=== PATIENT | male | born 1950 | race Caucasian/White ===

== ENCOUNTER 2017-08-30 11:31 | Inpatient (IN) | payer MEDICAID, MEDICARE ==
[2017-08-30] MEDS ORDERED: Bisacodyl 10 MG Supp RECTAL PRN (14:30)
[2017-08-30] MEDS ORDERED: Calcium Carbonate 500 MG Tab.Chew PO PRN (14:30)
[2017-08-30] MEDS ORDERED: guaiFENesin 600 MG Tab.ER PO PRN (14:37)
[2017-08-30] MEDS ORDERED: Albuterol 90 MCG/6.7 GM Inhaler INH PRN (14:37)
[2017-08-30] MEDS ORDERED: Nitroglycerin 0.4 MG Tab.SL SL PRN (14:45)
--- NOTE | 2017-08-30 14:50 | PCM.HP ---
H&P History of Present Illness - General Date of Service: 08/30/17 Admit Problem/Dx: Admission Diagnosis/Problem Admission Diagnosis/Problem Intracranial hemorrhage Source of Information: Patient, Old Records History Limitations: Reports: No Limitations - History of Present Illness Initial Comments - Free Text/Narative: Patient is being admitted to half-way [facility]. He had a mechanical fall down the stairs on 08-26-17. He was diagnosed with left intraparenchymal and subarachnoid hemorrhage, right rib fracture 3 to 6, right pulmonary contusion, and right clavicle fracture. He has noted bruising on his right ear. He has a hx of spinal canal stenosis. After review of chart, I will hold the lovenox secondary to potential for worsening of intracranial bleed from falling down the stairs. At this time patient denies shortness of breath, chest pain, and abdominal pain. Patient does have right clavicle and rib pain. Patient does have hx of diabetes and is on metformin for this. He also has a hx of hypertension and CAD. There is question on hx of patient having hx of IA. Patient being admitted for PT/OT strengthening, pain control, and monitoring. Symptom Onset Date: 08/26/17 Duration of Symptoms: Reports: Day(s): Location: Reports: Head, Chest, Back Quality: Reports: Ache Improves with: Reports: Immobilization Worsens with: Reports: Movement - Related Data Allergies/Adverse Reactions: Allergies Allergy/AdvReac Type Severity Reaction Status Date / Time lisinopril Allergy Anaphylactic Verified 08/30/17 14:35 Shock Home Medications: Home Meds Acetaminophen 1,000 mg PO Q8H 08/30/17 [History] Albuterol [Proventil HFA] 2 puff INH Q6H PRN 08/30/17 [History] Aspirin [Halfprin] 81 mg PO DAILY 08/30/17 [History] Capsaicin [Theragen] 1 applic TP BID PRN 08/30/17 [History] Cholecalciferol (Vitamin D3) [Vitamin D3] 5,000 units PO DAILY 08/30/17 [History ] Cyclobenzaprine [Flexeril] 10 mg PO BID PRN 08/30/17 [History] DULoxetine [Cymbalta] 30 mg PO DAILY 08/30/17 [History] Diclofenac Sodium [Voltaren 1% Gel] 2 gm TP BID PRN 08/30/17 [History] Enoxaparin [Lovenox] 40 mg SQ DAILYX7 08/30/17 [History] Folic Acid/Multivit-Min/Lutein [Multi-Vitamin Gummies] 1 each PO DAILY 08/30/17 [History] Gabapentin [Neurontin] 800 mg PO BID 08/30/17 [History] Isosorbide Mononitrate [Imdur] 30 mg PO DAILY 08/30/17 [History] Lidocaine 5% [Lidoderm 5%] 1 patch TP DAILY PRN 08/30/17 [History] Metoprolol Tartrate 100 mg PO DAILY 08/30/17 [History] Nitroglycerin [Nitrostat] 0.4 mg SL ASDIRECTED 08/30/17 [History] Haiku-3/DHA/Epa/Fish Oil [Haiku 3 500 Softgel] 1,000 mg PO DAILY 08/30/17 [ History] Omeprazole 20 mg PO DAILY 08/30/17 [History] Sennosides/Docusate Sodium [Senna-Docusate Sodium] 1 tab PO BID 08/30/17 [ History] Tamsulosin [Flomax] 0.4 mg PO BEDTIME 08/30/17 [History] atorvaSTATin [Lipitor] 40 mg PO BEDTIME 08/30/17 [History] guaiFENesin [Mucinex] 1,200 mg PO BID PRN 08/30/17 [History] metFORMIN [Glucophage] 1,000 mg PO BIDMEALS 08/30/17 [History] oxyCODONE 5 mg PO Q4HR PRN 08/30/17 [History] oxyCODONE 10 mg PO Q4HR PRN 08/30/17 [History] traZODone 100 mg PO BEDTIME 08/30/17 [History] Past Medical History Cardiovascular History: Reports: CAD, Heart Failure, Hypertension Musculoskeletal History: Reports: Arthritis Neurological History: Reports: Other (See Below) Other Neuro History: headaches Endocrine/Metabolic History: Reports: Diabetes, Type II - Past Surgical History Cardiovascular Surgical History: Reports: Coronary Artery Bypass Social & Family History - Tobacco Use Smoking Status *Q: Former Smoker Packs/Tins Daily: 2 Used Tobacco, but Quit: Yes H&P Review of Systems - Review of Systems: Review Of Systems: See Below General: Reports: Weakness, Fatigue HEENT: Reports: No Symptoms Pulmonary: Reports: No Symptoms Cardiovascular: Reports: No Symptoms Gastrointestinal: Reports: Constipation (PRN suppository order, Miralax ordered PRN as well) Genitourinary: Reports: No Symptoms Musculoskeletal: Reports: Arm Pain (r clavicle), Back Pain (chronic) Skin: Reports: Bruising (on right ear with hematoma ecchymosis) Psychiatric: Reports: No Symptoms Neurological: Reports: No Symptoms Hematologic/Lymphatic: Reports: No Symptoms Immunologic: Reports: No Symptoms Exam - Exam Exam: See Below - Exam General: Alert, Oriented, 4 HEENT: PERRLA, Hearing Intact, Mucosa Moist & [place], Nares Patent, Normal Nasal Septum, Posterior Pharynx Clear, Conjunctiva Clear, EOMI, EACs Clear, TMs Clear Neck: Supple, Trachea Midline, 2 Lungs: Clear to Auscultation, Normal Respiratory Effort Cardiovascular: Regular Rate, Regular Rhythm GI/Abdominal Exam: Normal Bowel Sounds, Soft, Non-Tender, No Organomegaly, No Distention, No Abnormal Bruit, No Mass, Pelvis Stable (Male) Exam: Deferred Rectal (Males) Exam: Deferred Back Exam: Decreased Range of Motion (with pain) Extremities: Arm Pain (right clavicle and chest wall related to rib fracture from fall) Skin: Ecchymosis (right ear) Neurological: Cranial Nerves Intact, Reflexes Equal Bilateral Neuro Extensive - Mental Status: Alert, Oriented x3 Psychiatric: Alert, Normal Affect, Normal Mood *Q Meaningful Use (ADM) - VTE *Q VTE Criteria *Q: VTE Anticoagulation Contraindications: Medical/Procedure Contrai - Stroke *Q Stroke Criteria *Q: - AMI *Q AMI Criteria *Q: - Problem List (1) Status post fall SNOMED Code(s): 874158324 ICD Code: Z91.81 - HISTORY OF FALLING Status: Acute Current Visit: Yes Problem Details: Fell down stairs on 08-26-17 (2) Intracranial bleed SNOMED Code(s): 9974847 ICD Code: I62.9 - NONTRAUMATIC INTRACRANIAL HEMORRHAGE, UNSPECIFIED Status : Acute Current Visit: Yes Problem Details: Stable at this time. Will hold lovenox therapy. Patient on daily low aspirin (3) Right clavicle fracture SNOMED Code(s): 40034491 ICD Code: S42.001A - FRACTURE OF UNSP PART OF RIGHT CLAVICLE, INIT FOR CLOS FX Status: Acute Current Visit: Yes Problem Details: Patient currently wearing right sling Qualifiers: Encounter type: initial encounter Clavicle location: unspecified part of clavicle Fracture type: closed Fracture alignment: nondisplaced Qualified Code(s): S42.001A - Fracture of unspecified part of right clavicle, initial encounter for closed fracture (4) Ribs, multiple fractures SNOMED Code(s): 1696447 ICD Code: S22.49XA - MULTIPLE FRACTURES OF RIBS, UNSP SIDE, INIT FOR CLOS FX Status: Acute Current Visit: Yes Problem Details: Denies SOB at this time. Patient does report pain. Qualifiers: Encounter type: initial encounter Fracture type: closed Laterality: right Qualified Code(s): S22.41XA - Multiple fractures of ribs, right side, initial encounter for closed fracture (5) Diabetes SNOMED Code(s): 18040707 ICD Code: E11.9 - TYPE 2 DIABETES MELLITUS WITHOUT COMPLICATIONS Status: Acute Current Visit: Yes Problem Details: Patient currently taking metformin. Will continue regimen. Qualifiers: Diabetes mellitus type: type 2 Diabetes mellitus complication status: without complication Diabetes mellitus manager terminal insulin use: without manager terminal use Qualified Code(s): E11.9 - Type 2 diabetes mellitus without complications (6) Hypertension SNOMED Code(s): 32661661 ICD Code: I10 - ESSENTIAL (PRIMARY) HYPERTENSION Status: Acute Current Visit: Yes Problem Details: Vitals ordered daily for monitoring. Qualifiers: Hypertension type: unspecified Qualified Code(s): I10 - Essential (primary ) hypertension Problem List Initiated/Reviewed/Updated: Yes Orders Last 24hrs: Active Orders 24 hr Category Date Time Status Patient Status [ADT] Routine ADT 08/30/17 14:30 Active Ambulate [RC] ASDIRECTED Care 08/30/17 14:30 Ordered Antiembolic Devices [RC] PER UNIT ROUTINE Care 08/30/17 14:34 Ordered Height and Weight [RC] PER UNIT ROUTINE Care 08/30/17 14:33 Ordered Oxygen Therapy [RC] PRN Care 08/30/17 14:30 Ordered Up With Assistance [RC] ASDIRECTED Care 08/30/17 14:30 Ordered VTE/DVT Education [RC] PER UNIT ROUTINE Care 08/30/17 14:30 Ordered Vital Signs [RC] DAILY Care 08/30/17 14:30 Ordered Consult to Case Management [CONS] Routine Cons 08/30/17 14:30 Ordered OT Evaluation and Treatment [CONS] Routine Cons 08/30/17 14:30 Ordered PT Evaluation and Treatment [CONS] Routine Cons 08/30/17 14:30 Ordered ADA Diabetic [[place] [employer] Diet] [DIET Diet 08/30/17 Dinner Ordered ] Acetaminophen [Tylenol Extra Strength] Med 08/30/17 14:45 Ordered 1,000 mg PO Q8H Albuterol [Proventil HFA] Med 08/30/17 14:37 Ordered 2 puff INH Q6H PRN Aspirin [Halfprin] Med 08/31/17 08:00 Ordered 81 mg PO DAILY Bisacodyl [Dulcolax] Med 08/30/17 14:30 Ordered 10 mg RECTAL DAILY PRN Calcium Carbonate [Tums] Med 08/30/17 14:30 Ordered 500 mg PO Q2HR PRN Capsaicin [Theragen] Med 08/30/17 14:37 Ordered 1 applic TP BID PRN Cholecalciferol (Vitamin D3) [Vitamin D3] Med 08/31/17 08:00 Ordered 5,000 units PO DAILY Cyclobenzaprine [Flexeril] Med 08/30/17 14:37 Ordered 10 mg PO BID PRN DULoxetine [Cymbalta] Med 08/31/17 08:00 Ordered 30 mg PO DAILY Diclofenac Sodium [Voltaren 1% Gel] Med 08/30/17 14:37 Ordered 2 gm TP BID PRN Docusate Sodium/Sennosides [Senna Plus] Med 08/30/17 18:00 Ordered 1 tab PO BID Folic Acid/Multivit-Min/Lutein [Multi-Vitamin Gummies] Med 08/31/17 08:00 Ordered 1 each PO DAILY Gabapentin Med 08/30/17 18:00 Ordered 800 mg PO BID Isosorbide Mononitrate [Imdur] Med 08/31/17 08:00 Ordered 30 mg PO DAILY Lidocaine 5% [Lidoderm 5%] Med 08/31/17 08:00 Ordered 1 patch TRDERM DAILY Metoprolol Tartrate Med 08/31/17 08:00 Ordered 100 mg PO DAILY Nitroglycerin [Nitrostat] Med 08/30/17 14:45 Ordered 0.4 mg SL ASDIRECTED Haiku-3/DHA/Epa/Fish Oil [Haiku 3 500 Softgel] Med 08/31/17 08:00 Ordered 1,000 mg PO DAILY Omeprazole Med 08/31/17 08:00 Ordered 20 mg PO DAILY Polyethylene Glycol 3350 [MiraLAX] Med 08/30/17 14:30 Ordered 17 gm PO DAILY PRN Tamsulosin [Flomax] Med 08/30/17 20:00 Ordered 0.4 mg PO BEDTIME atorvaSTATin [Lipitor] Med 08/30/17 20:00 Ordered 40 mg PO BEDTIME guaiFENesin [Mucinex] Med 08/30/17 14:37 Ordered 1,200 mg PO BID PRN metFORMIN [Glucophage] Med 08/30/17 17:30 Ordered 1,000 mg PO BIDMEALS oxyCODONE Med 08/30/17 14:37 Ordered 5 mg PO Q4HR PRN traZODone Med 08/30/17 20:00 Ordered 100 mg PO BEDTIME Anticoagulation Contraindications VTE [AST] Routine Oth 08/30/17 14:30 Ordered Antiembolic Hose [OM.PC] Routine Oth 08/30/17 14:30 Ordered Resuscitation Status Routine Resus Stat 08/30/17 14:30 Ordered Medication Orders Acetaminophen (Tylenol Extra Strength) 1,000 mg PO Q8H NORM Albuterol (Proventil Hfa) 2 puff INH Q6H PRN PRN Reason: Shortness of Breath Aspirin (Halfprin) 81 mg PO DAILY NORM Atorvastatin Calcium (Lipitor) 40 mg PO BEDTIME NORM Bisacodyl (Dulcolax) 10 mg RECTAL DAILY PRN PRN Reason: Constipation Calcium Carbonate/Glycine (Tums) 500 mg PO Q2HR PRN PRN Reason: Nausea Cyclobenzaprine HCl (Flexeril) 10 mg PO BID PRN PRN Reason: Muscle Spasm Duloxetine HCl (Cymbalta) 30 mg PO DAILY NORM Guaifenesin (Mucinex) 1,200 mg PO BID PRN PRN Reason: Cough Isosorbide Mononitrate (Imdur) 30 mg PO DAILY NORM Lidocaine (Lidoderm 5%) mg TRDERM DAILY NORM Metformin HCl (Glucophage) 1,000 mg PO BIDMEALS NORM Nitroglycerin (Nitrostat) 0.4 mg SL ASDIRECTED NORM Non-Formulary Medication (Capsaicin [Theragen]) 1 applic TP BID PRN PRN Reason: Pain Non-Formulary Medication (Cholecalciferol (Vitamin D3) [Vitamin D3]) 5,000 units PO DAILY NORM Non-Formulary Medication (Diclofenac Sodium [Voltaren 1% Gel]) 2 gm TP BID PRN PRN Reason: Pain Non-Formulary Medication (Folic Acid/Multivit-Min/Lutein [Multi-Vitamin Gummies] ) 1 each PO DAILY NORM Non-Formulary Medication (Gabapentin) 800 mg PO BID NORM Non-Formulary Medication (Metoprolol Tartrate) 100 mg PO DAILY [facility] Non-Formulary Medication (Haiku-3/Dha/Epa/Fish Oil [Haiku 3 500 Softgel]) 1, 000 mg PO DAILY NORM Omeprazole (Omeprazole) 20 mg PO DAILY NORM Oxycodone HCl (Oxycodone) 5 mg PO Q4HR PRN PRN Reason: Pain Polyethylene Glycol (Miralax) 17 gm PO DAILY PRN PRN Reason: Constipation Senna/Docusate Sodium (Senna Plus) 1 tab PO BID [facility] Tamsulosin HCl (Flomax) 0.4 mg PO BEDTIME NORM Trazodone HCl (Trazodone) 100 mg PO BEDTIME [facility] Assessment/Plan Comment:: See above.
[2017-08-30] MEDS: oxyCODONE 5 MG Tab PO PRN ×2 (15:49→19:52)
[2017-08-30] MEDS: Polyethylene Glycol 3350 Powder 17 GM Packet PO PRN (16:01)
[2017-08-30] MEDS: Acetaminophen 500 MG Tab PO SCH (17:39)
[2017-08-30] MEDS: Gabapentin 400 MG Cap PO SCH (17:43)
[2017-08-30] MEDS: metFORMIN 500 MG Tab PO SCH (17:43)
[2017-08-30] MEDS: Tamsulosin 0.4 MG Cap.ER PO SCH (19:51)
[2017-08-30] MEDS: atorvaSTATin 40 MG Tab PO SCH (19:52)
[2017-08-30] MEDS: traZODone 50 MG Tab PO SCH (19:52)
[2017-08-31] MEDS: oxyCODONE 5 MG Tab PO PRN ×6 (00:43→21:29)
[2017-08-31] MEDS: Acetaminophen 500 MG Tab PO SCH ×3 (07:49→17:15)
[2017-08-31] MEDS: Gabapentin 400 MG Cap PO SCH ×2 (07:50→17:15)
[2017-08-31] MEDS: Omeprazole 20 MG Cap.CR PO SCH (07:51)
[2017-08-31] MEDS: Aspirin 81 MG Tab.EC PO SCH (07:51)
[2017-08-31] MEDS: DULoxetine 30 MG Cap PO SCH (07:52)
[2017-08-31] MEDS: Fish Oil/Omega-3 Fatty Acids 1 Gm Cap PO SCH (07:52)
[2017-08-31] MEDS: Cholecalciferol (Vitamin D3) 1,000 Unit Tab PO SCH (07:53)
[2017-08-31] MEDS: metFORMIN 500 MG Tab PO SCH ×2 (07:54→17:14)
[2017-08-31] MEDS: Metoprolol Tartrate 50 MG Tab PO SCH (07:54)
[2017-08-31] MEDS: Isosorbide Mononitrate 30 MG Tab.ER PO SCH (07:55)
[2017-08-31] MEDS: Multivitamins with Iron and Minerals Tab.Chew PO SCH (07:56)
[2017-08-31] MEDS: Cyclobenzaprine 10 MG Tab PO PRN ×2 (09:32→19:44)
[2017-08-31] MEDS: Lidocaine 5% 700 MG Patch TRDERM PRN (17:41)
[2017-08-31] MEDS: traZODone 50 MG Tab PO SCH (19:44)
[2017-08-31] MEDS: Tamsulosin 0.4 MG Cap.ER PO SCH (19:44)
[2017-08-31] MEDS: atorvaSTATin 40 MG Tab PO SCH (19:44)
[2017-09-01] MEDS: oxyCODONE 5 MG Tab PO PRN ×6 (01:50→22:02)
[2017-09-01] MEDS: Fish Oil/Omega-3 Fatty Acids 1 Gm Cap PO SCH (07:16)
[2017-09-01] MEDS: metFORMIN 500 MG Tab PO SCH ×2 (07:18→17:11)
[2017-09-01] MEDS: Gabapentin 400 MG Cap PO SCH ×2 (07:19→17:11)
[2017-09-01] MEDS: Metoprolol Tartrate 50 MG Tab PO SCH (07:19)
[2017-09-01] MEDS: DULoxetine 30 MG Cap PO SCH (07:20)
[2017-09-01] MEDS: Aspirin 81 MG Tab.EC PO SCH (07:21)
[2017-09-01] MEDS: Isosorbide Mononitrate 30 MG Tab.ER PO SCH (07:21)
[2017-09-01] MEDS: Omeprazole 20 MG Cap.CR PO SCH (07:21)
[2017-09-01] MEDS: Cholecalciferol (Vitamin D3) 1,000 Unit Tab PO SCH (07:22)
[2017-09-01] MEDS: Acetaminophen 500 MG Tab PO SCH ×3 (07:23→17:12)
[2017-09-01] MEDS: Multivitamins with Iron and Minerals Tab.Chew PO SCH (07:26)
[2017-09-01] MEDS: Polyethylene Glycol 3350 Powder 17 GM Packet PO PRN (07:27)
[2017-09-01] MEDS: Lidocaine 5% 700 MG Patch TRDERM PRN (07:38)
[2017-09-01] MEDS: Magnesium Hydroxide 400 MG/5 ML Susp 30 ML Cup PO PRN (17:29)
[2017-09-01] MEDS: CAPSAICIN 0.1% TP PRN (19:23)
[2017-09-01] MEDS: traZODone 50 MG Tab PO SCH (19:23)
[2017-09-01] MEDS: DICLOFENAC 1% TP PRN (19:23)
[2017-09-01] MEDS: Cyclobenzaprine 10 MG Tab PO PRN (19:23)
[2017-09-01] MEDS: Tamsulosin 0.4 MG Cap.ER PO SCH (19:23)
[2017-09-01] MEDS: atorvaSTATin 40 MG Tab PO SCH (19:23)
[2017-09-02] MEDS: oxyCODONE 5 MG Tab PO PRN ×5 (02:37→20:12)
[2017-09-02] MEDS: Acetaminophen 500 MG Tab PO SCH ×3 (07:28→17:46)
[2017-09-02] MEDS: Metoprolol Tartrate 50 MG Tab PO SCH (07:28)
[2017-09-02] MEDS: Fish Oil/Omega-3 Fatty Acids 1 Gm Cap PO SCH (07:28)
[2017-09-02] MEDS: Gabapentin 400 MG Cap PO SCH ×2 (07:28→17:46)
[2017-09-02] MEDS: Cholecalciferol (Vitamin D3) 1,000 Unit Tab PO SCH (07:28)
[2017-09-02] MEDS: metFORMIN 500 MG Tab PO SCH ×2 (07:29→17:46)
[2017-09-02] MEDS: Isosorbide Mononitrate 30 MG Tab.ER PO SCH (07:29)
[2017-09-02] MEDS: Omeprazole 20 MG Cap.CR PO SCH (07:29)
[2017-09-02] MEDS: Multivitamins with Iron and Minerals Tab.Chew PO SCH (07:29)
[2017-09-02] MEDS: Aspirin 81 MG Tab.EC PO SCH (07:29)
[2017-09-02] MEDS: DULoxetine 30 MG Cap PO SCH (07:29)
[2017-09-02] MEDS: Lidocaine 5% 700 MG Patch TOP SCH (07:30)
[2017-09-02] MEDS: DICLOFENAC 1% TP PRN (08:36)
[2017-09-02] MEDS: Tamsulosin 0.4 MG Cap.ER PO SCH (20:12)
[2017-09-02] MEDS: atorvaSTATin 40 MG Tab PO SCH (20:12)
[2017-09-02] MEDS: traZODone 50 MG Tab PO SCH (20:14)
[2017-09-03] MEDS: oxyCODONE 5 MG Tab PO PRN ×7 (00:10→23:55)
[2017-09-03] MEDS: CAPSAICIN 0.1% TP PRN (04:20)
[2017-09-03] MEDS: Metoprolol Tartrate 50 MG Tab PO SCH (07:44)
[2017-09-03] MEDS: Isosorbide Mononitrate 30 MG Tab.ER PO SCH (07:44)
[2017-09-03] MEDS: Aspirin 81 MG Tab.EC PO SCH (07:44)
[2017-09-03] MEDS: Acetaminophen 500 MG Tab PO SCH ×3 (07:44→17:06)
[2017-09-03] MEDS: metFORMIN 500 MG Tab PO SCH ×2 (07:44→17:06)
[2017-09-03] MEDS: Fish Oil/Omega-3 Fatty Acids 1 Gm Cap PO SCH (07:44)
[2017-09-03] MEDS: DULoxetine 30 MG Cap PO SCH (07:45)
[2017-09-03] MEDS: Gabapentin 400 MG Cap PO SCH ×2 (07:45→17:06)
[2017-09-03] MEDS: Omeprazole 20 MG Cap.CR PO SCH (07:45)
[2017-09-03] MEDS: Cyclobenzaprine 10 MG Tab PO PRN ×2 (07:45→20:15)
[2017-09-03] MEDS: Cholecalciferol (Vitamin D3) 1,000 Unit Tab PO SCH (07:45)
[2017-09-03] MEDS: Multivitamins with Iron and Minerals Tab.Chew PO SCH (07:45)
[2017-09-03] MEDS: Lidocaine 5% 700 MG Patch TOP SCH (07:46)
[2017-09-03] MEDS: traZODone 50 MG Tab PO SCH (20:15)
[2017-09-03] MEDS: Tamsulosin 0.4 MG Cap.ER PO SCH (20:15)
[2017-09-03] MEDS: atorvaSTATin 40 MG Tab PO SCH (20:15)
[2017-09-04] MEDS: oxyCODONE 5 MG Tab PO PRN ×5 (03:57→20:14)
[2017-09-04] MEDS: Gabapentin 400 MG Cap PO SCH ×2 (07:39→17:04)
[2017-09-04] MEDS: Fish Oil/Omega-3 Fatty Acids 1 Gm Cap PO SCH (07:39)
[2017-09-04] MEDS: DULoxetine 30 MG Cap PO SCH (07:40)
[2017-09-04] MEDS: Metoprolol Tartrate 50 MG Tab PO SCH (07:40)
[2017-09-04] MEDS: Aspirin 81 MG Tab.EC PO SCH (07:41)
[2017-09-04] MEDS: Cholecalciferol (Vitamin D3) 1,000 Unit Tab PO SCH (07:41)
[2017-09-04] MEDS: metFORMIN 500 MG Tab PO SCH ×2 (07:41→17:04)
[2017-09-04] MEDS: Omeprazole 20 MG Cap.CR PO SCH (07:42)
[2017-09-04] MEDS: Isosorbide Mononitrate 30 MG Tab.ER PO SCH (07:43)
[2017-09-04] MEDS: Acetaminophen 500 MG Tab PO SCH ×4 (07:43→17:04)
[2017-09-04] MEDS: Multivitamins with Iron and Minerals Tab.Chew PO SCH (07:43)
[2017-09-04] MEDS: Lidocaine 5% 700 MG Patch TOP SCH (07:46)
[2017-09-04] MEDS: Cyclobenzaprine 10 MG Tab PO PRN ×2 (09:53→20:13)
[2017-09-04] MEDS ORDERED: Gabapentin 100 MG Cap PO ONE (20:00)
[2017-09-04] MEDS: Tamsulosin 0.4 MG Cap.ER PO SCH (20:13)
[2017-09-04] MEDS: traZODone 50 MG Tab PO SCH (20:13)
[2017-09-04] MEDS: atorvaSTATin 40 MG Tab PO SCH (20:13)
[2017-09-05] MEDS: oxyCODONE 5 MG Tab PO PRN ×6 (01:23→22:53)
[2017-09-05] MEDS: Cholecalciferol (Vitamin D3) 1,000 Unit Tab PO SCH (08:14)
[2017-09-05] MEDS: metFORMIN 500 MG Tab PO SCH ×2 (08:15→17:20)
[2017-09-05] MEDS: Gabapentin 300 MG Cap PO SCH ×3 (08:16→19:28)
[2017-09-05] MEDS: Fish Oil/Omega-3 Fatty Acids 1 Gm Cap PO SCH (08:17)
[2017-09-05] MEDS: Acetaminophen 500 MG Tab PO SCH ×3 (08:18→17:21)
[2017-09-05] MEDS: Metoprolol Tartrate 50 MG Tab PO SCH (08:21)
[2017-09-05] MEDS: Omeprazole 20 MG Cap.CR PO SCH (08:21)
[2017-09-05] MEDS: Aspirin 81 MG Tab.EC PO SCH (08:22)
[2017-09-05] MEDS: DULoxetine 30 MG Cap PO SCH (08:22)
[2017-09-05] MEDS: Isosorbide Mononitrate 30 MG Tab.ER PO SCH (08:22)
[2017-09-05] MEDS: Lidocaine 5% 700 MG Patch TOP SCH (08:22)
[2017-09-05] MEDS: Cyclobenzaprine 10 MG Tab PO PRN ×2 (08:49→19:29)
[2017-09-05] MEDS: Multivitamins with Iron and Minerals Tab.Chew PO SCH (08:56)
--- NOTE | 2017-09-05 10:03 | PCM.SN ---
- Free Text/Narrative Note: Patient seen at the request of nurses on 09/04/17. at this time we discussed pain control patient states that he is about as comfortable as can be he rates his pain at 6-7 out of 10 and this is not unusual for him at this time he states that he feels best when he is not moving and his legs are elevated around 10 I reviewed patient's pain control and we feel that is adequate and patient is right now feeling fairly comfortable also stated that the nurses are always on top of it and controlling his pain as needed.
[2017-09-05] MEDS: CAPSAICIN 0.1% TP PRN (11:35)
[2017-09-05] MEDS: Magnesium Hydroxide 400 MG/5 ML Susp 30 ML Cup PO PRN (17:21)
[2017-09-05] MEDS: atorvaSTATin 40 MG Tab PO SCH (19:28)
[2017-09-05] MEDS: traZODone 50 MG Tab PO SCH (19:28)
[2017-09-05] MEDS: Tamsulosin 0.4 MG Cap.ER PO SCH (19:29)
[2017-09-06] MEDS: Cyclobenzaprine 10 MG Tab PO PRN ×2 (01:53→09:37)
[2017-09-06] MEDS: oxyCODONE 5 MG Tab PO PRN ×5 (03:01→20:50)
[2017-09-06] MEDS: Cholecalciferol (Vitamin D3) 1,000 Unit Tab PO SCH (07:34)
[2017-09-06] MEDS: Fish Oil/Omega-3 Fatty Acids 1 Gm Cap PO SCH (07:35)
[2017-09-06] MEDS: Acetaminophen 500 MG Tab PO SCH ×3 (07:35→17:19)
[2017-09-06] MEDS: Aspirin 81 MG Tab.EC PO SCH (07:35)
[2017-09-06] MEDS: Omeprazole 20 MG Cap.CR PO SCH (07:35)
[2017-09-06] MEDS: Isosorbide Mononitrate 30 MG Tab.ER PO SCH (07:35)
[2017-09-06] MEDS: DULoxetine 30 MG Cap PO SCH (07:35)
[2017-09-06] MEDS: metFORMIN 500 MG Tab PO SCH ×2 (07:35→17:19)
[2017-09-06] MEDS: Gabapentin 300 MG Cap PO SCH ×3 (07:36→20:50)
[2017-09-06] MEDS: Metoprolol Tartrate 50 MG Tab PO SCH (07:36)
[2017-09-06] MEDS: Lidocaine 5% 700 MG Patch TOP SCH (07:40)
[2017-09-06] MEDS: Multivitamins with Iron and Minerals Tab.Chew PO SCH (07:58)
[2017-09-06] MEDS: traZODone 50 MG Tab PO SCH (20:50)
[2017-09-06] MEDS: atorvaSTATin 40 MG Tab PO SCH (20:50)
[2017-09-06] MEDS: Tamsulosin 0.4 MG Cap.ER PO SCH (20:50)
[2017-09-07] MEDS: oxyCODONE 5 MG Tab PO PRN ×5 (02:51→23:18)
[2017-09-07] MEDS: Cholecalciferol (Vitamin D3) 1,000 Unit Tab PO SCH (07:38)
[2017-09-07] MEDS: Fish Oil/Omega-3 Fatty Acids 1 Gm Cap PO SCH (07:38)
[2017-09-07] MEDS: DULoxetine 30 MG Cap PO SCH (07:40)
[2017-09-07] MEDS: Metoprolol Tartrate 50 MG Tab PO SCH (07:40)
[2017-09-07] MEDS: Omeprazole 20 MG Cap.CR PO SCH (07:40)
[2017-09-07] MEDS: Isosorbide Mononitrate 30 MG Tab.ER PO SCH (07:40)
[2017-09-07] MEDS: Acetaminophen 500 MG Tab PO SCH ×3 (07:41→17:10)
[2017-09-07] MEDS: Aspirin 81 MG Tab.EC PO SCH (07:41)
[2017-09-07] MEDS: metFORMIN 500 MG Tab PO SCH ×2 (07:42→17:11)
[2017-09-07] MEDS: Gabapentin 300 MG Cap PO SCH ×3 (07:42→19:17)
[2017-09-07] MEDS: Lidocaine 5% 700 MG Patch TOP SCH (07:42)
[2017-09-07] MEDS: Multivitamins with Iron and Minerals Tab.Chew PO SCH (07:42)
[2017-09-07] MEDS: Cyclobenzaprine 10 MG Tab PO PRN ×2 (11:46→17:13)
[2017-09-07] MEDS: Tamsulosin 0.4 MG Cap.ER PO SCH (19:17)
[2017-09-07] MEDS: atorvaSTATin 40 MG Tab PO SCH (19:17)
[2017-09-07] MEDS: traZODone 50 MG Tab PO SCH (19:18)
[2017-09-08] MEDS: oxyCODONE 5 MG Tab PO PRN ×4 (03:17→21:49)
[2017-09-08] MEDS: Cholecalciferol (Vitamin D3) 1,000 Unit Tab PO SCH (07:31)
[2017-09-08] MEDS: Fish Oil/Omega-3 Fatty Acids 1 Gm Cap PO SCH (07:31)
[2017-09-08] MEDS: Multivitamins with Iron and Minerals Tab.Chew PO SCH (07:32)
[2017-09-08] MEDS: metFORMIN 500 MG Tab PO SCH ×2 (07:32→17:07)
[2017-09-08] MEDS: Acetaminophen 500 MG Tab PO SCH ×3 (07:33→17:07)
[2017-09-08] MEDS: Aspirin 81 MG Tab.EC PO SCH (07:33)
[2017-09-08] MEDS: DULoxetine 30 MG Cap PO SCH (07:33)
[2017-09-08] MEDS: Gabapentin 300 MG Cap PO SCH ×3 (07:33→21:47)
[2017-09-08] MEDS: Metoprolol Tartrate 50 MG Tab PO SCH (07:34)
[2017-09-08] MEDS: Isosorbide Mononitrate 30 MG Tab.ER PO SCH (07:35)
[2017-09-08] MEDS: Lidocaine 5% 700 MG Patch TOP SCH (07:35)
[2017-09-08] MEDS: Omeprazole 20 MG Cap.CR PO SCH (07:35)
[2017-09-08] MEDS: Cyclobenzaprine 10 MG Tab PO PRN (17:55)
[2017-09-08] MEDS: Tamsulosin 0.4 MG Cap.ER PO SCH (21:46)
[2017-09-08] MEDS: atorvaSTATin 40 MG Tab PO SCH (21:46)
[2017-09-08] MEDS: traZODone 50 MG Tab PO SCH (21:48)
[2017-09-09] MEDS: oxyCODONE 5 MG Tab PO PRN ×5 (04:00→20:03)
[2017-09-09] MEDS: DULoxetine 30 MG Cap PO SCH (07:42)
[2017-09-09] MEDS: Multivitamins with Iron and Minerals Tab.Chew PO SCH (07:42)
[2017-09-09] MEDS: Isosorbide Mononitrate 30 MG Tab.ER PO SCH (07:42)
[2017-09-09] MEDS: Fish Oil/Omega-3 Fatty Acids 1 Gm Cap PO SCH (07:42)
[2017-09-09] MEDS: Aspirin 81 MG Tab.EC PO SCH (07:43)
[2017-09-09] MEDS: Gabapentin 300 MG Cap PO SCH ×3 (07:43→19:57)
[2017-09-09] MEDS: Metoprolol Tartrate 50 MG Tab PO SCH (07:43)
[2017-09-09] MEDS: Omeprazole 20 MG Cap.CR PO SCH (07:44)
[2017-09-09] MEDS: metFORMIN 500 MG Tab PO SCH ×2 (07:44→17:36)
[2017-09-09] MEDS: Cholecalciferol (Vitamin D3) 1,000 Unit Tab PO SCH (07:45)
[2017-09-09] MEDS: Cyclobenzaprine 10 MG Tab PO PRN ×3 (07:46→22:35)
[2017-09-09] MEDS: Acetaminophen 500 MG Tab PO SCH ×3 (07:46→17:36)
[2017-09-09] MEDS: Lidocaine 5% 700 MG Patch TOP SCH (07:48)
[2017-09-09] MEDS: Tamsulosin 0.4 MG Cap.ER PO SCH (19:57)
[2017-09-09] MEDS: traZODone 50 MG Tab PO SCH (19:57)
[2017-09-09] MEDS: atorvaSTATin 40 MG Tab PO SCH (19:57)
[2017-09-10] MEDS: oxyCODONE 5 MG Tab PO PRN ×4 (01:19→23:24)
[2017-09-10] MEDS: Fish Oil/Omega-3 Fatty Acids 1 Gm Cap PO SCH (07:19)
[2017-09-10] MEDS: Cholecalciferol (Vitamin D3) 1,000 Unit Tab PO SCH (07:20)
[2017-09-10] MEDS: Aspirin 81 MG Tab.EC PO SCH (07:21)
[2017-09-10] MEDS: Metoprolol Tartrate 50 MG Tab PO SCH (07:21)
[2017-09-10] MEDS: Gabapentin 300 MG Cap PO SCH ×3 (07:22→19:42)
[2017-09-10] MEDS: metFORMIN 500 MG Tab PO SCH ×2 (07:22→17:25)
[2017-09-10] MEDS: Multivitamins with Iron and Minerals Tab.Chew PO SCH (07:22)
[2017-09-10] MEDS: Lidocaine 5% 700 MG Patch TOP SCH (07:23)
[2017-09-10] MEDS: Cyclobenzaprine 10 MG Tab PO PRN ×2 (07:23→17:24)
[2017-09-10] MEDS: Acetaminophen 500 MG Tab PO SCH ×3 (07:24→17:24)
[2017-09-10] MEDS: Isosorbide Mononitrate 30 MG Tab.ER PO SCH (07:24)
[2017-09-10] MEDS: DULoxetine 30 MG Cap PO SCH (07:25)
[2017-09-10] MEDS: Omeprazole 20 MG Cap.CR PO SCH (07:25)
[2017-09-10] MEDS: Tamsulosin 0.4 MG Cap.ER PO SCH (19:42)
[2017-09-10] MEDS: atorvaSTATin 40 MG Tab PO SCH (19:42)
[2017-09-10] MEDS: traZODone 50 MG Tab PO SCH (19:42)
[2017-09-11] MEDS: Cyclobenzaprine 10 MG Tab PO PRN (03:07)
[2017-09-11] MEDS: oxyCODONE 5 MG Tab PO PRN ×5 (03:07→23:23)
[2017-09-11] MEDS: Acetaminophen 500 MG Tab PO SCH ×3 (07:44→17:13)
[2017-09-11] MEDS: Isosorbide Mononitrate 30 MG Tab.ER PO SCH (07:44)
[2017-09-11] MEDS: Aspirin 81 MG Tab.EC PO SCH (07:44)
[2017-09-11] MEDS: Fish Oil/Omega-3 Fatty Acids 1 Gm Cap PO SCH (07:44)
[2017-09-11] MEDS: Metoprolol Tartrate 50 MG Tab PO SCH (07:45)
[2017-09-11] MEDS: Gabapentin 300 MG Cap PO SCH ×3 (07:45→19:01)
[2017-09-11] MEDS: metFORMIN 500 MG Tab PO SCH ×2 (07:46→17:13)
[2017-09-11] MEDS: Omeprazole 20 MG Cap.CR PO SCH (07:46)
[2017-09-11] MEDS: DULoxetine 30 MG Cap PO SCH (07:46)
[2017-09-11] MEDS: Cholecalciferol (Vitamin D3) 1,000 Unit Tab PO SCH (07:47)
[2017-09-11] MEDS: Lidocaine 5% 700 MG Patch TOP SCH (07:47)
[2017-09-11] MEDS: Multivitamins with Iron and Minerals Tab.Chew PO SCH (07:47)
[2017-09-11] MEDS: atorvaSTATin 40 MG Tab PO SCH (19:01)
[2017-09-11] MEDS: Tamsulosin 0.4 MG Cap.ER PO SCH (19:01)
[2017-09-11] MEDS: traZODone 50 MG Tab PO SCH (19:01)
[2017-09-12] MEDS: oxyCODONE 5 MG Tab PO PRN ×5 (04:00→22:30)
[2017-09-12] MEDS: Metoprolol Tartrate 50 MG Tab PO SCH (08:04)
[2017-09-12] MEDS: Isosorbide Mononitrate 30 MG Tab.ER PO SCH (08:06)
[2017-09-12] MEDS: DULoxetine 30 MG Cap PO SCH (08:07)
[2017-09-12] MEDS: Fish Oil/Omega-3 Fatty Acids 1 Gm Cap PO SCH (08:07)
[2017-09-12] MEDS: Cholecalciferol (Vitamin D3) 1,000 Unit Tab PO SCH (08:07)
[2017-09-12] MEDS: Omeprazole 20 MG Cap.CR PO SCH (08:08)
[2017-09-12] MEDS: metFORMIN 500 MG Tab PO SCH ×2 (08:09→17:26)
[2017-09-12] MEDS: Gabapentin 300 MG Cap PO SCH ×3 (08:09→20:26)
[2017-09-12] MEDS: Aspirin 81 MG Tab.EC PO SCH (08:09)
[2017-09-12] MEDS: Lidocaine 5% 700 MG Patch TOP SCH (08:10)
[2017-09-12] MEDS: Multivitamins with Iron and Minerals Tab.Chew PO SCH (08:15)
[2017-09-12] MEDS: Cyclobenzaprine 10 MG Tab PO PRN (12:23)
[2017-09-12] MEDS: traZODone 50 MG Tab PO SCH (20:26)
[2017-09-12] MEDS: atorvaSTATin 40 MG Tab PO SCH (20:27)
[2017-09-12] MEDS: Tamsulosin 0.4 MG Cap.ER PO SCH (20:27)
[2017-09-13] MEDS: Cyclobenzaprine 10 MG Tab PO PRN ×3 (01:02→20:37)
[2017-09-13] MEDS: metFORMIN 500 MG Tab PO SCH ×2 (07:18→17:04)
[2017-09-13] MEDS: Aspirin 81 MG Tab.EC PO SCH (07:18)
[2017-09-13] MEDS: Gabapentin 300 MG Cap PO SCH ×3 (07:18→20:35)
[2017-09-13] MEDS: DULoxetine 30 MG Cap PO SCH (07:18)
[2017-09-13] MEDS: Isosorbide Mononitrate 30 MG Tab.ER PO SCH (07:18)
[2017-09-13] MEDS: Cholecalciferol (Vitamin D3) 1,000 Unit Tab PO SCH (07:18)
[2017-09-13] MEDS: Fish Oil/Omega-3 Fatty Acids 1 Gm Cap PO SCH (07:18)
[2017-09-13] MEDS: Omeprazole 20 MG Cap.CR PO SCH (07:18)
[2017-09-13] MEDS: oxyCODONE 5 MG Tab PO PRN ×4 (07:19→20:37)
[2017-09-13] MEDS: Metoprolol Tartrate 50 MG Tab PO SCH (07:19)
[2017-09-13] MEDS: Multivitamins with Iron and Minerals Tab.Chew PO SCH (07:19)
[2017-09-13] MEDS: Lidocaine 5% 700 MG Patch TOP SCH (10:12)
[2017-09-13] MEDS: traZODone 50 MG Tab PO SCH (20:35)
[2017-09-13] MEDS: atorvaSTATin 40 MG Tab PO SCH (20:36)
[2017-09-13] MEDS: Tamsulosin 0.4 MG Cap.ER PO SCH (20:36)
[2017-09-14] MEDS: Lidocaine 5% 700 MG Patch TOP SCH (07:42)
[2017-09-14] MEDS: Cholecalciferol (Vitamin D3) 1,000 Unit Tab PO SCH (07:42)
[2017-09-14] MEDS: Aspirin 81 MG Tab.EC PO SCH (07:45)
[2017-09-14] MEDS: DULoxetine 30 MG Cap PO SCH (07:46)
[2017-09-14] MEDS: metFORMIN 500 MG Tab PO SCH ×2 (07:46→17:07)
[2017-09-14] MEDS: Omeprazole 20 MG Cap.CR PO SCH (07:46)
[2017-09-14] MEDS: Gabapentin 300 MG Cap PO SCH ×3 (07:46→19:02)
[2017-09-14] MEDS: Metoprolol Tartrate 50 MG Tab PO SCH (07:46)
[2017-09-14] MEDS: Fish Oil/Omega-3 Fatty Acids 1 Gm Cap PO SCH (07:46)
[2017-09-14] MEDS: Isosorbide Mononitrate 30 MG Tab.ER PO SCH (07:46)
[2017-09-14] MEDS: oxyCODONE 5 MG Tab PO PRN ×4 (07:47→22:59)
[2017-09-14] MEDS: Multivitamins with Iron and Minerals Tab.Chew PO SCH (07:47)
[2017-09-14] MEDS: Cyclobenzaprine 10 MG Tab PO PRN (19:02)
[2017-09-14] MEDS: Tamsulosin 0.4 MG Cap.ER PO SCH (19:02)
[2017-09-14] MEDS: atorvaSTATin 40 MG Tab PO SCH (19:02)
[2017-09-14] MEDS: traZODone 50 MG Tab PO SCH (19:02)
[2017-09-15] MEDS: oxyCODONE 5 MG Tab PO PRN ×5 (04:31→21:06)
[2017-09-15] MEDS: metFORMIN 500 MG Tab PO SCH ×2 (07:43→17:24)
[2017-09-15] MEDS: Aspirin 81 MG Tab.EC PO SCH (07:44)
[2017-09-15] MEDS: Fish Oil/Omega-3 Fatty Acids 1 Gm Cap PO SCH (07:44)
[2017-09-15] MEDS: Multivitamins with Iron and Minerals Tab.Chew PO SCH (07:44)
[2017-09-15] MEDS: DULoxetine 30 MG Cap PO SCH (07:44)
[2017-09-15] MEDS: Omeprazole 20 MG Cap.CR PO SCH (07:44)
[2017-09-15] MEDS: Gabapentin 300 MG Cap PO SCH ×3 (07:46→21:05)
[2017-09-15] MEDS: Cholecalciferol (Vitamin D3) 1,000 Unit Tab PO SCH (07:47)
[2017-09-15] MEDS: Metoprolol Tartrate 50 MG Tab PO SCH (07:47)
[2017-09-15] MEDS: Isosorbide Mononitrate 30 MG Tab.ER PO SCH (07:47)
[2017-09-15] MEDS: Lidocaine 5% 700 MG Patch TOP SCH (10:16)
[2017-09-15] MEDS: atorvaSTATin 40 MG Tab PO SCH (21:05)
[2017-09-15] MEDS: Tamsulosin 0.4 MG Cap.ER PO SCH (21:05)
[2017-09-15] MEDS: Cyclobenzaprine 10 MG Tab PO PRN (21:05)
[2017-09-15] MEDS: traZODone 50 MG Tab PO SCH (21:05)
[2017-09-16] MEDS: DULoxetine 30 MG Cap PO SCH (08:09)
[2017-09-16] MEDS: Metoprolol Tartrate 50 MG Tab PO SCH (08:10)
[2017-09-16] MEDS: Multivitamins with Iron and Minerals Tab.Chew PO SCH (08:12)
[2017-09-16] MEDS: Fish Oil/Omega-3 Fatty Acids 1 Gm Cap PO SCH (08:13)
[2017-09-16] MEDS: Gabapentin 300 MG Cap PO SCH ×3 (08:14→19:21)
[2017-09-16] MEDS: oxyCODONE 5 MG Tab PO PRN ×4 (08:16→22:42)
[2017-09-16] MEDS: Cholecalciferol (Vitamin D3) 1,000 Unit Tab PO SCH (08:16)
[2017-09-16] MEDS: Aspirin 81 MG Tab.EC PO SCH (08:19)
[2017-09-16] MEDS: Isosorbide Mononitrate 30 MG Tab.ER PO SCH (08:19)
[2017-09-16] MEDS: metFORMIN 500 MG Tab PO SCH ×2 (08:20→17:10)
[2017-09-16] MEDS: Omeprazole 20 MG Cap.CR PO SCH (08:20)
[2017-09-16] MEDS: Lidocaine 5% 700 MG Patch TOP SCH (08:22)
[2017-09-16] MEDS: Cyclobenzaprine 10 MG Tab PO PRN (11:28)
[2017-09-16] MEDS: Tamsulosin 0.4 MG Cap.ER PO SCH (19:20)
[2017-09-16] MEDS: atorvaSTATin 40 MG Tab PO SCH (19:21)
[2017-09-16] MEDS: traZODone 50 MG Tab PO SCH (19:21)
[2017-09-17] MEDS: oxyCODONE 5 MG Tab PO PRN ×3 (04:58→17:46)
[2017-09-17] MEDS: Gabapentin 300 MG Cap PO SCH ×3 (07:50→19:52)
[2017-09-17] MEDS: Isosorbide Mononitrate 30 MG Tab.ER PO SCH (07:51)
[2017-09-17] MEDS: DULoxetine 30 MG Cap PO SCH (07:51)
[2017-09-17] MEDS: Fish Oil/Omega-3 Fatty Acids 1 Gm Cap PO SCH (07:51)
[2017-09-17] MEDS: Aspirin 81 MG Tab.EC PO SCH (07:51)
[2017-09-17] MEDS: Cholecalciferol (Vitamin D3) 1,000 Unit Tab PO SCH (07:51)
[2017-09-17] MEDS: Multivitamins with Iron and Minerals Tab.Chew PO SCH (07:51)
[2017-09-17] MEDS: Omeprazole 20 MG Cap.CR PO SCH (07:51)
[2017-09-17] MEDS: Metoprolol Tartrate 50 MG Tab PO SCH (07:51)
[2017-09-17] MEDS: metFORMIN 500 MG Tab PO SCH ×2 (07:52→17:46)
[2017-09-17] MEDS: Lidocaine 5% 700 MG Patch TOP SCH (07:52)
[2017-09-17] MEDS: Cyclobenzaprine 10 MG Tab PO PRN (11:10)
--- NOTE | 2017-09-17 16:06 | PCM.PN ---
- General Info Date of Service: 09/17/17 Functional Status: Reports: Pain Controlled (Rating a level with no recent spikes to 8 or 9), Tolerating Diet, Ambulating, Urinating, Incentive Spirometry. Denies: New Symptoms - Review of Systems General: Reports: No Symptoms HEENT: Reports: Other (Chronic hard of hearing) Pulmonary: Reports: Pleuritic Chest Pain, Cough (At times but minimal) Cardiovascular: Reports: No Symptoms Gastrointestinal: Reports: No Symptoms Genitourinary: Reports: No Symptoms Musculoskeletal: Reports: Shoulder Pain, Arm Pain, Other (Chest wall rib pain) Skin: Reports: Bruising (Healing stages from accident/fall) Neurological: Reports: No Symptoms Psychiatric: Reports: No Symptoms - Patient Data Vitals - Most Recent: Last Vital Signs Temp 36.8 C 09/17/17 08:00 Pulse 92 09/17/17 08:00 Resp 18 09/17/17 08:00 BP 128/74 09/17/17 08:00 Pulse Ox 99 09/17/17 08:00 Weight - Most Recent: 75.977 kg I&O - Last 24 Hours: Intake & Output 09/17/17 09/17/17 09/17/17 06:59 14:59 22:59 Intake Total 150 1440 Balance 150 1440 Med Orders - Current: Current Medications Albuterol (Proventil Hfa) 2 puff INH Q6H PRN PRN Reason: Shortness of Breath Aspirin (Halfprin) 81 mg PO DAILY [facility] Last Admin: 09/17/17 07:51 Dose: 81 mg Atorvastatin Calcium (Lipitor) 40 mg PO BEDTIME [facility] Last Admin: 09/16/17 19:21 Dose: 40 mg Bisacodyl (Dulcolax) 10 mg RECTAL DAILY PRN PRN Reason: Constipation Last Admin: 08/30/17 21:27 Dose: 10 mg Calcium Carbonate/Glycine (Tums) 500 mg PO Q2HR PRN PRN Reason: Nausea Cholecalciferol (Vitamin D3) 5,000 units PO DAILY [facility] Last Admin: 09/17/17 07:51 Dose: 5,000 units Cyclobenzaprine HCl (Flexeril) 10 mg PO TID PRN PRN Reason: Muscle Spasm Last Admin: 09/17/17 11:10 Dose: 10 mg Duloxetine HCl (Cymbalta) 30 mg PO DAILY [facility] Last Admin: 09/17/17 07:51 Dose: 30 mg Fish Oil (Fish Oil) 1 gm PO DAILY [facility] Last Admin: 09/17/17 07:51 Dose: 1 gm Gabapentin (Neurontin) 900 mg PO TID@0800,1400,1999 [facility] Last Admin: 09/17/17 13:08 Dose: 900 mg Guaifenesin (Mucinex) 1,200 mg PO BID PRN PRN Reason: Cough Isosorbide Mononitrate (Imdur) 30 mg PO DAILY [facility] Last Admin: 09/17/17 07:51 Dose: 30 mg Lidocaine (Lidoderm 5%) 700 mg TOP Q24H [facility] Last Admin: 09/17/17 07:52 Dose: 700 mg Magnesium Hydroxide (Milk Of Magnesia) 30 ml PO DAILY PRN PRN Reason: Constipation Last Admin: 09/05/17 17:21 Dose: 30 ml Metformin HCl (Glucophage) 1,000 mg PO BIDMEALS [facility] Last Admin: 09/17/17 07:52 Dose: 1,000 mg Metoprolol Tartrate (Lopressor) 100 mg PO DAILY [facility] Last Admin: 09/17/17 07:51 Dose: 100 mg Miscellaneous Information (Remove Patch) 1 ea TRDERM 1999 [facility] Last Admin: 09/16/17 19:22 Dose: 1 ea Multivitamins/Folic Acid/Vitamin C (Cerovite Jr) 1 each PO DAILY [facility] Last Admin: 09/17/17 07:51 Dose: 1 each Nitroglycerin (Nitrostat) 0.4 mg SL ASDIRECTED PRN PRN Reason: CHEST PAIN Capsaicin [Theragen] 0.1% CreamOwn Med 0 applic TP BID PRN PRN Reason: Pain Last Admin: 09/05/17 11:35 Dose: 1 applic Diclofenac 1% Gel [ Voltaren 1% Gel]* 8own Med 0 gm TP BID PRN PRN Reason: Pain Last Admin: 09/02/17 08:36 Dose: 1 gm Omeprazole (Omeprazole) 20 mg PO ACBREAKFAST [facility] Last Admin: 09/17/17 07:51 Dose: 20 mg Oxycodone HCl (Oxycodone) 5 mg PO Q4HR PRN PRN Reason: Pain Last Admin: 09/17/17 11:10 Dose: 5 mg Polyethylene Glycol (Miralax) 17 gm PO DAILY PRN PRN Reason: Constipation Last Admin: 09/01/17 07:27 Dose: 17 gm Senna/Docusate Sodium (Senna Plus) 1 tab PO BID [facility] Last Admin: 09/17/17 07:51 Dose: 1 tab Tamsulosin HCl (Flomax) 0.4 mg PO BEDTIME [facility] Last Admin: 09/16/17 19:20 Dose: 0.4 mg Trazodone HCl (Trazodone) 100 mg PO BEDTIME [facility] Last Admin: 09/16/17 19:21 Dose: 100 mg Discontinued Medications Acetaminophen (Tylenol Extra Strength) 1,000 mg PO TID [facility] Stop: 09/04/17 12:01 Last Admin: 09/04/17 11:50 Dose: 1,000 mg Acetaminophen (Tylenol Extra Strength) 1,000 mg PO TID [facility] Stop: 09/11/17 23:59 Last Admin: 09/11/17 17:13 Dose: 1,000 mg Cyclobenzaprine HCl (Flexeril) 10 mg PO BID PRN PRN Reason: Muscle Spasm Last Admin: 09/04/17 09:53 Dose: 10 mg Gabapentin (Neurontin) 800 mg PO BID [facility] Last Admin: 09/04/17 17:04 Dose: 800 mg Gabapentin (Neurontin) 100 mg PO ONETIME ONE Stop: 09/04/17 20:01 Last Admin: 09/04/17 20:14 Dose: 100 mg Lidocaine (Lidoderm 5%) 700 mg TRDERM DAILY PRN PRN Reason: DISCOMFORT Last Admin: 09/01/17 07:38 Dose: 700 mg - Exam General: Alert, Oriented HEENT: Pupils Equal, Pupils Reactive, Mucous Membr. Moist/[place] Neck: Supple (Tenderness to the right shoulder with certain positioning musculature in nature) Lungs: Clear to Auscultation, Decreased Breath Sounds (Basilar) Cardiovascular: Regular Rate, Regular Rhythm (Male) Exam: Deferred Back Exam: Normal Inspection Extremities: Arm Pain, Limited Range of Motion (Sling for the right upper extremity with mild shoulder pain improving rib pain) Skin: Warm, Dry, Intact, Ecchymosis Neurological: No New Focal Deficit Psy/Mental Status: Alert, Normal Affect, Normal Mood - Problem List & Annotations (1) Diabetes SNOMED Code(s): 07756562 Code(s): E11.9 - TYPE 2 DIABETES MELLITUS WITHOUT COMPLICATIONS Status: Acute Current Visit: Yes Qualifiers: Diabetes mellitus type: type 2 Diabetes mellitus complication status: without complication Diabetes mellitus lead burner supervisor insulin use: without alf use Qualified Code(s): E11.9 - Type 2 diabetes mellitus without complications Annotation/Comment:: Patient currently taking metformin. Will continue regimen. (2) Hypertension SNOMED Code(s): 96475909 Code(s): I10 - ESSENTIAL (PRIMARY) HYPERTENSION Status: Acute Priority: Medium Current Visit: Yes Qualifiers: Hypertension type: unspecified Qualified Code(s): I10 - Essential (primary ) hypertension Annotation/Comment:: Vitals ordered daily for monitoring. (3) Intracranial bleed SNOMED Code(s): 9023356 Code(s): I62.9 - NONTRAUMATIC INTRACRANIAL HEMORRHAGE, UNSPECIFIED Status: Acute Priority: High Current Visit: Yes Annotation/Comment:: Stable at this time. Will hold lovenox therapy. Patient on daily low aspirin (4) Ribs, multiple fractures SNOMED Code(s): 5293805 Code(s): S22.49XA - MULTIPLE FRACTURES OF RIBS, UNSP SIDE, INIT FOR CLOS FX Status: Acute Priority: High Current Visit: Yes Qualifiers: Encounter type: initial encounter Fracture type: closed Laterality: right Qualified Code(s): S22.41XA - Multiple fractures of ribs, right side, initial encounter for closed fracture Annotation/Comment:: Pain at times with no shortness of breath. Using incentive spirometry every 1-2 hours with good results. Compliant with all respiratory management treatment (5) Right clavicle fracture SNOMED Code(s): 75263003 Code(s): S42.001A - FRACTURE OF UNSP PART OF RIGHT CLAVICLE, INIT FOR CLOS FX Status: Acute Priority: Medium Current Visit: Yes Qualifiers: Encounter type: subsequent encounter Clavicle location: unspecified part of clavicle Fracture type: closed Fracture alignment: nondisplaced Fracture healing: with routine healing Qualified Code(s): S42.001D - Fracture of unspecified part of right clavicle, subsequent encounter for fracture with routine healing Annotation/Comment:: Patient currently wearing right sling continue with sling once proven union consideration for initiation of therapy for the right upper extremity would be given (6) Status post fall SNOMED Code(s): 219249689 Code(s): Z91.81 - HISTORY OF FALLING Status: Acute Priority: Medium Current Visit: Yes Annotation/Comment:: Fell down stairs on 08-26-17 - Problem List Review Problem List Initiated/Reviewed/Updated: Yes - Plan Plan:: See above.
[2017-09-17] MEDS: atorvaSTATin 40 MG Tab PO SCH (19:52)
[2017-09-17] MEDS: traZODone 50 MG Tab PO SCH (19:52)
[2017-09-17] MEDS: Tamsulosin 0.4 MG Cap.ER PO SCH (19:53)
[2017-09-18] MEDS: oxyCODONE 5 MG Tab PO PRN ×2 (00:13→04:53)
[2017-09-18] MEDS: Multivitamins with Iron and Minerals Tab.Chew PO SCH (07:45)
[2017-09-18] MEDS: Fish Oil/Omega-3 Fatty Acids 1 Gm Cap PO SCH (07:45)
[2017-09-18] MEDS: DULoxetine 30 MG Cap PO SCH (07:45)
[2017-09-18] MEDS: Omeprazole 20 MG Cap.CR PO SCH (07:45)
[2017-09-18] MEDS: Gabapentin 300 MG Cap PO SCH (07:46)
[2017-09-18] MEDS: Cholecalciferol (Vitamin D3) 1,000 Unit Tab PO SCH (07:46)
[2017-09-18] MEDS: Aspirin 81 MG Tab.EC PO SCH (07:47)
[2017-09-18] MEDS: metFORMIN 500 MG Tab PO SCH (07:47)
[2017-09-18] MEDS: Isosorbide Mononitrate 30 MG Tab.ER PO SCH (07:47)
[2017-09-18] MEDS: Metoprolol Tartrate 50 MG Tab PO SCH (07:48)
[2017-09-18] MEDS: Lidocaine 5% 700 MG Patch TOP SCH (07:49)
[2017-09-18] MEDS: Cyclobenzaprine 10 MG Tab PO PRN (09:41)
--- NOTE | 2017-09-18 10:07 | PCM.DCSUM1 ---
Discharge Summary - Hospital Course Free Text/Narrative:: Transfer from [facility] after evaluation and workup for fractured ribs, clavicle, subdural and intraparenchymal bleeds. Has been undergoing therapy for conditioning and strengthening and has progressed well appropriate for discharge home to continue with his prior to injury home services through [facility] due to being homebound, primary care services provided through the [facility]. Has had fair pain control with additional hydrocodone beyond his routine tramadol with continued limited range of motion right upper extremity due to clavicle fracture and continued sling. Advises me today that [facility] had called him yesterday to schedule a repeat CT and x-rays secondary of his diagnosis/injury. He advised them he would be making arrangements through [facility] for those services as they would need approval. Will be continuing with [facility] home services therapy for his chronic debility. - Discharge Data Discharge Date: 09/18/17 Discharge Disposition: Home, W Home Health Agency 06 Condition: Good - Discharge Diagnosis/Problem(s) (1) Intracranial bleed SNOMED Code(s): 2492582 ICD Code: I62.9 - NONTRAUMATIC INTRACRANIAL HEMORRHAGE, UNSPECIFIED Status : Acute Priority: High Current Visit: Yes Problem Details: Patient on daily low aspirin (2) Ribs, multiple fractures SNOMED Code(s): 8547818 ICD Code: S22.49XA - MULTIPLE FRACTURES OF RIBS, UNSP SIDE, INIT FOR CLOS FX Status: Acute Priority: High Current Visit: Yes Problem Details: Denies shortness of breath. Continues with pain that is controlled. Per patient , [facility] and routine health maintenance. Qualifiers: Encounter type: initial encounter Fracture type: closed Laterality: right Qualified Code(s): S22.41XA - Multiple fractures of ribs, right side, initial encounter for closed fracture (3) Right clavicle fracture SNOMED Code(s): 98797247 ICD Code: S42.001A - FRACTURE OF UNSP PART OF RIGHT CLAVICLE, INIT FOR CLOS FX Status: Acute Priority: Medium Current Visit: Yes Problem Details: Patient currently wearing right sling - continue with sling. [facility] will address after re-imaging/follow up appointment. Qualifiers: Encounter type: subsequent encounter Clavicle location: unspecified part of clavicle Fracture type: closed Fracture alignment: nondisplaced Fracture healing: with routine healing Qualified Code(s): S42.001D - Fracture of unspecified part of right clavicle, subsequent encounter for fracture with routine healing (4) Status post fall SNOMED Code(s): 055932390 ICD Code: Z91.81 - HISTORY OF FALLING Status: Acute Priority: Medium Current Visit: Yes Problem Details: Fell down stairs on 08-26-17 (5) Hypertension SNOMED Code(s): 33861540 ICD Code: I10 - ESSENTIAL (PRIMARY) HYPERTENSION Status: Chronic Priority : Medium Current Visit: Yes Problem Details: Stable. Qualifiers: Hypertension type: unspecified Qualified Code(s): I10 - Essential (primary ) hypertension (6) Diabetes SNOMED Code(s): 91380942 ICD Code: E11.9 - TYPE 2 DIABETES MELLITUS WITHOUT COMPLICATIONS Status: Chronic Current Visit: Yes Problem Details: Patient currently taking metformin. Will continue regimen. 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 Qualifiers: Chronic pain type: other chronic pain Qualified Code(s): G89.29 - Other chronic pain - Patient Summary/Data Consults: Consultations 08/30/17 14:30 Consult to Case Management [CONS] Routine OT Evaluation and Treatment [CONS] Routine PT Evaluation and Treatment [CONS] Routine 09/06/17 09:43 Consult to Dietary [Consult to Chef Instructor] [CONS] Routine Recommended Follow-up Testing/Procedures: [facility] visit/re-imaging as recommended. Patient to call and make this appointment as soon as possible. - Patient Instructions Diet: Diabetic Diet Activity: As Tolerated Driving: Do Not Drive Showering/Bathing: May Shower Notify Provider of: Increased Pain, Swelling and Redness, Drainage Other/Special Instructions: [facility] is to [facility] with [facility] for post [facility] visit/re-imaging as recommended. Patient to call and make this appointment as soon as possible. [facility] and [facility] to continue to follow patient for services. - Discharge Plan Prescriptions/Med Rec: oxyCODONE 5 mg PO Q4HR PRN #50 tablet PRN Reason: Pain Home Medications: Home Meds Albuterol [Proventil HFA] 2 puff INH Q6H PRN 08/30/17 [History] Aspirin [Halfprin] 81 mg PO DAILY 08/30/17 [History] Capsaicin [Theragen] 1 applic TP BID PRN 08/30/17 [History] Cholecalciferol (Vitamin D3) [Vitamin D3] 5,000 units PO DAILY 08/30/17 [History ] Cyclobenzaprine [Flexeril] 10 mg PO BID PRN 08/30/17 [History] DULoxetine [Cymbalta] 30 mg PO DAILY 08/30/17 [History] Diclofenac Sodium [Voltaren 1% Gel] 2 gm TP BID PRN 08/30/17 [History] Folic Acid/Multivit-Min/Lutein [Multi-Vitamin Gummies] 1 each PO DAILY 08/30/17 [History] Gabapentin [Neurontin] 800 mg PO BID 08/30/17 [History] Isosorbide Mononitrate [Imdur] 30 mg PO DAILY 08/30/17 [History] Lidocaine 5% [Lidoderm 5%] 1 patch TP DAILY PRN 08/30/17 [History] Metoprolol Tartrate 100 mg PO DAILY 08/30/17 [History] Nitroglycerin [Nitrostat] 0.4 mg SL ASDIRECTED 08/30/17 [History] Rowe-3/DHA/Epa/Fish Oil [Rowe 3 500 Softgel] 1,000 mg PO DAILY 08/30/17 [ History] Omeprazole 20 mg PO DAILY 08/30/17 [History] Sennosides/Docusate Sodium [Senna-Docusate Sodium] 1 tab PO BID 08/30/17 [ History] Tamsulosin [Flomax] 0.4 mg PO BEDTIME 08/30/17 [History] atorvaSTATin [Lipitor] 40 mg PO BEDTIME 08/30/17 [History] guaiFENesin [Mucinex] 1,200 mg PO BID PRN 08/30/17 [History] metFORMIN [Glucophage] 1,000 mg PO BIDMEALS 08/30/17 [History] oxyCODONE 5 mg PO Q4HR PRN 08/30/17 [History] traZODone 100 mg PO BEDTIME 08/30/17 [History] Calcium Carbonate [Tums] 500 mg PO Q2HR PRN tab.chew 09/18/17 [Rx] oxyCODONE 5 mg PO Q4HR PRN #50 tablet 09/18/17 [Rx] Patient Handouts: Intracranial Hemorrhage, Type 2 Diabetes Mellitus, Adult, Fall Prevention in the Home, [id number], Oxycodone tablets or capsules, Clavicle Fracture, Rib Fracture, Hypertension Referrals: Administration, [facility] [Other] (Patient to follow up with [facility] for post hospitalization follow up/re-imaging/health maintenance. Please call and schedule this appointment as a soon as possible.) Bairon Hartley MD [Primary Care Provider] - (Patient can call [facility] with any questions. ) - Discharge Summary/Plan Comment DC Time >30 min.: Yes (80 min) - General Info Date of Service: 09/18/17 - Review of Systems General: Reports: Weakness (improving) HEENT: Reports: No Symptoms Pulmonary: Reports: No Symptoms Cardiovascular: Reports: No Symptoms Gastrointestinal: Reports: No Symptoms Musculoskeletal: Reports: Shoulder Pain (improving; stable ), Back Pain (chronic ), Other (rib pain/chest pain- improving; stable ) Skin: Reports: Bruising (scattered) Psychiatric: Reports: No Symptoms - Patient Data Vitals - Most Recent: Last Vital Signs Temp 36.6 C 09/18/17 08:00 Pulse 68 09/18/17 08:00 Resp 18 09/17/17 08:00 BP 126/57 L 09/18/17 08:00 Pulse Ox 96 09/18/17 08:00 Weight - Most Recent: 75.977 kg I&O - Last 24 hours: Intake & Output 09/17/17 09/18/17 09/18/17 22:59 06:59 14:59 Intake Total 720 100 360 Balance 720 100 360 Med Orders - Current: Current Medications Albuterol (Proventil Hfa) 2 puff INH Q6H PRN PRN Reason: Shortness of Breath Aspirin (Halfprin) 81 mg PO DAILY [facility] Last Admin: 09/18/17 07:47 Dose: 81 mg Atorvastatin Calcium (Lipitor) 40 mg PO BEDTIME [facility] Last Admin: 09/17/17 19:52 Dose: 40 mg Bisacodyl (Dulcolax) 10 mg RECTAL DAILY PRN PRN Reason: Constipation Last Admin: 08/30/17 21:27 Dose: 10 mg Calcium Carbonate/Glycine (Tums) 500 mg PO Q2HR PRN PRN Reason: Nausea Cholecalciferol (Vitamin D3) 5,000 units PO DAILY [facility] Last Admin: 09/18/17 07:46 Dose: 5,000 units Cyclobenzaprine HCl (Flexeril) 10 mg PO TID PRN PRN Reason: Muscle Spasm Last Admin: 09/18/17 09:41 Dose: 10 mg Duloxetine HCl (Cymbalta) 30 mg PO DAILY [facility] Last Admin: 09/18/17 07:45 Dose: 30 mg Fish Oil (Fish Oil) 1 gm PO DAILY [facility] Last Admin: 09/18/17 07:45 Dose: 1 gm Gabapentin (Neurontin) 900 mg PO TID@0800,1400,2000 [facility] Last Admin: 09/18/17 07:46 Dose: 900 mg Guaifenesin (Mucinex) 1,200 mg PO BID PRN PRN Reason: Cough Isosorbide Mononitrate (Imdur) 30 mg PO DAILY [facility] Last Admin: 09/18/17 07:47 Dose: 30 mg Lidocaine (Lidoderm 5%) 700 mg TOP Q24H [facility] Last Admin: 09/18/17 07:49 Dose: 700 mg Magnesium Hydroxide (Milk Of Magnesia) 30 ml PO DAILY PRN PRN Reason: Constipation Last Admin: 09/05/17 17:21 Dose: 30 ml Metformin HCl (Glucophage) 1,000 mg PO BIDMEALS [facility] Last Admin: 09/18/17 07:47 Dose: 1,000 mg Metoprolol Tartrate (Lopressor) 100 mg PO DAILY [facility] Last Admin: 09/18/17 07:48 Dose: 100 mg Miscellaneous Information (Remove Patch) 1 ea TRDERM 1999 [facility] Last Admin: 09/17/17 19:53 Dose: 1 ea Multivitamins/Folic Acid/Vitamin C (Cerovite Jr) 1 each PO DAILY [facility] Last Admin: 09/18/17 07:45 Dose: 1 each Nitroglycerin (Nitrostat) 0.4 mg SL ASDIRECTED PRN PRN Reason: CHEST PAIN Capsaicin [Theragen] 0.1% CreamOwn Med 0 applic TP BID PRN PRN Reason: Pain Last Admin: 09/05/17 11:35 Dose: 1 applic Diclofenac 1% Gel [ Voltaren 1% Gel]* 8own Med 0 gm TP BID PRN PRN Reason: Pain Last Admin: 09/02/17 08:36 Dose: 1 gm Omeprazole (Omeprazole) 20 mg PO ACBREAKFAST [facility] Last Admin: 09/18/17 07:45 Dose: 20 mg Oxycodone HCl (Oxycodone) 5 mg PO Q4HR PRN PRN Reason: Pain Last Admin: 09/18/17 04:53 Dose: 5 mg Polyethylene Glycol (Miralax) 17 gm PO DAILY PRN PRN Reason: Constipation Last Admin: 09/01/17 07:27 Dose: 17 gm Senna/Docusate Sodium (Senna Plus) 1 tab PO BID [facility] Last Admin: 09/18/17 07:47 Dose: 1 tab Tamsulosin HCl (Flomax) 0.4 mg PO BEDTIME [facility] Last Admin: 09/17/17 19:53 Dose: 0.4 mg Trazodone HCl (Trazodone) 100 mg PO BEDTIME [facility] Last Admin: 09/17/17 19:52 Dose: 100 mg Discontinued Medications Acetaminophen (Tylenol Extra Strength) 1,000 mg PO TID [facility] Stop: 09/04/17 12:01 Last Admin: 09/04/17 11:50 Dose: 1,000 mg Acetaminophen (Tylenol Extra Strength) 1,000 mg PO TID [facility] Stop: 09/11/17 23:59 Last Admin: 09/11/17 17:13 Dose: 1,000 mg Cyclobenzaprine HCl (Flexeril) 10 mg PO BID PRN PRN Reason: Muscle Spasm Last Admin: 09/04/17 09:53 Dose: 10 mg Gabapentin (Neurontin) 800 mg PO BID [facility] Last Admin: 09/04/17 17:04 Dose: 800 mg Gabapentin (Neurontin) 100 mg PO ONETIME ONE Stop: 09/04/17 20:01 Last Admin: 09/04/17 20:14 Dose: 100 mg Lidocaine (Lidoderm 5%) 700 mg TRDERM DAILY PRN PRN Reason: DISCOMFORT Last Admin: 09/01/17 07:38 Dose: 700 mg - Exam General: Reports: Alert, Oriented HEENT: Reports: Pupils Equal, Pupils Reactive, EOMI, Mucous Membr. Moist/[place] Neck: Reports: Supple Lungs: Reports: Clear to Auscultation, Normal Respiratory Effort Cardiovascular: Reports: Regular Rate, Regular Rhythm GI/Abdominal Exam: Normal Bowel Sounds, Soft, Non-Tender, No Organomegaly, No Distention, No Abnormal Bruit, No Mass, Pelvis Stable (Male) Exam: Deferred Rectal (Males) Exam: Deferred Extremities: Normal Inspection, Non-Tender, No Pedal Edema, Normal Capillary Refill, Other (right arm in sling- limited range of motion; stable) Skin: Reports: Ecchymosis (scattered) Neurological: Reports: No New Focal Deficit Psy/Mental Status: Reports: Alert, Normal Affect, Normal Mood *Q Meaningful Use (DIS) - VTE *Q VTE Criteria *Q: VTE Anticoagulation Contraindications: Medical/Procedure Contrai - Stroke *Q Stroke Criteria *Q: - AMI *Q AMI Criteria *Q:
== END 2017-09-18 12:50 | disposition home health service (06) | DRG 560 ==
LOC: LL.MS 13:40
PROVIDERS: ADMIT Family Medicine; ATTEND Family Medicine
DX: S22.41XD Multiple fractures of ribs, right side, subsequent encounter for fracture with routine healing (principal); I62.9 Nontraumatic intracranial hemorrhage, unspecified; W19.XXXD Unspecified fall, subsequent encounter; S42.001D Fracture of unspecified part of right clavicle, subsequent encounter for fracture with routine healing; Z91.81 History of falling; I10 Essential (primary) hypertension; E11.9 Type 2 diabetes mellitus without complications; G89.29 Other chronic pain; M48.00 Spinal stenosis, site unspecified; Z79.84 Long term (current) use of oral hypoglycemic drugs; I25.10 Atherosclerotic heart disease of native coronary artery without angina pectoris
CPT/HCPCS: 82962; 97110-GP; 97116-GP; 97140-GP; 97161-GP; 97165-GO; 97530-GP; 97535-GO; A9270-GY

== ENCOUNTER 2019-12-25 07:13 | Inpatient (IN) | payer MEDICARE, OTHER ==
[2019-12-25] MEDS ORDERED: Bisacodyl 10 MG Supp RECTAL PRN (15:54)
[2019-12-25] MEDS ORDERED: Lidocaine 4% 1 each Patch TOP PRN (16:45)
[2019-12-25] MEDS ORDERED: Albuterol/Ipratropium 3.0-0.5 MG/3 ML Neb Soln NEB PRN (16:52)
[2019-12-25] MEDS ORDERED: Albuterol 0.083% 2.5 MG/3 ML Neb Soln INH PRN (16:52)
--- NOTE | 2019-12-25 17:16 | PCM.HP.2 ---
H&P History of Present Illness - General Date of Service: 12/25/19 Admit Problem/Dx: Admission Diagnosis/Problem Admission Diagnosis/Problem Osteoarthritis Source of Information: Patient, Old Records ([facility] EMR. No paper hospital chart available.), Other (Transfer records from [facility]. [place] EMR) History Limitations: Reports: No Limitations - History of Present Illness Initial Comments - Free Text/Narative: The patient was brought to this facility via transport him [facility] for admission into our swing bed after recent cervical fusion in that facility on 12/21/19 as below. No apparent significant complications from the above surgery. He is being admitted for further strengthening, physical therapy , occupational therapy, etc.. The patient denies any chest pain/pressure, heart flutter, dizziness, orthostasis, orthopnea, diaphoresis, paresthesias, recent decreased exercise tolerance, or any other anginal-type symptoms. No recent history of abdominal pain, heartburn, nausea, diarrhea, melena, gross hematochezia, or any food intolerance, including fatty foods, etc., although he is still having some problems with constipation likely secondary to his chronic narcotic therapy. He denies any gross hematuria, colic, or other UTI symptoms. The patient also denies any recent fever, cough, wheezing, dyspnea, etc.. No history of recent headaches, visual changes, diplopia, change in mental status, or other change in neurological status with stable peripheral neuropathy by his history. He current complains of 8/10 postoperative cervical pain with chronic narcotic use as above. Onset of Symptoms: Reports: Unknown/Unsure Duration of Symptoms: Reports: Intermittent Location: Reports: Neck. Denies: Head, Face, Chest, Abdomen, Back, Upper Extremity, Left, Upper Extremity, Right, Lower Extremity, Left, Lower Extremity , Right, Radiates to Quality: Reports: Same as Previous Episode, Sharp, Stabbing Severity: Moderate Improves with: Reports: Rest Worsens with: Reports: Movement Context: Reports: Other (As above) Associated Symptoms: Reports: Weakness (Stable chronic). Denies: Confusion, Chest Pain, Cough, Diaphoresis, Fever/Chills, Headaches, Loss of Appetite, Malaise, Nausea/Vomiting, Seizure, Shortness of Breath, Syncope Bilateral Neck Pain Score (Numeric/FACES): 8 Left Lower Back Pain Score (Numeric/FACES): 6 - Related Data Allergies/Adverse Reactions: Allergies Allergy/AdvReac Type Severity Reaction Status Date / Time lisinopril Allergy Anaphylactic Verified 08/30/17 14:35 Shock Home Medications: Home Meds Lidocaine 5% [Lidoderm 5%] 1 patch TP DAILY PRN 08/30/17 [History] Omeprazole 20 mg PO ACDINNER 08/30/17 [History] Sennosides/Docusate Sodium [Senna-Docusate Sodium] 1 tab PO BID 08/30/17 [ History] Tamsulosin [Flomax] 0.4 mg PO BEDTIME 08/30/17 [History] atorvaSTATin [Lipitor] 40 mg PO BEDTIME 08/30/17 [History] metFORMIN [Glucophage] 1,000 mg PO BIDMEALS 08/30/17 [History] Acetaminophen [Tylenol] 2 tab PO Q6HR PRN 12/25/19 [History] Bisacodyl [Dulcolax] 1 supp RECTAL ASDIRECTED PRN 12/25/19 [History] Metoprolol Tartrate 12.5 mg PO BID 12/25/19 [History] Pregabalin [Lyrica] 150 mg PO BID 12/25/19 [History] oxyCODONE 5 - 10 mg PO Q4HR PRN 12/25/19 [History] tiZANidine HCl [Zanaflex] 1 tab PO TID 12/25/19 [History] Past Medical History HEENT History: Reports: Hard of Hearing, Impaired Vision, Other (See Below). Denies: Allergic Rhinitis, Cataract, Glaucoma, Macular Degeneration, Otitis Media, Retinal Detachment Other HEENT History: Moderate bilateral presbycusis with patient currently using hearing aids. Patient wears reading glasses. Cardiovascular History: Reports: Aneurysm, Bypass, CAD, Cardiomyopathy, Heart Failure, Heart Murmur, High Cholesterol, Hypertension, NV, PTCA, PVD, Stents. Denies: Afib, Arrhythmia, Blood Clots/VTE/DVT, Syncope, Other (See Below) Other Cardiovascular History: Left atrial enlargement with mild cardiomegaly and grade 1 diastolic dysfunction by echocardiogram. History of initial NV in 1997 with multiple cardiac procedures as below. Left renal artery stenosis requiring stent placement as below. 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 Carotid occlusive disease with right- sided surgery required as below. Moderate Mitral valve insufficiency by echocardiogram. Respiratory History: Reports: Bronchitis, Recurrent, COPD, Intubation, Previous , Pneumonia, Recurrent, Other (See Below). Denies: Asthma, Intubation, Difficult, PE, Pneumothorax, Sleep Apnea, TB Other Respiratory History: COPD not currently requiring medical therapy. Note right-sided nondisplaced 36 rib fractures with secondary pulmonary contusion secondary to a fall 08/26/17. Gastrointestinal History: Reports: Chronic Constipation, GERD, Hiatal Hernia, Other (See Below). Denies: Celiac Disease, Cholelithiasis, Chronic Diarrhea, Colon Polyp, Fecal Incontinence, Gastritis, GI Bleed, Hepatitis, Inflammatory Bowel Disease, Irritable Bowel Syndrome, Jaundice, Pancreatitis, PUD Other Gastrointestinal History: Benign Right hepatic nodule by CT scan. Genitourinary History: Reports: BPH, Urinary Incontinence. Denies: Acute Renal Failure, Chronic Renal Insuffiency, Renal Calculus, STD, UTI, Recurrent Musculoskeletal History: Reports: Arthritis, Back Pain, Chronic, Fracture, Neck Pain, Chronic, Osteoarthritis, Other (See Below). Denies: Amputation, Gout, RA , SLE Other Musculoskeletal History: Multiple right-sided rib fractures with additional right clavicular fracture from a fall on 08/26/17. Bilateral rotator cuff tears requiring surgeries as below. Neurological History: Reports: Brain Injury, Concussion, Headaches, Chronic, Head Trauma, Neuropathy, Diabetic, Neuropathy, Peripheral, Vertigo, Other (See Below). Denies: Alzheimers Disease, Cerebral Aneurysms, CVA, Migraines, MS, Parkinson's, Seizure, TIA Other Neuro History: History of a left-sided intra-parenchymal cerebral and subarachnoid hemorrhage secondary to major fall on 08/26/17. Multilevel cervical , thoracic, and lumbar spinal stenosis. Psychiatric History: Reports: Addiction, Anxiety, Depression, Other (See Below) . Denies: Abuse, Victim of, ADD, ADHD, Alzheimers Disease, Dementia, Psych Hospitalization(s), PTSD, Suicide Attempt, Suicidal Ideation Other Psychiatric History: Chronic narcotic use with current pain contract. Endocrine/Metabolic History: Reports: Diabetes, Type II, Other (See Below). Denies: Diabetes, Type I, Diabetes Mellitus, Type 3c, Hypothyroidism, IDDM, Obesity/BMI 30+ Other Endocrine/Metabolic History: Hyperkalemia. Hematologic History: Reports: Blood Transfusion(s), Other (See Below). Denies: Anemia Other Hematologic History: Transfusion for unknown reason and diagnosis? Immunologic History: Reports: None. Denies: AIDS, HIV, SLE Oncologic (Cancer) History: Reports: None. Denies: Basal Cell Carcinoma, Colon , Hodgkin's Lymphoma, Leukemia, Lymphoma, Malignant Melanoma, Non-Hodgkin's Lymphoma, Prostate, Squamous Cell Carcinoma Dermatologic History: Reports: None. Denies: Eczema, Psoriasis - Infectious Disease History Infectious Disease History: Reports: Chicken Pox, Measles, Mononucleosis (As a teenager), Mumps. Denies: C-Difficile, Meningitis, MRSA, Pertussis (Whooping Cough), RSV, Rubella, Scarlet Fever, Shingles, TB, VRE - Past Surgical History Head Surgeries/Procedures: Reports: None HEENT Surgical History: Reports: Oral Surgery (Complete teeth extraction with the patient only having upper dentures). Denies: Adenoidectomy, Cataract Surgery, Eye Surgery, Myringotomy w Tube(s), Naso-Sinus Surgery, Tonsillectomy Cardiovascular Surgical History: Reports: Aneurysm, Carotid Endarterectomy, Carotid Stents, Coronary Artery Bypass, Coronary Artery Stent, Percutaneous Transluminal Angioplasty, Vascular Surgery, Other (See Below). Denies: Varicose Other Cardiovascular Surgeries/Procedures: Left renal artery stent placement in 1999. Aorticexternal left iliac stent/aneurysm repair in 1999. Initial three- vessel CABG in 1996. Subsequent multiple PTCA/stent placements of a total of 12 stents last on 03/11/18. Right carotid endarterectomy in 2011. Respiratory Surgical History: Reports: None. Denies: Thoracentesis GI Surgical History: Reports: Colonoscopy, Other (See Below). Denies: Appendectomy, Cholecystectomy, EGD, Hernia, Abdominal, Hernia, Inguinal, Hernia Repair/Other, Polypectomy Other GI Surgeries/Procedures: Colonoscopy in about 2013. Male Surgical History: Reports: None. Denies: Circumcision, TURP- Transurethral Resection of Prostate, Vasectomy Neurological Surgical History: Reports: C-Spine, Discectomy, Spinal Fusion. Denies: Laminectomy, Lumbar Spine, Sacral Spine, Thoracic Spine, Vertebroplasty Other Neurological Surgeries/Procedures: Discectomy with cervical fusion of C4- C7 on 12/21/19 Musculoskeletal Surgical History: Reports: Shoulder Surgery. Denies: Arthroscopic Procedure, Carpal Tunnel, Ganglion Cyst, Joint Replacement, ORIF, Shoulder Replacement Other Musculoskeletal Surgeries/Procedures:: Bilateral rotator cuff repairs in the . Oncologic Surgical History: Reports: None Dermatological Surgical History: Reports: None - Past Imaging History Past Imaging History: Reports: Angiography (Last heart catheterization on with previous evaluations on 03/02/15 and 08/13/13.), Cardiac Echo (Last echocardiogram on 12/07/19 showing an in proved ejection fraction of 45% with otherwise findings as above. Previous echocardiograms on 08/28/17 and 03/01/15.), CAT Scan (CT of the head, C-spine, chest with IV contrast, and abdomen/pelvis on 08/26/17. CT of the left elbow on 09/29/18), MRI (MRI of the C-spine on , 10/29/19, 08/27/17, and 08/26/17. MRI of the lumbar spine on 04/26/19. MRI of the right shoulder on 07/04/18. MRI of the head on 08/27/17 and 08/26/17.) Social & Family History - Family History HEENT: Reports: None. Denies: Glaucoma, Macular Degeneration, Retinal Detachment Cardiac: Reports: CAD, Hypertension, NV, PVD/COD, Other (See Below). Denies: Afib, Aneurysm, Arrhythmia, Blood Clots/VTE/DVT, Bypass, Heart Failure, Syncope Other Cardiac Family History: Parents, sister, brother, maternal aunt, maternal uncle, and maternal grandmother with hypertension. Maternal grandmother with NV in her 50s. Mother with peripheral vascular disease requiring leg amputations. Respiratory: Reports: COPD, Other (See Below). Denies: Asthma GI: Denies: Colon Polyps Musculoskeletal: Reports: Arthritis, Osteoarthritis, Other (See Below) Other Musculoskeletal Family History: Arthritis in parents and sister, brother, maternal aunt, maternal uncle, maternal grandmother, and maternal grandfather. Neurological: Reports: CVA, Other (See Below) Other Neurological Family History: Maternal grandfather with fatal CVA in his 50s. Psychiatric: Reports: Anxiety, Depression, Other (See Below) Other Psychiatric Family History: Brother with anxiety depression disorder and alcohol abuse fatal at age 66. Mother with anxiety depression disorder. Endocrine/Metabolic: Reports: None. Denies: Diabetes, Type I, Diabetes, type II , Diabetes Mellitus, Type 3c, Hypothyroidism, IDDM Hematologic: Reports: None. Denies: SLE Oncologic: Reports: Lung, Other (See Below) Other Oncologic Family History: Mother with fatal lung cancer at age 61 with history of tobacco use. Father with unknown type of multiple cancers fatal in his 50s. - Tobacco Use Smoking Status *Q: Former Smoker Tobacco Use Within Last Twelve Months: No Years of Tobacco use: 43 Packs/Tins Daily: 2 Packs/Tins Daily Comment: Smoked between the ages 20 and 63. Used Tobacco, but Quit: Yes Smoking Cessation Information Provided To Patient: No Second Hand Smoke Exposure: No Second Hand Smoke Education Provided: No - Caffeine Use Caffeine Use: Reports: Coffee (2 cups per day), Soda (1 soda per day). Denies: Energy Drinks, Tea - Alcohol Use Alcohol Use History: No Days Per Week of Alcohol Use: 0 Number of Drinks Per Day Comment: No previous DWIs, problems with alcohol abuse , etc. Alcohol Use in Last Twelve Months: No - Recreational Drug Use Recreational Drug Use: Yes Drug Use in Last 12 Months: No Recreational Drug Type: Reports: Marijuana/Hashish (In his early 20s). Denies: Amphetamines (Speed), Heroin, Inhalants (Glues, Solvents, Aerosols), LSD (Acid) , Methamphetamine, Oxycodone - Living Situation & Occupation Living situation: Reports: (2004, 1 son), with Family (Son) Occupation: Disabled (In the secondary to his osteoarthritis, anxiety depression disorder, etc.. 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 Exam - Exam Exam: See Below - Exam Quality Assessment: DVT Prophylaxis. No: Supplemental Oxygen, Urinary Catheter , Skin Breakdown, Restraints General: Alert, Oriented, Cooperative HEENT: Conjunctiva Clear, EACs Clear, EOMI, Hearing Intact, Mucosa Moist & [place] , Nares Patent, Normal Nasal Septum, Posterior Pharynx Clear, TMs Clear, Other ( Patient wearing glasses. No nystagmus), PERRLA Neck: Supple, Trachea Midline. No: Full Range of Motion (Anterior surgical sites appear normal with no dehiscence or local signs of infection. Cervical collar in place), Lymphadenopathy, Thyromegaly Lungs: Clear to Auscultation, Normal Respiratory Effort. No: Rub Cardiovascular: Regular Rate, Regular Rhythm, Normal S1, Normal S2, Systolic Murmur (1/6 CYNTHIA of the mitral valve). No: Diastolic Murmur, Gallop/S3, Gallop/ S4 GI/Abdominal Exam: Normal Bowel Sounds, Soft, Non-Tender, No Organomegaly, No Distention, No Abnormal Bruit, No Mass, Pelvis Stable. No: Guarding (Male) Exam: Deferred Rectal (Males) Exam: Deferred Back Exam: Normal Inspection, Full Range of Motion. No: CVA Tenderness (L), CVA Tenderness (R), Muscle Spasm Extremities: Normal Inspection, Normal Range of Motion, Non-Tender, No Pedal Edema, Normal Capillary Refill. No: Bri's Sign Peripheral Pulses: 2+: Radial (L), Radial (R), Dorsalis Pedis (L), Dorsalis Pedis (R) Skin: Ecchymosis (Mild at surgical sites), Incision (As above) Neurological: Cranial Nerves Intact, Reflexes Equal Bilateral. No: Babinski Psychiatric: Alert, Anxious (Mild), Depressed (Mild). No: Agitated, Hallucinations, Withdrawal Symptoms - Patient Data Lab Results Last 24 hrs: Laboratory Results - last 24 hr 12/25/19 Range/Units 17:07 POC Glucose 171 H (65-110) mg/dl Earl Results Last 24 hrs: Microbiology 12/25/19 15:48 Stool Occult Blood ([facility]) - Final Stool / Feces NEGATIVE OCCULT BLOOD REFERENCE RANGE: NEGATIVE Imaging Impressions Last 24 hrs: None - Problem List (1) Osteoarthritis SNOMED Code(s): 048785812 ICD Code: M19.90 - UNSPECIFIED OSTEOARTHRITIS, UNSPECIFIED SITE Status: Chronic Priority: High Current Visit: Yes Problem Details: Note recent cervical fusion on 12/21/19 requiring further strengthening and treatment by PT and OT. Patient noted to our swing bed care unit with continuation of previous restrictions including cervical collar, fall precautions, walker use, etc.. Advance activity as tolerated. Otherwise follow-up with orthopedic surgeons as previously scheduled. Blood work to be conducted in the a.m. Qualifiers: Osteoarthritis location: multiple joints Osteoarthritis type: primary Qualified Code(s): M15.0 - Primary generalized (osteo)arthritis (2) Coronary artery disease SNOMED Code(s): 87064147 ICD Code: I25.10 - ATHSCL HEART DISEASE OF [place] CORONARY ARTERY W/O ANG PCTRS Status: Chronic Priority: Medium Current Visit: Yes Problem Details: No recent chest pain or anginal complaints. Qualifiers: Coronary Disease-Associated Artery/Lesion type: bypass graft [place] vs. transplanted heart: [place] heart Associated angina: without angina Qualified Code(s): I25.810 - Atherosclerosis of coronary artery bypass graft(s) without angina pectoris (3) COPD (chronic obstructive pulmonary disease) SNOMED Code(s): 68576891 ICD Code: J44.9 - CHRONIC OBSTRUCTIVE PULMONARY DISEASE, UNSPECIFIED Status : Chronic Priority: Medium Current Visit: Yes Problem Details: No recent medical therapy required. When necessary nebulizer treatments for now. Consider PFTs depending on his clinical course. Qualifiers: COPD type: emphysema (4) Mixed anxiety depressive disorder SNOMED Code(s): 999191758 ICD Code: F41.8 - OTHER SPECIFIED ANXIETY DISORDERS Status: Chronic Priority: Medium Current Visit: Yes Problem Details: Stable by patient history. Continue current medical therapy. Note chronic narcotic use with drug contract. (5) Peptic reflux disease SNOMED Code(s): 448404181 ICD Code: K21.9 - GASTRO-ESOPHAGEAL REFLUX DISEASE WITHOUT ESOPHAGITIS Status: Chronic Priority: Medium Current Visit: Yes Problem Details: Stable by history with current medical therapy. (6) Hyperlipidemia SNOMED Code(s): 53431397 ICD Code: E78.5 - HYPERLIPIDEMIA, UNSPECIFIED Status: Chronic Priority: Medium Current Visit: Yes Problem Details: Currently under therapy. Qualifiers: Hyperlipidemia type: mixed hyperlipidemia Qualified Code(s): E78.2 - Mixed hyperlipidemia (7) Hypertension SNOMED Code(s): 75585052 ICD Code: I10 - ESSENTIAL (PRIMARY) HYPERTENSION Status: Chronic Priority : Medium Current Visit: No Problem Details: Stable by history and with current medical therapy. Qualifiers: Hypertension type: essential hypertension Qualified Code(s): I10 - Essential (primary) hypertension (8) Diabetes mellitus SNOMED Code(s): 61953880 ICD Code: E11.9 - TYPE 2 DIABETES MELLITUS WITHOUT COMPLICATIONS Status: Chronic Priority: Medium Current Visit: Yes Problem Details: Initiate sliding scale with as needed Humalog. Glycosylated hemoglobin in the a.m. Qualifiers: Diabetes mellitus type: type 2 Diabetes mellitus roasterman insulin use: without roasterman use Diabetes mellitus complication status: without complication Qualified Code(s): E11.9 - Type 2 diabetes mellitus without complications Problem List Initiated/Reviewed/Updated: Yes Orders Last 24hrs: Active Orders 24 hr Category Date Time Status Patient Status [ADT] Routine ADT 12/25/19 15:48 Active Ambulate [RC] ASDIRECTED Care 12/25/19 15:47 Active Antiembolic Devices [RC] .Routine Care 12/25/19 15:59 Active Antiembolic Devices [RC] PER UNIT ROUTINE Care 12/25/19 15:59 Active Blood Glucose Check, Bedside [RC] BIDAC Care 12/25/19 16:56 Ordered Communication Order [RC] ROUTINE Care 12/25/19 15:57 Active Communication Order [RC] ROUTINE Care 12/25/19 16:50 Ordered Communication, Vaccine [RC] PER UNIT ROUTINE Care 12/25/19 15:59 Active Height and Weight [RC] DAILY Care 12/25/19 15:57 Inactive Height and Weight [RC] PER UNIT ROUTINE Care 12/25/19 15:49 Active Intake and Output Strict [RC] ASDIRECTED Care 12/25/19 15:57 Active Intake and Output [RC] ASDIRECTED Care 12/25/19 15:47 Inactive May Shower [RC] ASDIRECTED Care 12/25/19 15:47 Active Notify Provider Vital Signs [RC] ASDIRECTED Care 12/25/19 15:49 Active Oxygen Therapy [RC] PRN Care 12/25/19 15:48 Active Pulse Oximetry [RC] ASDIRECTED Care 12/25/19 15:57 Active RT Aerosol Therapy [RC] ASDIRECTED Care 12/25/19 16:52 Ordered RT Incentive Spirometry [RC] ASDIRECTED Care 12/25/19 16:53 Ordered Up With Assistance [RC] ASDIRECTED Care 12/25/19 15:57 Active VTE/DVT Education [RC] PER UNIT ROUTINE Care 12/25/19 15:48 Active VTE/DVT Education [RC] PER UNIT ROUTINE Care 12/25/19 15:59 Inactive Vaccines to be Administered [RC] PER UNIT ROUTINE Care 12/25/19 15:59 Active Vital Signs [RC] PER UNIT ROUTINE Care 12/25/19 15:48 Inactive Vital Signs [RC] QSHIFT Care 12/25/19 15:57 Active Consult to Case Management/Gear Straightener [CONS] Cons 12/25/19 15:47 Active Routine OT Evaluation and Treatment [CONS] Routine Cons 12/25/19 15:47 Active PT Evaluation and Treatment [CONS] Routine Cons 12/25/19 15:47 Active Fluid Restriction [DIET] Diet 12/25/19 Dinner Ordered CBC WITH AUTO DIFF [HEME] Routine Lab 12/26/19 05:11 Ordered COMPREHENSIVE METABOLIC PN,CMP [CHEM] Routine Lab 12/26/19 05:11 Ordered GLYCOSYLATED HEMOGLOBIN,HGBA1C [CHEM] Routine Lab 12/26/19 05:11 Ordered TSH ULTRASENSITIVE [CHEM] Routine Lab 12/26/19 05:11 Ordered VITAMIN B12 [CHEM] Routine Lab 12/26/19 05:11 Ordered Acetaminophen [Tylenol] Med 12/25/19 15:54 Active 650 mg PO Q4H PRN Albuterol [Proventil Neb Soln] Med 12/25/19 16:52 Ordered 2.5 mg INH Q2H PRN Albuterol/Ipratropium [DuoNeb 3.0-0.5 MG/3 ML] Med 12/25/19 16:52 Ordered 3 ml NEB Q4HRRT PRN Docusate Sodium/Sennosides [Senna Plus] Med 12/25/19 18:00 Active 1 tab PO BID Insulin Lispro [HumaLOG] Med 12/25/19 17:30 Ordered See Protocol SUBCUT BIDAC Lidocaine 4% [Aspercreme 4%] Med 12/25/19 16:45 Active 1 each TOP DAILY PRN Metoprolol Tartrate [Lopressor] Med 12/25/19 18:00 Active 12.5 mg PO BID Omeprazole Med 12/25/19 16:00 Ordered 20 mg PO PCDINNER Pregabalin [Lyrica] Med 12/25/19 18:00 Active 150 mg PO BID Tamsulosin [Flomax] Med 12/25/19 20:00 Active 0.4 mg PO BEDTIME Temazepam [Restoril] Med 12/25/19 15:57 Active 15 mg PO BEDTIME PRN atorvaSTATin [Lipitor] Med 12/25/19 20:00 Active 40 mg PO BEDTIME bisacodyL [Dulcolax] Med 12/25/19 15:54 Active 10 mg RECTAL ASDIRECTED PRN metFORMIN [Glucophage] Med 12/25/19 17:30 Active 1,000 mg PO BIDMEALS oxyCODONE Med 12/25/19 16:52 Ordered 5 mg PO Q4H PRN Antiembolic Hose [OM.PC] Routine Oth 12/25/19 15:57 Ordered DVT/VTE Prophylaxis Reflex [OM.PC] Routine Oth 12/25/19 15:57 Ordered GM Immunization Reflex [OM.PC] Click To Edit Oth 12/25/19 15:57 Ordered Patient May [OM.PC] Click To Edit Oth 12/25/19 15:47 Ordered Resuscitation Status Routine Resus Stat 12/25/19 15:47 Ordered Medication Orders Acetaminophen (Tylenol) 650 mg PO Q4H PRN PRN Reason: Pain (moderate 4-6) Albuterol (Proventil Neb Soln) 2.5 mg INH Q2H PRN PRN Reason: SHORTNESS OF BREATH Albuterol/Ipratropium (Duoneb 3.0-0.5 Mg/3 Ml) 3 ml NEB Q4HRRT PRN PRN Reason: Dyspnea Atorvastatin Calcium (Lipitor) 40 mg PO BEDTIME NORM Bisacodyl (Dulcolax) 10 mg RECTAL ASDIRECTED PRN PRN Reason: Constipation Insulin Human Lispro (Humalog) 0 unit SUBCUT BIDAC [facility]; Protocol Lidocaine (Aspercreme 4%) 1 each TOP DAILY PRN PRN Reason: PAIN Metformin HCl (Glucophage) 1,000 mg PO BIDMEALS [facility] Metoprolol Tartrate (Lopressor) 12.5 mg PO BID [facility] Omeprazole (Omeprazole) 20 mg PO DAILY@1730 [facility] Oxycodone HCl (Oxycodone) 5 mg PO Q4H PRN PRN Reason: Pain (severe 7-10) Pregabalin (Lyrica) 150 mg PO BID NORM Senna/Docusate Sodium (Senna Plus) 1 tab PO BID [facility] Tamsulosin HCl (Flomax) 0.4 mg PO BEDTIME NORM Temazepam (Restoril) 15 mg PO BEDTIME PRN PRN Reason: Insomnia Assessment/Plan Comment:: As above. Extensive precautions were given to the patient, who is in agreement with the treatment plan. Patient admitted to Swing bed as above with PT/OT care. - Mortality Measure Prognosis:: Good
[2019-12-25] MEDS: Omeprazole 20 MG Cap.CR PO SCH (17:31)
[2019-12-25] MEDS: metFORMIN 500 MG Tab PO SCH (17:31)
[2019-12-25] MEDS: Pregabalin 75 MG Cap PO SCH (17:31)
[2019-12-25] MEDS: oxyCODONE 5 MG Tab PO PRN ×2 (17:32→21:38)
[2019-12-25] MEDS: Metoprolol Tartrate 25 MG Tab PO SCH (17:34)
[2019-12-25] MEDS: Insulin Lispro 100 Units/ML 3 ML Vial SUBCUT SCH (17:42)
[2019-12-25] MEDS: Acetaminophen 325 MG Tab PO PRN (19:51)
[2019-12-25] MEDS: Tamsulosin 0.4 MG Cap.ER PO SCH (19:52)
[2019-12-25] MEDS: atorvaSTATin 40 MG Tab PO SCH (19:52)
[2019-12-25] MEDS: Cyclobenzaprine 10 MG Tab PO PRN (21:38)
[2019-12-26] MEDS: oxyCODONE 5 MG Tab PO PRN ×5 (02:45→23:44)
[2019-12-26] MEDS: Acetaminophen 325 MG Tab PO PRN ×2 (04:06→23:44)
[2019-12-26 08:33] LABS: HEMOGLOBIN A1C 5.6 % (4.3-5.7)
[2019-12-26 08:52] LABS: CHLORIDE,CL 103 mmol/L (98-107); SODIUM,NA 137 mmol/L (136-145)
[2019-12-26] MEDS: Pregabalin 75 MG Cap PO SCH ×2 (09:52→17:14)
[2019-12-26] MEDS: Metoprolol Tartrate 25 MG Tab PO SCH ×2 (09:52→17:14)
[2019-12-26] MEDS: Insulin Lispro 100 Units/ML 3 ML Vial SUBCUT SCH ×2 (09:54→17:18)
[2019-12-26] MEDS: metFORMIN 500 MG Tab PO SCH ×2 (10:01→17:14)
--- NOTE | 2019-12-26 13:34 | PCM.SN ---
- Free Text/Narrative Note: Blood work reviewed. Note mild hypoalbuminemia and anemia. Otherwise normal vitamin B-12, TSH, and glycosylated hemoglobin. Some mild increased urinary frequency today with urine specimen to be collected for analysis and culture and sensitivity. Otherwise continue current care.
[2019-12-26] MEDS: Omeprazole 20 MG Cap.CR PO SCH (17:14)
[2019-12-26] MEDS: Tamsulosin 0.4 MG Cap.ER PO SCH (19:30)
[2019-12-26] MEDS: atorvaSTATin 40 MG Tab PO SCH (19:31)
[2019-12-26] MEDS: Cyclobenzaprine 10 MG Tab PO PRN (23:44)
[2019-12-26] MEDS ORDERED: Pneumococcal Polyvalent-23 Vaccine 0.5 ML SDV IM ONE (23:51)
[2019-12-26] MEDS ORDERED: Diphtheria,Pertussis(Acell),Tetanus Vaccine 0.5 ML SDV IM ONE (23:51)
[2019-12-27] MEDS: Insulin Lispro 100 Units/ML 3 ML Vial SUBCUT SCH ×2 (07:51→17:14)
[2019-12-27] MEDS: Pregabalin 75 MG Cap PO SCH ×2 (07:52→17:09)
[2019-12-27] MEDS: oxyCODONE 5 MG Tab PO PRN ×4 (07:53→22:02)
[2019-12-27] MEDS: metFORMIN 500 MG Tab PO SCH ×2 (07:53→17:08)
[2019-12-27] MEDS: Metoprolol Tartrate 25 MG Tab PO SCH ×2 (07:54→17:09)
[2019-12-27] MEDS ORDERED: Diphtheria,Pertussis(Acell),Tetanus Vaccine 0.5 ML SDV IM ONE (09:00)
[2019-12-27] MEDS ORDERED: Pneumococcal Polyvalent-23 Vaccine 0.5 ML SDV IM ONE (09:00)
[2019-12-27] MEDS: Omeprazole 20 MG Cap.CR PO SCH (17:14)
[2019-12-27] MEDS: Tamsulosin 0.4 MG Cap.ER PO SCH (19:25)
[2019-12-27] MEDS: Acetaminophen 325 MG Tab PO PRN (19:26)
[2019-12-27] MEDS: atorvaSTATin 40 MG Tab PO SCH (19:26)
[2019-12-27] MEDS: Cyclobenzaprine 10 MG Tab PO PRN (22:02)
[2019-12-28] MEDS: oxyCODONE 5 MG Tab PO PRN ×5 (01:56→20:19)
[2019-12-28] MEDS: Acetaminophen 325 MG Tab PO PRN ×4 (06:05→20:20)
[2019-12-28] MEDS: Metoprolol Tartrate 25 MG Tab PO SCH ×2 (07:58→17:56)
[2019-12-28] MEDS: Pregabalin 75 MG Cap PO SCH ×2 (07:58→17:54)
[2019-12-28] MEDS: Insulin Lispro 100 Units/ML 3 ML Vial SUBCUT SCH ×2 (07:59→17:53)
[2019-12-28] MEDS: metFORMIN 500 MG Tab PO SCH ×2 (07:59→17:54)
[2019-12-28] MEDS: Omeprazole 20 MG Cap.CR PO SCH (17:54)
[2019-12-28] MEDS: Tamsulosin 0.4 MG Cap.ER PO SCH (20:18)
[2019-12-28] MEDS: atorvaSTATin 40 MG Tab PO SCH (20:18)
[2019-12-28] MEDS: Cyclobenzaprine 10 MG Tab PO PRN (20:19)
[2019-12-29] MEDS: Temazepam 15 MG Cap PO PRN ×2 (00:25→20:35)
[2019-12-29] MEDS: oxyCODONE 5 MG Tab PO PRN ×6 (00:26→20:35)
[2019-12-29] MEDS: Acetaminophen 325 MG Tab PO PRN ×5 (00:26→20:34)
[2019-12-29] MEDS: metFORMIN 500 MG Tab PO SCH ×2 (08:28→18:15)
[2019-12-29] MEDS: Pregabalin 75 MG Cap PO SCH ×2 (08:28→18:13)
[2019-12-29] MEDS: Metoprolol Tartrate 25 MG Tab PO SCH ×2 (08:29→18:16)
[2019-12-29] MEDS: Insulin Lispro 100 Units/ML 3 ML Vial SUBCUT SCH ×2 (08:30→18:16)
[2019-12-29] MEDS: Omeprazole 20 MG Cap.CR PO SCH (18:14)
[2019-12-29] MEDS: Tamsulosin 0.4 MG Cap.ER PO SCH (19:30)
[2019-12-29] MEDS: atorvaSTATin 40 MG Tab PO SCH (19:30)
[2019-12-29] MEDS: Cyclobenzaprine 10 MG Tab PO PRN (20:35)
[2019-12-30] MEDS: Acetaminophen 325 MG Tab PO PRN ×2 (00:26→07:27)
[2019-12-30] MEDS: oxyCODONE 5 MG Tab PO PRN ×4 (00:26→20:18)
[2019-12-30] MEDS: Metoprolol Tartrate 25 MG Tab PO SCH ×2 (07:23→17:30)
[2019-12-30] MEDS: Pregabalin 75 MG Cap PO SCH ×2 (07:23→17:28)
[2019-12-30] MEDS: metFORMIN 500 MG Tab PO SCH ×2 (07:26→17:29)
[2019-12-30] MEDS: Insulin Lispro 100 Units/ML 3 ML Vial SUBCUT SCH ×2 (07:28→17:33)
[2019-12-30] MEDS: Omeprazole 20 MG Cap.CR PO SCH (17:30)
[2019-12-30] MEDS: Tamsulosin 0.4 MG Cap.ER PO SCH (20:18)
[2019-12-30] MEDS: atorvaSTATin 40 MG Tab PO SCH (20:18)
[2019-12-30] MEDS: Cyclobenzaprine 10 MG Tab PO PRN (20:19)
[2019-12-30] MEDS: Temazepam 15 MG Cap PO PRN (20:19)
[2019-12-31] MEDS: Acetaminophen 325 MG Tab PO PRN ×5 (02:44→20:19)
[2019-12-31] MEDS: oxyCODONE 5 MG Tab PO PRN ×5 (02:45→20:18)
[2019-12-31] MEDS: metFORMIN 500 MG Tab PO SCH ×2 (07:22→17:43)
[2019-12-31] MEDS: Pregabalin 75 MG Cap PO SCH ×2 (07:22→17:44)
[2019-12-31] MEDS: Insulin Lispro 100 Units/ML 3 ML Vial SUBCUT SCH ×2 (07:23→17:42)
[2019-12-31] MEDS: Metoprolol Tartrate 25 MG Tab PO SCH ×2 (07:23→17:42)
[2019-12-31 08:24] LABS: CHLORIDE,CL 100 mmol/L (98-107); SODIUM,NA 136 mmol/L (136-145)
[2019-12-31] MEDS: Omeprazole 20 MG Cap.CR PO SCH (17:41)
[2019-12-31] MEDS: atorvaSTATin 40 MG Tab PO SCH (19:26)
[2019-12-31] MEDS: Tamsulosin 0.4 MG Cap.ER PO SCH (19:26)
[2019-12-31] MEDS: Temazepam 15 MG Cap PO PRN (20:18)
[2020-01-01] MEDS: oxyCODONE 5 MG Tab PO PRN ×4 (00:30→15:12)
[2020-01-01] MEDS: Acetaminophen 325 MG Tab PO PRN ×2 (00:31→04:31)
[2020-01-01] MEDS: metFORMIN 500 MG Tab PO SCH (08:23)
[2020-01-01] MEDS: Pregabalin 75 MG Cap PO SCH (08:25)
[2020-01-01] MEDS: Metoprolol Tartrate 25 MG Tab PO SCH (08:32)
[2020-01-01] MEDS: Insulin Lispro 100 Units/ML 3 ML Vial SUBCUT SCH (08:36)
--- NOTE | 2020-01-01 13:31 | PCM.DCSUM1 ---
Discharge Summary - Hospital Course HPI Initial Comments: See admission H&P Brief History: See admission H&P Diagnosis: Stroke: No Modified Chris Scale: No Symptoms at All Modified Chris Scale Score: 0 - Discharge Data Discharge Date: 01/01/20 Discharge Disposition: Home, W Home Health Agency 06 Condition: Good - Referral to Home Health Date of Face to Face Encounter: 01/01/20 Reason for Homebound Status: Recent cervical surgery with limited ambulation without assist and required continued physical therapy and occupational therapy on an outpatient basis. Outside activity limited to follow-up doctor's appointment, including neurology at [place], etc. Primary Care Physician: Allison Lawrence NP Skilled Need: Medication set up and control of narcotic use with additional physical therapy and occupational therapy - Discharge Diagnosis/Problem(s) (1) Osteoarthritis SNOMED Code(s): 957264585 ICD Code: M19.90 - UNSPECIFIED OSTEOARTHRITIS, UNSPECIFIED SITE Status: Chronic Priority: High Current Visit: Yes Problem Details: Note recent cervical fusion on 12/21/19 requiring further strengthening and treatment by PT and OT, which progressed extremely well during his swing bed care. Patient continued previous restrictions, including cervical collar, fall precautions, walker use, etc.. Advance activity as tolerated. Otherwise follow-up with orthopedic surgeons as previously scheduled. Qualifiers: Osteoarthritis location: multiple joints Osteoarthritis type: primary Qualified Code(s): M15.0 - Primary generalized (osteo)arthritis (2) Coronary artery disease SNOMED Code(s): 60851780 ICD Code: I25.10 - ATHSCL HEART DISEASE OF [place] CORONARY ARTERY W/O ANG PCTRS Status: Chronic Priority: Medium Current Visit: Yes Problem Details: No recent chest pain or anginal complaints. Qualifiers: Coronary Disease-Associated Artery/Lesion type: bypass graft [place] vs. transplanted heart: [place] heart Associated angina: without angina Qualified Code(s): I25.810 - Atherosclerosis of coronary artery bypass graft(s) without angina pectoris (3) COPD (chronic obstructive pulmonary disease) SNOMED Code(s): 58778247 ICD Code: J44.9 - CHRONIC OBSTRUCTIVE PULMONARY DISEASE, UNSPECIFIED Status : Chronic Priority: Medium Current Visit: Yes Problem Details: No recent medical therapy required. When necessary nebulizer treatments for now. Consider PFTs depending on his clinical course. Qualifiers: COPD type: emphysema Emphysema type: panlobular Qualified Code(s): J43.1 - Panlobular emphysema (4) Mixed anxiety depressive disorder SNOMED Code(s): 101043387 ICD Code: F41.8 - OTHER SPECIFIED ANXIETY DISORDERS Status: Chronic Priority: Medium Current Visit: Yes Problem Details: Stable by patient history. Continue current medical therapy. Note chronic narcotic use with drug contract. (5) Peptic reflux disease SNOMED Code(s): 616663375 ICD Code: K21.9 - GASTRO-ESOPHAGEAL REFLUX DISEASE WITHOUT ESOPHAGITIS Status: Chronic Priority: Medium Current Visit: Yes Problem Details: Stable by history with current medical therapy. (6) Hyperlipidemia SNOMED Code(s): 92864164 ICD Code: E78.5 - HYPERLIPIDEMIA, UNSPECIFIED Status: Chronic Priority: Medium Current Visit: Yes Problem Details: Currently under therapy. Qualifiers: Hyperlipidemia type: mixed hyperlipidemia Qualified Code(s): E78.2 - Mixed hyperlipidemia (7) Hypertension SNOMED Code(s): 37821253 ICD Code: I10 - ESSENTIAL (PRIMARY) HYPERTENSION Status: Chronic Priority : Medium Current Visit: Yes Problem Details: Stable by history and during this hospitalization with current medical therapy. Qualifiers: Hypertension type: essential hypertension Qualified Code(s): I10 - Essential (primary) hypertension (8) Diabetes mellitus SNOMED Code(s): 77013971 ICD Code: E11.9 - TYPE 2 DIABETES MELLITUS WITHOUT COMPLICATIONS Status: Chronic Priority: Medium Current Visit: Yes Problem Details: Initiate sliding scale with as needed Humalog. Glycosylated hemoglobin conducted during this hospitalization with results as below. Accu-Cheks under good control with no significant sliding scale required. 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 No evidence of acute bleed, including GI bleed, etc. Qualifiers: Anemia type: unspecified type Qualified Code(s): D64.9 - Anemia, unspecified (10) Hypoalbuminemia SNOMED Code(s): 052772583 ICD Code: E88.09 - OTH DISORDERS OF PLASMA-PROTEIN METABOLISM, NEC Status: Acute Priority: Medium Current Visit: Yes Onset Date: 12/26/19 Problem Details: Observe for now. Consider high protein Glucerna supplements as snacks. Otherwise follow-up closely by regular provider - Patient Summary/Data Operative Procedure(s) Performed: Previous cervical spine surgery as per history and physical Complications: None Consults: Consultations 12/25/19 15:47 Consult to Case Management/Dog Hair Clipper [CONS] Routine OT Evaluation and Treatment [CONS] Routine PT Evaluation and Treatment [CONS] Routine Labs Pending at D/C: None Recommended Follow-up Testing/Procedures: As per discharge instructions Planned Operative Procedure(s) after DC: None Hospital Course: The patient was admitted to swing bed for physical therapy and occupational therapy after recent cervical surgery as per admission H&P. Physical therapy went well with pain under good control with oxycodone. Note history of narcotic abuse with patient currently in a pain contract. His regular provider, WIN Knox at the [facility], did not wish to review his Tylenol 3 until follow-up appointment on 01/04. Sedation etc. precautions were given. Otherwise treatment as above with no complications. - Patient Instructions Diet: Heart Healthy Diet Diet, Other: 2000-calorie ADA Activity: As Tolerated (And as directed by PT) Driving: Do Not Drive Showering/Bathing: May Shower Wound/Incision Care: Keep Operative Site/Wound Site Clean and Dry Notify Provider of: Fever, Increased Pain, Swelling and Redness, Drainage, Nausea and/or Vomiting Other/Special Instructions: 1. Follow-up with the nurse sinus clinic at [facility] in [place] as already scheduled on 01/18/20 with initial appointment at 12: 40 5 PM with additional follow-up in the same department on 01/19/20 at 11:30 a.m. 2. Followup with your regular provider, WIN Knox at the [facility] in [place] on 01/04 at 11 AM. as directed for reevaluation and recommended CBC, comprehensive metabolic panel, TIBC panel, ferritin level, vitamin D 12 level, and folic acid level. Bring these discharge instructions with you to that visit. 3. Use narcotic pain medications with discretion as discussed with sedation, etc. precautions. 4. Continue cervical collar until otherwise directed by your neurosurgeon. 5. Echocardiogram in this facility on 01/04 at 10:30 a.m. with final results to be discussed with your regular provider. 6. Immediately after this visit verify that your cellular telephone' s voicemail has been activated and is empty. Also verify that your home telephone's answering machine is operating properly and has space to receive messages. Note that it is sometimes necessary for us to be able to contact you at a later date to discuss your medical care. 7. Please remember that we are ALWAYS here for you and want to answer any questions you may have. Feel free to call the hospital any time and we call you back ASTON. - Discharge Plan *PRESCRIPTION DRUG MONITORING PROGRAM REVIEWED*: Yes *COPY OF PRESCRIPTION DRUG MONITORING REPORT IN PATIENT ARAM: Yes Prescriptions/Med Rec: oxyCODONE 5 mg PO Q4H PRN #20 tablet PRN Reason: Pain (Severe 7-10) Home Medications: Home Meds Lidocaine 5% [Lidoderm 5%] 1 patch TP DAILY PRN 08/30/17 [History] Omeprazole 20 mg PO ACDINNER 08/30/17 [History] Sennosides/Docusate Sodium [Senna-Docusate Sodium] 1 tab PO BID 08/30/17 [ History] Tamsulosin [Flomax] 0.4 mg PO BEDTIME 08/30/17 [History] atorvaSTATin [Lipitor] 40 mg PO BEDTIME 08/30/17 [History] metFORMIN [Glucophage] 1,000 mg PO BIDMEALS 08/30/17 [History] Bisacodyl [Dulcolax] 1 supp RECTAL ASDIRECTED PRN 12/25/19 [History] Metoprolol Tartrate 12.5 mg PO BID 12/25/19 [History] Pregabalin [Lyrica] 150 mg PO BID 12/25/19 [History] tiZANidine HCl [Zanaflex] 1 tab PO TID 12/25/19 [History] Acetaminophen [Tylenol] 650 mg PO Q4H PRN tablet 01/01/20 [Rx] oxyCODONE 5 mg PO Q4H PRN #20 tablet 01/01/20 [Rx] Oxygen Therapy Mode: Room Air - Discharge Summary/Plan Comment DC Time >30 min.: Yes (Coordination of care ) Discharge Summary/Plan Comment: As above. Extensive precautions were given to the patient, who is in agreement with the treatment plan. See Patient Instructions for further treatment and plan. - General Info Date of Service: 01/01/20 Admission Dx/Problem (Free Text: Admission Diagnosis/Problem Admission Diagnosis/Problem Osteoarthritis Functional Status: Reports: Pain Controlled, Tolerating Diet, Ambulating (With assist), Urinating (No evidence of recurrence of urinary retention despite discontinuation of [place]), New Symptoms, Incentive Spirometry Numeric/FACES Score: 7 - Review of Systems General: Reports: Weakness. Denies: Fever, Fatigue, Malaise, Chills, Night Sweats, Appetite (Adequate) HEENT: Reports: No Symptoms. Denies: Dysphasia, Ear Pain, Eye Pain, Headaches, Sinus Congestion, Sore Throat, Rhinitis, Visual Changes Pulmonary: Reports: No Symptoms. Denies: Shortness of Breath, Cough, Sputum, Hemoptysis, Wheezing Cardiovascular: Reports: No Symptoms. Denies: Chest Pain, Palpitations, Dyspnea on Exertion, Orthopnea, PND, Edema, Lightheadedness Gastrointestinal: Reports: No Symptoms. Denies: Abdominal Pain, Constipation, Decreased Appetite, Diarrhea, Hematochezia, Melena, Nausea, Vomiting Genitourinary: Reports: No Symptoms. Denies: Dysuria, Frequency, Burning, Urgency, Incontinence, Retention, Flank Pain Musculoskeletal: Reports: Neck Pain (Slowly improving although narcotic still required). Denies: Shoulder Pain, Arm Pain, Back Pain, Leg Pain, Joint Pain, Joint Swelling Skin: Reports: No Symptoms. Denies: Diaphoresis, Bruising, Rash Neurological: Reports: Pre-Existing Deficit, Difficulty Walking, Weakness. Denies: Confusion, Dizziness, Headache, Numbness, Paresthesia, Tingling Psychiatric: Reports: No Symptoms. Denies: Confusion, Depression, Anxiety, Agitation, Cravings, Hallucinations, Homicidal Ideation - Patient Data Vitals - Most Recent: Last Vital Signs Temp 36.2 C 01/01/20 08:00 Pulse 85 01/01/20 08:32 Resp 18 01/01/20 08:00 BP 117/72 01/01/20 08:32 Pulse Ox 99 01/01/20 08:00 Vital Signs - 24 hr 12/31/19 12/31/19 01/01/20 17:30 17:42 08:00 Temperature [ 36.6 C 36.2 C Oral] Pulse, 95 Peripheral Pulse, 95 85 Peripheral [ Right Pulse Oximetry] Respiratory 16 18 Rate Blood Pressure 133/68 Blood Pressure 117/72 [Left] Blood Pressure 133/68 [Right Upper Arm] O2 Sat by Pulse 100 99 Oximetry 01/01/20 08:32 Temperature [ Oral] Pulse, 85 Peripheral Pulse, Peripheral [ Right Pulse Oximetry] Respiratory Rate Blood Pressure 117/72 Blood Pressure [Left] Blood Pressure [Right Upper Arm] O2 Sat by Pulse Oximetry Weight - Most Recent: 80.377 kg I&O - Last 24 hours: Intake & Output 12/31/19 01/01/20 01/01/20 22:59 06:59 14:59 Intake Total 885 135 4542 Output Total 1110 400 Balance 300 -910 1060 Imaging Impressions - Last 24 hrs: None Lab Results - Last 24 hrs: Laboratory Results - last 24 hr 12/31/19 01/01/20 Range/Units 16:43 07:10 POC Glucose 120 H 111 H (65-110) mg/dl Laboratory Tests 12/25/19 12/26/19 12/26/19 Range/Units 17:07 07:25 07:25 WBC 6.8 (4.0-10.2) K/uL RBC 3.73 L (4.33-5.41) M/uL Hgb 10.9 L (13.1-16.8) g/dL Hct 33.5 L (39.0-49.0) % MCV 89.8 (84.0-98.0) fL MCH 29.2 (28.2-33.3) pg MCHC 32.5 (31.7-36.0) g/dL RDW 14.8 H (11.2-14.1) % Plt Count 179 (150-350) K/uL Neut % (Auto) 66.3 (45.0-80.0) % Lymph % (Auto) 17.6 (10.0-50.0) % [place] % (Auto) 11.7 (2.0-14.0) % Eos % (Auto) 3.8 (0.0-5.0) % Baso % (Auto) 0.6 (0.0-2.0) % Neut # (Auto) 4.50 (1.40-7.00) K/uL Lymph # (Auto) 1.19 (0.50-3.50) K/uL O[place] # (Auto) 0.79 (0.00-1.00) K/uL Eos # (Auto) 0.26 (0.00-0.50) K/uL Baso # (Auto) 0.04 (0.00-0.20) K/uL Sodium 137 (136-145) mmol/L Potassium 4.3 (3.5-5.1) mmol/L Chloride 103 (98-107) mmol/L Carbon Dioxide 24.8 (21.0-32.0) mmol/L BUN 16 (7-18) mg/dL Creatinine 0.89 (0.51-1.17) mg/dL Est Cr Clr Drug Dosing 71.69 mL/min Estimated GFR (MDRD) > 60 mL/min Glucose 114 H (74-106) mg/dL POC Glucose 171 H (65-110) mg/dl Hemoglobin A1c (4.3-5.7) % Uric Acid (2.6-7.2) mg/dL Calcium 8.9 (8.5-10.1) mg/dL Total Bilirubin 0.7 (0.2-1.0) mg/dL AST 22 (15-37) U/L ALT 8 L (12-78) U/L Alkaline Phosphatase 81 (46-116) IU/L Total Protein 7.1 (6.4-8.2) g/dL Albumin 3.0 L (3.4-5.0) g/dL Vitamin B12 373 (193-986) pg/mL TSH, Ultra Sensitive 1.046 (0.358-3.740) mIU/mL Specimen Type Urine Color (YELLOW) Urine Appearance (CLEAR) Urine pH (5.0-9.0) Ur Specific [place] (1.005-1.030) Urine Protein (NEGATIVE) mg/dL Urine Glucose (UA) (NEGATIVE) mg/dL Urine Ketones (NEGATIVE) mg/dL Urine Occult Blood (NEGATIVE) Urine Nitrite (NEGATIVE) Urine Bilirubin (NEGATIVE) Urine Urobilinogen (0.2-1.0) E.U./dL Ur Leukocyte Esterase (NEGATIVE) Urine RBC /HPF Urine WBC /HPF Ur Epithelial Cells /LPF Urine Bacteria (NONE TO FEW) /HPF Urine Mucus (NEGATIVE) /LPF 02/29/20 02/29/20 02/29/20 Range/Units 07:25 07:38 16:58 WBC (4.0-10.2) K/uL RBC (4.33-5.41) M/uL Hgb (13.1-16.8) g/dL Hct (39.0-49.0) % MCV (84.0-98.0) fL MCH (28.2-33.3) pg MCHC (31.7-36.0) g/dL RDW (11.2-14.1) % Plt Count (150-350) K/uL Neut % (Auto) (45.0-80.0) % Lymph % (Auto) (10.0-50.0) % Owsley % (Auto) (2.0-14.0) % Eos % (Auto) (0.0-5.0) % Baso % (Auto) (0.0-2.0) % Neut # (Auto) (1.40-7.00) K/uL Lymph # (Auto) (0.50-3.50) K/uL O[place] # (Auto) (0.00-1.00) K/uL Eos # (Auto) (0.00-0.50) K/uL Baso # (Auto) (0.00-0.20) K/uL Sodium (136-145) mmol/L Potassium (3.5-5.1) mmol/L Chloride (98-107) mmol/L Carbon Dioxide (21.0-32.0) mmol/L BUN (7-18) mg/dL Creatinine (0.51-1.17) mg/dL Est Cr Clr Drug Dosing mL/min Estimated GFR (MDRD) mL/min Glucose (74-106) mg/dL POC Glucose 104 118 H (65-110) mg/dl Hemoglobin A1c 5.6 (4.3-5.7) % Uric Acid (2.6-7.2) mg/dL Calcium (8.5-10.1) mg/dL Total Bilirubin (0.2-1.0) mg/dL AST (15-37) U/L ALT (12-78) U/L Alkaline Phosphatase (46-116) IU/L Total Protein (6.4-8.2) g/dL Albumin (3.4-5.0) g/dL Vitamin B12 (193-986) pg/mL TSH, Ultra Sensitive (0.358-3.740) mIU/mL Specimen Type Urine Color (YELLOW) Urine Appearance (CLEAR) Urine pH (5.0-9.0) Ur Specific [place] (1.005-1.030) Urine Protein (NEGATIVE) mg/dL Urine Glucose (UA) (NEGATIVE) mg/dL Urine Ketones (NEGATIVE) mg/dL Urine Occult Blood (NEGATIVE) Urine Nitrite (NEGATIVE) Urine Bilirubin (NEGATIVE) Urine Urobilinogen (0.2-1.0) E.U./dL Ur Leukocyte Esterase (NEGATIVE) Urine RBC /HPF Urine WBC /HPF Ur Epithelial Cells /LPF Urine Bacteria (NONE TO FEW) /HPF Urine Mucus (NEGATIVE) /LPF 12/26/19 12/27/19 12/27/19 Range/Units 18:15 07:36 17:02 WBC (4.0-10.2) K/uL RBC (4.33-5.41) M/uL Hgb (13.1-16.8) g/dL Hct (39.0-49.0) % MCV (84.0-98.0) fL MCH (28.2-33.3) pg MCHC (31.7-36.0) g/dL RDW (11.2-14.1) % Plt Count (150-350) K/uL Neut % (Auto) (45.0-80.0) % Lymph % (Auto) (10.0-50.0) % Ows[place] % (Auto) (2.0-14.0) % Eos % (Auto) (0.0-5.0) % Baso % (Auto) (0.0-2.0) % Neut # (Auto) (1.40-7.00) K/uL Lymph # (Auto) (0.50-3.50) K/uL O[place] # (Auto) (0.00-1.00) K/uL Eos # (Auto) (0.00-0.50) K/uL Baso # (Auto) (0.00-0.20) K/uL Sodium (136-145) mmol/L Potassium (3.5-5.1) mmol/L Chloride (98-107) mmol/L Carbon Dioxide (21.0-32.0) mmol/L BUN (7-18) mg/dL Creatinine (0.51-1.17) mg/dL Est Cr Clr Drug Dosing mL/min Estimated GFR (MDRD) mL/min Glucose (74-106) mg/dL POC Glucose 100 89 (65-110) mg/dl Hemoglobin A1c (4.3-5.7) % Uric Acid (2.6-7.2) mg/dL Calcium (8.5-10.1) mg/dL Total Bilirubin (0.2-1.0) mg/dL AST (15-37) U/L ALT (12-78) U/L Alkaline Phosphatase (46-116) IU/L Total Protein (6.4-8.2) g/dL Albumin (3.4-5.0) g/dL Vitamin B12 (193-986) pg/mL TSH, Ultra Sensitive (0.358-3.740) mIU/mL Specimen Type Urincc Urine Color Yellow (YELLOW) Urine Appearance Clear (CLEAR) Urine pH 6.0 (5.0-9.0) Ur Specific [place] 1.015 (1.005-1.030) Urine Protein Negative (NEGATIVE) mg/dL Urine Glucose (UA) Negative (NEGATIVE) mg/dL Urine Ketones Negative (NEGATIVE) mg/dL Urine Occult Blood Negative (NEGATIVE) Urine Nitrite Negative (NEGATIVE) Urine Bilirubin Negative (NEGATIVE) Urine Urobilinogen 0.2 (0.2-1.0) E.U./dL Ur Leukocyte Esterase Negative (NEGATIVE) Urine RBC 0-5 /HPF Urine WBC 0-5 /HPF Ur Epithelial Cells Rare /LPF Urine Bacteria Rare (NONE TO FEW) /HPF Urine Mucus Rare H (NEGATIVE) /LPF 12/28/19 12/28/19 12/29/19 Range/Units 07:34 16:54 07:42 WBC (4.0-10.2) K/uL RBC (4.33-5.41) M/uL Hgb (13.1-16.8) g/dL Hct (39.0-49.0) % MCV (84.0-98.0) fL MCH (28.2-33.3) pg MCHC (31.7-36.0) g/dL RDW (11.2-14.1) % Plt Count (150-350) K/uL Neut % (Auto) (45.0-80.0) % Lymph % (Auto) (10.0-50.0) % [place] % (Auto) (2.0-14.0) % Eos % (Auto) (0.0-5.0) % Baso % (Auto) (0.0-2.0) % Neut # (Auto) (1.40-7.00) K/uL Lymph # (Auto) (0.50-3.50) K/uL [place] # (Auto) (0.00-1.00) K/uL Eos # (Auto) (0.00-0.50) K/uL Baso # (Auto) (0.00-0.20) K/uL Sodium (136-145) mmol/L Potassium (3.5-5.1) mmol/L Chloride (98-107) mmol/L Carbon Dioxide (21.0-32.0) mmol/L BUN (7-18) mg/dL Creatinine (0.51-1.17) mg/dL Est Cr Clr Drug Dosing mL/min Estimated GFR (MDRD) mL/min Glucose (74-106) mg/dL POC Glucose 90 126 H 74 (65-110) mg/dl Hemoglobin A1c (4.3-5.7) % Uric Acid (2.6-7.2) mg/dL Calcium (8.5-10.1) mg/dL Total Bilirubin (0.2-1.0) mg/dL AST (15-37) U/L ALT (12-78) U/L Alkaline Phosphatase (46-116) IU/L Total Protein (6.4-8.2) g/dL Albumin (3.4-5.0) g/dL Vitamin B12 (193-986) pg/mL TSH, Ultra Sensitive (0.358-3.740) mIU/mL Specimen Type Urine Color (YELLOW) Urine Appearance (CLEAR) Urine pH (5.0-9.0) Ur Specific [place] (1.005-1.030) Urine Protein (NEGATIVE) mg/dL Urine Glucose (UA) (NEGATIVE) mg/dL Urine Ketones (NEGATIVE) mg/dL Urine Occult Blood (NEGATIVE) Urine Nitrite (NEGATIVE) Urine Bilirubin (NEGATIVE) Urine Urobilinogen (0.2-1.0) E.U./dL Ur Leukocyte Esterase (NEGATIVE) Urine RBC /HPF Urine WBC /HPF Ur Epithelial Cells /LPF Urine Bacteria (NONE TO FEW) /HPF Urine Mucus (NEGATIVE) /LPF 12/29/19 12/30/19 12/30/19 Range/Units 17:08 07:05 17:07 WBC (4.0-10.2) K/uL RBC (4.33-5.41) M/uL Hgb (13.1-16.8) g/dL Hct (39.0-49.0) % MCV (84.0-98.0) fL MCH (28.2-33.3) pg MCHC (31.7-36.0) g/dL RDW (11.2-14.1) % Plt Count (150-350) K/uL Neut % (Auto) (45.0-80.0) % Lymph % (Auto) (10.0-50.0) % [place] % (Auto) (2.0-14.0) % Eos % (Auto) (0.0-5.0) % Baso % (Auto) (0.0-2.0) % Neut # (Auto) (1.40-7.00) K/uL Lymph # (Auto) (0.50-3.50) K/uL [place] # (Auto) (0.00-1.00) K/uL Eos # (Auto) (0.00-0.50) K/uL Baso # (Auto) (0.00-0.20) K/uL Sodium (136-145) mmol/L Potassium (3.5-5.1) mmol/L Chloride (98-107) mmol/L Carbon Dioxide (21.0-32.0) mmol/L BUN (7-18) mg/dL Creatinine (0.51-1.17) mg/dL Est Cr Clr Drug Dosing mL/min Estimated GFR (MDRD) mL/min Glucose (74-106) mg/dL POC Glucose 92 90 100 (65-110) mg/dl Hemoglobin A1c (4.3-5.7) % Uric Acid (2.6-7.2) mg/dL Calcium (8.5-10.1) mg/dL Total Bilirubin (0.2-1.0) mg/dL AST (15-37) U/L ALT (12-78) U/L Alkaline Phosphatase (46-116) IU/L Total Protein (6.4-8.2) g/dL Albumin (3.4-5.0) g/dL Vitamin B12 (193-986) pg/mL TSH, Ultra Sensitive (0.358-3.740) mIU/mL Specimen Type Urine Color (YELLOW) Urine Appearance (CLEAR) Urine pH (5.0-9.0) Ur Specific Cas[place] (1.005-1.030) Urine Protein (NEGATIVE) mg/dL Urine Glucose (UA) (NEGATIVE) mg/dL Urine Ketones (NEGATIVE) mg/dL Urine Occult Blood (NEGATIVE) Urine Nitrite (NEGATIVE) Urine Bilirubin (NEGATIVE) Urine Urobilinogen (0.2-1.0) E.U./dL Ur Leukocyte Esterase (NEGATIVE) Urine RBC /HPF Urine WBC /HPF Ur Epithelial Cells /LPF Urine Bacteria (NONE TO FEW) /HPF Urine Mucus (NEGATIVE) /LPF 12/31/19 12/31/19 12/31/19 Range/Units 06:50 06:50 07:08 WBC 7.3 (4.0-10.2) K/uL RBC 3.88 L (4.33-5.41) M/uL Hgb 11.4 L (13.1-16.8) g/dL Hct 35.0 L (39.0-49.0) % MCV 90.2 (84.0-98.0) fL MCH 29.4 (28.2-33.3) pg MCHC 32.6 (31.7-36.0) g/dL RDW 13.9 (11.2-14.1) % Plt Count 292 D (150-350) K/uL Neut % (Auto) 63.8 (45.0-80.0) % Lymph % (Auto) 22.3 (10.0-50.0) % Owsley % (Auto) 9.9 (2.0-14.0) % Eos % (Auto) 3.3 (0.0-5.0) % Baso % (Auto) 0.7 (0.0-2.0) % Neut # (Auto) 4.63 (1.40-7.00) K/uL Lymph # (Auto) 1.62 (0.50-3.50) K/uL Owsley # (Auto) 0.72 (0.00-1.00) K/uL Eos # (Auto) 0.24 (0.00-0.50) K/uL Baso # (Auto) 0.05 (0.00-0.20) K/uL Sodium 136 (136-145) mmol/L Potassium 4.6 (3.5-5.1) mmol/L Chloride 100 (98-107) mmol/L Carbon Dioxide 26.2 (21.0-32.0) mmol/L BUN 17 (7-18) mg/dL Creatinine 1.06 (0.51-1.17) mg/dL Est Cr Clr Drug Dosing 60.19 mL/min Estimated GFR (MDRD) > 60 mL/min Glucose 93 (74-106) mg/dL POC Glucose 118 H (65-110) mg/dl Hemoglobin A1c (4.3-5.7) % Uric Acid 5.3 (2.6-7.2) mg/dL Calcium 9.3 (8.5-10.1) mg/dL Total Bilirubin 0.4 (0.2-1.0) mg/dL AST 21 (15-37) U/L ALT 16 (12-78) U/L Alkaline Phosphatase 90 (46-116) IU/L Total Protein 7.7 (6.4-8.2) g/dL Albumin 3.1 L (3.4-5.0) g/dL Vitamin B12 (193-986) pg/mL TSH, Ultra Sensitive (0.358-3.740) mIU/mL Specimen Type Urine Color (YELLOW) Urine Appearance (CLEAR) Urine pH (5.0-9.0) Ur Specific Cas[place] (1.005-1.030) Urine Protein (NEGATIVE) mg/dL Urine Glucose (UA) (NEGATIVE) mg/dL Urine Ketones (NEGATIVE) mg/dL Urine Occult Blood (NEGATIVE) Urine Nitrite (NEGATIVE) Urine Bilirubin (NEGATIVE) Urine Urobilinogen (0.2-1.0) E.U./dL Ur Leukocyte Esterase (NEGATIVE) Urine RBC /HPF Urine WBC /HPF Ur Epithelial Cells /LPF Urine Bacteria (NONE TO FEW) /HPF Urine Mucus (NEGATIVE) /LPF 12/31/19 01/01/20 Range/Units 16:43 07:10 WBC (4.0-10.2) K/uL RBC (4.33-5.41) M/uL Hgb (13.1-16.8) g/dL Hct (39.0-49.0) % MCV (84.0-98.0) fL MCH (28.2-33.3) pg MCHC (31.7-36.0) g/dL RDW (11.2-14.1) % Plt Count (150-350) K/uL Neut % (Auto) (45.0-80.0) % Lymph % (Auto) (10.0-50.0) % Owsley % (Auto) (2.0-14.0) % Eos % (Auto) (0.0-5.0) % Baso % (Auto) (0.0-2.0) % Neut # (Auto) (1.40-7.00) K/uL Lymph # (Auto) (0.50-3.50) K/uL Owsley # (Auto) (0.00-1.00) K/uL Eos # (Auto) (0.00-0.50) K/uL Baso # (Auto) (0.00-0.20) K/uL Sodium (136-145) mmol/L Potassium (3.5-5.1) mmol/L Chloride (98-107) mmol/L Carbon Dioxide (21.0-32.0) mmol/L BUN (7-18) mg/dL Creatinine (0.51-1.17) mg/dL Est Cr Clr Drug Dosing mL/min Estimated GFR (MDRD) mL/min Glucose (74-106) mg/dL POC Glucose 120 H 111 H (65-110) mg/dl Hemoglobin A1c (4.3-5.7) % Uric Acid (2.6-7.2) mg/dL Calcium (8.5-10.1) mg/dL Total Bilirubin (0.2-1.0) mg/dL AST (15-37) U/L ALT (12-78) U/L Alkaline Phosphatase (46-116) IU/L Total Protein (6.4-8.2) g/dL Albumin (3.4-5.0) g/dL Vitamin B12 (193-986) pg/mL TSH, Ultra Sensitive (0.358-3.740) mIU/mL Specimen Type Urine Color (YELLOW) Urine Appearance (CLEAR) Urine pH (5.0-9.0) Ur Specific Casanova (1.005-1.030) Urine Protein (NEGATIVE) mg/dL Urine Glucose (UA) (NEGATIVE) mg/dL Urine Ketones (NEGATIVE) mg/dL Urine Occult Blood (NEGATIVE) Urine Nitrite (NEGATIVE) Urine Bilirubin (NEGATIVE) Urine Urobilinogen (0.2-1.0) E.U./dL Ur Leukocyte Esterase (NEGATIVE) Urine RBC /HPF Urine WBC /HPF Ur Epithelial Cells /LPF Urine Bacteria (NONE TO FEW) /HPF Urine Mucus (NEGATIVE) /LPF Laboratory Tests 12/25/19 12/26/19 12/26/19 Range/Units 17:07 07:25 07:25 WBC 6.8 (4.0-10.2) K/uL RBC 3.73 L (4.33-5.41) M/uL Hgb 10.9 L (13.1-16.8) g/dL Hct 33.5 L (39.0-49.0) % MCV 89.8 (84.0-98.0) fL MCH 29.2 (28.2-33.3) pg MCHC 32.5 (31.7-36.0) g/dL RDW 14.8 H (11.2-14.1) % Plt Count 179 (150-350) K/uL Neut % (Auto) 66.3 (45.0-80.0) % Lymph % (Auto) 17.6 (10.0-50.0) % Owsley % (Auto) 11.7 (2.0-14.0) % Eos % (Auto) 3.8 (0.0-5.0) % Baso % (Auto) 0.6 (0.0-2.0) % Neut # (Auto) 4.50 (1.40-7.00) K/uL Lymph # (Auto) 1.19 (0.50-3.50) K/uL Owsley # (Auto) 0.79 (0.00-1.00) K/uL Eos # (Auto) 0.26 (0.00-0.50) K/uL Baso # (Auto) 0.04 (0.00-0.20) K/uL Sodium 137 (136-145) mmol/L Potassium 4.3 (3.5-5.1) mmol/L Chloride 103 (98-107) mmol/L Carbon Dioxide 24.8 (21.0-32.0) mmol/L BUN 16 (7-18) mg/dL Creatinine 0.89 (0.51-1.17) mg/dL Est Cr Clr Drug Dosing 71.69 mL/min Estimated GFR (MDRD) > 60 mL/min Glucose 114 H (74-106) mg/dL POC Glucose 171 H (65-110) mg/dl Hemoglobin A1c (4.3-5.7) % Uric Acid (2.6-7.2) mg/dL Calcium 8.9 (8.5-10.1) mg/dL Total Bilirubin 0.7 (0.2-1.0) mg/dL AST 22 (15-37) U/L ALT 8 L (12-78) U/L Alkaline Phosphatase 81 (46-116) IU/L Total Protein 7.1 (6.4-8.2) g/dL Albumin 3.0 L (3.4-5.0) g/dL Vitamin B12 373 (193-986) pg/mL TSH, Ultra Sensitive 1.046 (0.358-3.740) mIU/mL Specimen Type Urine Color (YELLOW) Urine Appearance (CLEAR) Urine pH (5.0-9.0) Ur Specific Casanova (1.005-1.030) Urine Protein (NEGATIVE) mg/dL Urine Glucose (UA) (NEGATIVE) mg/dL Urine Ketones (NEGATIVE) mg/dL Urine Occult Blood (NEGATIVE) Urine Nitrite (NEGATIVE) Urine Bilirubin (NEGATIVE) Urine Urobilinogen (0.2-1.0) E.U./dL Ur Leukocyte Esterase (NEGATIVE) Urine RBC /HPF Urine WBC /HPF Ur Epithelial Cells /LPF Urine Bacteria (NONE TO FEW) /HPF Urine Mucus (NEGATIVE) /LPF 12/26/19 12/26/19 12/26/19 Range/Units 07:25 07:38 16:58 WBC (4.0-10.2) K/uL RBC (4.33-5.41) M/uL Hgb (13.1-16.8) g/dL Hct (39.0-49.0) % MCV (84.0-98.0) fL MCH (28.2-33.3) pg MCHC (31.7-36.0) g/dL RDW (11.2-14.1) % Plt Count (150-350) K/uL Neut % (Auto) (45.0-80.0) % Lymph % (Auto) (10.0-50.0) % [place] % (Auto) (2.0-14.0) % Eos % (Auto) (0.0-5.0) % Baso % (Auto) (0.0-2.0) % Neut # (Auto) (1.40-7.00) K/uL Lymph # (Auto) (0.50-3.50) K/uL [place] # (Auto) (0.00-1.00) K/uL Eos # (Auto) (0.00-0.50) K/uL Baso # (Auto) (0.00-0.20) K/uL Sodium (136-145) mmol/L Potassium (3.5-5.1) mmol/L Chloride (98-107) mmol/L Carbon Dioxide (21.0-32.0) mmol/L BUN (7-18) mg/dL Creatinine (0.51-1.17) mg/dL Est Cr Clr Drug Dosing mL/min Estimated GFR (MDRD) mL/min Glucose (74-106) mg/dL POC Glucose 104 118 H (65-110) mg/dl Hemoglobin A1c 5.6 (4.3-5.7) % Uric Acid (2.6-7.2) mg/dL Calcium (8.5-10.1) mg/dL Total Bilirubin (0.2-1.0) mg/dL AST (15-37) U/L ALT (12-78) U/L Alkaline Phosphatase (46-116) IU/L Total Protein (6.4-8.2) g/dL Albumin (3.4-5.0) g/dL Vitamin B12 (193-986) pg/mL TSH, Ultra Sensitive (0.358-3.740) mIU/mL Specimen Type Urine Color (YELLOW) Urine Appearance (CLEAR) Urine pH (5.0-9.0) Ur Specific [place] (1.005-1.030) Urine Protein (NEGATIVE) mg/dL Urine Glucose (UA) (NEGATIVE) mg/dL Urine Ketones (NEGATIVE) mg/dL Urine Occult Blood (NEGATIVE) Urine Nitrite (NEGATIVE) Urine Bilirubin (NEGATIVE) Urine Urobilinogen (0.2-1.0) E.U./dL Ur Leukocyte Esterase (NEGATIVE) Urine RBC /HPF Urine WBC /HPF Ur Epithelial Cells /LPF Urine Bacteria (NONE TO FEW) /HPF Urine Mucus (NEGATIVE) /LPF 12/26/19 12/27/19 12/27/19 Range/Units 18:15 07:36 17:02 WBC (4.0-10.2) K/uL RBC (4.33-5.41) M/uL Hgb (13.1-16.8) g/dL Hct (39.0-49.0) % MCV (84.0-98.0) fL MCH (28.2-33.3) pg MCHC (31.7-36.0) g/dL RDW (11.2-14.1) % Plt Count (150-350) K/uL Neut % (Auto) (45.0-80.0) % Lymph % (Auto) (10.0-50.0) % [place] % (Auto) (2.0-14.0) % Eos % (Auto) (0.0-5.0) % Baso % (Auto) (0.0-2.0) % Neut # (Auto) (1.40-7.00) K/uL Lymph # (Auto) (0.50-3.50) K/uL [place] # (Auto) (0.00-1.00) K/uL Eos # (Auto) (0.00-0.50) K/uL Baso # (Auto) (0.00-0.20) K/uL Sodium (136-145) mmol/L Potassium (3.5-5.1) mmol/L Chloride (98-107) mmol/L Carbon Dioxide (21.0-32.0) mmol/L BUN (7-18) mg/dL Creatinine (0.51-1.17) mg/dL Est Cr Clr Drug Dosing mL/min Estimated GFR (MDRD) mL/min Glucose (74-106) mg/dL POC Glucose 100 89 (65-110) mg/dl Hemoglobin A1c (4.3-5.7) % Uric Acid (2.6-7.2) mg/dL Calcium (8.5-10.1) mg/dL Total Bilirubin (0.2-1.0) mg/dL AST (15-37) U/L ALT (12-78) U/L Alkaline Phosphatase (46-116) IU/L Total Protein (6.4-8.2) g/dL Albumin (3.4-5.0) g/dL Vitamin B12 (193-986) pg/mL TSH, Ultra Sensitive (0.358-3.740) mIU/mL Specimen Type Urincc Urine Color Yellow (YELLOW) Urine Appearance Clear (CLEAR) Urine pH 6.0 (5.0-9.0) Ur Specific Cas[place] 1.015 (1.005-1.030) Urine Protein Negative (NEGATIVE) mg/dL Urine Glucose (UA) Negative (NEGATIVE) mg/dL Urine Ketones Negative (NEGATIVE) mg/dL Urine Occult Blood Negative (NEGATIVE) Urine Nitrite Negative (NEGATIVE) Urine Bilirubin Negative (NEGATIVE) Urine Urobilinogen 0.2 (0.2-1.0) E.U./dL Ur Leukocyte Esterase Negative (NEGATIVE) Urine RBC 0-5 /HPF Urine WBC 0-5 /HPF Ur Epithelial Cells Rare /LPF Urine Bacteria Rare (NONE TO FEW) /HPF Urine Mucus Rare H (NEGATIVE) /LPF 12/28/19 12/28/19 12/29/19 Range/Units 07:34 16:54 07:42 WBC (4.0-10.2) K/uL RBC (4.33-5.41) M/uL Hgb (13.1-16.8) g/dL Hct (39.0-49.0) % MCV (84.0-98.0) fL MCH (28.2-33.3) pg MCHC (31.7-36.0) g/dL RDW (11.2-14.1) % Plt Count (150-350) K/uL Neut % (Auto) (45.0-80.0) % Lymph % (Auto) (10.0-50.0) % [place]ws[place] % (Auto) (2.0-14.0) % Eos % (Auto) (0.0-5.0) % Baso % (Auto) (0.0-2.0) % Neut # (Auto) (1.40-7.00) K/uL Lymph # (Auto) (0.50-3.50) K/uL [place] # (Auto) (0.00-1.00) K/uL Eos # (Auto) (0.00-0.50) K/uL Baso # (Auto) (0.00-0.20) K/uL Sodium (136-145) mmol/L Potassium (3.5-5.1) mmol/L Chloride (98-107) mmol/L Carbon Dioxide (21.0-32.0) mmol/L BUN (7-18) mg/dL Creatinine (0.51-1.17) mg/dL Est Cr Clr Drug Dosing mL/min Estimated GFR (MDRD) mL/min Glucose (74-106) mg/dL POC Glucose 90 126 H 74 (65-110) mg/dl Hemoglobin A1c (4.3-5.7) % Uric Acid (2.6-7.2) mg/dL Calcium (8.5-10.1) mg/dL Total Bilirubin (0.2-1.0) mg/dL AST (15-37) U/L ALT (12-78) U/L Alkaline Phosphatase (46-116) IU/L Total Protein (6.4-8.2) g/dL Albumin (3.4-5.0) g/dL Vitamin B12 (193-986) pg/mL TSH, Ultra Sensitive (0.358-3.740) mIU/mL Specimen Type Urine Color (YELLOW) Urine Appearance (CLEAR) Urine pH (5.0-9.0) Ur Specific [place] (1.005-1.030) Urine Protein (NEGATIVE) mg/dL Urine Glucose (UA) (NEGATIVE) mg/dL Urine Ketones (NEGATIVE) mg/dL Urine Occult Blood (NEGATIVE) Urine Nitrite (NEGATIVE) Urine Bilirubin (NEGATIVE) Urine Urobilinogen (0.2-1.0) E.U./dL Ur Leukocyte Esterase (NEGATIVE) Urine RBC /HPF Urine WBC /HPF Ur Epithelial Cells /LPF Urine Bacteria (NONE TO FEW) /HPF Urine Mucus (NEGATIVE) /LPF 12/29/19 12/30/19 12/30/19 Range/Units 17:08 07:05 17:07 WBC (4.0-10.2) K/uL RBC (4.33-5.41) M/uL Hgb (13.1-16.8) g/dL Hct (39.0-49.0) % MCV (84.0-98.0) fL MCH (28.2-33.3) pg MCHC (31.7-36.0) g/dL RDW (11.2-14.1) % Plt Count (150-350) K/uL Neut % (Auto) (45.0-80.0) % Lymph % (Auto) (10.0-50.0) % [place] % (Auto) (2.0-14.0) % Eos % (Auto) (0.0-5.0) % Baso % (Auto) (0.0-2.0) % Neut # (Auto) (1.40-7.00) K/uL Lymph # (Auto) (0.50-3.50) K/uL [place] # (Auto) (0.00-1.00) K/uL Eos # (Auto) (0.00-0.50) K/uL Baso # (Auto) (0.00-0.20) K/uL Sodium (136-145) mmol/L Potassium (3.5-5.1) mmol/L Chloride (98-107) mmol/L Carbon Dioxide (21.0-32.0) mmol/L BUN (7-18) mg/dL Creatinine (0.51-1.17) mg/dL Est Cr Clr Drug Dosing mL/min Estimated GFR (MDRD) mL/min Glucose (74-106) mg/dL POC Glucose 92 90 100 (65-110) mg/dl Hemoglobin A1c (4.3-5.7) % Uric Acid (2.6-7.2) mg/dL Calcium (8.5-10.1) mg/dL Total Bilirubin (0.2-1.0) mg/dL AST (15-37) U/L ALT (12-78) U/L Alkaline Phosphatase (46-116) IU/L Total Protein (6.4-8.2) g/dL Albumin (3.4-5.0) g/dL Vitamin B12 (193-986) pg/mL TSH, Ultra Sensitive (0.358-3.740) mIU/mL Specimen Type Urine Color (YELLOW) Urine Appearance (CLEAR) Urine pH (5.0-9.0) Ur Specific [place] (1.005-1.030) Urine Protein (NEGATIVE) mg/dL Urine Glucose (UA) (NEGATIVE) mg/dL Urine Ketones (NEGATIVE) mg/dL Urine Occult Blood (NEGATIVE) Urine Nitrite (NEGATIVE) Urine Bilirubin (NEGATIVE) Urine Urobilinogen (0.2-1.0) E.U./dL Ur Leukocyte Esterase (NEGATIVE) Urine RBC /HPF Urine WBC /HPF Ur Epithelial Cells /LPF Urine Bacteria (NONE TO FEW) /HPF Urine Mucus (NEGATIVE) /LPF 12/31/19 12/31/19 12/31/19 Range/Units 06:50 06:50 07:08 WBC 7.3 (4.0-10.2) K/uL RBC 3.88 L (4.33-5.41) M/uL Hgb 11.4 L (13.1-16.8) g/dL Hct 35.0 L (39.0-49.0) % MCV 90.2 (84.0-98.0) fL MCH 29.4 (28.2-33.3) pg MCHC 32.6 (31.7-36.0) g/dL RDW 13.9 (11.2-14.1) % Plt Count 292 D (150-350) K/uL Neut % (Auto) 63.8 (45.0-80.0) % Lymph % (Auto) 22.3 (10.0-50.0) % [place] % (Auto) 9.9 (2.0-14.0) % Eos % (Auto) 3.3 (0.0-5.0) % Baso % (Auto) 0.7 (0.0-2.0) % Neut # (Auto) 4.63 (1.40-7.00) K/uL Lymph # (Auto) 1.62 (0.50-3.50) K/uL [place] # (Auto) 0.72 (0.00-1.00) K/uL Eos # (Auto) 0.24 (0.00-0.50) K/uL Baso # (Auto) 0.05 (0.00-0.20) K/uL Sodium 136 (136-145) mmol/L Potassium 4.6 (3.5-5.1) mmol/L Chloride 100 (98-107) mmol/L Carbon Dioxide 26.2 (21.0-32.0) mmol/L BUN 17 (7-18) mg/dL Creatinine 1.06 (0.51-1.17) mg/dL Est Cr Clr Drug Dosing 60.19 mL/min Estimated GFR (MDRD) > 60 mL/min Glucose 93 (74-106) mg/dL POC Glucose 118 H (65-110) mg/dl Hemoglobin A1c (4.3-5.7) % Uric Acid 5.3 (2.6-7.2) mg/dL Calcium 9.3 (8.5-10.1) mg/dL Total Bilirubin 0.4 (0.2-1.0) mg/dL AST 21 (15-37) U/L ALT 16 (12-78) U/L Alkaline Phosphatase 90 (46-116) IU/L Total Protein 7.7 (6.4-8.2) g/dL Albumin 3.1 L (3.4-5.0) g/dL Vitamin B12 (193-986) pg/mL TSH, Ultra Sensitive (0.358-3.740) mIU/mL Specimen Type Urine Color (YELLOW) Urine Appearance (CLEAR) Urine pH (5.0-9.0) Ur Specific [place] (1.005-1.030) Urine Protein (NEGATIVE) mg/dL Urine Glucose (UA) (NEGATIVE) mg/dL Urine Ketones (NEGATIVE) mg/dL Urine Occult Blood (NEGATIVE) Urine Nitrite (NEGATIVE) Urine Bilirubin (NEGATIVE) Urine Urobilinogen (0.2-1.0) E.U./dL Ur Leukocyte Esterase (NEGATIVE) Urine RBC /HPF Urine WBC /HPF Ur Epithelial Cells /LPF Urine Bacteria (NONE TO FEW) /HPF Urine Mucus (NEGATIVE) /LPF 12/31/19 01/01/20 Range/Units 16:43 07:10 WBC (4.0-10.2) K/uL RBC (4.33-5.41) M/uL Hgb (13.1-16.8) g/dL Hct (39.0-49.0) % MCV (84.0-98.0) fL MCH (28.2-33.3) pg MCHC (31.7-36.0) g/dL RDW (11.2-14.1) % Plt Count (150-350) K/uL Neut % (Auto) (45.0-80.0) % Lymph % (Auto) (10.0-50.0) % [place] % (Auto) (2.0-14.0) % Eos % (Auto) (0.0-5.0) % Baso % (Auto) (0.0-2.0) % Neut # (Auto) (1.40-7.00) K/uL Lymph # (Auto) (0.50-3.50) K/uL [place] # (Auto) (0.00-1.00) K/uL Eos # (Auto) (0.00-0.50) K/uL Baso # (Auto) (0.00-0.20) K/uL Sodium (136-145) mmol/L Potassium (3.5-5.1) mmol/L Chloride (98-107) mmol/L Carbon Dioxide (21.0-32.0) mmol/L BUN (7-18) mg/dL Creatinine (0.51-1.17) mg/dL Est Cr Clr Drug Dosing mL/min Estimated GFR (MDRD) mL/min Glucose (74-106) mg/dL POC Glucose 120 H 111 H (65-110) mg/dl Hemoglobin A1c (4.3-5.7) % Uric Acid (2.6-7.2) mg/dL Calcium (8.5-10.1) mg/dL Total Bilirubin (0.2-1.0) mg/dL AST (15-37) U/L ALT (12-78) U/L Alkaline Phosphatase (46-116) IU/L Total Protein (6.4-8.2) g/dL Albumin (3.4-5.0) g/dL Vitamin B12 (193-986) pg/mL TSH, Ultra Sensitive (0.358-3.740) mIU/mL Specimen Type Urine Color (YELLOW) Urine Appearance (CLEAR) Urine pH (5.0-9.0) Ur Specific Casanova (1.005-1.030) Urine Protein (NEGATIVE) mg/dL Urine Glucose (UA) (NEGATIVE) mg/dL Urine Ketones (NEGATIVE) mg/dL Urine Occult Blood (NEGATIVE) Urine Nitrite (NEGATIVE) Urine Bilirubin (NEGATIVE) Urine Urobilinogen (0.2-1.0) E.U./dL Ur Leukocyte Esterase (NEGATIVE) Urine RBC /HPF Urine WBC /HPF Ur Epithelial Cells /LPF Urine Bacteria (NONE TO FEW) /HPF Urine Mucus (NEGATIVE) /LPF XUAN Results - Last 24 hrs: Microbiology 12/26/19 18:15 Urine, Clean Catch Urine Culture - Final NO GROWTH AFTER 2 DAYS 12/25/19 15:48 Stool / Feces Stool Occult Blood (XUAN) - Final NEGATIVE OCCULT BLOOD REFERENCE RANGE: NEGATIVE Med Orders - Current: Current Medications Acetaminophen (Tylenol) 650 mg PO Q4H PRN PRN Reason: Pain (moderate 4-6) Last Admin: 01/01/20 04:31 Dose: 650 mg Albuterol (Proventil Neb Soln) 2.5 mg INH Q2H PRN PRN Reason: SHORTNESS OF BREATH Albuterol/Ipratropium (Duoneb 3.0-0.5 Mg/3 Ml) 3 ml NEB Q4HRRT PRN PRN Reason: Dyspnea Atorvastatin Calcium (Lipitor) 40 mg PO BEDTIME [facility] Last Admin: 12/31/19 19:26 Dose: 40 mg Bisacodyl (Dulcolax) 10 mg RECTAL ASDIRECTED PRN PRN Reason: Constipation Cyclobenzaprine HCl (Flexeril) 10 mg PO DAILY PRN PRN Reason: Spasms Last Admin: 12/30/19 20:19 Dose: 10 mg Insulin Human Lispro (Humalog) 0 unit SUBCUT BIDAC [facility]; Protocol Last Admin: 01/01/20 08:36 Dose: Not Given Lidocaine (Aspercreme 4%) 1 each TOP DAILY PRN PRN Reason: PAIN Last Admin: 12/26/19 09:50 Dose: 1 each Metformin HCl (Glucophage) 1,000 mg PO BIDMEALS [facility] Last Admin: 01/01/20 08:23 Dose: 1,000 mg Metoprolol Tartrate (Lopressor) 12.5 mg PO BID [facility] Last Admin: 01/01/20 08:32 Dose: 12.5 mg Omeprazole (Omeprazole) 20 mg PO DAILY@1730 [facility] Last Admin: 12/31/19 17:41 Dose: 20 mg Oxycodone HCl (Oxycodone) 5 mg PO Q4H PRN PRN Reason: Pain (severe 7-10) Last Admin: 01/01/20 08:26 Dose: 5 mg Pregabalin (Lyrica) 150 mg PO BID [facility] Last Admin: 01/01/20 08:25 Dose: 150 mg Senna/Docusate Sodium (Senna Plus) 1 tab PO BID [facility] Last Admin: 01/01/20 08:25 Dose: 1 tab Tamsulosin HCl (Flomax) 0.4 mg PO BEDTIME [facility] Last Admin: 12/31/19 19:26 Dose: 0.4 mg Temazepam (Restoril) 15 mg PO BEDTIME PRN PRN Reason: Insomnia Last Admin: 12/31/19 20:18 Dose: 15 mg Discontinued Medications Diphtheria/Tetanus/Acell Pertussis (Adacel) 0.5 ml IM .ONCE ONE Stop: 12/26/19 23:52 Last Admin: 12/27/19 00:42 Dose: Not Given Diphtheria/Tetanus/Acell Pertussis (Adacel) 0.5 ml IM .ONCE ONE Stop: 12/27/19 09:01 Last Admin: 12/27/19 09:46 Dose: 0.5 ml Pneumococcal Polyvalent Vaccine (Pneumovax 23) 0.5 ml IM .ONCE ONE Stop: 12/26/19 23:52 Last Admin: 12/27/19 00:42 Dose: Not Given Pneumococcal Polyvalent Vaccine (Pneumovax 23) 0.5 ml IM .ONCE ONE Stop: 12/27/19 09:01 Last Admin: 12/27/19 09:48 Dose: 0.5 ml - Exam Quality Assessment: Reports: DVT Prophylaxis. Denies: Supplemental Oxygen, Central Line/PICC, Urine Catheter, Restraints General: Reports: Alert, Oriented, Cooperative, No Acute Distress HEENT: Reports: Pupils Equal, Pupils Reactive, EOMI, Mucous Membr. Moist/[place] Neck: Reports: Trachea Midline, No JVD, No Thyromegaly, Other (Cervical incision healing well with no local signs of infection, drainage, etc. Decreased mobility with c-collar in place.) Lungs: Reports: Clear to Auscultation, Normal Respiratory Effort. Denies: Rub Cardiovascular: Reports: Regular Rate, Regular Rhythm, No Murmurs. Denies: Gallops, Rubs GI/Abdominal Exam: Normal Bowel Sounds, Soft, Non-Tender, No Organomegaly, No Distention, No Abnormal Bruit, No Mass, Pelvis Stable. No: Guarding (Male) Exam: Penile Lesions Rectal (Males) Exam: Deferred Back Exam: Reports: Normal Inspection, Full Range of Motion. Denies: CVA Tenderness (L), CVA Tenderness (R), Muscle Spasm Extremities: Normal Inspection, Normal Range of Motion, Non-Tender, No Pedal Edema, Normal Capillary Refill. No: Bri's Sign Skin: Reports: Ecchymosis (Stable and improving) Wound/Incisions: Reports: Healing Well, No Drainage, Erythema Improving Neurological: Reports: No New Focal Deficit Psy/Mental Status: Reports: Alert, Normal Affect, Normal Mood. Denies: Agitated , Hallucinations, Withdrawal Symptoms
--- NOTE | 2020-01-01 16:49 | PCM.SN ---
- Free Text/Narrative Note: Correction on discharge summary discharge instructions. Patient is to follow-up with neurological science department at [place], etc.
== END 2020-01-01 17:15 | disposition home health service (06) | DRG 560 ==
LOC: UNDOADMIN 15:29 → LL.MS 15:29
PROVIDERS: ADMIT Family Medicine; ATTEND Family Medicine
DX: Z47.89 Encounter for other orthopedic aftercare (principal); I25.810 Atherosclerosis of coronary artery bypass graft(s) without angina pectoris; Z98.1 Arthrodesis status; M15.0 Primary generalized (osteo)arthritis; J43.1 Panlobular emphysema; F41.8 Other specified anxiety disorders; K21.9 Gastro-esophageal reflux disease without esophagitis; E78.5 Hyperlipidemia, unspecified; E78.2 Mixed hyperlipidemia; E11.9 Type 2 diabetes mellitus without complications; D64.9 Anemia, unspecified; E88.09 Other disorders of plasma-protein metabolism, not elsewhere classified; I11.0 Hypertensive heart disease with heart failure; I50.9 Heart failure, unspecified; K59.09 Other constipation; N40.0 Benign prostatic hyperplasia without lower urinary tract symptoms; E11.42 Type 2 diabetes mellitus with diabetic polyneuropathy; F41.9 Anxiety disorder, unspecified; F32.9 Major depressive disorder, single episode, unspecified; Z88.8 Allergy status to other drugs, medicaments and biological substances; Z79.84 Long term (current) use of oral hypoglycemic drugs; Z79.899 Other long term (current) drug therapy; Z98.49 Cataract extraction status, unspecified eye; I25.2 Old myocardial infarction; Z95.5 Presence of coronary angioplasty implant and graft
CPT/HCPCS: 36415; 51702; 51798; 80053; 81001; 82272; 82607; 82962; 83036; 84443; 84550; 85025; 87086; 90471; 90715; 90732; 97110-GO; 97110-GP; 97116-GP; 97161-GP; 97165-GO; 97530-GO; 97530-GP; 97535-GO; A9270-GY; J1815

== ENCOUNTER 2020-06-22 10:14 | Inpatient (IN) | payer MEDICARE ==
--- NOTE | 2020-06-22 15:24 | PCM.HP.2 ---
H&P History of Present Illness - General Date of Service: 06/22/20 Source of Information: Patient, Old Records History Limitations: Reports: No Limitations - History of Present Illness Initial Comments - Free Text/Narative: Pt to be admitted to skilled swing bed after undergoing L4-5 lumbar fusion Here for PT/OT, strengthening, and cares Location: Reports: Back - Related Data Allergies/Adverse Reactions: Allergies Allergy/AdvReac Type Severity Reaction Status Date / Time lisinopril Allergy Anaphylactic Verified 08/30/17 14:35 Shock Home Medications: Home Meds Lidocaine 5% [Lidoderm 5%] 1 patch TP DAILY 08/30/17 [History] Omeprazole 20 mg PO ACDINNER 08/30/17 [History] Tamsulosin [Flomax] 0.4 mg PO BEDTIME 08/30/17 [History] atorvaSTATin [Lipitor] 40 mg PO BEDTIME 08/30/17 [History] metFORMIN [Glucophage] 1,000 mg PO BIDMEALS 08/30/17 [History] Metoprolol Tartrate 12.5 mg PO BID 12/25/19 [History] Pregabalin [Lyrica] 150 mg PO BID 12/25/19 [History] bisacodyL [Dulcolax] 1 supp RECTAL ASDIRECTED PRN 12/25/19 [History] tiZANidine HCl [Zanaflex] 1 tab PO BID PRN 12/25/19 [History] oxyCODONE 5 mg PO Q4H PRN #20 tablet 01/01/20 [Rx] Acetaminophen [Tylenol] 650 mg PO Q6H PRN 06/22/20 [History] Aspirin [Aspirin EC] 325 mg PO DAILY 06/22/20 [History] DULoxetine [Cymbalta] 60 mg PO BID 06/22/20 [History] Docusate Sodium 100 mg PO BID PRN 06/22/20 [History] Furosemide 40 mg PO DAILY 06/22/20 [History] Isosorbide Mononitrate [Imdur] 30 mg PO DAILY 06/22/20 [History] Multivitamin 1 tab PO DAILY 06/22/20 [History] Past Medical History HEENT History: Reports: Hard of Hearing, Impaired Vision, Other (See Below). Denies: Allergic Rhinitis, Cataract, Glaucoma, Macular Degeneration, Otitis Media, Retinal Detachment Other HEENT History: Moderate bilateral presbycusis with patient currently using hearing aids. Patient wears reading glasses. Cardiovascular History: Reports: Aneurysm, Bypass, CAD, Cardiomyopathy, Heart Failure, Heart Murmur, High Cholesterol, Hypertension, AL, PTCA, PVD, Stents. Denies: Afib, Arrhythmia, Blood Clots/VTE/DVT, Syncope, Other (See Below) Other Cardiovascular History: Left atrial enlargement with mild cardiomegaly and grade 1 diastolic dysfunction by echocardiogram. History of initial AL in 1997 with multiple cardiac procedures as below. Left renal artery stenosis requiring stent placement as below. 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 Carotid occlusive disease with right-sided surgery required as below. Moderate Mitral valve insufficiency by echocardiogram. Respiratory History: Reports: Bronchitis, Recurrent, COPD, Intubation, Previous, Pneumonia, Recurrent, Other (See Below). Denies: Asthma, Intubation, Difficult, PE, Pneumothorax, Sleep Apnea, TB Other Respiratory History: COPD not currently requiring medical therapy. Note right-sided nondisplaced 36 rib fractures with secondary pulmonary contusion secondary to a fall 08/26/17. Gastrointestinal History: Reports: Chronic Constipation, GERD, Hiatal Hernia, Other (See Below). Denies: Celiac Disease, Cholelithiasis, Chronic Diarrhea, Colon Polyp, Fecal Incontinence, Gastritis, GI Bleed, Hepatitis, Inflammatory Bowel Disease, Irritable Bowel Syndrome, Jaundice, Pancreatitis, PUD Other Gastrointestinal History: Benign Right hepatic nodule by CT scan. Genitourinary History: Reports: BPH, Urinary Incontinence. Denies: Acute Renal Failure, Chronic Renal Insuffiency, Renal Calculus, STD, UTI, Recurrent Musculoskeletal History: Reports: Arthritis, Back Pain, Chronic, Fracture, Neck Pain, Chronic, Osteoarthritis, Other (See Below). Denies: Amputation, Gout, RA, SLE Other Musculoskeletal History: Multiple right-sided rib fractures with additional right clavicular fracture from a fall on 08/26/17. Bilateral rotator cuff tears requiring surgeries as below. Neurological History: Reports: Brain Injury, Concussion, Headaches, Chronic, Head Trauma, Neuropathy, Diabetic, Neuropathy, Peripheral, Vertigo, Other (See Below). Denies: Alzheimers Disease, Cerebral Aneurysms, CVA, Migraines, MS, Parkinson's, Seizure, TIA Other Neuro History: History of a left-sided intra-parenchymal cerebral and subarachnoid hemorrhage secondary to major fall on 08/26/17. Multilevel cervical, thoracic, and lumbar spinal stenosis. Psychiatric History: Reports: Addiction, Anxiety, Depression, Other (See Below). Denies: Abuse, Victim of, ADD, ADHD, Alzheimers Disease, Dementia, Psych Hospitalization(s), PTSD, Suicide Attempt, Suicidal Ideation Other Psychiatric History: Chronic narcotic use with current pain contract. Endocrine/Metabolic History: Reports: Diabetes, Type II, Other (See Below). Denies: Diabetes, Type I, Diabetes Mellitus, Type 3c, Hypothyroidism, IDDM, Obesity/BMI 30+ Other Endocrine/Metabolic History: Hyperkalemia. Hematologic History: Reports: Blood Transfusion(s), Other (See Below). Denies: Anemia Other Hematologic History: Transfusion for unknown reason and diagnosis? Immunologic History: Reports: None. Denies: AIDS, HIV, SLE Oncologic (Cancer) History: Reports: None. Denies: Basal Cell Carcinoma, Colon, Hodgkin's Lymphoma, Leukemia, Lymphoma, Malignant Melanoma, Non-Hodgkin's Lymphoma, Prostate, Squamous Cell Carcinoma Dermatologic History: Reports: None. Denies: Eczema, Psoriasis - Infectious Disease History Infectious Disease History: Reports: Chicken Pox, Measles, Mononucleosis (As a teenager), Mumps. Denies: C-Difficile, Meningitis, MRSA, Pertussis (Whooping Cough), RSV, Rubella, Scarlet Fever, Shingles, TB, VRE - Past Surgical History Head Surgeries/Procedures: Reports: None HEENT Surgical History: Reports: Oral Surgery (Complete teeth extraction with the patient only having upper dentures). Denies: Adenoidectomy, Cataract Surgery, Eye Surgery, Myringotomy w Tube(s), Naso-Sinus Surgery, Tonsillectomy Cardiovascular Surgical History: Reports: Aneurysm, Carotid Endarterectomy, Carotid Stents, Coronary Artery Bypass, Coronary Artery Stent, Percutaneous Transluminal Angioplasty, Vascular Surgery, Other (See Below). Denies: Varicose Other Cardiovascular Surgeries/Procedures: Left renal artery stent placement in 1999. Aorticexternal left iliac stent/aneurysm repair in 1999. Initial three- vessel CABG in 1996. Subsequent multiple PTCA/stent placements of a total of 12 stents last on 03/11/18. Right carotid endarterectomy in 2011. Respiratory Surgical History: Reports: None. Denies: Thoracentesis GI Surgical History: Reports: Colonoscopy, Other (See Below). Denies: Appendectomy, Cholecystectomy, EGD, Hernia, Abdominal, Hernia, Inguinal, Hernia Repair/Other, Polypectomy Other GI Surgeries/Procedures: Colonoscopy in about 2013. Male Surgical History: Reports: None. Denies: Circumcision, TURP- Transurethral Resection of Prostate, Vasectomy Neurological Surgical History: Reports: C-Spine, Discectomy, Spinal Fusion. Denies: Laminectomy, Lumbar Spine, Sacral Spine, Thoracic Spine, Vertebroplasty Other Neurological Surgeries/Procedures: Discectomy with cervical fusion of C4- C7 on 12/21/19 Musculoskeletal Surgical History: Reports: Shoulder Surgery. Denies: Arthroscopic Procedure, Carpal Tunnel, Ganglion Cyst, Joint Replacement, ORIF, Shoulder Replacement Other Musculoskeletal Surgeries/Procedures:: Bilateral rotator cuff repairs in the . Oncologic Surgical History: Reports: None Dermatological Surgical History: Reports: None - Past Imaging History Past Imaging History: Reports: Angiography (Last heart catheterization on 03/11/18 with previous evaluations on 03/02/15 and 08/13/13.), Cardiac Echo (Last echocardiogram on 12/07/19 showing an in proved ejection fraction of 45% with otherwise findings as above. Previous echocardiograms on 08/28/17 and 03/01/15.), CAT Scan (CT of the head, C-spine, chest with IV contrast, and abdomen/pelvis on 08/26/17. CT of the left elbow on 09/29/18), MRI (MRI of the C-spine on 12/07/19, 10/29/19, 08/27/17, and 08/26/17. MRI of the lumbar spine on 04/26/19. MRI of the right shoulder on 07/04/18. MRI of the head on 08/27/17 and 08/26/17.) Social & Family History - Family History HEENT: Reports: None. Denies: Glaucoma, Macular Degeneration, Retinal Detachment Cardiac: Reports: CAD, Hypertension, AL, PVD/COD, Other (See Below). Denies: Afib, Aneurysm, Arrhythmia, Blood Clots/VTE/DVT, Bypass, Heart Failure, Syncope Other Cardiac Family History: Parents, sister, brother, maternal aunt, maternal uncle, and maternal grandmother with hypertension. Maternal grandmother with AL in her 50s. Mother with peripheral vascular disease requiring leg amputations. Respiratory: Reports: COPD, Other (See Below). Denies: Asthma Musculoskeletal: Reports: Arthritis, Osteoarthritis, Other (See Below) Other Musculoskeletal Family History: Arthritis in parents and sister, brother, maternal aunt, maternal uncle, maternal grandmother, and maternal grandfather. Neurological: Reports: CVA, Other (See Below) Other Neurological Family History: Maternal grandfather with fatal CVA in his 50s. Psychiatric: Reports: Anxiety, Depression, Other (See Below) Other Psychiatric Family History: Brother with anxiety depression disorder and alcohol abuse fatal at age 66. Mother with anxiety depression disorder. Endocrine/Metabolic: Reports: None. Denies: Diabetes, Type I, Diabetes, type II, Diabetes Mellitus, Type 3c, Hypothyroidism, IDDM Hematologic: Reports: None. Denies: SLE Oncologic: Reports: Lung, Other (See Below) Other Oncologic Family History: Mother with fatal lung cancer at age 61 with history of tobacco use. Father with unknown type of multiple cancers fatal in his 50s. - Caffeine Use Caffeine Use: Reports: Coffee (2 cups per day), Soda (1 soda per day). Denies: Energy Drinks, Tea Caffeine Use Comment: soda - 1 per day, coffee - 2 - Living Situation & Occupation Living situation: Reports: (2004, 1 son), with Family (Son) Occupation: Disabled (In the secondary to his osteoarthritis, anxiety depression disorder, etc.. 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.) H&P Review of Systems - Review of Systems: Review Of Systems: See Below Pulmonary: Reports: No Symptoms Cardiovascular: Reports: No Symptoms Gastrointestinal: Reports: No Symptoms Musculoskeletal: Reports: Back Pain, Other (S/P lumbar fusion) Neurological: Reports: Difficulty Walking, Weakness Exam - Exam Exam: See Below - Exam General: Alert, Oriented HEENT: Mucosa Moist & [place] Neck: Supple Lungs: Normal Respiratory Effort Cardiovascular: Regular Rate GI/Abdominal Exam: Soft, Non-Tender Back Exam: Other (Lumbar dressing intact) Extremities: Pedal Edema Neuro Extensive - Mental Status: Alert, Oriented x3, Normal Mood/Affect Problem List Initiated/Reviewed/Updated: Yes Assessment/Plan Comment:: Imp: S/P lumbar fusion Plan: Admit to skilled swing bed
[2020-06-22] MEDS ORDERED: Bisacodyl 5 MG Tab PO PRN (15:32)
[2020-06-22] MEDS ORDERED: Docusate Sodium 100 MG Cap PO PRN (15:46)
[2020-06-22] MEDS ORDERED: Bisacodyl 10 MG Supp RECTAL PRN (15:46)
[2020-06-22] MEDS: oxyCODONE 5 MG Tab PO PRN ×2 (16:15→20:41)
[2020-06-22] MEDS: metFORMIN 500 MG Tab PO SCH (17:49)
[2020-06-22] MEDS: Omeprazole 20 MG Cap.CR PO SCH (17:49)
[2020-06-22] MEDS ORDERED: Pregabalin 75 MG Cap PO SCH (18:00)
[2020-06-22] MEDS ORDERED: DULoxetine 30 MG Cap PO SCH (18:00)
[2020-06-22] MEDS ORDERED: Metoprolol Tartrate 25 MG Tab PO SCH (18:00)
[2020-06-22] MEDS: DULoxetine 30 MG Cap PO SCH (19:40)
[2020-06-22] MEDS: atorvaSTATin 40 MG Tab PO SCH (19:41)
[2020-06-22] MEDS: Metoprolol Tartrate 25 MG Tab PO SCH (19:41)
[2020-06-22] MEDS: Pregabalin 75 MG Cap PO SCH (19:41)
[2020-06-22] MEDS: Tamsulosin 0.4 MG Cap.ER PO SCH (19:41)
[2020-06-22] MEDS: Remove Patch LIDOCAINE PATCH TRDERM SCH (19:45)
[2020-06-23] MEDS: Lidocaine 4% 1 each Patch TOP SCH (07:52)
[2020-06-23] MEDS: DULoxetine 30 MG Cap PO SCH ×2 (07:53→20:58)
[2020-06-23] MEDS: metFORMIN 500 MG Tab PO SCH ×2 (07:53→17:09)
[2020-06-23] MEDS: Aspirin 325 MG Tab.EC PO SCH (07:53)
[2020-06-23] MEDS: Furosemide 40 MG Tab PO SCH (07:54)
[2020-06-23] MEDS: Metoprolol Tartrate 25 MG Tab PO SCH ×2 (07:54→20:55)
[2020-06-23] MEDS: Isosorbide Mononitrate 30 MG Tab.ER PO SCH (07:54)
[2020-06-23] MEDS: oxyCODONE 5 MG Tab PO PRN ×4 (07:55→20:58)
[2020-06-23] MEDS: Pregabalin 75 MG Cap PO SCH ×2 (07:55→20:54)
[2020-06-23] MEDS: Multivitamin Tab PO SCH (07:55)
[2020-06-23] MEDS: Acetaminophen 325 MG Tab PO PRN (07:56)
[2020-06-23] MEDS: Triamcinolone Acetonide 0.025% Crm 15 GM Tube TOP SCH ×2 (11:48→21:00)
--- OUTSIDE RECORDS SUMMARY | 2020-06-23 12:04 | XMSREPORT ---
:1950 Author Organization [facility] s Address [address] [place] [address] [address] [place] [address] Care Team Providers Name Role Phone KAMLA Lawrence Primary Care Provider KAMLA Lawrence Attributed Provider Reason for Visit Auth/Cert Status Reason Specialty Diagnoses / Procedures Referred By Marc hubbard Referred To Contact Encounter Details Date Type Department Care Team Description 06/15/2020 - Hospital Encounter [facility] Sandra, S/P tania grafar fusion 06/22/2020 CENTER [facility] MD Benny [address] [place] [address] [place], [place] [phone] [id number] Allergies Active Allergy Reactions Severity Noted Date Comments Cyclobenzaprine Headache, Hives (High) High 10/27/2008 Lisinopril Anaphylaxis (High), Hives (High), High 013 Angioedema (High) documented as of this encounter (statuses as of 06/22/2020) Medications Medication Sig Dispensed Refills Start End Status Date Date atorvaSTATin Take 1 tablet 0 12/25/19 Act elvira (LIPITOR) 40 mg (40 mg) by 20 tabletIndications: mouth 1 time NSTEMI (non-ST per day elevated myocardial infarction) (HCC), Coronary artery disease involving bill moore's slough coronary artery of bill moore's slough heart without angina pectoris metFORMIN Take 1 tablet 0 12/25/19 Active (GLUCOPHAGE) 1000 MG (1,000 mg) by 20 tabletIndications: mouth 2 times a Coronary artery day with meals disease involving bill moore's slough coronary artery of bill moore[place] slough heart without angina pectoris metoprolol tartrate Take 0.5 90 tablet 3 12/25/19 Active (LOPRESSOR) 25 mg tablets (12.5 021 tabletIndications: mg) by mouth 2 Essential times a day hypertension lidocaine (LIDODERM) Apply 1 patch 30 patch 0 12/25/19 Active 5% patchIndications: topically 1 20 Cervical stenosis of time per day spine Patches may be left on for up 12 hours in a 24 hour period. omeprazole Take 1 capsule 90 capsule 3 12/25/192 Act elvira (PRILOSEC) 20 mg (20 mg) by capsuleIndications: mouth 1 time a Gastroesophageal day at supper reflux disease without esophagitis tamsulosin (FLOMAX) Take 1 capsule 90 capsule 4 12/25/19 03/0 4/2 Active 0.4 mg (0.4 mg) by 021 capsuleIndications: mouth 1 time Nocturia per day acetaminophen Take 2 tablets 0 12/25/19 A ctive (TYLENOL) 325 mg (650 mg) by 20 tabletIndications: mouth Every 6 Cervical stenosis of hours spine bisacodyl (DULCOLAX) Insert 1 30 suppository 0 12/26/19 Active 10 mg suppository (10 20 suppositoryIndicatio mg) rectally 1 ns: Cervical time per day stenosis of spine Unwrap before inserting. Do not swallow. aspirin 325 MG Take 325 mg by 0 Active enteric coated mouth 1 time tablet per day. Multiple Vitamin Take 1 tablet 0 Active (MULTIVITAMIN) by mouth 1 time tablet per day. DULoxetine Take 1 capsule 180 capsule 0 04/18/2007/17/2 Ac tive (CYMBALTA) 60 mg (60 mg) by 020 capsuleIndications: mouth 2 times a Cervical stenosis of day spine, Spinal stenosis of lumbar region with neurogenic claudication pregabalin (LYRICA) Take 1 capsule 180 capsule 0 05/19/20 Active 150 mg (150 mg) by 20 capsuleIndications: mouth 2 times a Spinal stenosis of day lumbar region with neurogenic claudication, Neuropathic pain tiZANidine Take 1 tablet 90 tablet 0 05/25/20 Activ e (ZANAFLEX) 2 mg (2 mg) by mouth 020 tabletIndications: 2 times a day Cervical stenosis of as needed for spine muscle spasm isosorbide Take 30 mg by 0 Activ e mononitrate (IMDUR) mouth 1 time 30 mg SR tablet (24 per day hr) oxyCODONE (OXY-IR) 5 Take 1 tablet 50 tablet 0 06/22/20 Active mg tablet (immediate (5 mg) by mouth 20 release)Indications: Every 4 hours S/P lumbar fusion as needed for moderate pain or severe pain furosemide (LASIX) Take 1 tablet 90 tablet 4 06/22/20 Active 40 mg (40 mg) by 20 021 tabletIndications: mouth 1 time S/P lumbar fusion per day docusate sodium Take 1 capsule 30 capsule 0 06/22/20 Active (COLACE) 100 MG (100 mg) by 20 capsuleIndications: mouth 2 times a S/P lumbar fusion day as needed for constipation pregabalin (LYRICA) Take 1 capsule 60 capsule 5 06/22/2011/29 Active 150 mg (150 mg) by 20 021 capsuleIndications: mouth 2 times a S/P lumbar fusion day oxyCODONE (OXY-IR) 5 Take 1 tablet 50 tablet 0 06/21/2006/22 Discontinued mg tablet (immediate (5 mg) by mouth 20 020 release)Indications: Every 4 hours S/P lumbar fusion as needed for moderate pain or severe pain furosemide (LASIX) Take 1 tablet 90 tablet 4 06/22/20 Discontinued 40 mg (40 mg) by 20 020 tabletIndications: mouth 1 time S/P lumbar fusion per day docusate sodium Take 1 capsule 30 capsule 0 06/21/20 Discontinued (COLACE) 100 MG (100 mg) by 20 020 capsuleIndications: mouth 2 times a S/P lumbar fusion day as needed for constipation documented as of this encounter (statuses as of 06/22/2020) Active Problems Problem Noted Date S/P lumbar fusion 06/18/2020 Overview: ROBOTIC L4-L5 TRANSFORAMINAL LUMBAR INTE RBODY FUSION by Dr. Benny Flores on 06/15/2020 Abdominal aortic aneurysm (AAA) without rupture 2019 Overview: Jul 14, 2008 Entered By: ZHANE TALAMANTES Comment: w/ iliac artery aneurysmsSep 2007 Entered By: ZHANE TALAMANTES t: s/p endoluminal grafting distal aorta & iliac arteries 11/04 Adjustment disorder 05/25/2020 Atherosclerosis of bill moore[place]ough arteries of extremity with i ntermittent 05/25/2020 claudication Benign neoplasm of colon 05/25/2020 Overview: Sep 06, 2008 Entered By: ZHANE TALAMANTES Comment: *09/02 c-scope w/ sessile serrated adenoma @ hep. flexure,Oct 27, 2008 Entered By: ZHANE TALAMANTES Comment: 10 mm, per report resection & retr ieval were complete -->Oct 27, 2008 Ente red By: ZHANE TALAMANTES Comment: f/u DUE 08/2009 (report, path scanned) Aug 02, 2010 Entered By: KEVIN GOODWIN Comment: 09/02 c-scope with sessile serrated adenoma at hep flexure Bilateral hearing loss 05/25/2020 Chronic obstructive pulmonary disease 05/25/2020 Depressive disorder 05/25/2020 Hepatomegaly 05/25/2020 Overview: Jun 25, 2011 Entered By: AKBAR HUFFMAN mment: USG abdomen 05/2011 Fatty liver. Hypertrophy of prostate without urinary obstruction an d other lower 05/25/2020 urinary tract symptoms (LUTS) Malignant neoplasm of parotid gland 05/25/2020 Mitral valve disease 05/25/2020 Overview: March 24, 2008 Entered By: ZHANE TALAMANTES Comment: mild MR, mild LAE, LVEF 55% (echo 12/29)Jul 03, 2008 Entered By: TONE TALAMANTES Comment: no MR on 09/03 echo (scanned) Occlusion and stenosis of carotid artery 05/25/2020 Overview: March 11, 2013 Entered By: YOSI KABA Comment: RIGHT Carotid Artery Endarterectomy, Patch/March 11, 2013. Aug 02, 2010 Entered By: KEVIN GOODWIN Comment: left ICA 50-65% CTA neck 2009 Entered By: RAYMUNDO GOODWIN Comment: left ICA 16-49% stenosis 05/04 ultrasoundOct 2009 Entered By: RAYMUNDO YAÑEZ Comment: dopplers 10/05 left ICA 50-69%, right ICA 16-49% Sep 06, 2008 Entered By: BADER,ZHANE A Comment: L ICA 50-65% (CTA neck 11/04 Carlos Foster)Sep 06, 2008 Entered By: ZHANE TALAMANTES Comment: L ICA 16-49% stenosis (05/04 u/s) --> f/u due 2009 Entered By: REGAN TALAMANTES Comment: *Dopplers 10/05: L ICA 50- 69%, R ICA 16-49%Nov 02, 2009 Entered By: ZHANE TALAMANTES Comment: *Dopplers 04/05: L ICA 50-69%, R ICA 1-15% Other and unspecified hyperlipidemia 05/25/2020 Seborrheic dermatitis 05/25/2020 Sensorineural hearing loss, bilateral 05/25/2020 Atherosclerosis of renal artery 05/25/2020 Overview: Jul 12, 2008 Entered By: ZHANE TALAMANTES Comment: severe L renal art stenosis s/p stent 01/02 Type 2 diabetes mellitus 05/25/2020 Benign essential hypertension 05/25/2020 Essential hypertension 05/25/2020 Overview: Jul 03, 2008 Entered By: ZHANE TALAMANTES Comment: LVH, EF 50-55% (echo 09/03) Chronic ischemic heart disease 05/25/2020 Overview: March 24, 2008 Entered By: ZHANE TALAMANTES Comment: s/p NH 06/30Ma2007 Entered By: ZHANE TALAMANTES Comment: 4v. CABG 06/30 (VENTURA to LAD, SVG to ramus, SVG to RCA & PDA)Sep 06, 2008 Entered By: ZHANE TALAMANTES Comment: 10/03 nuc stress: no defects, no wm abnlity, EF 56% May 08, 2011 Entered By: AKBAR HUFFMAN mment: NH in 06/2003.May 08, 2011 Entered By: AKBAR HUFFMAN Comment: CABG 4-vs : VENTURA--LAD, SVG--Ramus, SVG--RCA & PDA Arteriosclerosis of coronary artery 05/25/2020 Overview: Aug 26, 2013 Entered By: SHEREE BERG mment: non STEMI 08/12/13Aug 26, 2013 Entered By: SHEREE BERG Comment: angiog ramona showingAug 26, 2013 Entered By: SHEREE BERG Comment: chronic occlusion of the SVG-OMOct 2012 Entered By: SHEREE BERG Comment: patent VENTURA-diagon al and LAD with no significant diseaseAug 26, 2013 Entered By: SHEREE BERG Comment: w ith 50% distal body graft ; LVEF 50% Chronic low back pain 05/25/2020 Cervical stenosis of spine 12/21/2019 S/P cervical spinal fusion 12/21/2019 Overview: C4-7 ACDF on 12/21/[address] Alvaro rolon Spinal stenosis of lumbar region with neurogenic evelin ication 10/29/2019 Spondylolisthesis of lumbar region 10/29/2019 Cervical stenosis of spinal canal 10/29/2019 Cervical myelopathy 10/29/2019 Thoracic spinal stenosis 10/29/2019 Pain management contract signed 10/19/2019 Overview: A Controlled Substance agreement is on file for this patient. Before prescribing any opioids for this patient, please contact the bus driver/monitor staff at [address] [id number] . Date Contract Signed: 10/07/19 Provider managing pain: Allison Lawrence NP Pharmacy: [facility] Seen: every 3 months Fall 08/26/2017 Postsurgical percutaneous transluminal coronary angiop lasty status 03/14/2015 CAD (coronary artery disease) 03/01/2015 S/P CABG (coronary artery bypass graft) 03/01/2015 Carotid artery disease 03/01/2015 Hypertension 03/01/2015 Unstable angina 03/01/2015 Diabetes mellitus type II, non insulin dependent 03/01 Low back pain 08/04/2014 Left leg pain 08/04/2014 Angioedema of lips 08/21/2013 NSTEMI (non-ST elevated myocardial infarction) 013 Peripheral vascular disease 11/04/2010 Overview: Jul 03, 2008 Entered By: ZHANE TALAMANTES Comment: SHEEP SHEARER 06/04: mod LLE art dz, mild RLESep 2007 Entered By: ZHANE TALAMANTES Comment: s/p SUPERVISOR DRYING of L. superficial femoral artery 2007 Entered By: ZHANE TALAMANTES Comment: s/p R com m fem art endarterectomy w/ patch angioplasty 2007 Entered By: ZHANE TALAMANTES Comment: s/p L iliac artery to L SFA bypass 11/04Sep 2007 Entered By: ZHANE TALAMANTES Comment: s/p R ext iliac artery stent 11/04Aug 02, 2010 Entered By: KEVIN GOODWIN Comment: right iliac stent, left internal iliac embolizationAug 02, 2010 Entered By: RAYMUNDO GOODWIN Comment: left SFA angioplasty oct 2007 May 08, 2011 Entered By: AKBAR HUFFMAN mment: Left iliac artery aneurysm Endograft repair in 2010 Entered By: RAUL MONTE Comment: SUPERVISOR DRYING L SFA, stent R EIA, R REGULATORY ASSISTANT endart w/ patch,Oct 04, 2011 Entered By: RAUL MONTE Comment: L IA to L SFA bypass, creation L IA conduit Vascular disorder of kidney 12/27/2007 Overview: May 08, 2011 Entered By: AKBAR HUFFMAN mment: Left renal artery stent in 12/2007 History of endovascular stent graft for abdominal aort ic aneurysm (AAA) 10/28/2007 Overview: Oct 04, 2011 Entered By: RAUL MONTE omment: Endovascular repair Spinal stenosis in cervical region 04/27/2007 Overview: Apr 11, 2008 Entered By: ZHANE TALAMANTES Comment: *05/03 EMG w/ cervical radiculopathy at C5-6 b/l (scanned)Oct 27, 2008 Entered By: ZHANE TALAMANTES Comment: *02/02 MRI: congenitally narrowed cervical c anal w/ C3-4Dec 2007 Entered By: ZHANE CODY Comment: through C6-7 ventral canal degenerative ridging, while thisDec 2007 Entered By: ZHANE TALAMANTES Comment: narrows the ventral subarachn oid space at these levels thereDec , 2 008 Entered By: ZHANE TALAMANTES Comment: is no focal cord compression or cord signal abnormality;Oct 27, 2008 Entered By: ZHANE TALAMANTES Comment: findings stab le c/w 05/03 MRI (scanned 07/26/08)Jun Entered By: ZHANE TALAMANTES Comment: *s/p percutanous neuromodulation therapy 2009 Entered By: ZHANE TALAMANTES Comment: *Neurosurgery eval , surgery recommendedAug 2009 Ent ered By: ZHANE TALAMANTES Comment: *Pt. declined neck surgery (see 09/06/08 note) Aug 02, 2010 Entered By: KEVIN GOODWIN Comment: EMG with cervical radiculopathy c5-c6Oct 2009 Entered By: RAYMUNDO GOODWIN Comment: CT LUMBAR SPINE 06/16 @ [facility] Ponce's esophagus 08/28/2006 Overview: Oct 27, 2008 Entered By: ZHANE TALAMANTES Comment: 09/02 EGD --> f/u DUE 08/2007 (scanned records) Aug 02, 2010 Entered By: KEVIN GOODWIN Comment: egd -due for follow up 09/03May 13, 2011 Entered By: MENDOZA SCHRADER ment: 08/28/2006 EGD LA Grade B esophagitis, bx path Ponce'sNov 2010 Entered By: MENDOZA SCHRADER Comment: 09/14/2011 EGD Possible Ponce's, [place] C0M1,Sep 23, 2011 Entered By: MENDOZA SCHRADER Comment: bx path [facility] documented as of this encounter (statuses as of 06/22/2020) Immunizations Name Administration Dates Next Due DTaP 11/19/2013 FLU VACCINE HIGH DOSE 65YR+(Fluzone) 08/13/2019, 08/28/2018, 08/04/2018, 07/30/2016 Influenza Vaccine 07/29/2017, 08/13/2013 Influenza Vaccine,unspecified 07/30/2017, 08/17/2014, 2012, 11/20/2012, 09/22/2010, 08/28/2010, 03/28/2010, 09/02/2009 Pneumococcal Conj PCV13 07/30/2017, 07/30/2016 Pneumococcal Polysaccharide PPSV23 12/27/2019, 08/13/2019, 1 11/01/2017, 07/20/2015, 03/02/2005 Pneumococcal Vaccine, Unspecified 08/28/2010, 09/06/2008 TD,adult,unspecified 10/28/2003 TDAP 12/27/2019 Zoster Live(Zostavax) 11/20/2012 documented as of this encounter Social History Tobacco Use Types Packs/Day Years Used Date Former Smoker Cigarettes 1 40 Smokeless Tobacco: Never Used Alcohol Use Drinks/Week oz/Week Comments No Physical Activity Answer Date Recorded On average, how many days per week do you engage in moderate to 0 days 09/08/2019 strenuous exercise (like walking fast, running, jogging, dancing, swimming, biking, or other activities that cause a light or heavy sweat)? On average, how many minutes do you engage in exercise at th is 0 min 09/08/2019 level? Sex Assigned at Date Recorded Not on file Job Start Date Occupation Industry Not on file Not on file Not on file Travel History Travel Start Travel End No recent travel history available. documented as of this encounter Last Filed Vital Signs Vital Sign Reading Time Taken Comments Blood Pressure 129/62 06/22/2020 8:11 AM CDT Pulse 72 06/22/2020 8:11 AM CDT Temperature 36.8 C (98.3 F) 06/22/2020 8:11 AM CDT Respiratory Rate 16 06/22/2020 8:11 AM CDT Oxygen Saturation 92% 06/22/2020 8:11 AM CDT Inhaled Oxygen Concentration - - Weight 81.2 kg (179 lb 1.6 oz) 06/15/2020 9:58 AM CDT Height 168.9 cm (5' 6.5") 06/15/2020 9:58 AM CDT Body Mass Index 28.47 06/15/2020 9:58 AM CDT documented in this encounter Functional Status Functional Status Response Date of Assessment Is the person deaf or does he/she have serious difficulty No 06/14/2020 hearing? Is this person blind or does he/she have difficulty No 06/14/2020 seeing even when wearing glasses? Do you have difficulty with walking, balance, climbing Yes 06/16/2020 stairs, or had a fall in the last 3 months? Does the patient have difficulty dressing or bathing? No 06/14/2020 Because of a physical, mental, or emotional condition; No 06/14/2020 does this person have difficulty doing errands alone such as visiting a doctor's office or shopping? Cognitive Status Response Date of Assessment Because of a physical, mental, or emotional condition; No 06/14/2020 does this person have serious difficulty concentrating, remembering, or making decisions? documented as of this encounter Discharge Summaries Not on filedocumented in this encounter Medications at Time of Discharge Medication Sig Dispensed Refills Start Date End Date oxyCODONE (OXY-IR) 5 mg Take 1 tablet (5 50 tablet 0 2019 tablet (immediate mg) by mouth Every release)Indications: 4 hours as needed S/P lumbar fusion for moderate pain or severe pain furosemide (LASIX) 40 Take 1 tablet (40 90 tablet 4 06/22/2 020 06/27/2021 mg tabletIndications: mg) by mouth 1 S/P lumbar fusion time per day docusate sodium Take 1 capsule 30 capsule 0 06/22/2020 (COLACE) 100 MG (100 mg) by mouth capsuleIndications: S/P 2 times a day as lumbar fusion needed for constipation pregabalin (LYRICA) 150 Take 1 capsule 60 capsule 5 06/22/20 20 12/19/2020 mg capsuleIndications: (150 mg) by mouth S/P lumbar fusion 2 times a day isosorbide mononitrate Take 30 mg by 0 (IMDUR) 30 mg SR tablet mouth 1 time per (24 hr) day tiZANidine (ZANAFLEX) 2 Take 1 tablet (2 90 tablet 0 201908/23/2020 mg tabletIndications: mg) by mouth 2 Cervical stenosis of times a day as spine needed for muscle spasm pregabalin (LYRICA) 150 Take 1 capsule 180 capsule 0 020 mg capsuleIndications: (150 mg) by mouth Spinal stenosis of 2 times a day lumbar region with neurogenic claudication, Neuropathic pain DULoxetine (CYMBALTA) Take 1 capsule (60 180 capsule 0 04/1807/17/2020 60 mg mg) by mouth 2 capsuleIndications: times a day Cervical stenosis of spine, Spinal stenosis of lumbar region with neurogenic claudication aspirin 325 MG enteric Take 325 mg by 0 coated tablet mouth 1 time per day. Multiple Vitamin Take 1 tablet by 0 (MULTIVITAMIN) tablet mouth 1 time per day. atorvaSTATin (LIPITOR) Take 1 tablet (40 0 2019 40 mg mg) by mouth 1 tabletIndications: time per day NSTEMI (non-ST elevated myocardial infarction) (HCC), Coronary artery disease involving bill moore's slough coronary artery of bill moore[place] slough heart without angina pectoris metFORMIN (GLUCOPHAGE) Take 1 tablet 0 12/25/2019 1000 MG (1,000 mg) by tabletIndications: mouth 2 times a Coronary artery disease day with meals involving bill moore's slough coronary artery of bill moore's slough heart without angina pectoris metoprolol tartrate Take 0.5 tablets 90 tablet 3 12/25/2019 12/29/2020 (LOPRESSOR) 25 mg (12.5 mg) by mouth tabletIndications: 2 times a day Essential hypertension lidocaine (LIDODERM) 5% Apply 1 patch 30 patch 0 0 patchIndications: topically 1 time Cervical stenosis of per day Patches spine may be left on for up 12 hours in a 24 hour period. omeprazole (PRILOSEC) Take 1 capsule (20 90 capsule 3 201912/29/2020 20 mg mg) by mouth 1 capsuleIndications: time a day at Gastroesophageal reflux supper disease without esophagitis tamsulosin (FLOMAX) 0.4 Take 1 capsule 90 capsule 4 12/25/19 20 12/29/2020 mg capsuleIndications: (0.4 mg) by mouth Nocturia 1 time per day acetaminophen (TYLENOL) Take 2 tablets 0 12/25/19 20 325 mg (650 mg) by mouth tabletIndications: Every 6 hours Cervical stenosis of spine bisacodyl (DULCOLAX) 10 Insert 1 30 suppository 0 12/26/19 20 mg suppository (10 suppositoryIndications: mg) rectally 1 Cervical stenosis of time per day spine Unwrap before inserting. Do not swallow. documented as of this encounter Progress Notes Nadeem Verdin MD - 06/21/2020 7:44 PM CDTINTERVAL HISTORY: The patient is hard of hearing. Patient having back pain. No other complaints. Fo tanner removed today. REVIEW OF SYSTEMS: CONSTITUTION: No fever. CARDIOVASCULAR: No chest pain. RESPIRATORY: No shortness of breath. ABDOMEN: No abdominal pain. EXTREMITIES: No pain. BACK: Back pain present PHYSICAL EXAMINATION: GENERAL: Not in distress. CARDIOVASCULAR: S1, S2 present. Regular. RESPIRATORY: Bilateral air entry present. Clear. ABDOMEN: Soft, nontender. EXTREMITIES: Nontender. RESULTS: Reviewed. ASSESSMENT AND PLAN: 1. Status post L4-L5 transforaminal lumbar interbody fusion, retained drain fragment. Continue further management per neurosurgery. Continue Tylenol, oxycodone and Neurontin. 2. Low-grade fever, postoperative. No more fever. 3. Acute on chronic systolic heart failure, COPD without exacerbation. Patient on room air. Continue Lasix 40 mg daily, DuoNeb 4 times a day, DuoNeb p.r.n. 4. Hypertension. Continue metoprolol 12.5 mg 2 times a day. 5. Coronary artery disease, status post CABG. No chest pain. 6. BPH. Continue Flomax 0.4 mg daily. El catheter removed today 7. DVT prophylaxis. Heparin 5000 units subcutaneous every 12 hours. 8. Patient is full code. Real Ludwig Oh, ROTOGRAVURE PRESS OPERATOR-ARRANGING FUNERAL DIRECTOR - 06/21/2020 2:08 PM CDT Neurosurgery Daily Progress Note Markell Jasso is a 70 year old male who underwent robotic L4-[address] Benny Flores on 06/15/2020. SUBJECTIVE Sitting up in chair, brace in place, hard of hearing Incisional pain tolerable, notes it is improving No neuro changes +el, +BM OBJECTIVE Current Vital Signs Temp: 98.3 F (36.8 C) BP: 120/59 Pulse: 82 O2 Device: Room Air O2 Flow Rate (L/min): 2 l/min Resp: 16 Pain Ratin (out of 10) Weight: 81.2 kg (179 lb 1.6 oz) SpO2: 92 % Vitals Min/Max Last 24 Hours Vital Signs Min/Max (last 24 hours) Flowsheet Row Name Min Max Temp 98.2 F (36.8 C) 98.8 F (37.1 C) BP: Systolic 120 145 BP: Diastolic 56 70 Pulse 70 91 Resp 16 18 SpO2 92 % 98 % MAP (mm Hg) 69 mm Hg 92 mm Hg Medications Current Facility-Administered Medications Medication Dose Route Frequency furosemide (LASIX) tablet 40 mg 40 mg Oral Daily heparin (porcine) injection solution 5,000 Units 5,000 Units Subcutaneous Every 12 hours benzocaine-menthol (CEPACOL w/ BENZOCAINE) lozenge 1 lozenge 1 lozenge Mouth/Throat Every 4 hours prn tiZANidine (ZANAFLEX) tablet 2 mg 2 mg Oral 3 times a day albuterol-ipratropium (DUO-NEB) 2.5-0.5 mg/3 mL inhalation solution 3 mL 3 mL Nebulization 4 times a day prn acetaminophen (TYLENOL) tablet 325 mg 325 mg Oral Every 4 hours prn oxyCODONE (OXY-IR) tablet 5-10 mg 5-10 mg Oral Every 4 hours prn senna-docusate sodium (SENOKOT-S;PERICOLACE) tablet 1 tablet 1 tablet Oral 2 times a day docusate sodium (COLACE) capsule 100 mg 100 mg Oral 2 times a day polyethylene glycol (MIRALAX) packet 1 packet 1 packet Oral Daily lactulose oral solution (10 gm/15 mL) 30 mL 30 mL Oral Daily bisacodyl (DULCOLAX) suppository 10 mg 10 mg Rectal Daily ondansetron (ZOFRAN) injection solution 4 mg 4 mg IV Every 4 hours prn haloperidol lactate (HALDOL) injection solution 2.5 mg 2.5 mg IV Every 6 hours prn acetaminophen (TYLENOL) tablet 650 mg 650 mg Oral Every 6 hours labetalol (NORMODYNE;TRANDATE) IV solution 5 mg 5 mg IV Every 10 minutes prn metoprolol tartrate (LOPRESSOR) half-tablet 12.5 mg 12.5 mg Oral 2 times a day omeprazole (priLOSEC) capsule 20 mg 20 mg Oral 1 time a day with evening meal tamsulosin (FLOMAX) capsule 0.4 mg 0.4 mg Oral daily dextrose 50% IV solution 50 mL 25 g IV PRN per parameter glucagon for injection 1 mg vial 1 mg 1 mg Intramuscular PRN per parameter dextrose chewable tablet 16 g 4 tablet Oral PRN per parameter Or carbohydrate 15 g 15 g Oral PRN per parameter insulin aspart (NovoLOG) SQ correction scale (Adult) 2-8 Units Subcutaneous 3 times a day Psych/Mental Status: Level of Alertness: Alert Orientation: Oriented to conversation Memory: Intact in regular conversation Speech/Language: Spontaneous speech, clear, fluent, and appropriate Fund of Knowledge: Vocabulary and knowledge intact in regular conversation Attention/Concentration: Normal Comprehension: Intact Cranial Nerves: Dysarthria: None Pupils: Equal, round, reactive to light Motor: Right: Iliopsoas 5/5, quadricep 5/5, hamstring 5/5, DF 5/5, PF 5/5 Left: Iliopsoas 5/5, quadricep 5/5, hamstring 5/5, DF 5/5, PF 5/5 Sensory: Sensation: Intact to light touch Gait: Not tested Wound: Wound edges well approx; clean and dry; [facility] and Labs Lumbar CT 06/15/2020: Post-op L4-5interbody fusion.Hardware appears intact Relevant diagnostic, laboratory and radiological studies have been reviewed in the Electronic Medical Record. ASSESSMENT 1) L4-5 Robotic assisted TLIF POD #6 2) Small retained drain fragment 3) Post-op urinary retention PLAN 1) Internal Medicine Co-manage, OK for placement from surgical standpoint 2) Attempt voiding trial, if continues to retain will replace el and follow with urology 3) Pain management 4) LSO when OOB 5) PT/OT 6) DVT Prophylaxis: SCD's 7) Thiells to be removed: 06/29/2020 8) Dispo: Low intensity, likely tomorrow Case reviewed and discussed with , who agrees with assessment and plan. Total time spent:25minutes, with >50% spent reviewing the chart, counseling patient and family, and discussing test results and treatment plan with the patient and family. KAMLA Curry, 06/21/2020 Neurology Consult Service [place], [place] Nadeem Verdin MD - 06/20/2020 2:36 PM CDTINTERVAL HISTORY: The patient is hard of hearing. Patient denies having any symptoms at this time. Back pain better. No fevers. Patient not using any IV pain medications. Using only Tylenol, oxycodone for pain control. Patient on room air, saturating 100%. REVIEW OF SYSTEMS: CONSTITUTION: No fever. CARDIOVASCULAR: No chest pain. RESPIRATORY: No shortness of breath. ABDOMEN: No abdominal pain. EXTREMITIES: No pain. PHYSICAL EXAMINATION: GENERAL: Not in distress. CARDIOVASCULAR: S1, S2 present. Regular. RESPIRATORY: Bilateral air entry present. Clear. ABDOMEN: Soft, nontender. EXTREMITIES: Nontender. RESULTS: Reviewed. ASSESSMENT AND PLAN: 1. Status post L4-L5 transforaminal lumbar interbody fusion, retained drain fragment. Continue further management per neurosurgery. Continue Tylenol, oxycodone and Neurontin. Discontinue IV fentanyl. 2. Low-grade fever, postoperative. No more fever. 3. Acute on chronic systolic heart failure, COPD without exacerbation. Patient on room air. Continue Lasix 40 mg daily, DuoNeb 4 times a day, DuoNeb p.r.n. 4. Hypertension. Continue metoprolol 12.5 mg 2 times a day. 5. Coronary artery disease, status post CABG. No chest pain. 6. BPH. Continue Flomax 0.4 mg daily. El catheter for urinary retention. 7. DVT prophylaxis. Heparin 5000 units subcutaneous every 12 hours. 8. Patient is full code. Receipt: [id number] Trans ID: [id number] ELECTRONIC LAB TECHNICIAN ELECTRONIC LAB TECHNICIAN Justine Mary PA - 06/20/2020 10:08 AM CDT Neurosurgery Daily Progress Note Markell Jasso is a 70 year old male who underwent robotic L4-[address] Benny Flores on 06/15/2020. S: Sitting up in chair, brace in place, hard of hearing Continues to report significant incisional pain with activity Has pain in his posterior thighs and buttocks with activity Denies numbness or tingling in lower extremities El in place, + BM No acute neuro events overnight O: Current Vital Signs BP: 133/89 Temp: 98.3 F (36.8 C) Pulse: 80 Resp: 16 Physical Exam: Neurologic Exam: Psych/Mental Status: Level of Alertness: Alert Orientation: Oriented to conversation Memory: Intact in regular conversation Speech/Language: Spontaneous speech, clear, fluent, and appropriate Fund of Knowledge: Vocabulary and knowledge intact in regular conversation Attention/Concentration: Normal Comprehension: Intact Cranial Nerves: Dysarthria: None Pupils: Equal, round, reactive to light Motor: Right: Iliopsoas 5/5, quadricep 5/5, hamstring 5/5, DF 5/5, PF 5/5 Left: Iliopsoas 5/5, quadricep 5/5, hamstring 5/5, DF 5/5, PF 5/5 Sensory: Sensation: Intact to light touch Gait: Not tested Wound: Wound edges well approx; clean and dry; percy A: 5 Days Post-Op S/P Procedure(s): ROBOTIC L4-L5 TRANSFORAMINAL LUMBAR INTERBODY FUSION WITH NEURO MONITORING Retained drain fragment NSTEMI CAD Hx of CABG Carotid artery disease Hypertension Unstable angina Diabetes mellitus type II, non insulin dependent AAA without rupture COPD Hx of endovascular stent graft for AAA Hypertrophy of prostate Malignant neoplasm of parotid gland Mitral valve disease Hyperlipidemia Vascular disorder of kidney Chronic ischemic heart disease Peripheral vascular disease P: Ok to discharge once placement is found and medically stable Brace when OOB Diet as tolerated Encourage ambulation Therapies following, currently recommending low intensity setting Retained drain fragment. Patient discussed with Dr. Flores and decided to leave retained fragment at this time IM following for medical co-management SCDs and heparin for DVT prophylaxis Remove percy 06/29/2020 This patient was discussed with Dr. Flores and he agrees with the assessment and plan. Anne-Marie Salcido PHARM [employer] MATE - 06/19/2020 4:20 PM CDT06/19/2020 16:21 Patient was seen by the pharmacy med reconciliation team and HOME MEDICATIONS have been reconciled and updated to match patient's home usage. Added to Med List: Isosorbide mononitrate [facility]. Only changed made to med list was addition of isosorbide mononitrate. Medications kept on med list but were not [facility] were APAP, bisacodyl and multivitamin. Last dose times were not changed from RN med rec. Anne-Marie Cameron [facility] DT Jayjay Villegas MD - 06/19/2020 3:44 PM CDT DAILY PROGRESS NOTE SUMMARY This is a 70-year-old gentleman with medical history significant for hypertension, diabetes, coronary artery disease status post CABG, systolic CHF, abdominal aortic aneurysm, and sensorineural hearingloss, who is admitted to the hospital for L4-5 transforaminal lumbar interbody fusion. Medicine is following the patient for medical management. At the time of my visit patient is lying in bed and appears comfortable. No chest pain. No shortness of breath. No abdomen pain. Passing gas. Reports he was a smoker until a few years ago. He wasa heavy smoker when he did smoke. Uses as needed inhalers at home. Does not use oxygen at home. Vitals show O2 sats around 90%. ASSESSMENT & PLAN #. L4-5 transforaminal lumbar interbody fusion. #. Retained drain fragment. - Pain control, bowel regimen, and DVT prophylaxis per neurosurgery. - On scheduled Tylenol, Neurontin, and as needed oxycodone and fentanyl. #. Low grade post-op fever. No leukocytosis. Chest x-ray no significant infiltrate. UA not suggestive of UTI. Blood cultures negative. Will check lower extremity ultrasound. Continue to encourageincentive spirometer. He does have a retained drain fragment. Monitor wound closely. Hold antibiotics for now. #. Hypoxia, acute. #. Acute on chronic systolic CHF exacerbation. #. COPD w/o exacerbation. Does not use inhalers on a scheduled basis. Not on home O2. #. H/o smoking, quit 6 yrs ago. #. No h/o NOE. - Hypoxia better. Transition IV to oral Lasix. Creatinine 1.4. Recheck labs in a.m. - Continue scheduled duo neb for now. - EKG shows sinus rhythm with new ST depressions. Echo shows EF 40% and diastolic heart failure. Echo from December 2019 done in [facility] showed EF around 30-35%. #. Mild worsening of stage 3 CKD. Likely from cardio renal vs. Over diuresis. - Base line cr around 1.2. Recheck labs in am. #. Anemia. Secondary to blood loss from surgery. Hgb stable. #. Hypertension. On BB. #. Diabetes. On sliding scale insulin. Metformin on hold. #. Coronary artery disease status post CABG. Aspirin on hold. On low-dose beta-odalys. Statin on hold. #. Abdominal aortic aneurysm. #. BPH. On Flomax. #. GI prophylaxis. On PPI. #. DVT px. On sub cut heparin. #. CODE STATUS. Full code per admission orders. Disposition: Pending improvement in hypoxia. Will likely need placement. At baseline lives at homewith his son. This note was created, at least in part, with the use of I AM AT Voice Dictation System. Inadvertenttypographical errors, due to software recognition problems, may still exist. SUBJECTIVE/ROS Patient continues to have fevers. No chest pain. No shortness of breath. Cough better. No abdomen pain. Having bowel movements. Has a El catheter for urinary retention. Having good urine output. Medications [START ON 06/20/2020] furosemide (LASIX) tablet 40 mg 40 mg Oral Daily heparin (porcine) injection solution 5,000 Units 5,000 Units Subcutaneous Every 12 hours 5,000 Units at 06/19/20 0850 benzocaine-menthol (CEPACOL w/ BENZOCAINE) lozenge 1 lozenge 1 lozenge Mouth/Throat Every 4 hours prn tiZANidine (ZANAFLEX) tablet 2 mg 2 mg Oral 3 times a day 2 mg at 06/19/20 1506 albuterol-ipratropium (DUO-NEB) 2.5-0.5 mg/3 mL inhalation solution 3 mL 3 mL Nebulization 4 times a day prn albuterol-ipratropium (DUO-NEB) 2.5-0.5 mg/3 mL inhalation solution 3 mL 3 mL Nebulization 4 times a day 3 mL at 06/19/20 1235 acetaminophen (TYLENOL) tablet 325 mg 325 mg Oral Every 4 hours prn 325 mg at 06/18/20 2111 oxyCODONE (OXY-IR) tablet 5-10 mg 5-10 mg Oral Every 4 hours prn 10 mg at 06/19/20 1506 fentaNYL 100 mcg/2 mL preservative free injection solution 50 mcg 50 mcg IV Every 1 hour prn 50mcg at 06/19/20 0214 senna-docusate sodium (SENOKOT-S;PERICOLACE) tablet 1 tablet 1 tablet Oral 2 times a day 1 tablet at 06/19/20 0850 docusate sodium (COLACE) capsule 100 mg 100 mg Oral 2 times a day 100 mg at 06/19/20 0850 polyethylene glycol (MIRALAX) packet 1 packet 1 packet Oral Daily 1 packet at 06/19/20 0851 lactulose oral solution (10 gm/15 mL) 30 mL 30 mL Oral Daily 30 mL at 06/19/20 0851 bisacodyl (DULCOLAX) suppository 10 mg 10 mg Rectal Daily 10 mg at 06/19/20 1506 ondansetron (ZOFRAN) injection solution 4 mg 4 mg IV Every 4 hours prn 4 mg at 06/19/20 0215 haloperidol lactate (HALDOL) injection solution 2.5 mg 2.5 mg IV Every 6 hours prn acetaminophen (TYLENOL) tablet 650 mg 650 mg Oral Every 6 hours 650 mg at 06/19/20 1106 gabapentin (NEURONTIN) capsule 300 mg 300 mg Oral 3 times a day 300 mg at 06/19/20 1507 labetalol (NORMODYNE;TRANDATE) IV solution 5 mg 5 mg IV Every 10 minutes prn 5 mg at 06/15/20 1520 metoprolol tartrate (LOPRESSOR) half-tablet 12.5 mg 12.5 mg Oral 2 times a day 12.5 mg at 06/19/20 0850 omeprazole (priLOSEC) capsule 20 mg 20 mg Oral 1 time a day with evening meal 20 mg at 06/18/201830 tamsulosin (FLOMAX) capsule 0.4 mg 0.4 mg Oral daily 0.4 mg at 06/19/20 0850 dextrose 50% IV solution 50 mL 25 g IV PRN per parameter glucagon for injection 1 mg vial 1 mg 1 mg Intramuscular PRN per parameter dextrose chewable tablet 16 g 4 tablet Oral PRN per parameter Or carbohydrate 15 g 15 g Oral PRN per parameter insulin aspart (NovoLOG) SQ correction scale (Adult) 2-8 Units Subcutaneous 3 times a day OBJECTIVE Current Vital Signs Temp: 98.9 F (37.2 C) BP: 126/58 Pulse: 81 O2 Device: Room Air O2 Flow Rate (L/min): 5 l/min Resp: 14 Pain Ratin (out of 10) Weight: 81.2 kg (179 lb 1.6 oz) SpO2: 95 % Vitals Min/Max Last 24 Hours Vital Signs Min/Max (last 24 hours) Flowsheet Row Name Min Max Temp 98.8 F (37.1 C) 100.8 F (38.2 C) BP: Systolic 114 126 BP: Diastolic 55 61 Pulse 74 88 Resp 14 19 SpO2 (!) 82 % 100 % O2 Flow Rate (L/min) 5 l/min 5 l/min MAP (mm Hg) 74 mm Hg 74 mm Hg Intake and Output Last 24 Hours 06/18 0700 - 06/19 0659 In: 960 Out: 875 Lines and Drains Patient Lines/Drains/Airways Status Active Lines Name: Placement date: Placement time: Site: Days: Peripheral IV 06/16/20 Forearm Anterior;Middle/Medial;Right 06/16/20 0502 Forearm 3 Indwelling Urinary Catheter 06/19/20 El/Ureteral 06/19/20 0646 less than 1 Incision 12/21/19 Anterior;Right Neck Incision 12/21/19 Neck 181 Incision 06/15/20 Lower Back Incision 06/15/20 1216 Back 4 Incision 06/15/20 Lower Back Puncture site 2 06/15/20 1216 Back 4 Physical Exam General Appearance: Well nourished, well hydrated, lying in bed, does not appear to be in acute distress Lungs: No use of accessory muscles of respiration, crackles. Heart: normal S1 S2, no pedal edema. Abdomen: soft, normal BS, non tender Neurological: alert, answering questions appropriately, and moving extremities grossly. Diagnostics and Labs Labs (Last day) 06/19/20 1019 - 06/19/20 1019 CBC 06/19/20 1019 CBC WBC 4.0-11.0 (K/uL) 7.6 RBC 4.40-5.80 (M/uL) 3.43 Hemoglobin 13.5-17.5 (g/dL) 10.2 Hematocrit 40.0-50.0 (%) 31.2 MCV 80.0-98.0 (fL) 91.0 MCH 25.5-34.0 (pg) 29.7 MCHC 31.5-36.5 (g/dL) 32.7 RDW-CV 11.5-15.5 (%) 14.8 RDW-SD 35.5-50.0 (fl) 49.5 Platelet Count 140-400 (K/uL) 174 MPV 8.5-12.0 (fL) 12.6 06/19/20 1019 - 06/19/20 1019 CHEMISTRY 06/19/20 1019 06/19/20 1019 06/19/20 1019 CHEMISTRY Glucose 70-100 (mg/dL) 152 Sodium 135-145 (meq/L) 134 Potassium 3.5-5.3 (meq/L) 4.7 Chloride 99-110 (meq/L) 98 CO2 20-29 (meq/L) 25 Anion Gap with K 6-20 (meq/L) 16 BUN 6-22 (mg/dL) 24 Creatinine 0.80-1.30 (mg/dL) 1.44 BUN/Creatinine Ratio 10.0-25.0 16.7 Calcium 8.5-10.5 (mg/dL) 9.2 Corrected Calcium 8.5-10.5 (mg/dL) 9.4 Phosphorus 2.5-4.5 (mg/dL) 3.0 Magnesium 1.8-2.4 (mg/dL) 2.2 Bilirubin Total 0.2-1.2 (mg/dL) 1.1 Bilirubin Direct 0.0-0.4 (mg/dL) 0.6 Bilirubin Indirect 0.0-0.8 (mg/dL) 0.5 Alkaline Phosphatase 30-150 (U/L) 91 ALT - SGPT 0-55 (U/L) 11 AST - SGOT 0-35 (U/L) 66 Protein Total 6.0-8.2 (g/dL) 7.6 Albumin 3.5-5.0 (g/dL) 3.7 3.7 eGFR >=60 (mL/min/1.73m2) 59 eGFR Non- >=60 (mL/min/1.73m2) 49 06/19/20 1123 - 06/18/20 1715 GLUCOSE POINT OF CARE 06/19/20 1123 06/19/20 0538 06/18/20 2105 06/18/20 1715 GLUCOSE POINT OF CARE Glucose POC 70-100 (mg/dL) 119 91 114 99 06/18/208 - 06/18/201827 URINALYSIS 06/18/20182706/18/201827 URINALYSIS Color Urine Kay, Dark Yellow, Straw, Yellow, Colorless Yellow Clarity Urine Clear Clear Specific [place] 1.002-1.030 1.019 Glucose Urine Negative Negative Bilirubin Urine Negative Negative Ketones Urine Negative, 5 mg/dL, 10 mg/dL Negative Blood Urine Negative Moderate (2+) PH Urine 5.0, 5.5, 6.0, 6.5, 7.0, 7.5, 8.0 5.5 Protein Urine Negative 30 mg/dL Nitrite Negative Negative Leukocyte Esterase Urine Negative Negative Urobilinogen < 2 mg/dL < 2 mg/dL WBC Urine Negative, 0-5 /hpf 0-5 /hpf RBC Urine Negative, 0-2 /hpf 11-20 /hpf Squamous Epithelial Cells Negative, Occ (0-10) /lpf, Few (11-20) /lpf Occ (0- 10) /lpf Bacteria Negative Negative Hyaline Cast 0-2 /lpf 6-10 /lpf Granular Cast Negative 0-2 /lpf 06/19/20 1019 - 06/19/20 1019 OTHER 06/19/20 1019 OTHER Age (Years) 70 urnAnya beckett PA-C - 06/19/2020 9:48 AM CDT Neurosurgery Daily Progress Note Markell Jasso is a 70 year old male who underwent robotic L4-[address] Benny Flores on 06/15/2020. S: Sitting up in chair, brace in place Continues to report significant pain with mobilization Requires assistance to ambulate at this time Denies numbness or tingling in lower extremities El in place, + BM O: Current Vital Signs BP: 115/56 Temp: 98.8 F (37.1 C) Pulse: 88 Resp: 19 Physical Exam: Neurologic Exam: Psych/Mental Status: Level of Alertness: Alert Orientation: Oriented to conversation Memory: Intact in regular conversation Speech/Language: Spontaneous speech, clear, fluent, and appropriate Fund of Knowledge: Vocabulary and knowledge intact in regular conversation Attention/Concentration: Normal Comprehension: Intact Cranial Nerves: Dysarthria: None Pupils: Equal, round, reactive to light Motor: Right: Iliopsoas 5/5, quadricep 5/5, hamstring 5/5, DF 5/5, PF 5/5 Left: Iliopsoas 5/5, quadricep 5/5, hamstring 5/5, DF 5/5, PF 5/5 Sensory: Sensation: Intact to light touch Gait: Not tested Wound: Wound edges well approx; clean and dry; percy A: 4 Days Post-Op S/P Procedure(s): ROBOTIC L4-L5 TRANSFORAMINAL LUMBAR INTERBODY FUSION WITH NEURO MONITORING Retained drain fragment NSTEMI CAD Hx of CABG Carotid artery disease Hypertension Unstable angina Diabetes mellitus type II, non insulin dependent AAA without rupture COPD Hx of endovascular stent graft for AAA Hypertrophy of prostate Malignant neoplasm of parotid gland Mitral valve disease Hyperlipidemia Vascular disorder of kidney Chronic ischemic heart disease Peripheral vascular disease P: Brace when OOB Diet as tolerated Encourage ambulation Therapies following, currently recommending low intensity setting Retained drain fragment. Patient discussed with Dr. Flores and decided to leave retained fragment at this time IM following for medical co-management SCDs and heparin for DVT prophylaxis Remove percy 06/29/2020 This patient was discussed with Dr. Flores and he agrees with the assessment and plan. Jayjay Villegas MD - 06/18/2020 3:30 PM CDT DAILY PROGRESS NOTE SUMMARY This is a 70-year-old gentleman with medical history significant for hypertension, diabetes, coronary artery disease status post CABG, systolic CHF, abdominal aortic aneurysm, and sensorineural hearingloss, who is admitted to the hospital for L4-5 transforaminal lumbar interbody fusion. Medicine is following the patient for medical management. At the time of my visit patient is lying in bed and appears comfortable. No chest pain. No shortness of breath. No abdomen pain. Passing gas. Reports he was a smoker until a few years ago. He wasa heavy smoker when he did smoke. Uses as needed inhalers at home. Does not use oxygen at home. Vitals show O2 sats around 90%. ASSESSMENT & PLAN #. L4-5 transforaminal lumbar interbody fusion. #. Retained drain fragment. - Pain control, bowel regimen, and DVT prophylaxis per neurosurgery. - On scheduled Tylenol, Neurontin, and as needed oxycodone and fentanyl. #. Low grade post-op fever. No leukocytosis. - Encourage IS. - Bld x neg. C/o cough. Check CXR. Check UA. #. Hypoxia. #. Acute on chronic systolic CHF exacerbation, from holding diuretic. #. COPD w/o exacerbation. Does not use inhalers on a scheduled basis. Not on home O2. #. H/o smoking, quit 6 yrs ago. #. No h/o NOE. - On lasix. Hypoxia resolved. Cr around 1.3. Change lasix to home dose. - Continue scheduled duo neb for now. - ECHO pending. EKG shows new ST depressions. Will need f/u with PCP, pending surgical wound healing. #. Mild worsening of stage 3 CKD. - Base line cr around 1.2. Recheck labs in am. #. Anemia. Secondary to blood loss from surgery. Hgb stable. #. Hypertension. On BB. #. Diabetes. On sliding scale insulin. Metformin on hold. #. Coronary artery disease status post CABG. Aspirin on hold. On low-dose beta-odalys. Statin on hold. #. Abdominal aortic aneurysm. #. BPH. On Flomax. #. GI prophylaxis. On PPI. #. DVT px. On sub cut heparin. #. CODE STATUS. Full code per admission orders. Disposition: Per neurosurgery recommendations. He will need placement. At baseline lives at home with his son. This note was created, at least in part, with the use of I AM AT Voice Dictation System. Inadvertenttypographical errors, due to software recognition problems, may still exist. SUBJECTIVE/ROS Having low grade fevers. This am pt is lying in bed and appears comfortable. No cp, sob, or abdominal pain. Has back pain. Has cough with no phlegm. Medications heparin (porcine) injection solution 5,000 Units 5,000 Units Subcutaneous Every 12 hours benzocaine-menthol (CEPACOL w/ BENZOCAINE) lozenge 1 lozenge 1 lozenge Mouth/Throat Every 4 hours prn tiZANidine (ZANAFLEX) tablet 2 mg 2 mg Oral 3 times a day 2 mg at 06/18/20 1432 albuterol-ipratropium (DUO-NEB) 2.5-0.5 mg/3 mL inhalation solution 3 mL 3 mL Nebulization 4 times a day prn albuterol-ipratropium (DUO-NEB) 2.5-0.5 mg/3 mL inhalation solution 3 mL 3 mL Nebulization 4 times a day 3 mL at 06/18/20 1121 acetaminophen (TYLENOL) tablet 325 mg 325 mg Oral Every 4 hours prn oxyCODONE (OXY-IR) tablet 5-10 mg 5-10 mg Oral Every 4 hours prn 10 mg at 06/18/20 1435 fentaNYL 100 mcg/2 mL preservative free injection solution 50 mcg 50 mcg IV Every 1 hour prn 50mcg at 06/17/20 1859 senna-docusate sodium (SENOKOT-S;PERICOLACE) tablet 1 tablet 1 tablet Oral 2 times a day 1 tablet at 06/18/20925 docusate sodium (COLACE) capsule 100 mg 100 mg Oral 2 times a day 100 mg at 06/18/20925 polyethylene glycol (MIRALAX) packet 1 packet 1 packet Oral Daily 1 packet at 06/18/20925 lactulose oral solution (10 gm/15 mL) 30 mL 30 mL Oral Daily 30 mL at 06/18/20925 bisacodyl (DULCOLAX) suppository 10 mg 10 mg Rectal Daily 10 mg at 06/18/20 0932 ondansetron (ZOFRAN) injection solution 4 mg 4 mg IV Every 4 hours prn 4 mg at 06/18/20 1436 haloperidol lactate (HALDOL) injection solution 2.5 mg 2.5 mg IV Every 6 hours prn acetaminophen (TYLENOL) tablet 650 mg 650 mg Oral Every 6 hours 650 mg at 06/18/20 1201 gabapentin (NEURONTIN) capsule 300 mg 300 mg Oral 3 times a day 300 mg at 06/18/20 1432 labetalol (NORMODYNE;TRANDATE) IV solution 5 mg 5 mg IV Every 10 minutes prn 5 mg at 06/15/20 1520 metoprolol tartrate (LOPRESSOR) half-tablet 12.5 mg 12.5 mg Oral 2 times a day 12.5 mg at 06/18/20925 omeprazole (priLOSEC) capsule 20 mg 20 mg Oral 1 time a day with evening meal 20 mg at 06/17/201749 tamsulosin (FLOMAX) capsule 0.4 mg 0.4 mg Oral daily 0.4 mg at 06/18/20925 dextrose 50% IV solution 50 mL 25 g IV PRN per parameter glucagon for injection 1 mg vial 1 mg 1 mg Intramuscular PRN per parameter dextrose chewable tablet 16 g 4 tablet Oral PRN per parameter Or carbohydrate 15 g 15 g Oral PRN per parameter insulin aspart (NovoLOG) SQ correction scale (Adult) 2-8 Units Subcutaneous 3 times a day OBJECTIVE Current Vital Signs Temp: 99.1 F (37.3 C) BP: 113/61 Pulse: 76 O2 Device: Room Air O2 Flow Rate (L/min): 2 l/min Resp: 16 Pain Ratin (out of 10) Weight: 81.2 kg (179 lb 1.6 oz) SpO2: 97 % Vitals Min/Max Last 24 Hours Vital Signs Min/Max (last 24 hours) Flowsheet Row Name Min Max Temp 98.6 F (37 C) 100.1 F (37.8 C) BP: Systolic 91 135 BP: Diastolic 49 70 Pulse 71 86 Resp 15 18 SpO2 (!) 81 % 98 % O2 Flow Rate (L/min) 2 l/min 5 l/min Intake and Output Last 24 Hours 06/17 0700 - 06/18 0659 In: 1800 Out: 1840 Lines and Drains Patient Lines/Drains/Airways Status Active Lines Name: Placement date: Placement time: Site: Days: Peripheral IV 06/16/20 Forearm Anterior;Middle/Medial;Right 06/16/20 0502 Forearm 2 Incision 12/21/19 Anterior;Right Neck Incision 12/21/19 Neck 180 Incision 06/15/20 Lower Back Incision 06/15/20 1216 Back 3 Incision 06/15/20 Lower Back Puncture site 2 06/15/20 1216 Back 3 Physical Exam General Appearance: Well nourished, well hydrated, lying in bed, does not appear to be in acute distress Lungs: No use of accessory muscles of respiration, CTA. Heart: normal S1 S2, no pedal edema. Abdomen: soft, normal BS, non tender Neurological: alert, answering questions appropriately, and moving extremities grossly. Diagnostics and Labs Labs (Last day) 06/18/20 06 - 06/18/20 06 CBC 06/18/20 06 CBC WBC 4.0-11.0 (K/uL) 8.1 RBC 4.40-5.80 (M/uL) 3.08 Hemoglobin 13.5-17.5 (g/dL) 9.2 Hematocrit 40.0-50.0 (%) 27.8 MCV 80.0-98.0 (fL) 90.3 MCH 25.5-34.0 (pg) 29.9 MCHC 31.5-36.5 (g/dL) 33.1 RDW-CV 11.5-15.5 (%) 15.4 RDW-SD 35.5-50.0 (fl) 50.2 Platelet Count 140-400 (K/uL) 132 MPV 8.5-12.0 (fL) 12.2 06/18/20 0606 - 06/18/20 0606 CHEMISTRY 06/18/20 0606 06/18/20 0606 CHEMISTRY Glucose 70-100 (mg/dL) 102 Sodium 135-145 (meq/L) 135 Potassium 3.5-5.3 (meq/L) 4.6 Chloride 99-110 (meq/L) 101 CO2 20-29 (meq/L) 23 Anion Gap with K 6-20 (meq/L) 16 BUN 6-22 (mg/dL) 23 Creatinine 0.80-1.30 (mg/dL) 1.38 BUN/Creatinine Ratio 10.0-25.0 16.7 Calcium 8.5-10.5 (mg/dL) 8.3 Corrected Calcium 8.5-10.5 (mg/dL) 8.9 Phosphorus 2.5-4.5 (mg/dL) 3.2 Magnesium 1.8-2.4 (mg/dL) 2.4 Albumin 3.5-5.0 (g/dL) 3.2 eGFR >=60 (mL/min/1.73m2) 62 eGFR Non- >=60 (mL/min/1.73m2) 51 06/18/20 0517 - 06/17/20 1705 GLUCOSE POINT OF CARE 06/18/20 0517 06/17/20 2112 06/17/20 1705 GLUCOSE POINT OF CARE Glucose POC 70-100 (mg/dL) 98 137 91 06/18/20 0606 - 06/18/20 0606 OTHER 06/18/20 0606 OTHER Age (Years) 70 Anya Kilpatrick PA-C - 06/18/2020 10:41 AM CDT Neurosurgery Daily Progress Note Markell Jasso is a 70 year old male who underwent robotic L4-[address] Benny Flores on 06/15/2020. S: Sitting up in chair, brace in place Transferred to bed, significant amount of back pain Reports significant pain with mobilization Requires assistance to ambulate at this time Denies numbness or tingling in lower extremities El in place, - BM O: Current Vital Signs BP: 115/56 Temp: 98.6 F (37 C) Pulse: 75 Resp: 18 Physical Exam: Neurologic Exam: Psych/Mental Status: Level of Alertness: Alert Orientation: Oriented to conversation Memory: Intact in regular conversation Speech/Language: Spontaneous speech, clear, fluent, and appropriate Fund of Knowledge: Vocabulary and knowledge intact in regular conversation Attention/Concentration: Normal Comprehension: Intact Cranial Nerves: Dysarthria: None Pupils: Equal, round, reactive to light Motor: Right: Iliopsoas 5/5, quadricep 5/5, hamstring 5/5, DF 5/5, PF 5/5 Left: Iliopsoas 5/5, quadricep 5/5, hamstring 5/5, DF 5/5, PF 5/5 Sensory: Sensation: Intact to light touch Gait: Not tested Wound: Wound edges well approx; clean and dry; percy A: 3 Days Post-Op S/P Procedure(s): ROBOTIC L4-L5 TRANSFORAMINAL LUMBAR INTERBODY FUSION WITH NEURO MONITORING Retained drain fragment NSTEMI CAD Hx of CABG Carotid artery disease Hypertension Unstable angina Diabetes mellitus type II, non insulin dependent AAA without rupture COPD Hx of endovascular stent graft for AAA Hypertrophy of prostate Malignant neoplasm of parotid gland Mitral valve disease Hyperlipidemia Vascular disorder of kidney Chronic ischemic heart disease Peripheral vascular disease P: Brace when OOB Diet as tolerated Encourage ambulation Therapies following, currently recommending low intensity setting Retained drain fragment. Patient discussed with Dr. Flores and decided to leave retained fragment at this time IM following for medical co-management SCDs and heparin for DVT prophylaxis Remove percy 06/29/2020 This patient was discussed with Dr. Flores and he agrees with the assessment and plan. Jayjay Villegas MD - 06/17/2020 10:23 PM CDT DAILY PROGRESS NOTE SUMMARY This is a 70-year-old gentleman with medical history significant for hypertension, diabetes, coronary artery disease status post CABG, systolic CHF, abdominal aortic aneurysm, and sensorineural hearingloss, who is admitted to the hospital for L4-5 transforaminal lumbar interbody fusion. Medicine is following the patient for medical management. At the time of my visit patient is lying in bed and appears comfortable. No chest pain. No shortness of breath. No abdomen pain. Passing gas. Reports he was a smoker until a few years ago. He wasa heavy smoker when he did smoke. Uses as needed inhalers at home. Does not use oxygen at home. Vitals show O2 sats around 90%. ASSESSMENT & PLAN #. L4-5 transforaminal lumbar interbody fusion. Pain control, bowel regimen, and DVT prophylaxis per neurosurgery. - On scheduled Tylenol, Neurontin, and as needed oxycodone and fentanyl. #. Low grade post-op fever. - Encourage IS. Follow up on w/u. #. Hypoxia. - CXR shows fluid overload. BNP elevated. Has h/o systolic CHF. On lasix. - Has h/o smoking. On schedule nebs. #. RENETTA. Unclear if from over diuresis or cardio renal synd. - Will decrease dose of lasix. Recheck labs in am. #. Anemia. Secondary to blood loss from surgery. Hgb stable. #. Hypertension. On BB. #. Diabetes. On sliding scale insulin. Metformin on hold. #. Coronary artery disease status post CABG. Aspirin on hold. On low-dose beta-odalys. Statin on hold. #. Chronic systolic CHF. EF 30-35%. Not on diuretics at home. #. Abdominal aortic aneurysm. #. History of tobacco use disorder. #. BPH. On Flomax. #. GI prophylaxis. On PPI. #. CODE STATUS. Full code per admission orders. Disposition: Per neurosurgery recommendations. This note was created, at least in part, with the use of [employer] Dictation System. Inadvertenttypographical errors, due to software recognition problems, may still exist. SUBJECTIVE/ROS Had fevers overnight. This am he is lying in bed and appears comfortable. Denies CP, SOB, abdominal pain. Cr elevated. Medications [START ON 06/18/2020] furosemide (LASIX) injection solution 40 mg 40 mg IV Daily tiZANidine (ZANAFLEX) tablet 2 mg 2 mg Oral 3 times a day 2 mg at 06/17/202026 albuterol-ipratropium (DUO-NEB) 2.5-0.5 mg/3 mL inhalation solution 3 mL 3 mL Nebulization 4 times a day prn albuterol-ipratropium (DUO-NEB) 2.5-0.5 mg/3 mL inhalation solution 3 mL 3 mL Nebulization 4 times a day 3 mL at 06/17/202035 acetaminophen (TYLENOL) tablet 325 mg 325 mg Oral Every 4 hours prn oxyCODONE (OXY-IR) tablet 5-10 mg 5-10 mg Oral Every 4 hours prn 10 mg at 06/17/202025 fentaNYL 100 mcg/2 mL preservative free injection solution 50 mcg 50 mcg IV Every 1 hour prn 50mcg at 06/17/201858 senna-docusate sodium (SENOKOT-S;PERICOLACE) tablet 1 tablet 1 tablet Oral 2 times a day 1 tablet at 06/17/202026 docusate sodium (COLACE) capsule 100 mg 100 mg Oral 2 times a day 100 mg at 06/17/202027 polyethylene glycol (MIRALAX) packet 1 packet 1 packet Oral Daily 1 packet at 06/17/20 0854 lactulose oral solution (10 gm/15 mL) 30 mL 30 mL Oral Daily 30 mL at 06/17/20 0854 [START ON 06/18/2020] bisacodyl (DULCOLAX) suppository 10 mg 10 mg Rectal Daily ondansetron (ZOFRAN) injection solution 4 mg 4 mg IV Every 4 hours prn 4 mg at 06/17/20 0621 haloperidol lactate (HALDOL) injection solution 2.5 mg 2.5 mg IV Every 6 hours prn acetaminophen (TYLENOL) tablet 650 mg 650 mg Oral Every 6 hours 650 mg at 06/17/20 174 gabapentin (NEURONTIN) capsule 300 mg 300 mg Oral 3 times a day 300 mg at 06/17/202027 labetalol (NORMODYNE;TRANDATE) IV solution 5 mg 5 mg IV Every 10 minutes prn 5 mg at 06/15/20 1520 metoprolol tartrate (LOPRESSOR) half-tablet 12.5 mg 12.5 mg Oral 2 times a day 12.5 mg at 06/17/202026 omeprazole (priLOSEC) capsule 20 mg 20 mg Oral 1 time a day with evening meal 20 mg at 06/17/201749 tamsulosin (FLOMAX) capsule 0.4 mg 0.4 mg Oral daily 0.4 mg at 06/17/20 0854 dextrose 50% IV solution 50 mL 25 g IV PRN per parameter glucagon for injection 1 mg vial 1 mg 1 mg Intramuscular PRN per parameter dextrose chewable tablet 16 g 4 tablet Oral PRN per parameter Or carbohydrate 15 g 15 g Oral PRN per parameter insulin aspart (NovoLOG) SQ correction scale (Adult) 2-8 Units Subcutaneous 3 times a day OBJECTIVE Current Vital Signs Temp: 99.5 F (37.5 C) BP: 101/53 Pulse: 81 O2 Device: Mask - Oxymask O2 Flow Rate (L/min): 5 l/min Resp: 16 Pain Ratin (out of 10) Weight: 81.2 kg (179 lb 1.6 oz) SpO2: 94 % Vitals Min/Max Last 24 Hours Vital Signs Min/Max (last 24 hours) Flowsheet Row Name Min Max Temp 98.7 F (37.1 C) 100.5 F (38.1 C) BP: Systolic 101 139 BP: Diastolic 53 73 Pulse 65 95 Resp 14 16 SpO2 (!) 81 % 100 % O2 Flow Rate (L/min) 2 l/min 5 l/min Intake and Output Last 24 Hours 06/16 0700 - 06/17 0659 In: 680 Out: 2580 Lines and Drains Patient Lines/Drains/Airways Status Active Lines Name: Placement date: Placement time: Site: Days: Peripheral IV 06/16/20 Forearm Anterior;Middle/Medial;Right 06/16/20 0502 Forearm 1 Indwelling Urinary Catheter 06/16/20 06/16/20 2202 1 Incision 12/21/19 Anterior;Right Neck Incision 12/21/19 Neck 179 Incision 06/15/20 Lower Back Incision 06/15/20 1216 Back 2 Incision 06/15/20 Lower Back Puncture site 2 06/15/20 1216 Back 2 Physical Exam General Appearance: Well nourished, well hydrated, lying in bed, does not appear to be in acute distress Lungs: No use of accessory muscles of respiration, CTA. Heart: normal S1 S2, no pedal edema. Abdomen: soft, normal BS, non tender Neurological: alert, answering questions appropriately, and moving extremities grossly. Diagnostics and Labs Labs (Last day) 06/17/20 1111 - 06/17/20 1111 CARDIAC MARKERS 06/17/20 1111 CARDIAC MARKERS Troponin I 0.000-0.028 (ng/mL) 0.055 06/17/20 0806 - 06/16/20 2255 CBC 06/17/20 0806/16/20 2255 CBC WBC 4.0-11.0 (K/uL) 9.9 9.2 RBC 4.40-5.80 (M/uL) 3.36 3.38 Hemoglobin 13.5-17.5 (g/dL) 9.9 9.9 Hematocrit 40.0-50.0 (%) 29.7 30.2 MCV 80.0-98.0 (fL) 88.4 89.3 MCH 25.5-34.0 (pg) 29.5 29.3 MCHC 31.5-36.5 (g/dL) 33.3 32.8 RDW-CV 11.5-15.5 (%) 15.4 15.3 RDW-SD 35.5-50.0 (fl) 49.8 49.7 Platelet Count 140-400 (K/uL) 141 128 MPV 8.5-12.0 (fL) 12.3 12.2 06/17/20 08 - 06/17/20 08 CHEMISTRY 06/17/20 0806 06/17/20 0806/17/20 08 CHEMISTRY Glucose 70-100 (mg/dL) 116 Sodium 135-145 (meq/L) 136 Potassium 3.5-5.3 (meq/L) 4.2 Chloride 99-110 (meq/L) 101 CO2 20-29 (meq/L) 26 Anion Gap with K 6-20 (meq/L) 13 BUN 6-22 (mg/dL) 18 Creatinine 0.80-1.30 (mg/dL) 1.32 BUN/Creatinine Ratio 10.0-25.0 13.6 Calcium 8.5-10.5 (mg/dL) 8.6 Corrected Calcium 8.5-10.5 (mg/dL) 8.9 Phosphorus 2.5-4.5 (mg/dL) 2.7 Magnesium 1.8-2.4 (mg/dL) 1.4 Bilirubin Total 0.2-1.2 (mg/dL) 0.7 Bilirubin Direct 0.0-0.4 (mg/dL) 0.4 Bilirubin Indirect 0.0-0.8 (mg/dL) 0.3 Alkaline Phosphatase 30-150 (U/L) 81 ALT - SGPT 0-55 (U/L) <6 AST - SGOT 0-35 (U/L) 25 Protein Total 6.0-8.2 (g/dL) 6.5 Albumin 3.5-5.0 (g/dL) 3.6 3.6 eGFR >=60 (mL/min/1.73m2) 65 eGFR Non- >=60 (mL/min/1.73m2) 54 06/16/20 2255 - 06/16/20 2255 DIFFERENTIAL 06/16/20 2255 DIFFERENTIAL Seg Neut Absolute 1.8-8.0 (K/uL) 7.0 Lymphocytes Absolute 0.8-4.1 (K/uL) 1.3 Monocytes Absolute 0.0-1.0 (K/uL) 0.7 Eosinophils Absolute 0.0-0.7 (K/uL) 0.1 Basophil Absolute 0.0-0.2 (K/uL) 0.1 Immature Granulocyte Absolute 0.00-0.06 (K/uL) 0.03 Neutrophils Percent (%) 75.8 Neutrophils Abs. (Segs and Bands) (/uL) 7,000 Lymphocytes Percent (%) 14.6 Monocytes Percent (%) 7.6 Immature Granulocyte Percent (%) 0.3 Eosinophils Percent (%) 1.2 Basophil Percent (%) 0.5 Nucleated RBC (/100 WBC's) 0 06/17/20 0857 - 06/17/20 0857 ECG/EKG 06/17/20 0857 ECG/EKG EKG WAVEFORM Normal sinus rhythm Possible Left atrial enlargement Nonspecific ST and T wave abnormality Abnormal ECG When compared with ECG of 02-DEC-2019 13:44, ST now depressed in Lateral leads Ventricular Rate: 90 BPM Atrial Rate: 90 BPM P-R Interval: 134 ms QRS Duration: 76 ms Q-T Interval: 348 ms QTc Calculation(Bazett): 425 ms Calculated P [place]: 61 degrees Calculated R [place]: 40 degrees Calculated T [place]: -128 degrees 06/17/20 2112 - 06/17/20 0544 GLUCOSE POINT OF CARE 06/17/20 21106/17/20 1705 06/17/20 1128 06/17/20 0544 GLUCOSE POINT OF CARE Glucose POC 70-100 (mg/dL) 137 91 115 113 06/17/20 0806 - 06/17/20 0806 OTHER 06/17/20 0806 OTHER Age (Years) 70 rBenny beltran MD - 06/17/2020 3:18 PM CDT70 years old male status post robotic fusion Unfortunately during removal of the drain small piece of plastic Hemovac drain broke off and was retained in patient's body. Follow-up CT scan revealed that the fragment is likely caught by a suture at the level of the fascia. I fully disclosed above to the patient. All his questions were addressed. Above described retained foreign body management options would include: Surgical removal - the downside of this option would include increased risk of infection, hardware infection, wound healing issues, prolonged stay in the hospital. Patient will likely need to go to the operating room in other to optimally gain access to drain left in minimally invasive surgical site ( unlikely to access retained foreign body at the bedside) Conservative management - downside would include but not limited to exposure to chemical toxicity from retained foreign body, foreign body infection, chronic pain, inflammation development , formation of granuloma and fistulas. Above options were described to the patient along with their cons and pros, expected outcomes. All his questions were addressed. I also reviewed CT scans to demonstrate a retained foreign body to thepatient. After careful consideration of each option patient advised me that he would like us to leave small piece of retained foreign body (Hemovac) in his body. He understands that it might expose him to the unknown potential toxicity from the material that this drain is made of, might expose him to infections, chronic inflammation, chronic pain, neurologic disability and potentially (though highly unlikely). All his questions were addressed. Discussion was witnessed by the bedside nurse. TIME spent: 30 minutes for conditions stated in problems above. Greater than 50% of the time of thisface to face appointment was spent in chart review, review of laboratory data, counseling and coordination of care Real Lam, [employer] - 06/17/2020 1:04 PM CDT NEUROSURGERY DAILY PROGRESS NOTE Markell Jasso is a 70yr old male admitted on 06/15/2020 for planned L4- 5 Robotic Assisted TLIF. SUBJECTIVE Sitting up in chair, NAD Severe lower back pain with ambulation Requiring assistance to ambulate OBJECTIVE Current Vital Signs Temp: 98.7 F (37.1 C) BP: 127/73 Pulse: 82 O2 Device: Room Air O2 Flow Rate (L/min): 2 l/min Resp: 16 Pain Ratin (out of 10) Weight: 81.2 kg (179 lb 1.6 oz) SpO2: 100 % Vitals Min/Max Last 24 Hours Vital Signs Min/Max (last 24 hours) Flowsheet Row Name Min Max Temp 98.3 F (36.8 C) 100.9 F (38.3 C) BP: Systolic 114 139 BP: Diastolic 56 76 Pulse 81 109 Resp 14 22 SpO2 (!) 84 % 100 % O2 Flow Rate (L/min) 1.5 l/min 2 l/min Medications Current Facility-Administered Medications Medication Dose Route Frequency furosemide (LASIX) injection solution 40 mg 40 mg IV 2 times a day diuretic lidocaine 1% injection solution 5-10 mL 5-10 mL Intradermal 1 time albuterol-ipratropium (DUO-NEB) 2.5-0.5 mg/3 mL inhalation solution 3 mL 3 mL Nebulization 4 times a day prn albuterol-ipratropium (DUO-NEB) 2.5-0.5 mg/3 mL inhalation solution 3 mL 3 mL Nebulization 4 times a day acetaminophen (TYLENOL) tablet 325 mg 325 mg Oral Every 4 hours prn oxyCODONE (OXY-IR) tablet 5-10 mg 5-10 mg Oral Every 4 hours prn fentaNYL 100 mcg/2 mL preservative free injection solution 50 mcg 50 mcg IV Every 1 hour prn senna-docusate sodium (SENOKOT-S;PERICOLACE) tablet 1 tablet 1 tablet Oral 2 times a day docusate sodium (COLACE) capsule 100 mg 100 mg Oral 2 times a day polyethylene glycol (MIRALAX) packet 1 packet 1 packet Oral Daily lactulose oral solution (10 gm/15 mL) 30 mL 30 mL Oral Daily [START ON 06/18/2020] bisacodyl (DULCOLAX) suppository 10 mg 10 mg Rectal Daily ondansetron (ZOFRAN) injection solution 4 mg 4 mg IV Every 4 hours prn haloperidol lactate (HALDOL) injection solution 2.5 mg 2.5 mg IV Every 6 hours prn acetaminophen (TYLENOL) tablet 650 mg 650 mg Oral Every 6 hours gabapentin (NEURONTIN) capsule 300 mg 300 mg Oral 3 times a day ceFAZolin (ANCEF) 2000 mg/20 mL sterile water IV syringe 2,000 mg IV Every 8 hours labetalol (NORMODYNE;TRANDATE) IV solution 5 mg 5 mg IV Every 10 minutes prn metoprolol tartrate (LOPRESSOR) half-tablet 12.5 mg 12.5 mg Oral 2 times a day omeprazole (priLOSEC) capsule 20 mg 20 mg Oral 1 time a day with evening meal tamsulosin (FLOMAX) capsule 0.4 mg 0.4 mg Oral daily dextrose 50% IV solution 50 mL 25 g IV PRN per parameter glucagon for injection 1 mg vial 1 mg 1 mg Intramuscular PRN per parameter dextrose chewable tablet 16 g 4 tablet Oral PRN per parameter Or carbohydrate 15 g 15 g Oral PRN per parameter insulin aspart (NovoLOG) SQ correction scale (Adult) 2-8 Units Subcutaneous 3 times a day Physical Exam General:healthy, alert, no distress Neuro: alert, oriented, normal speech, no focal findings or movement disorder noted Incision: Clean, dry, intact. No swelling, erythema, or drainage. Well approximated with percy. Hemovac drain removed with some resistance met, questionable retained piece. Extremities: Right: Iliopsoas 5/5, quadricep 5/5, hamstring 5/5, tibialis anterior 5/5, EHL 5/5, gastrocnemius 5/5 Left: Iliopsoas 5/5, quadricep 5/5, hamstring 5/5, tibialis anterior 5/5, EHL 5/5, gastrocnemius 5/5 Sensation intact in bilateral L4-S1 dermatomes Diagnostics and Labs Lumbar CT 06/15/2020: Post-op L4-5 interbody fusion. Hardware appears intact Relevant diagnostic, laboratory and radiological studies have been reviewed in the Electronic Medical Record. ASSESSMENT 1) L4-5 Robotic assisted TLIF POD #2 2) Possible retained drain fragment PLAN 1) Internal Medicine Co-manage 2) Disclosed to patient the possibility of retained drain fragment. Reviewed options of removal vs leaving small fragment in place. Risks and benefits of both options discussed at length. After discussion with Dr. Flores, patient expressed desire to pursue removal of fragment. Will obtain Lumbar Spine CT to confirm retained fragment, and attempt to localize. If located, would plan bedside removal of fragment with local anesthetic 3) Pain management 4) LSO when OOB 5) PT/OT 6) DVT Prophylaxis: SCD's 7) [place] to be removed: 06/29/2020 8) Dispo: Low intensity vs home with home health Case reviewed and discussed with Dr. Flores, who agrees with assessment and plan. Total time spent: 25 minutes, with >50% spent reviewing the chart, counseling patient and family,and discussing test results and treatment plan with the patient and family. KAMLA Curry, 06/17/2020 Neurology Consult Service [facility], [place], [place] Real Ludwig APRN-CNP - 06/16/2020 3:50 PM CDT NEUROSURGERY DAILY PROGRESS NOTE Markell Jasso is a 70yr old male admitted on 06/15/2020 for planned L4- 5 Robotic Assisted TLIF. SUBJECTIVE Sitting up in chair, NAD Severe lower back pain with ambulation Requiring assistance to ambulate OBJECTIVE Current Vital Signs Temp: 99.4 F (37.4 C) BP: 139/76 Pulse: 91 O2 Device: Room Air O2 Flow Rate (L/min): 1.5 l/min Resp: 18 Pain Ratin (out of 10) Weight: 81.2 kg (179 lb 1.6 oz) SpO2: 91 % Vitals Min/Max Last 24 Hours Vital Signs Min/Max (last 24 hours) Flowsheet Row Name Min Max Temp 97 F (36.1 C) 100.1 F (37.8 C) BP: Systolic 123 162 BP: Diastolic 53 88 Pulse 83 109 Resp 16 22 SpO2 91 % 95 % O2 Flow Rate (L/min) 1.5 l/min 3 l/min MAP (mm Hg) 75 mm Hg 104 mm Hg Medications Current Facility-Administered Medications Medication Dose Route Frequency albuterol-ipratropium (DUO-NEB) 2.5-0.5 mg/3 mL inhalation solution 3 mL 3 mL Nebulization 4 times a day prn oxyCODONE (OXY-IR) tablet 5-10 mg 5-10 mg Oral Every 4 hours prn fentaNYL 100 mcg/2 mL preservative free injection solution 50 mcg 50 mcg IV Every 1 hour prn senna-docusate sodium (SENOKOT-S;PERICOLACE) tablet 1 tablet 1 tablet Oral 2 times a day docusate sodium (COLACE) capsule 100 mg 100 mg Oral 2 times a day polyethylene glycol (MIRALAX) packet 1 packet 1 packet Oral Daily [START ON 06/17/2020] lactulose oral solution (10 gm/15 mL) 30 mL 30 mL Oral Daily [START ON 06/18/2020] bisacodyl (DULCOLAX) suppository 10 mg 10 mg Rectal Daily ondansetron (ZOFRAN) injection solution 4 mg 4 mg IV Every 4 hours prn haloperidol lactate (HALDOL) injection solution 2.5 mg 2.5 mg IV Every 6 hours prn acetaminophen (TYLENOL) tablet 650 mg 650 mg Oral Every 6 hours gabapentin (NEURONTIN) capsule 300 mg 300 mg Oral 3 times a day ceFAZolin (ANCEF) 2000 mg/20 mL sterile water IV syringe 2,000 mg IV Every 8 hours labetalol (NORMODYNE;TRANDATE) IV solution 5 mg 5 mg IV Every 10 minutes prn metoprolol tartrate (LOPRESSOR) half-tablet 12.5 mg 12.5 mg Oral 2 times a day omeprazole (priLOSEC) capsule 20 mg 20 mg Oral 1 time a day with evening meal tamsulosin (FLOMAX) capsule 0.4 mg 0.4 mg Oral daily dextrose 50% IV solution 50 mL 25 g IV PRN per parameter glucagon for injection 1 mg vial 1 mg 1 mg Intramuscular PRN per parameter dextrose chewable tablet 16 g 4 tablet Oral PRN per parameter Or carbohydrate 15 g 15 g Oral PRN per parameter insulin aspart (NovoLOG) SQ correction scale (Adult) 2-8 Units Subcutaneous 3 times a day Physical Exam General:healthy, alert, no distress Neuro: alert, oriented, normal speech, no focal findings or movement disorder noted Incision covered, no drainage on dressing. No swelling. Well approximated with percy Extremities: Right: Iliopsoas 5/5, quadricep 5/5, hamstring 5/5, tibialis anterior 5/5, EHL 5/5, gastrocnemius 5/5 Left: Iliopsoas 5/5, quadricep 5/5, hamstring 5/5, tibialis anterior 5/5, EHL 5/5, gastrocnemius 5/5 Sensation intact in bilateral L4-S1 dermatomes Diagnostics and Labs Lumbar CT 06/15/2020: Post-op L4-5 interbody fusion. Hardware appears intact Relevant diagnostic, laboratory and radiological studies have been reviewed in the Electronic Medical Record. ASSESSMENT 1) L4-5 Robotic assisted TLIF POD #1 PLAN 1) Internal Medicine Co-manage 2) Pain management 3) LSO when OOB 4) PT/OT 5) Continue hemovac today 6) DVT Prophylaxis: SCD's 7) Percy to be removed: 06/29/2020 8) Dispo: Potentially home tomorrow depending pain control and mobility Case reviewed and discussed with Dr. Flores, who agrees with assessment and plan. Total time spent: 25 minutes, with >50% spent reviewing the chart, counseling patient and family,and discussing test results and treatment plan with the patient and family. KAMLA Curry, 06/16/2020 Neurology Consult Service [place], [place] Jayjay Villegas MD - 06/16/2020 2:15 PM CDT DAILY PROGRESS NOTE SUMMARY This is a 70-year-old gentleman with medical history significant for hypertension, diabetes, coronary artery disease status post CABG, systolic CHF, abdominal aortic aneurysm, and sensorineural hearingloss, who is admitted to the hospital for L4-5 transforaminal lumbar interbody fusion. Medicine is following the patient for medical management. At the time of my visit patient is lying in bed and appears comfortable. No chest pain. No shortness of breath. No abdomen pain. Passing gas. Reports he was a smoker until a few years ago. He wasa heavy smoker when he did smoke. Uses as needed inhalers at home. Does not use oxygen at home. Vitals show O2 sats around 90%. ASSESSMENT & PLAN #. L4-5 transforaminal lumbar interbody fusion. Pain control, bowel regimen, and DVT prophylaxis per neurosurgery. - On scheduled Tylenol, Neurontin, and as needed oxycodone and fentanyl. - Will order basic labs for a.m. #. Low grade post-op fever. - Still has a drain and prophylactic abx. - Will order fever w/u should he have persistent fevers. - Encourage IS. #. Hypoxia. - CXR shows fluid overload. BNP elevated. Has h/o systolic CHF. Will administer a dose of lasix. - Has h/o smoking. Will schedule nebs. #. Anemia. Secondary to blood loss from surgery. Recheck labs in a.m. #. Hypertension. On BB. #. Diabetes. On sliding scale insulin. Metformin on hold. #. Coronary artery disease status post CABG. Aspirin on hold. On low-dose beta-odalys. Statin on hold. #. Chronic systolic CHF. EF 30-35%. On on diuretics at home. #. Abdominal aortic aneurysm. #. History of tobacco use disorder. #. BPH. On Flomax. #. GI prophylaxis. On PPI. #. CODE STATUS. Full code per admission orders. Disposition: Per neurosurgery recommendations. This note was created, at least in part, with the use of [employer] Dictation System. Inadvertenttypographical errors, due to software recognition problems, may still exist. SUBJECTIVE/ROS No acute events overnight. No new complaints this am. No cp, sob, abdominal pain. Has been hypoxic w/ O2 sats in upper 80s. Medications oxyCODONE (OXY-IR) tablet 5-10 mg 5-10 mg Oral Every 4 hours prn 10 mg at 06/16/20 1020 fentaNYL 100 mcg/2 mL preservative free injection solution 50 mcg 50 mcg IV Every 1 hour prn 50mcg at 06/16/20 1230 senna-docusate sodium (SENOKOT-S;PERICOLACE) tablet 1 tablet 1 tablet Oral 2 times a day 1 tablet at 06/16/20 0812 docusate sodium (COLACE) capsule 100 mg 100 mg Oral 2 times a day 100 mg at 06/16/20 0812 polyethylene glycol (MIRALAX) packet 1 packet 1 packet Oral Daily 1 packet at 06/16/20 0812 [START ON 06/17/2020] lactulose oral solution (10 gm/15 mL) 30 mL 30 mL Oral Daily [START ON 06/18/2020] bisacodyl (DULCOLAX) suppository 10 mg 10 mg Rectal Daily ondansetron (ZOFRAN) injection solution 4 mg 4 mg IV Every 4 hours prn haloperidol lactate (HALDOL) injection solution 2.5 mg 2.5 mg IV Every 6 hours prn acetaminophen (TYLENOL) tablet 650 mg 650 mg Oral Every 6 hours 650 mg at 06/16/20 1203 gabapentin (NEURONTIN) capsule 300 mg 300 mg Oral 3 times a day 300 mg at 06/16/20 0812 ceFAZolin (ANCEF) 2000 mg/20 mL sterile water IV syringe 2,000 mg IV Every 8 hours 2,000 mg at 06/16/20 1204 labetalol (NORMODYNE;TRANDATE) IV solution 5 mg 5 mg IV Every 10 minutes prn 5 mg at 06/15/20 1520 metoprolol tartrate (LOPRESSOR) half-tablet 12.5 mg 12.5 mg Oral 2 times a day 12.5 mg at 06/16/20 0812 omeprazole (priLOSEC) capsule 20 mg 20 mg Oral 1 time a day with evening meal 20 mg at 06/15/201814 tamsulosin (FLOMAX) capsule 0.4 mg 0.4 mg Oral daily 0.4 mg at 06/16/20 0812 dextrose 50% IV solution 50 mL 25 g IV PRN per parameter glucagon for injection 1 mg vial 1 mg 1 mg Intramuscular PRN per parameter dextrose chewable tablet 16 g 4 tablet Oral PRN per parameter Or carbohydrate 15 g 15 g Oral PRN per parameter insulin aspart (NovoLOG) SQ correction scale (Adult) 2-8 Units Subcutaneous 3 times a day diphenhydrAMINE (BENADRYL) injection solution 25 mg 25 mg IV Now Stopped at 06/16/20 0008 OBJECTIVE Current Vital Signs Temp: 100.1 F (37.8 C) BP: 123/67 Pulse: 109 O2 Device: Room Air O2 Flow Rate (L/min): 1.5 l/min Resp: 22 Pain Ratin (out of 10) Weight: 81.2 kg (179 lb 1.6 oz) SpO2: 92 % Vitals Min/Max Last 24 Hours Vital Signs Min/Max (last 24 hours) Flowsheet Row Name Min Max Temp 97 F (36.1 C) 100.1 F (37.8 C) BP: Systolic 123 166 BP: Diastolic 53 130 Arterial Line (ART) BP: Systolic 158 168 Arterial Line (ART) BP: Diastolic 85 91 Pulse 83 114 Resp 16 22 SpO2 91 % 96 % O2 Flow Rate (L/min) 1.5 l/min 4 l/min MAP (mm Hg) 75 mm Hg 137 mm Hg Intake and Output Last 24 Hours 06/15 0700 - 06/16 0659 In: 3225 Out: 1705 Lines and Drains Patient Lines/Drains/Airways Status Active Lines Name: Placement date: Placement time: Site: Days: Peripheral IV 06/16/20 Forearm Anterior;Middle/Medial;Right 06/16/20 0502 Forearm less than 1 Hemovac 06/15/20 Lower;Medial Back Drain #1 06/15/20 1401 Back 1 Incision 12/21/19 Anterior;Right Neck Incision 12/21/19 Neck 178 Incision 06/15/20 Lower Back Incision 06/15/20 1216 Back 1 Incision 06/15/20 Lower Back Puncture site 2 06/15/20 1216 Back 1 Physical Exam General Appearance: Well nourished, well hydrated, lying in bed, does not appear to be in acute distress Lungs: No use of accessory muscles of respiration, wheeze present. Heart: normal S1 S2, no pedal edema. Abdomen: soft, normal BS, non tender Neurological: alert, answering questions appropriately, and moving extremities grossly. Diagnostics and Labs Labs (Last day) 06/16/20 0642 - 06/16/20 0642 CBC 06/16/20 0642 CBC WBC 4.0-11.0 (K/uL) 10.4 RBC 4.40-5.80 (M/uL) 3.29 Hemoglobin 13.5-17.5 (g/dL) 9.6 Hematocrit 40.0-50.0 (%) 30.0 MCV 80.0-98.0 (fL) 91.2 MCH 25.5-34.0 (pg) 29.2 MCHC 31.5-36.5 (g/dL) 32.0 RDW-CV 11.5-15.5 (%) 15.4 RDW-SD 35.5-50.0 (fl) 51.3 Platelet Count 140-400 (K/uL) 149 MPV 8.5-12.0 (fL) 12.7 06/16/20 0642 - 06/16/2042 CHEMISTRY 06/16/20 0642 CHEMISTRY Glucose 70-100 (mg/dL) 91 Sodium 135-145 (meq/L) 139 Potassium 3.5-5.3 (meq/L) 4.3 Chloride 99-110 (meq/L) 106 CO2 20-29 (meq/L) 23 Anion Gap with K 6-20 (meq/L) 14 BUN 6-22 (mg/dL) 15 Creatinine 0.80-1.30 (mg/dL) 1.20 BUN/Creatinine Ratio 10.0-25.0 12.5 Calcium 8.5-10.5 (mg/dL) 8.7 eGFR >=60 (mL/min/1.73m2) 73 eGFR Non- >=60 (mL/min/1.73m2) 60 06/16/20 1126 - 06/15/20 1755 GLUCOSE POINT OF CARE 06/16/20 1126 06/16/20 0532 06/15/20205806/15/20 175 GLUCOSE POINT OF CARE Glucose POC 70-100 (mg/dL) 72 87 256 119 06/16/20 0642 - 06/16/20 0642 OTHER 06/16/20 0642 OTHER Age (Years) 70 Guillermina Hamlin CPO - 06/15/2020 5:25 PM CDTPATIENT: Markell Jasso LOCATION: [facility], room # 6AB nurses station Markell Jasso LSO was delivered to nurses station/ patients room. His LSO will now be available for him to wear when they are ready to get out of bed following surgery. He was measured,fit, and instructed on the use of the LSO prior to surgery. If Markell is in need of adjustments please page [facility] [employer] Risk Analyst at [facility] pager #[phone]. During the pre-fitting and instructing Markell was instructed to contact [facility] after discharge with any questions or concerns with the brace. A care of sheet and contact information was provided with the orthosis. Guillermina Hamlin, CPO documented in this encounter Plan of Treatment Date Type Specialty Care Team Description 07/28/2020 Ancillary Procedure Radiology 07/28/2020 Office Visit Neurosurgery Justine Mary, IKER [address] [place], [place] [id number] 07/28/2020 Appointment Physical Therapy Nickolas Fry, PT [address] [place] [address] Name Type Priority Associated Diagnoses Order S chedule XRAY SPINE LUMBAR 2-3 Imaging Routine S/P lumbar fusion E xpected: 08/02/2020 VIEWS (Approximate), Expires: 07/22/2021 documented as of this encounter Implants Implanted Type Area Dry Chain Puller Device Shelf Model / Serial / Identifier Expiration Lot Date Allo Dbm Putty Dbx Mtf 1ml N [id number] Ea1 - [id number] Flynn ne/T N/A: MUSCULOSKELETAL 07/07/2021 [id number] / Implanted: Qty: 1 on 12/21/2019 by Dilan Kennedy MD at [facility] issue/ CERVICAL TRANSPLANT [id number] / Allogr SPINE aft Description:Implant acknowledged and sharla ified by Dr. Kennedy. Allo Bone Osteoamp Select 10cc N Oasf-10 Ea1 - [id number] Flynn ne/Tissue/Allograft N/A: LUMBAR [employer] 11/25/2024 OASF-10 / Implanted: 06/15/2020 by Fredy Flores MD at [facility] (Quantity not on file) [id number] / 2024-11-25 Stnt [place] Veriflex Rx 3.50x32 N [id number] Ea Cardiovascular [place] / Implanted: 03/01/2015 by Trae Bueno DO (Quantity not on file) SCIENTIFIC / [id number] Stnt Integrity Bms 3.00x30 N [id number] Ea (Aka [id number]) Card iovascular [employer] 07/13/2016 / Implanted: 03/01/2015 by Trae Bueno DO (Quantity not on file) / [id number] Stnt Integrity Bms 3.50x30 N [id number] Ea (Aka [id number]) Card iovascular [employer] 02/10/2016 / Implanted: 03/01/2015 by Trae Bueno DO (Quantity not on file) / [id number] Stnt Integrity Bms 4.00x30 N [id number] Ea (Aka [id number]) Card iovascular [employer] 08/11/2016 / Implanted: 03/01/2015 by Trae Bueno DO (Quantity not on file) / [id number] Stnt Integrity Bms 4.00x18 N [id number] Ea (Aka [id number]) Card iovascular [employer] 12/02/2016 / Implanted: 03/01/2015 by Trae Bueno DO (Quantity not on file) / [id number] Stnt Resolute 3.83e23jd N [id number] Ea (Aka [id number]) Car diovascular [employer] 03/17/2016 / Implanted: 03/02/2015 by Trae Bueno DO (Quantity not on file) / [id number] Cage Spnl Anatom Ptc 35h20z1 N 7426070 Ea1 - [id number] Neurolog y N/A: [employer] 09/28/2027 [id number] / Implanted: Qty: 1 on 12/21/2019 by Dilan Kennedy MD at [facility] CERVICAL / SPINE 90JH Description:Implant acknowledged and sharla ified by Dr. Zarate Spnl Anatom Ptc 70p32l1 N 7873840 Ea1 - [id number] Neur ology N/A: CERVICAL SPINE [employer] 07/28/2026 [id number] / Implanted: Qty: 1 on 12/21/2019 by Dilan Kennedy MD at [facility] / 65 Description:Implant acknowledged and sharla ified by Dr. Kennedy. Plate [place] [id number] 57mm N 9865325 Ea1 - [id number] Ne urology N/A: CERVICAL SPINE [employer] 7059903 / Implanted: Qty: 1 on 12/21/2019 by Dilan Kennedy MD at [facility] / Description:Implant acknowledged and sharla ified by Dr. Kennedy. Screw [place] Slfdr [id number] N 2273600 Ea1 - [id number] Ne urology N/A: CERVICAL SPINE [employer] 0848825 / Implanted: Qty: 6 on 12/21/2019 by Dilan Kennedy MD at [facility] / Description:Implant acknowledged and sharla ified by Dr. Kennedy. Screw Atlantisslfdrvar4.5x17mm N 9222998 Ea1 - [id number] Ne urology N/A: CERVICAL [employer] 1322388 / Implanted: Qty: 2 on 12/21/2019 by Dilan Kennedy MD at [facility] SPINE / Description:Implant acknowledged and sharla ified by Dr. Kennedy. Screw [place] Slfdr [id number] N 1078130 Ea1 - [id number] Ne urology N/A: CERVICAL SPINE [employer] 6579898 / Implanted: 12/21/2019 by Dilan Kennedy MD at [facility] (Quantity not on file) / Screw [place] Slfdr [id number] N 4401695 Ea1 - [id number] Ne urology N/A: CERVICAL SPINE [employer] 9361898 / Implanted: 12/21/2019 by Dilan Kennedy MD at [facility] (Quantity not on file) / Screw [place] Slfdr [id number] N 2483171 Ea1 - [id number] Ne urology N/A: CERVICAL SPINE [employer] 5823869 / Implanted: 12/21/2019 by Dilan Kennedy MD at [facility] (Quantity not on file) / Plate [place] [id number] 57mm N 6968440 Ea1 - [id number] Ne urology N/A: CERVICAL SPINE [employer] 0967394 / Implanted: 12/21/2019 by Dilan Kennedy MD at [facility] (Quantity not on file) / Screw [place] Slfdr [id number] N 6864383 Ea1 - [id number] Ne urology N/A: CERVICAL SPINE [employer] 2842624 / Implanted: 12/21/2019 by Dilan Kennedy MD at [facility] (Quantity not on file) / Screw [place] Slfdr [id number] N 1643011 Ea1 - [id number] Ne urology N/A: CERVICAL SPINE [employer] 2197303 / Implanted: 12/21/2019 by Dilan Kennedy MD at [facility] (Quantity not on file) / Screw Atlantisslfdrvar4.5x17mm N 2903223 Ea1 - [id number] Ne urology N/A: CERVICAL SPINE [employer] 7742566 / Implanted: 12/21/2019 by Dilan Kennedy MD at [facility] (Quantity not on file) / Screw [place] Slfdr [id number] N 4203869 Ea1 - [id number] Ne urology N/A: CERVICAL SPINE [employer] 1321767 / Implanted: 12/21/2019 by Dilan Kennedy MD at [facility] (Quantity not on file) / Screw Atlantisslfdrvar4.5x17mm N 0011697 Ea1 - [id number] Ne urology N/A: CERVICAL SPINE [employer] 5372921 / Implanted: 12/21/2019 by Dilan Kennedy MD at [facility] (Quantity not on file) / Cage Spnl Anatom Ptc 59e23m5 N 7793347 Ea1 - [id number] Neur ology N/A: CERVICAL SPINE [employer] 09/28/2027 7380837 / Implanted: 12/21/2019 by Dilan Kennedy MD at [facility] (Quantity not on file) / 90JH Cage Spnl Anatom Ptc 53u41s9 N 5361841 Ea1 - [id number] Neur ology N/A: CERVICAL SPINE [employer] 07/28/2026 4127060 / Implanted: 12/21/2019 by Dilan Kennedy MD at [facility] (Quantity not on file) / 65GC Cage Spnl Anatom Ptc 15r66v1 N 4912302 Ea1 - [id number] Neur ology N/A: CERVICAL SPINE [employer] 11/09/2027 2862690 / Implanted: Qty: 1 on 12/21/2019 by Dilan Kennedy MD at [facility] / 57JL Description:Implant acknowledged and sharla ified by Dr. Kennedy. Screw Creo Tio 7.5x50 Mm N 1067.4750 Ea1 - [id number] Neurology N/A: LUMBAR [employer] 1067.4750 / Implanted: 06/15/2020 by Fredy Flores MD at [facility] (Quantity not on file) / Screw Creo Tio 7.5x50 Mm N 1067.4750 Ea1 - [id number] Neurology N/A: LUMBAR [employer] 1067.4750 / Implanted: 06/15/2020 by Fredy Flores MD at [facility] (Quantity not on file) / Spacer Rise 10-17mm [id number] N 193.142 Ea1 - [id number] Neurol ogy N/A: LUMBAR [employer] 193.142 / Implanted: 06/15/2020 by Fredy Flores MD at [facility] (Quantity not on file) / Peter Creo Mis Curv 5.5x50mm N 1134.7050 Ea1 - [id number] Neurolog y N/A: LUMBAR [employer] 1134.7050 / Implanted: 06/15/2020 by Fredy Flores MD at [facility] (Quantity not on file) / Peter Creo Mis Curv 5.5x50mm N 1134.7050 Ea1 - [id number] Neurolog y N/A: LUMBAR [employer] 1134.7050 / Implanted: 06/15/2020 by Fredy Flores MD at [facility] (Quantity not on file) / Cap Lk Creo For Screw N 1134.0010 Ea1 - [id number] Neurology N/A: LUMBAR [employer] 1134.0010 / Implanted: 06/15/2020 by Fredy Flores MD at [facility] (Quantity not on file) / [place] Rdctn Modl Rcreo 30mm N 1134.0100 Ea1 - [id number] Neurology N/A: LUMBAR [employer] 1134.0100 / Implanted: 06/15/2020 by Fredy Flores MD at [facility] (Quantity not on file) / Cap Lk Creo For Screw N 1134.0010 Ea1 - [id number] Neurology N/A: LUMBAR [employer] 1134.0010 / Implanted: 06/15/2020 by Fredy Flores MD at [facility] (Quantity not on file) / [place] Pa Rdctn Modl Rcreo 30mm N 1134.0100 Ea1 - [id number] Neurology N/A: LUMBAR [employer] 1134.0100 / Implanted: 06/15/2020 by Fredy Flores MD at [facility] (Quantity not on file) / Cap Lk Creo For Screw N 1134.0010 Ea1 - [id number] Neurology N/A: LUMBAR [employer] 1134.0010 / Implanted: 06/15/2020 by Fredy Flores MD at [facility] (Quantity not on file) / Cap Lk Creo For Screw N 1134.0010 Ea1 - [id number] Neurology N/A: LUMBAR [employer] 1134.0010 / Implanted: 06/15/2020 by Fredy Flores MD at [facility] (Quantity not on file) / Screw Creo Tio 7.5x50 Mm N 1067.4750 Ea1 - [id number] Neurology N/A: LUMBAR [employer] 1067.4750 / Implanted: 06/15/2020 by Fredy Flores MD at [facility] (Quantity not on file) / Screw Creo Tio 7.5x50 Mm N 1067.4750 Ea1 - [id number] Neurology N/A: LUMBAR [employer] 1067.4750 / Implanted: 06/15/2020 by Fredy Flores MD at [facility] (Quantity not on file) / Breonna Calvillo Rdctn Modl Rcreo 30mm N 1134.0100 Ea1 - [id number] Neurology N/A: LUMBAR [employer] 1134.0100 / Implanted: 06/15/2020 by Fredy Flores MD at [facility] (Quantity not on file) / Breonna Pa Rdctn Modl Rcreo 30mm N 1134.0100 Ea1 - [id number] Neurology N/A: LUMBAR [employer] 1134.0100 / Implanted: 06/15/2020 by Fredy Flores MD at [facility] (Quantity not on file) / Scaf Bone Infuse 2xs 0.7cc N 0517867 Ea1 - [id number] N/A: LUMBAR [employer] 07/27/2020 [id number] / Implanted: 06/15/2020 by Fredy Flores MD at [facility] (Quantity not on file) / [id number] documented as of this encounter Procedures Procedure Name Priority Date/Time Associated Comments Diagnosis GLUCOSE BY METER, Routine 06/22/2020 11:09 Result s for this POCT AM CDT procedure are i n the results section. GLUCOSE BY METER, Routine 06/22/2020 5:24 Result s for this POCT AM CDT procedure are i n the results section. GLUCOSE BY METER, Routine 06/21/2020 9:15 Result s for this POCT PM CDT procedure are i n the results section. GLUCOSE BY METER, Routine 06/21/2020 5:16 Result s for this POCT PM CDT procedure are i n the results section. GLUCOSE BY METER, Routine 06/21/2020 11:12 Result s for this POCT AM CDT procedure are i n the results section. GLUCOSE BY METER, Routine 06/21/2020 5:51 Result s for this POCT AM CDT procedure are i n the results section. GLUCOSE BY METER, Routine 06/20/2020 9:18 Result s for this POCT PM CDT procedure are i n the results section. GLUCOSE BY METER, Routine 06/20/2020 5:14 Result s for this POCT PM CDT procedure are i n the results section. SARS-COV-2 RNA, STAT 06/20/2020 1:08 Results for this QUALITATIVE REAL-TIME PM CDT proced ure are in RT-PCR the results section. GLUCOSE BY METER, Routine 06/20/2020 11:45 Result s for this POCT AM CDT procedure are i n the results section. GLUCOSE BY METER, Routine 06/20/2020 5:37 Result s for this POCT AM CDT procedure are i n the results section. COMPLETE BLOOD COUNT Routine 06/20/2020 5:24 Res ults for this WITHOUT DIFFERENTIAL AM CDT procedu re are in the results section. HEPATIC FUNCTION Routine 06/20/2020 5:24 Results for this PANEL AM CDT procedure are i n the results section. RENAL FUNCTION PANEL Routine 06/20/2020 5:24 Res ults for this AM CDT procedure are i n the results section. GLUCOSE BY METER, Routine 06/19/2020 9:12 Result s for this POCT PM CDT procedure are i n the results section. GLUCOSE BY METER, Routine 06/19/2020 4:57 Result s for this POCT PM CDT procedure are i n the results section. US VENOUS DUPLEX Routine 06/19/2020 2:00 Results for this LOWER EXTREMITY RICHARD PM CDT procedur e are in the results section. GLUCOSE BY METER, Routine 06/19/2020 11:23 Result s for this POCT AM CDT procedure are i n the results section. COMPLETE BLOOD COUNT Routine 06/19/2020 10:19 Res ults for this WITHOUT DIFFERENTIAL AM CDT procedu re are in the results section. HEPATIC FUNCTION Routine 06/19/2020 10:19 Results for this PANEL AM CDT procedure are i n the results section. MAGNESIUM Routine 06/19/2020 10:19 Results for this AM CDT procedure are i n the results section. RENAL FUNCTION PANEL Routine 06/19/2020 10:19 Res ults for this AM CDT procedure are i n the results section. GLUCOSE BY METER, Routine 06/19/2020 5:38 Result s for this POCT AM CDT procedure are i n the results section. GLUCOSE BY METER, Routine 06/18/2020 9:05 Result s for this POCT PM CDT procedure are i n the results section. LAB ONLY-URINE STAT 06/18/2020 6:28 Results f or this MICROSCOPIC REFLEX PM CDT procedure are in the results section. URINE DIP, REFLEX TO STAT 06/18/2020 6:28 Res ults for this MICROSCOPIC, REFLEX PM CDT procedur e are in TO CULTURE the results section. GLUCOSE BY METER, Routine 06/18/2020 5:15 Result s for this POCT PM CDT procedure are i n the results section. XRAY CHEST PORTABLE Routine 06/18/2020 3:46 Resu lts for this PM CDT procedure are i n the results section. GLUCOSE BY METER, Routine 06/18/2020 11:19 Result s for this POCT AM CDT procedure are i n the results section. COMPLETE BLOOD COUNT Routine 06/18/2020 6:06 Res ults for this WITHOUT DIFFERENTIAL AM CDT procedu re are in the results section. MAGNESIUM Routine 06/18/2020 6:06 Results for this AM CDT procedure are i n the results section. RENAL FUNCTION PANEL Routine 06/18/2020 6:06 Res ults for this AM CDT procedure are i n the results section. GLUCOSE BY METER, Routine 06/18/2020 5:17 Result s for this POCT AM CDT procedure are i n the results section. GLUCOSE BY METER, Routine 06/17/2020 9:12 Result s for this POCT PM CDT procedure are i n the results section. ECHO ADULT COMPLETE ASTON 06/17/2020 6:37 Resu lts for this PM CDT procedure are i n the results section. GLUCOSE BY METER, Routine 06/17/2020 5:05 Result s for this POCT PM CDT procedure are i n the results section. CT SPINE LUMBAR Routine 06/17/2020 1:53 Results for this WITHOUT CONTRAST PM CDT procedure a re in the results section. GLUCOSE BY METER, Routine 06/17/2020 11:28 Result s for this POCT AM CDT procedure are i n the results section. TROPONIN I Routine 06/17/2020 11:11 Results for this AM CDT procedure are i n the results section. EKG Routine 06/17/2020 8:57 Results for this AM CDT procedure are i n the results section. COMPLETE BLOOD COUNT Routine 06/17/2020 8:06 Res ults for this WITHOUT DIFFERENTIAL AM CDT procedu re are in the results section. HEPATIC FUNCTION Routine 06/17/2020 8:06 Results for this PANEL AM CDT procedure are i n the results section. MAGNESIUM Routine 06/17/2020 8:06 Results for this AM CDT procedure are i n the results section. RENAL FUNCTION PANEL Routine 06/17/2020 8:06 Res ults for this AM CDT procedure are i n the results section. GLUCOSE BY METER, Routine 06/17/2020 5:44 Result s for this POCT AM CDT procedure are i n the results section. CULTURE, BLOOD STAT 06/16/2020 11:28 Results f or this PM CDT procedure are i n the results section. LAB ONLY-COMPLETE STAT 06/16/2020 10:55 Result s for this BLOOD COUNT WITH PM CDT procedure a re in DIFFERENTIAL the results section. CULTURE, BLOOD STAT 06/16/2020 10:55 Results f or this PM CDT procedure are i n the results section. LAB ONLY-COMPLETE STAT 06/16/2020 10:55 Result s for this BLOOD COUNT WITH PM CDT procedure a re in DIFFERENTIAL the results section. GLUCOSE BY METER, Routine 06/16/2020 8:57 Result s for this POCT PM CDT procedure are i n the results section. GLUCOSE BY METER, Routine 06/16/2020 5:11 Result s for this POCT PM CDT procedure are i n the results section. BRAIN NATRIURETIC STAT 06/16/2020 4:27 Result s for this PEPTIDE PM CDT procedure are i n the results section. XRAY CHEST PORTABLE ASTON 06/16/2020 2:33 Resu lts for this PM CDT procedure are i n the results section. GLUCOSE BY METER, Routine 06/16/2020 11:26 Result s for this POCT AM CDT procedure are i n the results section. COMPLETE BLOOD COUNT Routine 06/16/2020 6:42 Res ults for this WITHOUT DIFFERENTIAL AM CDT procedu re are in the results section. BASIC METABOLIC PANEL Routine 06/16/2020 6:42 Re sults for this AM CDT procedure are i n the results section. GLUCOSE BY METER, Routine 06/16/2020 5:32 Result s for this POCT AM CDT procedure are i n the results section. GLUCOSE BY METER, Routine 06/15/2020 8:59 Result s for this POCT PM CDT procedure are i n the results section. GLUCOSE BY METER, Routine 06/15/2020 5:55 Result s for this POCT PM CDT procedure are i n the results section. CT SPINE LUMBAR Routine 06/15/2020 4:41 Results for this WITHOUT CONTRAST PM CDT procedure a re in the results section. XRAY C-ARM Routine 06/15/2020 2:23 Results for this PM CDT procedure are i n the results section. GLUCOSE BY METER, Routine 06/15/2020 1:27 Result s for this POCT PM CDT procedure are i n the results section. FUSION LUMBAR SPINE 06/15/2020 10:49 DDD (degenerative OPEN 1 LEVEL AM CDT disc disease), lumbar Case Notes 8-19 neuromonitoring schedul ed Special Needs 1 HR, ASLEEP ARTERIAL LINE GLUCOSE BY METER, POCT Routine 06/15/2020 10:07 AM CDT Results for this procedure are in the resu lts section. documented in this encounter Results GLUCOSE BY METER, POCT (06/22/2020 11:09 AM CDT) Pathologist Sig nature Glucose POC 131 (H) 70 - 100 mg/dL [facility] POINT OF CARE TESTING Specimen Blood Performing Organization Address [facility] Phone Number [facility] POINT OF [address] [place] [address], [place] [address] CARE TESTING GLUCOSE BY METER, POCT (06/22/2020 5:24 AM CDT) Pathologist Sig nature Glucose POC 90 70 - 100 mg/dL [facility] POINT OF CARE TESTING Specimen Blood Performing Organization Address [facility] Servicescode Phone Number [facility] POINT OF [address] [place] [address], [place] [address] CARE TESTING GLUCOSE BY METER, POCT (06/21/2020 9:15 PM CDT) Pathologist Sig nature Glucose POC 137 (H) 70 - 100 mg/dL [facility] POINT OF CARE TESTING Specimen Blood Performing Organization Address [facility] Servicescode Phone [facility] POINT OF [address] [place] [address], [place] [address] CARE TESTING GLUCOSE BY METER, POCT (06/21/2020 5:16 PM CDT) Pathologist Sig nature Glucose POC 96 70 - 100 mg/dL [facility] POINT OF CARE TESTING Specimen Blood Performing Organization Address [facility] Servicescode Phone Number [facility] POINT OF [address] [place] [phone] CARE TESTING GLUCOSE BY METER, POCT (06/21/2020 11:12 AM CDT) Pathologist Sig nature Glucose POC 125 (H) 70 - 100 mg/dL [facility] POINT OF CARE TESTING Specimen Blood Performing Organization Address [facility] Servicescode Phone Number [facility] POINT OF [address] [place] [phone] CARE TESTING GLUCOSE BY METER, POCT (06/21/2020 5:51 AM CDT) Pathologist Sig nature Glucose POC 101 (H) 70 - 100 mg/dL [facility] POINT OF CARE TESTING Specimen Blood Performing Organization Address [facility] Servicescode Phone Number [facility] POINT OF [address] [place] [phone] CARE TESTING GLUCOSE BY METER, POCT (06/20/2020 9:18 PM CDT) Pathologist Sig nature Glucose POC 133 (H) 70 - 100 mg/dL [facility] POINT OF CARE TESTING Specimen Blood Performing Organization Address [facility] Servicescode Phone Number [facility] POINT OF [address] [place] [phone] CARE TESTING GLUCOSE BY METER, POCT (06/20/2020 5:14 PM CDT) Pathologist Sig nature Glucose POC 104 (H) 70 - 100 mg/dL [facility] POINT OF CARE TESTING Specimen Blood Performing Organization Address [facility] Servicescode Phone Number [facility] POINT OF [address] [place] [phone] CARE TESTING SARS-COV-2 RNA, QUALITATIVE REAL-TIME RT-PCR (06/20/2020 1:08 PM CDT) SARS CoV RNA, RT Not Detected Not Detected [facility] Specimen Respiratory Narrative Performed At This test was performed by polymerase chain reaction ( PCR) [facility] on the [employer]_ MDX instrument. This assay is for in vitro diagnostic use under FDA Emergency Use Authorization only. Optimal performance of this test requires appropriate specimen collection, storage, and transport to the [facility] site. Detection of SARS-CoV-2 RNA may be affected by sample collection methods, patient factors (eg, presence of symptoms), and/or stage of infection. False-negative results may arise from degradation of v iral RNA during shipping/storage. Results should be interpreted by a trained professiona lorri in conjunction with the patient s history and clinical signs and symptoms, and epidemiological risk factors. Negative (Not Detected) results do not preclude infect ion with the SARS-CoV-2 virus and should not be the sole b asis of patient treatment/management or public health decis ion. Follow up testing should be performed according to the current CDC recommendations. Performing Organization Address [facility] Phone Number [facility] [address] [place] [address] GLUCOSE BY METER, POCT (06/20/2020 11:45 AM CDT) Pathologist Sig nature Glucose POC 129 (H) 70 - 100 mg/dL [facility] POINT OF CARE TESTING Specimen Blood Performing Organization Address [facility] Phone Number [facility] POINT OF [address] [place] [address] CARE TESTING GLUCOSE BY METER, POCT (06/20/2020 5:37 AM CDT) Pathologist Sig [facility] Glucose POC 104 (H) 70 - 100 mg/dL [facility] POINT OF CARE TESTING Specimen Blood Performing Organization Address [facility] Phone Number [facility] POINT OF [address] [place] [address] CARE TESTING HEPATIC FUNCTION PANEL (06/20/2020 5:24 AM CDT) Pathologist Sig nature Alkaline Phosphatase 80 30 - 150 U/L [place] [address] [facility] AST - SGOT 41 (H) 0 - 35 U/L [address] ALT - SGPT 10 0 - 55 U/L [place] [address] [facility] Bilirubin Total 0.6 0.2 - 1.2 mg/dL [address] Bilirubin Indirect 0.2 0.0 - 0.8 mg/dL [address] Bilirubin Direct 0.4 0.0 - 0.4 mg/dL [place] [address] [facility] Albumin 3.2 (L) 3.5 - 5.0 g/dL [address] Protein Total 6.6 6.0 - 8.2 g/dL [place] [address] [facility] Specimen Blood Performing Organization Address [facility] Phone Number [address] [place] [address] RENAL FUNCTION PANEL (06/20/2020 5:24 AM CDT) Pathologist Sig [facility] Glucose 107 (H) 70 - 100 mg/dL [address] BUN 23 (H) 6 - 22 mg/dL [address] Creatinine 1.25 0.80 - 1.[address] mg/dL BUN/Creatinine Ratio 18.4 10.0 - 25.[address] Sodium 134 (L) 135 - 145 meq/L [address] Potassium 4.3 3.5 - 5.3 meq/L [address] Chloride 100 99 - 110 meq/L [address] CO2 26 20 - 29 meq/L [address] Anion Gap with K 12 6 - 20 meq/L [address] Calcium 8.6 8.5 - 10.5 mg/dL [address] Phosphorus 2.7 2.5 - 4.5 mg/dL [address] Albumin 3.2 (L) 3.5 - 5.0 g/dL [address] Corrected Calcium 9.2 8.5 - 10.5 mg/dL [address] Age [address] eGFR Non- 57 (L) >=[address] Nicaraguan mL/min/1.73m2 eGFR 70 >=[address] mL/min/1.73m2 Specimen Blood Performing Organization Address [facility] Phone Number [address] [place] [address], [place] [address] COMPLETE BLOOD COUNT WITHOUT DIFFERENTIAL (06/20/2020 5:24 AM CDT) Pathologist Sig nature WBC 5.8 4.0 - 11.0 K/uL [address] RBC 3.09 (L) 4.40 - 5.80 M/uL [address] Hemoglobin 9.0 (L) 13.5 - 17.5 g/dL [address] Hematocrit 27.8 (L) 40.0 - 50.0 % [address] MCV 90.0 80.0 - 98.[address] MCH 29.1 25.5 - 34.[address] MCHC 32.4 31.5 - 36.5 g/dL [address] RDW-CV 14.6 11.5 - 15.5 % [address] RDW-SD 47.8 35.5 - 50.[address] Platelet Count 170 140 - 400 K/uL [address] MPV 11.8 8.5 - 12.[address] Specimen Blood Performing Organization Address [facility] Phone Number [address] [place] [address] GLUCOSE BY METER, POCT (06/19/2020 9:12 PM CDT) Pathologist Sig nature Glucose POC 123 (H) 70 - 100 mg/dL [facility] POINT OF CARE TESTING Specimen Blood Performing Organization Address [facility] Phone Number [facility] POINT OF [address] [place] [address] CARE TESTING GLUCOSE BY METER, POCT (06/19/2020 4:57 PM CDT) Pathologist Sig nature Glucose POC 130 (H) 70 - 100 mg/dL [facility] POINT OF CARE TESTING Specimen Blood Performing Organization Address [facility] Phone Number [facility] POINT OF [address] [place] [address] CARE TESTING US VENOUS DUPLEX LOWER EXTREMITY RICHARD (06/19/2020 2:00 PM CDT) Specimen Narrative Performed At This result has an attachment that is no t available. Name: Markell Akbar Louisa [facility] RADIOLOGY : 1950 Date of Service: 06/19/2020 EXAM: US VENOUS DUPLEX LOWER EXTREMITY RICHARD INDICATION: persistent post-op fevers COMPARISON(S): None TECHNIQUE: Multiple real-time sonographic images obt ained using grayscale, color, and spectral Doppler. FINDINGS: RIGHT: Common Femoral Vein / Saphenofemoral Junction: Compressibility: Compresses Phasicity: Normal Augmentation: Normal Deep Femoral Vein Proximal: Compressibility: Compresses Phasicity: Normal Augmentation: Normal Femoral Vein Proximal: Compressibility: Compresses Phasicity: Normal Augmentation: Normal Femoral Vein Mid: Compressibility: Compresses Femoral Vein Distal: Compressibility: Compresses Great Saphenous Vein: Absent Popliteal Vein: Compressibility: Compresses Phasicity: Normal Augmentation: Normal Posterior Tibial Veins: Compressibility: Compresses Augmentation: Normal Peroneal Veins: Compressibility: Compresses Augmentation: Normal LEFT: Common Femoral Vein / Saphenofemoral Junction: Compressibility: Compresses Phasicity: Normal Augmentation: Normal Deep Femoral Vein Proximal: Compressibility: Compresses Phasicity: Normal Augmentation: Normal Femoral Vein Proximal: Compressibility: Compresses Phasicity: Normal Augmentation: Normal Femoral Vein Mid: Compressibility: Compresses Femoral Vein Distal: Compressibility: Compresses Great Saphenous Vein: Compressibility: Compresses Augmentation: Normal Popliteal Vein: Compressibility: Compresses Phasicity: Normal Augmentation: Normal Posterior Tibial Veins: Compressibility: Compresses Augmentation: Normal Peroneal Veins: Compressibility: Compresses Augmentation: Normal IMPRESSION: 1. No evidence of deep or superficial venous thrombosi s in bilateral lower extremities. Performing Organization Address [facility]/Zipcode Phone Number [facility] RADIOLOGY [address] [place] [address] GLUCOSE BY METER, POCT (06/19/2020 11:23 AM CDT) [facility] Glucose POC 119 (H) 70 - 100 mg/dL [facility] POINT OF CARE TESTING Specimen Blood Performing Organization Address [facility]/Zipcode Phone Number [facility] POINT OF [address] [place] [address] CARE TESTING HEPATIC FUNCTION PANEL (06/19/2020 10:19 AM CDT) Pathologist [facility] Alkaline Phosphatase 91 30 - 150 U/L [place] [address] [facility] AST - SGOT 66 (H) 0 - 35 U/L [place] [address] [facility] ALT - SGPT 11 0 - 55 U/L [place] [address] [facility] Bilirubin Total 1.1 0.2 - 1.2 mg/dL [address] Bilirubin Indirect 0.5 0.0 - 0.8 mg/dL [place] [address] [facility] Bilirubin Direct 0.6 (H) 0.0 - 0.4 mg/dL [address] Albumin 3.7 3.5 - 5.0 g/dL [address] Protein Total 7.6 6.0 - 8.2 g/dL [place] [address] [facility] Specimen Blood Performing Organization Address [facility] Phone Number [place] [address] [facility] [address] [place] [address], [place] [address] MAGNESIUM (06/19/2020 10:19 AM CDT) Pathologist Sig [facility] Magnesium 2.2 1.8 - 2.4 mg/dL [place] [address] [facility] Specimen Blood Performing Organization Address [facility] Phone Number [address] [place] [address], [place] [address] RENAL FUNCTION PANEL (06/19/2020 10:19 AM CDT) Pathologist Sig [facility] Glucose 152 (H) 70 - 100 mg/dL [address] BUN 24 (H) 6 - 22 mg/dL [address] Creatinine 1.44 (H) 0.80 - 1.[address] mg/dL BUN/Creatinine Ratio 16.7 10.0 - 25.[address] Sodium 134 (L) 135 - 145 meq/L [address] Potassium 4.7 3.5 - 5.3 meq/L [address] Chloride 98 (L) 99 - 110 meq/L [address] CO2 25 20 - 29 meq/L [address] Anion Gap with K 16 6 - 20 meq/L [address] Calcium 9.2 8.5 - 10.[address] mg/dL Phosphorus 3.0 2.5 - 4.5 mg/dL [address] Albumin 3.7 3.5 - 5.0 g/dL [address] Corrected Calcium 9.4 8.5 - 10.5 [place] [address] [facility] mg/dL Age 70 Years [place] [address] [facility] eGFR Non- 49 (L) >=[address] [place] mL/min/1.73m2 eGFR 59 (L) >=[address] mL/min/1.73m2 Specimen Blood Performing Organization Address [facility] Phone Number [address] [address] COMPLETE BLOOD COUNT WITHOUT DIFFERENTIAL (06/19/2020 10:19 AM CDT) Pathologist Sig nature WBC 7.6 4.0 - 11.0 K/uL [address] RBC 3.43 (L) 4.40 - 5.80 M/uL [address] Hemoglobin 10.2 (L) 13.5 - 17.5 g/dL [address] Hematocrit 31.2 (L) 40.0 - 50.0 % [address] MCV 91.0 80.0 - 98.[address] MCH 29.7 25.5 - 34.[address] MCHC 32.7 31.5 - 36.5 g/dL [address] RDW-CV 14.8 11.5 - 15.5 % [address] RDW-SD 49.5 35.5 - 50.[address] Platelet Count 174 140 - 400 K/uL [address] MPV 12.6 (H) 8.5 - 12.[address] Specimen Blood Performing Organization Address [facility] Phone Number [address] [address] GLUCOSE BY METER, POCT (06/19/2020 5:38 AM CDT) Pathologist Sig nature Glucose POC 91 70 - 100 mg/dL [facility] POINT OF CARE TESTING Specimen Blood Performing Organization Address [facility] Phone Number [facility] POINT OF [address] [place] [address] CARE TESTING GLUCOSE BY METER, POCT (06/18/2020 9:05 PM CDT) Pathologist Sig nature Glucose POC 114 (H) 70 - 100 mg/dL [facility] POINT OF CARE TESTING Specimen Blood Performing Organization Address [facility] Phone Number [facility] POINT OF [address] [place] [address], [place] [address] CARE TESTING LAB ONLY-URINE MICROSCOPIC REFLEX (06/18/2020 6:28 PM CDT) WBC Urine 0-5 /hpf Negative, 0-5 PENDER I- /hpf CLINIC RBC Urine 11-20 /hpf (A) Negative, 0-2 PENDER I- /hpf CLINIC Squamous Occ (0-10) /lpf Negative, Occ [facility] Epithelial Cells (0-10) /lpf, Few CLINIC (11-20) /lpf Bacteria Negative Negative [address] Hyaline Cast 6-10 /lpf (A) 0-2 /lpf [address] Granular Cast 0-2 /lpf (A) Negative [address] Specimen Urine Narrative Performed At Culture not performed - reflex criteria not met. [address] Culture is only performed when the urine macroscopic c olor is reported as Bright Bowman, or whentwoor more of th e following criteria are met: Positive Nitrite, Positive Leukocyte Esterase, WBC's > 5 cells/hpf. Performing Organization Address [facility] Phone Number [address] [place] [address], [place] [address] URINE DIP, REFLEX TO MICROSCOPIC, REFLEX TO CULTURE (06/18/2020 6:28 PM CDT) Color Urine Yellow Kay, Dark [place] [address] Yellow, Straw, CLINIC Yellow, Colorless Clarity Urine Clear Clear [address] Glucose Urine Negative Negative [address] Bilirubin Urine Negative Negative [address] Ketones Urine Negative Negative, 5 [place] [address] mg/dL, 10 mg/dL [facility] Specific [place] 1.019 1.002 - 1.[address] Blood Urine Moderate (2+) Negative [place] [address] (A) [facility] PH Urine 5.5 5.0, 5.5, 6.0, [place] [address] 6.5, 7.0, 7.5, CLINIC 8.0 Protein Urine 30 mg/dL (A) Negative [address] Urobilinogen < 2 mg/dL < 2 mg/dL [address] Nitrite Negative Negative [address] Leukocyte Esterase Negative Negative [place] [address] Urine CLINIC Specimen Urine Narrative Performed At Microscopic Exam Reflexed [address] Performing Organization Address [facility] Phone Number [address] [place] [address], [place] [address] GLUCOSE BY METER, POCT (06/18/2020 5:15 PM CDT) Pathologist Sig nature Glucose POC 99 70 - 100 mg/dL [facility] POINT OF CARE TESTING Specimen Blood Performing Organization Address City/State/Zipcode Phone Number [facility] POINT OF [address] [facility] [address] CARE TESTING XRAY CHEST PORTABLE - (06/18/2020 3:46 PM CDT)Only the most recent of2 results within the time period is included. Specimen Narrative Performed At [facility] Patient Name: MARKELL JASSO RT Date of : 1950 Procedure: XRAY CHEST PORTABLE Date of Service: 06/18/2020 EXAM: XRAY CHEST PORTABLE INDICATION:cough and fevers. ? infiltrat e. COMPARISON: Multiple prior chest radiographs including but not limited to 06/16/2020. CT chest dated 08/26/2017. FINDINGS: SUPPORT DEVICES AND SURGICAL MATERIAL: A CDF. Median sternotomy. CARDIAC/MEDIASTINAL CONTOURS: Cardiac silhouette enlar ged. Atheromatous plaques in the aorta. PLEURA/LUNGS: Mild prominence of the pulmonary vascula ture without infiltrate or pneumothorax. Trace effusi ons likely present. ADDITIONAL FINDINGS: Remote rib fractures. Degenerativ e changes in the axial/appendicular skeleton. IMPRESSION: Pulmonary vascular congestion. Finalized by: Nirmal Sy MD on 05/29 11:47 PM CDT Patient/Procedure Information: [facility] MRN/BRAYAN: [id number] Order Number: [id number] Accession Number: [id number] Ordering Provider: JAYJAY VILLEGAS Authorizing Provider: JAYJAY VILLEGAS Procedure Note Interface, Radiantres - 06/18/2020 11:49 PM CDT Patient Name: MARKELL JASSO Date of : 1950 Procedure: XRAY CHEST PORTABLE Date of Service: 06/18/2020 EXAM: XRAY CHEST PORTABLE INDICATION:cough and fevers. ? infiltrat e. COMPARISON: Multiple prior chest radiogr aphs including but not limited to 06/16/2020. CT chest dated 08/26/2017. FINDINGS: SUPPORT DEVICES AND SURGICAL MATERIAL: A CDF. Median sternotomy. CARDIAC/MEDIASTINAL CONTOURS: Cardiac si lhouette enlarged. Atheromatous plaques in the aorta. PLEURA/LUNGS: Mild prominence of the pul monary vasculature without infiltrate or pneumothorax. Trace effusions likely present. ADDITIONAL FINDINGS: Remote rib fracture s. Degenerative changes in the axial/appendicular skeleton. IMPRESSION: Pulmonary vascular congestion. Finalized by: Nirmal Sy MD on 05/29 11:47 PM CDT Patient/Procedure Information: [facility] MRN/BRAYAN: [id number] Order Number: [id number] Accession Number: [id number] Ordering Provider: JAYJAY VILLEGAS Authorizing Provider: JAYJAY VILLEGAS Performing Organization Address [facility] Phone Number [id number] GLUCOSE BY METER, POCT (06/18/2020 11:19 AM CDT) Pathologist Sig nature Glucose POC 107 (H) 70 - 100 mg/dL [facility] POINT OF CARE TESTING Specimen Blood Performing Organization Address [facility] Phone Number [facility] POINT OF [address] [place] [address] CARE TESTING MAGNESIUM (06/18/2020 6:06 AM CDT) Pathologist Sig nature Magnesium 2.4 1.8 - 2.4 mg/dL [place] [address] [facility] Specimen Blood Performing Organization Address [facility] Phone Number [address] [place] [address], [place] [address] RENAL FUNCTION PANEL (06/18/2020 6:06 AM CDT) Pathologist Sig nature Glucose 102 (H) 70 - 100 mg/dL [place] [address] [facility] BUN 23 (H) 6 - 22 mg/dL [address] Creatinine 1.38 (H) 0.80 - 1.[address] mg/dL BUN/Creatinine Ratio 16.7 10.0 - 25.[address] Sodium 135 135 - 145 meq/L [address] Potassium 4.6 3.5 - 5.3 meq/L [address] Chloride 101 99 - 110 meq/L [address] CO2 23 20 - 29 meq/L [address] Anion Gap with K 16 6 - 20 meq/L [address] Calcium 8.3 (L) 8.5 - 10.[address] mg/dL Phosphorus 3.2 2.5 - 4.5 mg/dL [address] Albumin 3.2 (L) 3.5 - 5.0 g/dL [address] Corrected Calcium 8.9 8.5 - 10.[address] mg/dL Age [address] eGFR Non- 51 (L) >=[address] [place] mL/min/1.73m2 eGFR 62 >=[address] mL/min/1.73m2 Specimen Blood Performing Organization Address [facility] Phone Number [address] [place] [address], [place] [address] COMPLETE BLOOD COUNT WITHOUT DIFFERENTIAL (06/18/2020 6:06 AM CDT) [facility] [address] [facility] WBC 8.1 4.0 - 11.0 K/uL [address] RBC 3.08 (L) 4.40 - 5.80 M/uL [address] Hemoglobin 9.2 (L) 13.5 - 17.5 g/dL [address] Hematocrit 27.8 (L) 40.0 - 50.0 % [address] MCV 90.3 80.0 - 98.[address] MCH 29.9 25.5 - 34.[address] MCHC 33.1 31.5 - 36.5 g/dL [address] RDW-CV 15.4 11.5 - 15.5 % [address] RDW-SD 50.2 (H) 35.5 - 50.[address] Platelet Count 132 (L) 140 - 400 K/uL [address] MPV 12.2 (H) 8.5 - 12.[address] Specimen Blood Performing Organization Address [facility] Phone Number [address] [place] [address], [place] [address] GLUCOSE BY METER, POCT (06/18/2020 5:17 AM CDT) Pathologist Sig nature Glucose POC 98 70 - 100 mg/dL [facility] POINT OF CARE TESTING Specimen Blood Performing Organization Address City/[facility]/Zipcode Phone Number [facility] POINT OF [address] [place] [address] CARE TESTING GLUCOSE BY METER, POCT (06/17/2020 9:12 PM CDT) Pathologist Sig nature Glucose POC 137 (H) 70 - 100 mg/dL [facility] POINT OF CARE TESTING Specimen Blood Performing Organization Address City/[facility]/Zipcode Phone Number [facility] POINT OF [address] [place] [address] CARE TESTING ECHO ADULT COMPLETE (06/17/2020 6:37 PM CDT) Specimen Narrative Performed At This result has an attachment that is no t available. [facility] Patient: MARKELL JASSO MR#: [id number] Exam Date: 06/17/2020 [facility] [address] [place]an[place]hor[place] [address] BP: 120/57 mmHg HR: : 1950 Exam Location: Bedside Height: 66.00 "(167.6 cm) Age: 70 year(s) Patient Room: 609 01 Weight: 179 lbs.(81.19 kg) Gender: Male Patient Status: Inpatient BSA: 1.91 m2 [employer] Emotionally Disturbed: LUX SMALL RD Reading Physician: J LUIS MG MD F [facility] Ordering Physician: JAYJAY VILLEGAS MD Referring Physician: BENNY FLORES MD Procedure Indication(s): Post op hypo ruthann, Evaluate EF Examination: TTE Complete 2D(m-mode), Complete Spectral Doppler, Color Doppler Clinical History Comment: History of CABG and cardiac stents Conclusions Left Ventricle: Normal left ventricular size. Mild-to-mo derately reduced left ventricular systolic function. The ejection fraction is visually estimated to be 40 %. Grade 1 left ventricular diastol ic dysfunction. Left Atrium: Mildly dilated left atrium. Aortic Valve: No significant aortic regurgitation. Mitral Valve: Mild mitral regurgitation. Right Ventricle: Reduced right ventricular systolic function by visual assessment. Right Atrium: Dilated right atrium by visual assessment. Comparison Study Comparison Date: 12/07/2019 Comparison Study: Transthoracic Echocardiogram There was no significant change from prior echo Findings Left Ventricle: Normal left ventricular size. Normal lef t ventricular wall thickness. Abgk-ck-kuwzhuqsnc reduced left ventricular systolic function. The ejection fraction is visually estima ji to be 40 %. The basal anteroseptal, basal inferoseptal, basal inferior, mid anteroseptal, mid inferoseptal and mid i nferior wall segments are akinetic. All remaining scored wall segments are normal. Grade 1 left ventricular diastolic dysfunction. Left Atrium: Mildly dilated left atrium. Aortic Valve: The aortic valve is tricuspid. Mild aort ic cuspal thickening. Aortic sclerosis is present. Normal aortic cuspal mobility. No significant aortic regurgitation. No aortic stenosis. Aorta: The sinus of valsalva is normal in size measuring 38.0 mm. The ascending aorta is normal in size measuring 36.0 mm. Mitral Valve: Mild mitral leaflet thickening. There is mild mitral annular calcification. Mild mitral regurgitation. No mitral stenosis. IAS: No gross evidence of shunt flow seen; ho wever the possibility of a PFO cannot be completely ruled out. Right Ventricle: Normal right ventricular size. Reduced r ight ventricular systolic function by visual assessment. Normal right ventricular wall thickness. Pulmonary Artery: The tricuspid jet envelope definition is inadequate for estimation of RV systolic pressure. Pulmonary Vein: Normal pulmonary venous flow. Right Atrium: Dilated right atrium by visual assessment. Tricuspid Valve: Normal tricuspid valve structure. Mild tricuspid regur gitation. Pulmonic Valve: Normal pulmonary valve structure. Trivia l pulmonary regurgitation. No pulmonary stenosis. IVC: Dilated IVC with minimal respirophasic changes. Pericardium: No significant pericardial effusion. Measurements Left Ventricle Aortic Valve Label Value Normal Value Label Value Normal Value LVDd, 2D 56.3 mm LVOT Vmax 100 cm/s LVDs, 2D 46 mm AV Vmax 133 cm/s IVSd, 2D 6.8 mm LVOTd 22 mm LVPWd, 2D 11.1 mm LVOT VTI 16.8 cm FS, 2D 18.29 % LVOT PGmax 4 mmHg LVEDV, 2D 156 ml AV Vmean 95 cm/s LVESV, 2D 97 ml AV VTI 22.5 cm Left Atrium AV PGmax 7 mmHg Label Value Normal Value AV PGmean 4 mmHg LADs Long. 63 mm JONATHAN (Vmax) 2.9 cm-sq LA Volume Index 36.1 ml/m-sq AV Vmax, Caliper 133 cm/s LADs, MM 54 mm Mitral Valve LA/AO Ratio, MM 1.59 Label Value Normal Value Aorta MV E Vmax 73 cm/s Label Value Normal Value MV A Vmax 72 cm/s Ao Asc 36 mm MV E/A 1.01 Ao Sinus, MM 34 mm MV E/E' lateral 6.1 Ao Sinus, 2D 38 mm MV E/E' septal 12.1 Great Vessels MV Dec Time 163 ms Label Value Normal Value MV E' septal 6 cm/s PVein S 47 cm/s MV E' lateral 12 cm/s PVein D 45 cm/s Pulmonic Valve S/D Ratio 1.1 Label Value Normal Value PV Vmax 124 cm/s PV PGmax 6 mmHg Electronically signed by J LUIS MG MD [facility] on 05/29 at 04:18 PM Wall Motion Scores -1 - Not Scored, 0 - Unknown, 1 - Normal or hyperkinesia, 2 - Hypokinesia, 3 - Akinesia, 4 - Dyskinesia, 5 - Aneurysm Procedure Note Interface, Inc Results No Pull Forward - 06/18/2020 4:20 PM CDT Patient: MARKELL JASSO MR#: [id number] Exam Date: 06/17/2020 [facility] [address] [place]an[place] [address] BP: 120/57 mmHg HR: : 1950 Exa m Location: Bedside Height: 66.00 "(167.6 cm) Age: 70 year(s) Pat ient Room: 609 Weight: 179 lbs.(81.19 kg) Gender: Male Pat ient Status: Inpatient BSA: 1.91 m2 [employer] Emotionally Disturbed: LUX BLOOD VICTORIA Reading Physician: J LUIS CEBALLOS MD [facility] Ordering Physician: JAYJAY COLIN MD Referring Physician: BENNY FLORES MD Procedure Indication(s): Post op hypoxia, Evaluate EF Examination: TTE Com plete 2D(m-mode), Complete Spectral Doppler, Color Doppler Clinical History Comment: History of CABG and cardiac st ents Conclusions Left Ventricle: Normal left ventricular size. Mild-to-mo derately reduced left ventricular systolic function. The ejection fraction is visually estimated to be 40 %. Grade 1 left ventr icular diastolic dysfunction. Left Atrium: Mildly dilated left atrium. Aortic Valve: No significant aortic regurgitation. Mitral Valve: Mild mitral regurgitation. Right Ventricle: Reduced right ventricular systolic funct ion by visual assessment. Right Atrium: Dilated right atrium by visual assessmen t. Comparison Study Comparison Date: 12/07/2019 Comparison Study: Transthoracic Echocard iogram There was no significant change from rosalino or echo Findings Left Ventricle: Normal left ventricular size. Normal lef t ventricular wall thickness. Anss-ze-ankbhxjfvj reduced left ventricular systolic function. The ejection fraction is visually estima ji to be 40 %. The basal anteroseptal, basal inferoseptal, basal inferior, mid anteroseptal, mid inferoseptal and mid i nferior wall segments are akinetic. All remaining scored wall segments are normal. Grade 1 left ventricular diastolic dysfu nction. Left Atrium: Mildly dilated left atrium. Aortic Valve: The aortic valve is tricuspid. Mild aort ic cuspal thickening. Aortic sclerosis is present. Normal aortic cuspal mobility. No significant aortic regurgitation. No aor tic stenosis. Aorta: The sinus of valsalva is normal in size measuring 38.0 mm. The ascending aorta is normal in size measuring 36.0 mm. Mitral Valve: Mild mitral leaflet thickening. There is mild mitral annular calcification. Mild mitral regurgitation. No mitral stenosis. IAS: No gross evidence of shunt flow seen; ho wever the possibility of a PFO cannot be completely ruled out. Right Ventricle: Normal right ventricular size. Reduced r ight ventricular systolic function by visual assessment. Normal right ventricular wall thickness. Pulmonary Artery: The tricuspid jet envelope definition is inadequate for estimation of RV systolic pressure. Pulmonary Vein: Normal pulmonary venous flow. Right Atrium: Dilated right atrium by visual assessmen t. Tricuspid Valve: Normal tricuspid valve structure. Mild t ricuspid regurgitation. Pulmonic Valve: Normal pulmonary valve structure. Trivia l pulmonary regurgitation. No pulmonary stenosis. IVC: Dilated IVC with minimal respirophasic c hanges. Pericardium: No significant pericardial effusion. Measurements Left Ventricle Aortic Valve Label Value Nor mal Value Label Value Normal Value LVDd, 2D 56.3 mm LVOT Vmax 100 cm/s LVDs, 2D 46 mm AV Vmax 133 cm/s IVSd, 2D 6.8 mm LVOTd 22 mm LVPWd, 2D 11.1 mm LVOT VTI 16.8 cm FS, 2D 18.29 % LVOT PGmax 4 mmHg LVEDV, 2D 156 ml AV Vmean 95 cm/s LVESV, 2D 97 ml AV VTI 22.5 cm Left Atrium AV PGmax 7 mmHg Label Value Nor mal Value AV PGmean 4 mmHg LADs Long. 63 mm JONATHAN (Vmax) 2.9 cm-sq LA Volume Index 36.1 ml/m-sq AV Vmax, Caliper 133 cm/s LADs, MM 54 mm Mitral Valve LA/AO Ratio, MM 1.59 Label Value Normal Value Aorta MV E Vmax 73 cm/s Label Value Nor mal Value MV A Vmax 72 cm/s Ao Asc 36 mm MV E/A 1.01 Ao Sinus, MM 34 mm MV E/E' lateral 6.1 Ao Sinus, 2D 38 mm MV E/E' septal 12.1 Great Vessels MV Dec Time 163 ms Label Value Nor mal Value MV E' septal 6 cm/s PVein S 47 cm/s MV E' lateral 12 cm/s PVein D 45 cm/s Pulmonic Valve S/D Ratio 1.1 Label Value Normal Value PV Vmax 124 cm/s PV PGmax 6 mmHg Wall Motion Scores -1 - Not Scored, 0 - Unknown, 1 - Normal or hyperkinesia, 2 - Hypokinesia, 3 - Akinesia, 4 - Dyskinesia, 5 - Aneurysm Performing Organization Address [facility] Phone Number [facility] [place] GLUCOSE BY METER, POCT (06/17/2020 5:05 PM CDT) Pathologist [facility] Glucose POC 91 70 - 100 mg/dL [facility] POINT OF CARE TESTING Specimen Blood Performing Organization Address [facility] Phone Number [facility] POINT OF [address] [place] [address] SPINE LUMBAR WITHOUT CONTRAST (06/17/2020 1:53 PM CDT)Only the most recent of2 resultswithin the time period is included. Specimen Narrative Performed At [facility] Patient Name: MARKELL JASSO RT Date of : 1950 Procedure: CT SPINE LUMBAR WITHOUT CONT RAST Date of Service: 06/17/2020 EXAM: CT SPINE LUMBAR WITHOUT CONTRAST INDICATION: Potential retained surgical drain (Left) COMPARISON(S): CT 06/15/2020 TECHNIQUE: Multi-sequence axial images were obtained o f the lumbar spine and lower thoracolumbar junction, withou t contrast. Findings: There are five non rib-bearing lumbar type vertebral bodies. Alignment is unchanged and there is posterior fusion hardware at L4-L5 without evidence of periprosthetic lucency or hardware fractur e. Few foci of gas are noted in the subcutaneous tissues and the deeper s oft tissues as well as within the spinal canal. Evaluation of the canal is limited due to beam hardeni ng from the surgical hardware. Prior examination showed a lumbar drain in the left pa raspinal muscles. On the current study this has been removed however the re are a few small radiodensities in the left paraspinal muscle just deep to the skin which may represent residual drain and/or foreign body. Thes e measure up to 3 mm in longest dimension. These are approximately 2.5 c m deep to the skin surface. 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 Evaluation of the included pelvis shows distention of the rectum in a nonspecific calcification in the deep pelvis, partiall y visualized and likely not significantly changed since the recent comp arison. Additional changes of aortobiiliac stent grafting. IMPRESSION: Findings compatible with retained foreign body in the left paraspinal musculature, 2.5 cm deep from the skin s urface at the L4 level. Finalized by: Steven Lane MD on 020 4:08 PM CDT Patient/Procedure Information: [facility] MRN/BRAYAN: [id number] Order Number: [id number] Accession Number: [id number] Ordering Provider: REAL LUDWIG Authorizing Provider: REAL LUDWIG Procedure Note Interface, Radiantres - 06/17/2020 4:11 PM CDT Patient Name: MARKELL JASSO Date of : 1950 Procedure: CT SPINE LUMBAR WITHOUT CONT RAST Date of Service: 06/17/2020 EXAM: CT SPINE LUMBAR WITHOUT CONTRAST INDICATION: Potential retained surgical drain (Left) COMPARISON(S): CT 06/15/2020 TECHNIQUE: Multi-sequence axial images w ere obtained of the lumbar spine and lower thoracolumbar junction, without contrast. Findings: There are five non rib-bearing lumbar t ype vertebral bodies. Alignment is unchanged and there is posterior fusion hardware at L4-L5 without evidence of periprosthetic lucency or hardware fracture. Few foci of gas are noted in the subcutaneous tissues and the deep er soft tissues as well as within the spinal canal. Evaluation of the canal is limited due t o beam hardening from the surgical hardware. Prior examination showed a lumbar drain in the left paraspinal muscles. On the current study this has been removed however there are a few small radiodensities in the left paraspinal muscle just deep to the skin which may represent residual drain and/or fore ign body. These measure up to 3 mm in longest dimension. These are approximately 2.5 cm deep to the skin surface. 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 Evaluation of the included pelvis shows distention of the rectum in a nonspecific calcification in the deep pelvis, partially visualized and likely not significantly changed since the recent comparison. Additional changes of aortobiiliac stent grafting. IMPRESSION: Findings compatible with retained foreig n body in the left paraspinal musculature, 2.5 cm deep from the skin surface at the L4 level. Finalized by: Steven Lane MD on 020 4:08 PM CDT Patient/Procedure Information: [facility] MRN/BRAYAN: [id number] Order Number: [id number] Accession Number: [id number] Ordering Provider: REAL LUDWIG Authorizing Provider: REAL LUDWIG Performing Organization Address [facility] Phone Number [id number] GLUCOSE BY METER, POCT (06/17/2020 11:28 AM CDT) Pathologist Sig nature Glucose POC 115 (H) 70 - 100 mg/dL [facility] POINT OF CARE TESTING Specimen Blood Performing Organization Address [facility] Phone Number 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 Performing Organization Address [facility] Phone Number [facility] HEPATIC FUNCTION PANEL (06/17/2020 8:06 AM CDT) Pathologist Sig nature Alkaline Phosphatase 81 30 - 150 U/L [address] AST - SGOT 25 0 - 35 U/L [address] ALT - SGPT <6 0 - 55 U/L [address] Bilirubin Total 0.7 0.2 - 1.2 mg/dL [address] Bilirubin Indirect 0.3 0.0 - 0.8 mg/dL [address] Bilirubin Direct 0.4 0.0 - 0.4 mg/dL [address] Albumin 3.6 3.5 - 5.0 g/dL [address] Protein Total 6.5 6.0 - 8.2 g/dL [address] Specimen Blood Performing Organization Address [facility] Phone Number [facility] [address] [facility] [address] [place] [address] MAGNESIUM (06/17/2020 8:06 AM CDT) Pathologist Sig nature Magnesium 1.4 (L) 1.8 - 2.4 mg/dL [address] Specimen Blood Performing Organization Address [facility] Phone Number [facility] [address] [facility] [address] [place] [address] RENAL FUNCTION PANEL (06/17/2020 8:06 AM CDT) Pathologist Sig nature Glucose 116 (H) 70 - 100 mg/dL [address] BUN 18 6 - 22 mg/dL [address] Creatinine 1.32 (H) 0.80 - 1.[address] mg/dL BUN/Creatinine Ratio 13.6 10.0 - 25.[address] Sodium 136 135 - 145 meq/L [address] Potassium 4.2 3.5 - 5.3 meq/L [address] Chloride 101 99 - 110 meq/L [address] CO2 26 20 - 29 meq/L [address] Anion Gap with K 13 6 - 20 meq/L [address] Calcium 8.6 8.5 - 10.[address] mg/dL Phosphorus 2.7 2.5 - 4.5 mg/dL [address] Albumin 3.6 3.5 - 5.0 g/dL [address] Corrected Calcium 8.9 8.5 - 10.[address] mg/dL Age [address] eGFR Non- 54 (L) >=[address] Nicarag[place] mL/min/1.73m2 eGFR 65 >=[address] mL/min/1.73m2 Specimen Blood Performing Organization Address City/State/Zipcode Phone Number [address], [place] [address] COMPLETE BLOOD COUNT WITHOUT DIFFERENTIAL (06/17/2020 8:06 AM CDT) [facility] [address] nature WBC 9.9 4.0 - 11.0 K/uL [address] RBC 3.36 (L) 4.40 - 5.80 M/uL [address] Hemoglobin 9.9 (L) 13.5 - 17.5 g/dL [address] Hematocrit 29.7 (L) 40.0 - 50.0 % [address] MCV 88.4 80.0 - 98.[address] MCH 29.5 25.5 - 34.[address] MCHC 33.3 31.5 - 36.5 g/dL [address] RDW-CV 15.4 11.5 - 15.5 % [address] RDW-SD 49.8 35.5 - 50.[address] Platelet Count 141 140 - 400 K/uL [address] MPV 12.3 (H) 8.5 - 12.[address] Specimen Blood Performing Organization Address [facility] Phone Number [address] [place] [address] GLUCOSE BY METER, POCT (06/17/2020 5:44 AM CDT) [facility] [address] [facility] Glucose POC 113 (H) 70 - 100 mg/dL [facility] POINT OF CARE TESTING Specimen Blood Performing Organization Address [facility] Phone Number [facility] POINT OF [address] [place] [address] CARE TESTING CULTURE, BLOOD (06/16/2020 11:28 PM CDT)Only the most recent of2 resultswithin the time period is included. [facility] Culture Result No growth at 5 [facility] Specimen Blood Narrative Performed At [facility] Site: Peripheral Draw, draw 15 minutes apart from the first draw. Performing Organization Address [facility] Phone Number [address] [address] LAB ONLY-COMPLETE BLOOD COUNT WITH DIFFERENTIAL (06/16/2020 10:55 PM CDT) [facility] [address] [facility] WBC 9.2 4.0 - 11.0 K/uL [address] RBC 3.38 (L) 4.40 - 5.[address] M/uL Hemoglobin 9.9 (L) 13.5 - 17.[address] g/dL Hematocrit 30.2 (L) 40.0 - 50.0 % [address] MCV 89.3 80.0 - 98.[address] MCH 29.3 25.5 - 34.[address] MCHC 32.8 31.5 - 36.[address] g/dL RDW-CV 15.3 11.5 - 15.5 % [address] RDW-SD 49.7 35.5 - 50.[address] Platelet Count 128 (L) 140 - 400 K/uL [address] MPV 12.2 (H) 8.5 - 12.[address] Seg Neut Absolute 7.0 1.8 - 8.0 K/uL [facility] [address] [facility] Lymphocytes Absolute 1.3 0.8 - 4.1 K/uL [facility] [address] [facility] C Monocytes Absolute 0.7 0.0 - 1.0 K/uL [address] Eosinophils Absolute 0.1 0.0 - 0.7 K/uL [facility] [address] [facility] C Basophil Absolute 0.1 0.0 - 0.2 K/uL [facility] [address] [facility] Immature Granulocyte 0.03 0.00 - 0.06 [facility] [address] [facility] Absolute K/uL Neutrophils Abs. 7,000 /uL [address] (Segs and Bands) Neutrophils Percent 75.8 % [address] Lymphocytes Percent 14.6 % [address] Monocytes Percent 7.6 % [address] Immature Granulocyte 0.3 % [address] Percent Eosinophils Percent 1.2 % [address] Basophil Percent 0.5 % [facility] [facility] [address] [facility] Nucleated RBC 0 /[address] Specimen Blood Performing Organization Address [facility] Phone Number [address] [place] [address] [place] [address] GLUCOSE BY METER, POCT (06/16/2020 8:57 PM CDT) Pathologist Sig nature Glucose POC 132 (H) 70 - 100 mg/dL [facility] POINT OF CARE TESTING Specimen Blood Performing Organization Address [facility] Phone Number [facility] POINT OF [address] [place] [address] [place] [address] CARE TESTING GLUCOSE BY METER, POCT (06/16/2020 5:11 PM CDT) Pathologist Sig nature Glucose POC 88 70 - 100 mg/dL [facility] POINT OF CARE TESTING Specimen Blood Performing Organization Address [facility] Phone Number [facility] POINT OF [address] [place] [address], [place] [address] CARE TESTING BRAIN NATRIURETIC PEPTIDE (06/16/2020 4:27 PM CDT) Pathologist Sig nature BNP 572 (H) 0 - 100 pg/mL [facility] Specimen Blood Performing Organization Address [facility] Phone Number [facility] [address] [facility] [address] [place] [address], [place] [address] GLUCOSE BY METER, POCT (06/16/2020 11:26 AM CDT) Pathologist Sig nature Glucose POC 72 70 - 100 mg/dL [facility] POINT OF CARE TESTING Specimen Blood Performing Organization Address [facility] Phone Number [facility] POINT OF [address], [place] [address] CARE TESTING COMPLETE BLOOD COUNT WITHOUT DIFFERENTIAL (06/16/2020 6:42 AM CDT) Pathologist Sig [facility] WBC 10.4 4.0 - 11.0 K/uL [address] RBC 3.29 (L) 4.40 - 5.80 M/uL [address] Hemoglobin 9.6 (L) 13.5 - 17.5 g/dL [address] Hematocrit 30.0 (L) 40.0 - 50.0 % [address] MCV 91.2 80.0 - 98.[address] MCH 29.2 25.5 - 34.[address] MCHC 32.0 31.5 - 36.5 g/dL [address] RDW-CV 15.4 11.5 - 15.5 % [address] RDW-SD 51.3 (H) 35.5 - 50.[address] Platelet Count 149 140 - 400 K/uL [address] MPV 12.7 (H) 8.5 - 12.[address] Specimen Blood Performing Organization Address [facility] Phone Number [facility] [facility] [address] [facility] [address] [place] [address] BASIC METABOLIC PANEL (06/16/2020 6:42 AM CDT) Pathologist Sig nature Glucose 91 70 - 100 mg/dL [facility] [address] [facility] BUN 15 6 - 22 mg/dL [address] Creatinine 1.20 0.80 - 1.[address] mg/dL BUN/Creatinine Ratio 12.5 10.0 - 25.[address] Sodium 139 135 - 145 meq/L [address] Potassium 4.3 3.5 - 5.3 meq/L [address] Chloride 106 99 - 110 meq/L [address] CO2 23 20 - 29 meq/L [address] Anion Gap with K 14 6 - 20 meq/L [address] Calcium 8.7 8.5 - 10.5 mg/dL [address] Age [address] eGFR Non- 60 >=[address] [place]ar[place]uan mL/min/1.73m2 eGFR 73 >=[address] mL/min/1.73m2 Specimen Blood Performing Organization Address City/[facility] Phone Number [facility] [facility] [address] [facility] [address] [place] [address], [place] [address] GLUCOSE BY METER, POCT (06/16/2020 5:32 AM CDT) Pathologist Sig nature Glucose POC 87 70 - 100 mg/dL [facility] POINT OF CARE TESTING Specimen Blood Performing Organization Address City/[facility] Phone Number [facility] POINT OF [address] [place] [address], [place] [address] CARE TESTING GLUCOSE BY METER, POCT (06/15/2020 8:59 PM CDT) Pathologist Sig nature Glucose POC 256 (H) 70 - 100 mg/dL [facility] POINT OF CARE TESTING Specimen Blood Performing Organization Address [facility] Phone Number [facility] POINT OF [address] [place] [address], [place] [address] CARE TESTING GLUCOSE BY METER, POCT (06/15/2020 5:55 PM CDT) Pathologist Sig nature Glucose POC 119 (H) 70 - 100 mg/dL [facility] POINT OF CARE TESTING Specimen Blood Performing Organization Address [facility] Phone Number [facility] POINT OF [address] [place] [address], [place] [address] CARE TESTING XRAY C-ARM greater than one hour (06/15/2020 2:23 PM CDT) Specimen Narrative Performed At Fluoroscopic image(s) submitted. Imaging [facility] RADIOLOGY assistance provided by Radiology. Performing Organization Address City/[facility] Phone Number [facility] RADIOLOGY [address] [facility] [place] [address] GLUCOSE BY METER, POCT (06/15/2020 1:27 PM CDT) Pathologist Sig nature Glucose POC 103 (H) 70 - 100 mg/dL [facility] POINT OF CARE TESTING Specimen Blood Performing Organization Address City/[facility]/Zipcode Phone Number [facility] POINT OF [address] [place] [address] CARE TESTING GLUCOSE BY METER, POCT (06/15/2020 10:07 AM CDT) Pathologist Sig nature Glucose POC 73 70 - 100 mg/dL [facility] POINT OF CARE TESTING Specimen Blood Performing Organization Address [facility] Phone Number [facility] POINT OF [address] [place] [address] CARE TESTING documented in this encounter Visit Diagnoses Diagnosis S/P lumbar fusion - Primary Arthrodesis status documented in this encounter Discharge Diagnoses Not on filedocumented in this encounter Administered Medications Medication Order MAR Action Action Date Dose Rate Site acetaminophen (TYLENOL) tablet Given 06/18/2020 9:11 PM CDT 325 mg 325 mg 325 mg, Oral, Every four hours prn, Starting Indigo 06/16/20 at 2231, Until Discontinued, For Temperature =/>101., Total dose of acetaminophen from all acetaminophen containing products should not exceed 4 grams (4000 mg) per day., acetaminophen (TYLENOL) tablet 650 mg Given 06/22/2020 11:24 AM CDT 650 mg 650 mg, Oral, Every six hours, First dose on Sat06/15/20 at 1800, Until Discontinued, Post - Op, Alternate with tramadol (Ultram), IF ORDERED; Total dose of acetaminophen from all acetaminophen containing products should not exceed 4 grams (4,000 mg) per day., Given 06/22/2020 5:18 AM CDT 650 mg Given 06/22/2020 12:19 AM CDT 650 mg albuterol-ipratropium (DUO-NEB) 2.5-0.5 mg/3 mL inhalation solution 3 mL 3 mL, Nebulization, Four times a day prn, Starting Indigo 06/16/20 at 1424, Until Discontinued, bronchospasm, shortness of breath, wheez ing, 3 mL benzocaine-menthol (CEPACOL w/ BENZOCAIN E) lozenge 1 lozenge 1 lozenge, Mouth/Throat, Every four hour s prn, Starting 06/18/20 at 1455, Until Discontinued, sore throat bisacodyl (DULCOLAX) suppository 10 mg Given 06/19/2020 3:06 PM CDT 10 mg 10 mg, Rectal, Daily, First dose on 06/18/20 at 0900, Until Discontinued, Post - Op, Hold if has had an adequate BM in last 24 hours, Given 06/18/2020 9:32 AM CDT 10 mg carbohydrate 15 g 15 g, Oral, PRN per parameter, Starting 06/15/20 at 1732, Until Discontinued, low blood glucose, Give 15 grams of carb ohydrate if blood glucose is less than 70 mg/dL, patient is responsive and able to take food or oral meds. Recheck blood glucose in 15 minutes. Repeat 1 time and call MD. If recheck is greater than 70 mg/dL and able to take food or oral meds, give 15 gram carbohydrate if meal or snack due in more than an hour. Serve meal or snack if due in less than 1 hour. See hypoglycemia treatment on cardex. S ources of 15 grams carbohydrate: a. 4 oz of fruit juice or b. 4 oz of soda pop (NOT diet) or c. 1 tablespoon of honey, dextrose 50% IV solution 50 mL 50 mL (25 g), IV, PRN per parameter, Starting Wed 06/15 at 1732, Until Discontinued, low blood glucose, 50 mL, Give if blood glucose is less than 70 mg/dL, patient is unresponsive or NPO, a nd has IV access. Recheck blood glucose in 15 minutes and call MD. Repeat dose if r echeck less than 70 mg/dL and call MD. If recheck is greater than 70 mg/dL and abl e to take food or oral meds, give 15 gram carbohydrate if meal or snack due in mor e than an hour. Serve meal or snack if due in less than 1 hour. See hypoglycemia treatment on car dex., dextrose chewable tablet 16 g 16 g (4 tablet), Oral, PRN per parameter, Starting 06/15/20 at 1732, Until Discontinued, low blood glucose, Chew before swallowin g. Give 15 gram of carbohydrate if blood glucose is less th an 70 mg/dL, patient is responsive and able to take food or oral meds. Recheck blood glucose in 15 minutes. Repeat 15 gram carbohydrate if recheck is less than 70 mg/dL and call MD. If recheck is greater than 70 mg/dL and able to take food or o ral meds, give 15 gram carbohydrate if meal or snack due in more than an hour. Serve meal or snack if due in less than 1 hour. See hypoglycemia treatment on cardex. (S ources of 15 gram carbohydrate: 4 oz fruit juice or 4 oz soda pop (NOT diet) or 1 t ablespoonful honey or 4 glucose tablets)., docusate sodium (COLACE) capsule 100 mg Given 06/22/2020 9:22 AM CDT 100 mg 100 mg, Oral, Two times a day, First dose on Sat06/15/20 at 2100, Until Discontinued, Post - Op, Hold for loose stools, Given 06/21/2020 10:06 PM CDT 100 mg Given 06/21/2020 9:19 AM CDT 100 mg furosemide (LASIX) tablet 40 mg Given 06/22/2020 9:22 AM CDT 40 mg 40 mg, Oral, Daily, First dose on Sat06/20/20 at 0900, Until Discontinued, Hold for SBP less than 100, Given 06/21/2020 9:19 AM CDT 40 mg Given 06/20/2020 9:46 AM CDT 40 mg glucagon for injection 1 mg vial 1 mg 1 mg, Intramuscular, PRN per parameter, Starting Sat at 1732, Until Discontinued, low blood glucose, Give if blood glucose less than 70 mg/dL, patient is unresponsive or NPO, and has no IV ac cess. Establish IV access. Recheck blood glucose in 15 minutes and call MD. If r echeck is greater than 70 mg/dL and able to take food or oral meds, give 15 gram car bohydrate if meal or snack due in more than an hour. Serve meals or snack if due in less than 1 ho ur. See hypoglycemia treatment on cardex. Reconstitute vial with 1 mL of sterile water for injection for reconstitution for a final concentra tion of 1 mg/mL. Shake vial gently. Use immediately and discard unused portion. Reconstitute with 1 mL of sterile water for injection to yield 1 mg/mL. Shake vial gently. Use immediately and discard unused portion., haloperidol lactate (HALDOL) injection s olution 2.5 mg 2.5 mg, IV, Every six hours prn, Startin g Sat06/15/20 at 1627, Until Discontinued, other (Specify), nausea/vomiting, 0.5 mL, Post - Op, U se SECOND for nausea/vomiting. If ineffective and ondansetron used, call physician for alternative Do not further dilute with 0 .9% sodium chloride. If preference is to further dilute for IV administration: first draw up pa tient-specific dose, then dilute to 10ml with dextrose 5% water. Ok to flush wi th 0.9% Sodium Chloride., heparin (porcine) injection solution Given 06/22/2020 9:22 AM C DT 5,000 Units 5,000 Units 5,000 Units, Subcutaneous, Every twelve hours, First dose on Sat06/18/20 at 2100, Until Discontinued, 1 mL Given 06/21/2020 10:04 PM CDT 5,000 Units Given 06/21/2020 9:19 AM CDT 5,000 Units insulin aspart (NovoLOG) SQ correction s jayda (Adult) 2-8 Units, Subcutaneous, Three times a day, First dose on Sat06/15/20 at 1735, Until Discontinued, 0.08 mL, Give this dose whether patient is eating or patient is NPO LOW DOSE insulin aspart (NovoL OG) subcutaneous correction scale Premeal Blood Glucose = Insulin Dose 150-1 99 2 units 200-249 3 units 250-299 5 units 300-349 7 units Over 349 8 units, labetalol (NORMODYNE;TRANDATE) IV solution 5 Given 0 3:20 PM CDT 5 mg mg 5 mg, IV, Every ten minutes prn, 4 doses, Starting Sat06/15/20 at 1517, Until Discontinued, blood pressure, for SBP>160. hold for HR<60, 20 mL lactulose oral solution (10 gm/15 mL) 30 mL Given 06/22/2020 9:22 AM CDT 30 mL 30 mL, Oral, Daily, First dose on Sat06/17/20 at 0900, Until Discontinued, 30 mL, Post - Op, Hold if has had an adequate BM in last 24 hours, Given 06/21/2020 9:20 AM CDT 30 mL Given 06/20/2020 7:20 AM CDT 30 mL metoprolol tartrate (LOPRESSOR) half-tablet Given 05/29 9:22 AM CDT 12.5 mg 12.5 mg 12.5 mg, Oral, Two times a day, First dose on Sat06/15/20 at 2100, Until Discontinued Given 06/21/2020 10:07 PM CDT 12.5 mg Given 06/21/2020 9:19 AM CDT 12.5 mg omeprazole (priLOSEC) capsule 20 mg Given 06/21/2020 5:38 PM CDT 20 mg 20 mg, Oral, One time a day with evening meal, First dose on Sat06/15/20 at 1735, Until Discontinued, Swallow cap whole. Do not crush, chew or open., Given 06/20/2020 6:05 PM CDT 20 mg Given 06/19/2020 5:46 PM CDT 20 mg ondansetron (ZOFRAN) injection solution 4 mg Given 06/21/2020 9:19 AM CDT 4 mg 4 mg, IV, Every four hours prn, Starting Sat06/15/20 at 1627, Until Discontinued, nausea, vomiting, 2 mL, Post - Op, Use FIRST. If ineffective after 15 minutes use haloperidol. If preference is to further dilute for IV administration: First draw up patient-specific dose, then dilute to 10 mL with 0.9% sodium chloride., Given 06/19/2020 2:15 AM CDT 4 mg Given 06/18/2020 2:36 PM CDT 4 mg oxyCODONE (OXY-IR) tablet 5-10 mg Given 06/22/2020 5:18 AM CDT 10 mg 5-10 mg, Oral, Every four hours prn, Starting Sat06/15/20 at 1627, Until Discontinued, moderate pain, severe pain, Post - Op, For patients with MODERATE pain, pain rating of 4-6, give Oxycodone 5 mg every 4 hours PRN. For patients with SEVERE pain, pain rating of 7-10, give Oxycodone 10 mg every 4 hours PRN., Given 06/21/2020 10:11 PM CDT 10 mg Given 06/21/2020 2:13 PM CDT 10 mg polyethylene glycol (MIRALAX) packet 1 Given 06/22/2020 9:22 AM CDT 1 packet packet 1 packet, Oral, Daily, First dose on Sat06/16/20 at 0900, Until Discontinued, Post - Op, Hold for loose stools., Given 06/21/2020 9:19 AM CDT 1 packet Given 06/20/2020 7:20 AM CDT 1 packet pregabalin (LYRICA) CAPS 150 mg Given 06/22/2020 9:22 AM CDT 150 mg 150 mg, Oral, Two times a day, First dose on Sat06/21/20 at 1730, Until Discontinued Given 06/21/2020 5:38 PM CDT 150 mg senna-docusate sodium Given 06/22/2020 9:22 AM CDT 1 tablet (SENOKOT-S;PERICOLACE) tablet 1 tablet 1 tablet, Oral, Two times a day, First dose on Sat06/15/20 at 2100, Until Discontinued, Post - Op Given 06/21/2020 10:06 PM CDT 1 tablet Given 06/21/2020 9:19 AM CDT 1 tablet tamsulosin (FLOMAX) capsule 0.4 mg Given 06/22/2020 9:22 AM CDT 0.4 mg 0.4 mg, Oral, DAILY, First dose on Sat06/16/20 at 0900, Until Discontinued, Swallow cap whole. Do not crush, chew or open., Given 06/21/2020 9:19 AM CDT 0.4 mg Given 06/20/2020 9:46 AM CDT 0.4 mg tiZANidine (ZANAFLEX) tablet 2 mg Given 06/22/2020 9:22 AM CDT 2 mg 2 mg, Oral, Three times a day, First dose on Sat06/17/20 at 1615, Until Discontinued Given 06/21/2020 10:06 PM CDT 2 mg Given 06/21/2020 2:13 PM CDT 2 mg Medication Order MAR Action Action Date Dose Rate Site acetaminophen (TYLENOL) tablet Given 06/15/2020 10:03 AM CDT 1,0 00 mg 1,000 mg 1,000 mg, Oral, Pre-op, 1 dose, Sat06/15/20 at 1055, Pre - Op Now, With sip of water. Adult patients: Total dose of acetaminophen from all acetaminophen containing products should not exceed 4 grams (4000 mg) per day. Pediatric Patients 0 - 3 months: Maximum of 60 mg/kg/24 hours of acetaminophen. Pediatric Patients older than 3 months: Maximum of 75 mg/kg/24 hours of acetaminophen (Never exceeding 4 grams/day)., albuterol-ipratropium (DUO-NEB) 2.5-0.5 mg/3 Given 0 12:09 PM CDT 3 mL mL inhalation solution 3 mL 3 mL, Nebulization, Four times a day, First dose on [place]igo 06/16/20 at 1615, Until Discontinued, 3 mL Given 06/20/2020 8:18 AM CDT 3 mL Given 06/19/2020 8:42 PM CDT 3 mL ceFAZolin (ANCEF) 2000 mg/20 mL sterile Given 06/17/2020 11:34 A M CDT 2,000 mg water IV syringe 2,000 mg, IV, Every eight hours, First dose on Sat06/15/20 at 2000, Until Discontinued, 20 mL, Post - Op, Discontinue antibiotic when drain removed. Administer as IV push over 4 minutes., Given 06/17/2020 4:45 AM CDT 2,000 mg Given 06/16/2020 9:00 PM CDT 2,000 mg fentaNYL 100 mcg/2 mL preservative free Given 06/19/2020 2:14 A M CDT 50 mcg injection solution 50 mcg 50 mcg, IV, Every one hour prn, Starting Sat06/15/20 at 1627, Until Sat06/20/20 at 1456, severe pain, if pain unrelieved by oxycodone, 1 mL, Post - Op Given 06/17/2020 6:59 PM CDT 50 mcg Given 06/17/2020 3:00 PM CDT 50 mcg furosemide (LASIX) injection solution 40 mg Given 06/16/2020 5:36 PM CDT 40 mg 40 mg, IV, One time, 1 dose, [facility] 06/16/20 at 1720, 4 mL, If preference is to further dilute for IV administration: First draw up patient-specific dose, then dilute to 10 mL with 0.9% sodium chloride. Administer SLOW IV push., furosemide (LASIX) injection solution 40 mg Given 06/17/2020 9:23 AM CDT 40 mg 40 mg, IV, Two times a day diuretic, First dose on Sat06/17/20 at 0850, Until Discontinued, 4 mL, If preference is to further dilute for IV administration: First draw up patient-specific dose, then dilute to 10 mL with 0.9% sodium chloride. Administer SLOW IV push., furosemide (LASIX) injection solution 40 mg Given 06/18/2020 9:26 AM CDT 40 mg 40 mg, IV, Daily, First dose on Sat06/18/20 at 0900, Until Discontinued, 4 mL, If preference is to further dilute for IV administration: First draw up patient-specific dose, then dilute to 10 mL with 0.9% sodium chloride. Administer SLOW IV push., furosemide (LASIX) injection solution 40 mg Given 06/19/2020 9:21 AM CDT 40 mg 40 mg, IV, Every twelve hours, First dose on Sat06/19/20 at 0845, Until Discontinued, 4 mL, If preference is to further dilute for IV administration: First draw up patient-specific dose, then dilute to 10 mL with 0.9% sodium chloride. Administer SLOW IV push., gabapentin (NEURONTIN) capsule 300 mg Given 06/20/2020 3:54 PM CDT 300 mg 300 mg, Oral, Three times a day, 15 doses, First dose on Sat06/15/20 at 2100, Last dose on Sat06/20/20 at 1500, Post - Op Given 06/20/2020 9:48 AM CDT 300 mg Given 06/19/2020 8:38 PM CDT 300 mg HYDROmorphone (DILAUDID) injection solution Given 05/28 4:00 PM CDT 0.5 mg (conc: 0.5 mg/0.5mL) 0.5 mg 0.5 mg, IV, Every five minutes prn, 4 doses, Starting Sat06/15/20 at 1427, Until Sat06/15/20 at 1653, other (Specify), severe pain scale 7 or above, or moderate pain not relieved by fentaNYL (max dose of 2 mg), 0.5 mL, PACU, Use only anesthesia's orders for moderate or severe pain while in PACU or recovery care, Given 06/15/2020 3:31 PM CDT 0.5 mg Given 06/15/2020 3:25 PM CDT 0.5 mg hydrOXYzine pamoate (VISTARIL) capsule 2 5 mg Given 06/15/2020 10:03 AM CDT 25 mg 25 mg, Oral, Now, 1 dose, Sat06/15/20 at 0955 labetalol (NORMODYNE,TRANDATE) 5 mg/mL I V solution 1 dose, Starting Sat06/15/20 at 1518, Un til Sat06/15/20 at 1520, FryAmanda: cabinet override, lactated ringers IV solution (bolus) Given 06/15/2020 10:14 AM CDT 250 mL 999 mL/hr SOLN 250 mL 250 mL, IV, at 999 mL/hr, Bolus, 1 dose, Sat06/15/20 at 1055, 500 mL, Pre - Op Now lactated ringers IV solution Already Infusing 06/15/2020 2:49 PM CDT 125 mL/hr IV, at 125 mL/hr, Continuous, Starting Sat06/15/20 at 1600, Until Sat06/15/20 at 1653, 1,000 mL, PACU, TKO current fluids if patient is going to Day Unit / ARU and tolerating PO fluids without nausea., loratadine (CLARITIN) tablet 10 mg Given 06/16/2020 12:08 AM CDT 10 mg 10 mg, Oral, Now, 1 dose, Sat06/15/20 at 2245 magnesium sulfate IV replacement Given 06/17/2020 4:08 PM CDT 4 g 25 mL/hr (premix) 4 g 4 g, IV, at 25 mL/hr, One time, 1 dose, Sat06/17/20 at 1610, 100 mL documented in this encounter
[2020-06-23] MEDS: Omeprazole 20 MG Cap.CR PO SCH (17:09)
[2020-06-23] MEDS: Tamsulosin 0.4 MG Cap.ER PO SCH (20:54)
[2020-06-23] MEDS: atorvaSTATin 40 MG Tab PO SCH (20:58)
[2020-06-23] MEDS: Remove Patch LIDOCAINE PATCH TRDERM SCH (21:03)
[2020-06-24] MEDS: oxyCODONE 5 MG Tab PO PRN ×5 (01:03→22:03)
[2020-06-24] MEDS: Lidocaine 4% 1 each Patch TOP SCH (08:20)
[2020-06-24] MEDS: Acetaminophen 325 MG Tab PO PRN ×3 (08:20→22:03)
[2020-06-24] MEDS: Aspirin 325 MG Tab.EC PO SCH (08:20)
[2020-06-24] MEDS: metFORMIN 500 MG Tab PO SCH ×2 (08:21→17:24)
[2020-06-24] MEDS: Pregabalin 75 MG Cap PO SCH ×2 (08:22→20:19)
[2020-06-24] MEDS: Isosorbide Mononitrate 30 MG Tab.ER PO SCH (08:22)
[2020-06-24] MEDS: Furosemide 40 MG Tab PO SCH (08:22)
[2020-06-24] MEDS: Metoprolol Tartrate 25 MG Tab PO SCH ×2 (08:22→20:20)
[2020-06-24] MEDS: DULoxetine 30 MG Cap PO SCH ×2 (08:22→20:19)
[2020-06-24] MEDS: Multivitamin Tab PO SCH (08:22)
[2020-06-24] MEDS: tiZANidine 4 MG Tab PO PRN ×2 (08:31→22:03)
[2020-06-24] MEDS: Triamcinolone Acetonide 0.025% Crm 15 GM Tube TOP SCH ×2 (12:51→20:20)
[2020-06-24] MEDS: Omeprazole 20 MG Cap.CR PO SCH (17:25)
[2020-06-24] MEDS: atorvaSTATin 40 MG Tab PO SCH (20:19)
[2020-06-24] MEDS: Tamsulosin 0.4 MG Cap.ER PO SCH (20:19)
[2020-06-24] MEDS: Remove Patch LIDOCAINE PATCH TRDERM SCH (20:24)
[2020-06-25] MEDS: oxyCODONE 5 MG Tab PO PRN ×6 (02:12→23:29)
[2020-06-25] MEDS: Acetaminophen 325 MG Tab PO PRN ×4 (06:08→23:29)
[2020-06-25] MEDS: Triamcinolone Acetonide 0.025% Crm 15 GM Tube TOP SCH ×2 (08:00→19:29)
[2020-06-25] MEDS: Multivitamin Tab PO SCH (08:00)
[2020-06-25] MEDS: Isosorbide Mononitrate 30 MG Tab.ER PO SCH (08:00)
[2020-06-25] MEDS: Aspirin 325 MG Tab.EC PO SCH (08:00)
[2020-06-25] MEDS: Metoprolol Tartrate 25 MG Tab PO SCH ×2 (08:01→19:26)
[2020-06-25] MEDS: metFORMIN 500 MG Tab PO SCH ×2 (08:01→17:56)
[2020-06-25] MEDS: DULoxetine 30 MG Cap PO SCH ×2 (08:02→19:25)
[2020-06-25] MEDS: Furosemide 40 MG Tab PO SCH (08:02)
[2020-06-25] MEDS: Pregabalin 75 MG Cap PO SCH ×2 (08:02→19:25)
[2020-06-25] MEDS: Lidocaine 4% 1 each Patch TOP SCH (08:03)
[2020-06-25] MEDS: Omeprazole 20 MG Cap.CR PO SCH (17:55)
[2020-06-25] MEDS: atorvaSTATin 40 MG Tab PO SCH (19:26)
[2020-06-25] MEDS: Tamsulosin 0.4 MG Cap.ER PO SCH (19:26)
[2020-06-25] MEDS: Remove Patch LIDOCAINE PATCH TRDERM SCH (20:08)
[2020-06-25] MEDS: tiZANidine 4 MG Tab PO PRN (23:29)
[2020-06-26] MEDS: oxyCODONE 5 MG Tab PO PRN ×5 (04:33→21:22)
[2020-06-26] MEDS: Acetaminophen 325 MG Tab PO PRN ×2 (08:08→21:21)
[2020-06-26] MEDS: Triamcinolone Acetonide 0.025% Crm 15 GM Tube TOP SCH ×2 (08:08→20:00)
[2020-06-26] MEDS: Pregabalin 75 MG Cap PO SCH ×2 (08:09→19:57)
[2020-06-26] MEDS: DULoxetine 30 MG Cap PO SCH ×2 (08:09→19:56)
[2020-06-26] MEDS: metFORMIN 500 MG Tab PO SCH ×2 (08:09→17:17)
[2020-06-26] MEDS: Metoprolol Tartrate 25 MG Tab PO SCH ×2 (08:10→19:56)
[2020-06-26] MEDS: Furosemide 40 MG Tab PO SCH (08:10)
[2020-06-26] MEDS: Aspirin 325 MG Tab.EC PO SCH (08:10)
[2020-06-26] MEDS: Multivitamin Tab PO SCH (08:12)
[2020-06-26] MEDS: Isosorbide Mononitrate 30 MG Tab.ER PO SCH (08:12)
[2020-06-26] MEDS: tiZANidine 4 MG Tab PO PRN ×2 (08:12→21:22)
[2020-06-26] MEDS: Lidocaine 4% 1 each Patch TOP SCH (08:22)
[2020-06-26] MEDS: Omeprazole 20 MG Cap.CR PO SCH (17:18)
[2020-06-26] MEDS: atorvaSTATin 40 MG Tab PO SCH (19:56)
[2020-06-26] MEDS: Tamsulosin 0.4 MG Cap.ER PO SCH (19:56)
[2020-06-26] MEDS: Remove Patch LIDOCAINE PATCH TRDERM SCH (20:02)
[2020-06-27] MEDS: oxyCODONE 5 MG Tab PO PRN ×6 (01:35→23:49)
[2020-06-27] MEDS: Aspirin 325 MG Tab.EC PO SCH (08:29)
[2020-06-27] MEDS: metFORMIN 500 MG Tab PO SCH ×2 (08:29→17:16)
[2020-06-27] MEDS: Isosorbide Mononitrate 30 MG Tab.ER PO SCH (08:29)
[2020-06-27] MEDS: Lidocaine 4% 1 each Patch TOP SCH (08:29)
[2020-06-27] MEDS: Metoprolol Tartrate 25 MG Tab PO SCH ×2 (08:30→19:36)
[2020-06-27] MEDS: Furosemide 40 MG Tab PO SCH (08:30)
[2020-06-27] MEDS: Pregabalin 75 MG Cap PO SCH ×2 (08:32→19:38)
[2020-06-27] MEDS: Multivitamin Tab PO SCH (08:32)
[2020-06-27] MEDS: Triamcinolone Acetonide 0.025% Crm 15 GM Tube TOP SCH ×2 (08:37→19:41)
[2020-06-27] MEDS: DULoxetine 30 MG Cap PO SCH ×2 (09:07→19:38)
[2020-06-27] MEDS: Omeprazole 20 MG Cap.CR PO SCH (17:16)
[2020-06-27] MEDS: Tamsulosin 0.4 MG Cap.ER PO SCH (19:38)
[2020-06-27] MEDS: atorvaSTATin 40 MG Tab PO SCH (19:39)
[2020-06-27] MEDS: Remove Patch LIDOCAINE PATCH TRDERM SCH (19:40)
[2020-06-28] MEDS: oxyCODONE 5 MG Tab PO PRN ×5 (04:05→20:57)
[2020-06-28] MEDS: Lidocaine 4% 1 each Patch TOP SCH (07:46)
[2020-06-28] MEDS: Metoprolol Tartrate 25 MG Tab PO SCH ×2 (07:47→19:14)
[2020-06-28] MEDS: DULoxetine 30 MG Cap PO SCH ×2 (07:47→19:14)
[2020-06-28] MEDS: Pregabalin 75 MG Cap PO SCH ×2 (07:47→19:14)
[2020-06-28] MEDS: Aspirin 325 MG Tab.EC PO SCH (07:47)
[2020-06-28] MEDS: Multivitamin Tab PO SCH (07:49)
[2020-06-28] MEDS: Isosorbide Mononitrate 30 MG Tab.ER PO SCH (07:49)
[2020-06-28] MEDS: Triamcinolone Acetonide 0.025% Crm 15 GM Tube TOP SCH ×2 (07:50→19:14)
[2020-06-28] MEDS: Furosemide 40 MG Tab PO SCH (07:50)
[2020-06-28] MEDS: metFORMIN 500 MG Tab PO SCH ×2 (08:09→17:26)
[2020-06-28] MEDS: Omeprazole 20 MG Cap.CR PO SCH (17:26)
[2020-06-28] MEDS: Tamsulosin 0.4 MG Cap.ER PO SCH (19:14)
[2020-06-28] MEDS: atorvaSTATin 40 MG Tab PO SCH (19:14)
[2020-06-28] MEDS: Remove Patch LIDOCAINE PATCH TRDERM SCH (20:57)
[2020-06-28] MEDS: tiZANidine 4 MG Tab PO PRN (20:58)
[2020-06-28] MEDS: Acetaminophen 325 MG Tab PO PRN (20:58)
[2020-06-29] MEDS: oxyCODONE 5 MG Tab PO PRN ×3 (01:05→09:17)
[2020-06-29] MEDS: Acetaminophen 325 MG Tab PO PRN (04:59)
[2020-06-29] MEDS: Multivitamin Tab PO SCH (08:00)
[2020-06-29] MEDS: Metoprolol Tartrate 25 MG Tab PO SCH (08:00)
[2020-06-29] MEDS: Aspirin 325 MG Tab.EC PO SCH (08:00)
[2020-06-29] MEDS: DULoxetine 30 MG Cap PO SCH (08:01)
[2020-06-29] MEDS: metFORMIN 500 MG Tab PO SCH (08:01)
[2020-06-29] MEDS: Pregabalin 75 MG Cap PO SCH (08:01)
[2020-06-29] MEDS: Triamcinolone Acetonide 0.025% Crm 15 GM Tube TOP SCH (08:02)
[2020-06-29] MEDS: Furosemide 40 MG Tab PO SCH (08:02)
[2020-06-29] MEDS: Isosorbide Mononitrate 30 MG Tab.ER PO SCH (08:02)
[2020-06-29 08:03] VITALS: BP 115/60; PULSE 73
[2020-06-29] MEDS: Lidocaine 4% 1 each Patch TOP SCH (08:03)
--- NOTE | 2020-06-29 09:33 | PCM.DCSUM1 ---
Discharge Summary - Hospital Course Free Text/Narrative:: Pt admitted after undergoing L4-5 lumbar fusion Pt has done well in Swing Bed Ready for discharge Diagnosis: Stroke: No - Discharge Data Discharge Date: 06/29/20 Discharge Disposition: Home, Self-Care 01 Condition: Good - Referral to Home Health Primary Care Physician: Allison Lawrence NP - Discharge Diagnosis/Problem(s) (1) Fusion of lumbar spine SNOMED Code(s): 972963418 ICD Code: M43.26 - FUSION OF SPINE, LUMBAR REGION Status: Acute Current Visit: Yes - Patient Summary/Data Consults: Consultations 06/22/20 15:32 OT Evaluation and Treatment [CONS] Routine PT Evaluation and Treatment [CONS] Routine 06/27/20 16:15 Consult to Physician [CONS] Stat 06/28/20 10:14 Consult to Home Health [CONS] Routine - Patient Instructions Diet: Regular Diet as Tolerated Activity: As Tolerated Notify Provider of: Increased Pain, Swelling and Redness, Drainage - Discharge Plan *PRESCRIPTION DRUG MONITORING PROGRAM REVIEWED*: Not Applicable *COPY OF PRESCRIPTION DRUG MONITORING REPORT IN PATIENT ARAM: Not Applicable Home Medications: Home Meds Lidocaine 5% [Lidoderm 5%] 1 patch TP DAILY 08/30/17 [History] Omeprazole 20 mg PO ACDINNER 08/30/17 [History] Tamsulosin [Flomax] 0.4 mg PO BEDTIME 08/30/17 [History] atorvaSTATin [Lipitor] 40 mg PO BEDTIME 08/30/17 [History] metFORMIN [Glucophage] 1,000 mg PO BIDMEALS 08/30/17 [History] Metoprolol Tartrate 12.5 mg PO BID 12/25/19 [History] Pregabalin [Lyrica] 150 mg PO BID 12/25/19 [History] bisacodyL [Dulcolax] 1 supp RECTAL ASDIRECTED PRN 12/25/19 [History] tiZANidine HCl [Zanaflex] 1 tab PO BID PRN 12/25/19 [History] oxyCODONE 5 mg PO Q4H PRN #20 tablet 01/01/20 [Rx] Acetaminophen [Tylenol] 650 mg PO Q6H PRN 06/22/20 [History] Aspirin [Aspirin EC] 325 mg PO DAILY 06/22/20 [History] DULoxetine [Cymbalta] 60 mg PO BID 06/22/20 [History] Docusate Sodium 100 mg PO BID PRN 06/22/20 [History] Furosemide 40 mg PO DAILY 06/22/20 [History] Isosorbide Mononitrate [Imdur] 30 mg PO DAILY 06/22/20 [History] Multivitamin 1 tab PO DAILY 06/22/20 [History] - Discharge Summary/Plan Comment DC Time >30 min.: No - General Info Date of Service: 06/29/20 Functional Status: Reports: Pain Controlled - Review of Systems General: Reports: No Symptoms Pulmonary: Reports: No Symptoms Cardiovascular: Reports: No Symptoms Gastrointestinal: Reports: No Symptoms Musculoskeletal: Reports: Back Pain Neurological: Reports: No Symptoms - Patient Data Vitals - Most Recent: Last Vital Signs Temp 97.3 F 06/29/20 08:00 Pulse 73 06/29/20 08:00 Resp 14 06/29/20 08:00 BP 115/60 06/29/20 08:02 Pulse Ox 100 06/29/20 08:00 Weight - Most Recent: 168 lb 4.8 oz Lab Results - Last 24 hrs: Laboratory Results - last 24 hr 06/28/20 06/29/20 Range/Units 16:35 07:52 POC Glucose 70 82 (65-110) mg/dl Med Orders - Current: Current Medications Acetaminophen (Tylenol) 650 mg PO Q6H PRN PRN Reason: Pain (moderate 4-6) Last Admin: 06/29/20 04:59 Dose: 650 mg Documented by: Aspirin (Ecotrin) 325 mg PO DAILY [facility] Last Admin: 06/29/20 08:00 Dose: 325 mg Documented by: Atorvastatin Calcium (Lipitor) 40 mg PO BEDTIME [facility] Last Admin: 06/28/20 19:14 Dose: 40 mg Documented by: Bisacodyl (Dulcolax) 5 mg PO DAILY PRN PRN Reason: Constipation Bisacodyl (Dulcolax) 10 mg RECTAL ASDIRECTED PRN PRN Reason: Constipation Docusate Sodium (Colace) 100 mg PO BID PRN PRN Reason: Constipation Last Admin: 06/25/20 08:00 Dose: 100 mg Documented by: Duloxetine HCl (Cymbalta) 60 mg PO Q12H [facility] Last Admin: 06/29/20 08:01 Dose: 60 mg Documented by: Furosemide (Lasix) 40 mg PO DAILY [facility] Last Admin: 06/29/20 08:02 Dose: 40 mg Documented by: Isosorbide Mononitrate (Imdur) 30 mg PO DAILY [facility] Last Admin: 06/29/20 08:02 Dose: 30 mg Documented by: Lidocaine (Aspercreme 4%) 1 each TOP DAILY [facility] Last Admin: 06/29/20 08:03 Dose: 1 each Documented by: Metformin HCl (Glucophage) 1,000 mg PO BIDMEALS [facility] Last Admin: 06/29/20 08:01 Dose: 1,000 mg Documented by: Metoprolol Tartrate (Lopressor) 12.5 mg PO Q12H [facility] Last Admin: 06/29/20 08:00 Dose: 12.5 mg Documented by: Miscellaneous Information (Remove Patch) 1 ea TRDERM DAILY@1999 [facility] Last Admin: 06/28/20 20:57 Dose: 1 ea Documented by: Multivitamins/Minerals/Vitamin C (Tab-A-Manuela) 1 tab PO DAILY [facility] Last Admin: 06/29/20 08:00 Dose: 1 tab Documented by: Omeprazole (Omeprazole) 20 mg PO QPM [facility] Last Admin: 06/28/20 17:26 Dose: 20 mg Documented by: Oxycodone HCl (Oxycodone) 5 mg PO Q4H PRN PRN Reason: Pain (severe 7-10) Last Admin: 06/29/20 09:17 Dose: 5 mg Documented by: Pregabalin (Lyrica) 150 mg PO Q12H [facility] Last Admin: 06/29/20 08:01 Dose: 150 mg Documented by: Tamsulosin HCl (Flomax) 0.4 mg PO BEDTIME [facility] Last Admin: 06/28/20 19:14 Dose: 0.4 mg Documented by: Tizanidine HCl (Zanaflex) 2 mg PO BID PRN PRN Reason: Spasms Last Admin: 06/28/20 20:58 Dose: 2 mg Documented by: Triamcinolone Acetonide (Triamcinolone Acetonide 0.025%) 1 gm TOP Q12HR [facility] Last Admin: 06/29/20 08:02 Dose: 1 applic Documented by: Discontinued Medications Duloxetine HCl (Cymbalta) 60 mg PO BID [facility] Metoprolol Tartrate (Lopressor) 12.5 mg PO BID [facility] Pregabalin (Lyrica) 150 mg PO BID NORM - Exam General: Reports: Alert, Oriented Neck: Reports: Supple Lungs: Reports: Normal Respiratory Effort Cardiovascular: Reports: Regular Rhythm GI/Abdominal Exam: Soft, Non-Tender Back Exam: Reports: Other (Incision) Extremities: Normal Inspection Skin: Reports: Intact Wound/Incisions: Reports: Healing Well, No Drainage Neurological: Reports: No New Focal Deficit
== END 2020-06-29 13:12 | disposition home or self-care (01) | DRG 560 ==
LOC: LL.MS 14:48 → UNDOADMIN 14:48 → LL.MS 15:24
PROVIDERS: ADMIT Family Medicine; ATTEND Family Medicine
DX: Z47.89 Encounter for other orthopedic aftercare (principal); I42.9 Cardiomyopathy, unspecified; I50.32 Chronic diastolic (congestive) heart failure; I25.10 Atherosclerotic heart disease of native coronary artery without angina pectoris; I11.0 Hypertensive heart disease with heart failure; Z95.5 Presence of coronary angioplasty implant and graft; I25.2 Old myocardial infarction; Z95.1 Presence of aortocoronary bypass graft; J44.9 Chronic obstructive pulmonary disease, unspecified; K21.9 Gastro-esophageal reflux disease without esophagitis; K59.09 Other constipation; N40.1 Benign prostatic hyperplasia with lower urinary tract symptoms; N39.498 Other specified urinary incontinence; F32.9 Major depressive disorder, single episode, unspecified; F41.9 Anxiety disorder, unspecified
CPT/HCPCS: 82962; 97110-GO; 97110-GP; 97162-GP; 97165-GO; 97530-GO; 97530-GP; 97535-GO; A9270-GY

== ENCOUNTER 2020-10-03 18:24 | Emergency (ER) | payer MEDICARE ==
[~2020-10-03 18:24] MED LIST: Iopamidol 755 Mg/ML 100 ML Bottle IVPUSH ONE
[2020-10-03] MEDS ORDERED: Famotidine 20 MG/2 ML SDV IVPUSH ONE (18:30)
[2020-10-03] MEDS ORDERED: Sodium Chloride 0.9% 10 ML Syringe FLUSH PRN (18:30)
--- NOTE | 2020-10-03 18:30 | EDM.PDOC ---
ED HPI GENERAL MEDICAL PROBLEM - General Chief Complaint: Respiratory Problem Stated Complaint: SOB, chills, shakiness, headache, falling, dizzy Time Seen by Provider: 10/03/20 18:25 Source of Information: Reports: Patient, Old Records ([facility] EMR. No paper hospital chart available.) History Limitations: Reports: Other (Severe presbycusis) - History of Present Illness INITIAL COMMENTS - FREE TEXT/NARRATIVE: The patient drove himself to the emergency room via private automobile for evaluation of a 3-day history of progressive dyspnea, possible fever and chills, and an additional 10/10 occipital headache since earlier this morning. His son did test positive for COVID-19 with the patient having received his influenza booster this season by his history. The patient did take 325 mg of aspirin 5 hours prior to arrival. He is an extremely poor historian secondary to his baseline mental status and severe presbycusis. The patient denies any chest maikol n/pressure, heart flutter, dizziness, orthostasis, orthopnea, diaphoresis, paresthesias, recent decreased exercise tolerance, or any other anginal-type symptoms. No recent history of abdominal pain, heartburn, nausea, diarrhea, melena, gross hematochezia, or any food intolerance, including fatty foods, etc.. He denies any gross hematuria, colic, or other UTI symptoms. He does have an occasional nonproductive cough with no history of wheezing or rhonchi. Patient is also suffering from occasional diffuse arthralgias. Onset: Gradual Onset Date: 09/30/20 Duration: Constant, Getting Worse Location: Reports: Generalized Quality: Reports: Same as Previous Episode, Throbbing Severity: Moderate Improves with: Reports: None Worsens with: Reports: None Context: Reports: Sick Contact (As above), Other (As above) Associated Symptoms: Reports: Cough, Fever/Chills, Headaches, Shortness of Breath. Denies: Confusion, Chest Pain, cough w sputum, Diaphoresis, Loss of Appetite, Malaise, Nausea/Vomiting, Syncope, Weakness Treatments TAXICAB COORDINATOR: Reports: Aspirin Posterior Headache Pain Score (Numeric/FACES): 10 - Related Data Allergies Allergy/AdvReac Type Severity Reaction Status Date / Time lisinopril Allergy Anaphylactic Verified 08/30/17 14:35 Shock Home Meds: Home Meds Lidocaine 5% [Lidoderm 5%] 1 patch TP DAILY 08/30/17 [History] Omeprazole 20 mg PO ACDINNER 08/30/17 [History] Tamsulosin [Flomax] 0.4 mg PO BEDTIME 08/30/17 [History] atorvaSTATin [Lipitor] 40 mg PO BEDTIME 08/30/17 [History] Metoprolol Tartrate 12.5 mg PO BID 12/25/19 [History] Pregabalin [Lyrica] 150 mg PO BID 12/25/19 [History] bisacodyL [Dulcolax] 1 supp RECTAL ASDIRECTED PRN 12/25/19 [History] tiZANidine HCl [Zanaflex] 1 tab PO BID PRN 12/25/19 [History] oxyCODONE 5 mg PO Q4H PRN #20 tablet 01/01/20 [Rx] Aspirin [Aspirin EC] 325 mg PO DAILY 06/22/20 [History] DULoxetine [Cymbalta] 60 mg PO BID 06/22/20 [History] Docusate Sodium 100 mg PO BID PRN 06/22/20 [History] Furosemide 40 mg PO DAILY 06/22/20 [History] Isosorbide Mononitrate [Imdur] 30 mg PO DAILY 06/22/20 [History] Multivitamin 1 tab PO DAILY 06/22/20 [History] Magnesium Oxide 400 mg PO BID #30 tab 10/03/20 [Rx] Past Medical History HEENT History: Reports: Hard of Hearing, Impaired Vision, Other (See Below). Denies: Allergic Rhinitis, Cataract, Glaucoma, Macular Degeneration, Otitis Media, Retinal Detachment Other HEENT History: Severe bilateral presbycusis with suboptimal current hearing aid therapy. Patient wears reading glasses. Cardiovascular History: Reports: Aneurysm, Bypass, CAD, Cardiomyopathy, Heart Failure, Heart Murmur, High Cholesterol, Hypertension, OR, PTCA, PVD, Stents. Denies: Afib, Arrhythmia, Blood Clots/VTE/DVT, Syncope, Other (See Below) Other Cardiovascular History: Left atrial enlargement with mild cardiomegaly and grade 1 diastolic dysfunction by echocardiogram. History of initial OR in 1997 with multiple cardiac procedures as below. Left renal artery stenosis requiring stent placement as below. 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 Carotid occlusive disease with right-sided surgery required as below. Moderate Mitral valve insufficiency by echocardiogram. Respiratory History: Reports: Bronchitis, Recurrent, COPD, Intubation, Previous, Pneumonia, Recurrent, Other (See Below). Denies: Asthma, Intubation, Difficult, PE, Pneumothorax, Sleep Apnea, TB Other Respiratory History: COPD not currently requiring medical therapy. Note right-sided nondisplaced 36 rib fractures with secondary pulmonary contusion secondary to a fall 08/26/17. Gastrointestinal History: Reports: Chronic Constipation, GERD, Hiatal Hernia, Other (See Below). Denies: Celiac Disease, Cholelithiasis, Chronic Diarrhea, Colon Polyp, Fecal Incontinence, Gastritis, GI Bleed, Hepatitis, Inflammatory Bowel Disease, Irritable Bowel Syndrome, Jaundice, Pancreatitis, PUD Other Gastrointestinal History: Benign Right hepatic nodule by CT scan. Genitourinary History: Reports: BPH, Urinary Incontinence. Denies: Acute Renal Failure, Chronic Renal Insuffiency, Renal Calculus, STD, UTI, Recurrent Musculoskeletal History: Reports: Arthritis, Back Pain, Chronic, Fracture, Neck Pain, Chronic, Osteoarthritis, Other (See Below). Denies: Amputation, Gout, RA, SLE Other Musculoskeletal History: Multiple right-sided rib fractures with additional right clavicular fracture from a fall on 08/26/17. Bilateral rotator cuff tears requiring surgeries as below. Neurological History: Reports: Brain Injury, Concussion, Headaches, Chronic, Head Trauma, Neuropathy, Diabetic, Neuropathy, Peripheral, Vertigo, Other (See Below). Denies: Alzheimers Disease, Cerebral Aneurysms, CVA, Migraines, MS, Parkinson's, Seizure, TIA Other Neuro History: History of a left-sided intra-parenchymal cerebral and subarachnoid hemorrhage secondary to major fall on 08/26/17. History of subsequent chronic recurrent falls and unsteadiness. Multi-level cervical, thoracic, and lumbar spinal stenosis. Psychiatric History: Reports: Addiction, Anxiety, Depression, Other (See Below). Denies: Abuse, Victim of, ADD, ADHD, Alzheimers Disease, Dementia, Psych Hospitalization(s), PTSD, Suicide Attempt, Suicidal Ideation Other Psychiatric History: Chronic narcotic use with current pain contract. Endocrine/Metabolic History: Reports: Diabetes, Type II, Other (See Below). Denies: Diabetes, Type I, Diabetes Mellitus, Type 3c, Hypothyroidism, IDDM, Obesity/BMI 30+ Other Endocrine/Metabolic History: Hyperkalemia. Hematologic History: Reports: Blood Transfusion(s), Other (See Below). Denies: Anemia Other Hematologic History: Transfusion for unknown reason and diagnosis? Immunologic History: Reports: None. Denies: AIDS, HIV, SLE Oncologic (Cancer) History: Reports: None. Denies: Basal Cell Carcinoma, Colon, Hodgkin's Lymphoma, Leukemia, Lymphoma, Malignant Melanoma, Non-Hodgkin's Lymphoma, Prostate, Squamous Cell Carcinoma Dermatologic History: Reports: None. Denies: Eczema, Psoriasis - Infectious Disease History Infectious Disease History: Reports: Chicken Pox, Measles, Mononucleosis (As a teenager), Mumps. Denies: C-Difficile, Meningitis, MRSA, Pertussis (Whooping Cough), RSV, Rubella, Scarlet Fever, Shingles, TB, VRE - Past Surgical History Head Surgeries/Procedures: Reports: None HEENT Surgical History: Reports: Oral Surgery (Complete teeth extraction with the patient only having upper dentures). Denies: Adenoidectomy, Cataract Surgery, Eye Surgery, Myringotomy w Tube(s), Naso-Sinus Surgery, Tonsillectomy Cardiovascular Surgical History: Reports: Aneurysm, Carotid Endarterectomy, Carotid Stents, Coronary Artery Bypass, Coronary Artery Stent, Percutaneous Transluminal Angioplasty, Vascular Surgery, Other (See Below). Denies: Varicose Other Cardiovascular Surgeries/Procedures: Left renal artery stent placement in 1999. Aorticexternal left iliac stent/aneurysm repair in 1999. Initial three- vessel CABG in 1996. Subsequent multiple PTCA/stent placements of a total of 12 stents last on 03/11/18. Right carotid endarterectomy in 2011. Respiratory Surgical History: Reports: None. Denies: Thoracentesis GI Surgical History: Reports: Colonoscopy, Other (See Below). Denies: Appendectomy, Cholecystectomy, EGD, Hernia, Abdominal, Hernia, Inguinal, Hernia Repair/Other, Polypectomy Other GI Surgeries/Procedures: Colonoscopy in about 2013. Male Surgical History: Reports: None. Denies: Circumcision, TURP- Transurethral Resection of Prostate, Vasectomy Neurological Surgical History: Reports: C-Spine, Discectomy, Spinal Fusion. Denies: Laminectomy, Lumbar Spine, Sacral Spine, Thoracic Spine, Vertebroplasty Other Neurological Surgeries/Procedures: Discectomy with cervical fusion of C4- C7 on 12/21/19 Musculoskeletal Surgical History: Reports: Shoulder Surgery. Denies: Arthroscopic Procedure, Carpal Tunnel, Ganglion Cyst, Joint Replacement, ORIF, Shoulder Replacement Other Musculoskeletal Surgeries/Procedures:: Bilateral rotator cuff repairs in the 1990s. Oncologic Surgical History: Reports: None Dermatological Surgical History: Reports: None - Past Imaging History Past Imaging History: Reports: Angiography (Last heart catheterization on 03/11/18 with previous evaluations on 03/02/15 and 08/13/13.), Cardiac Echo (Last echocardiogram on 01/05/2020 showed worsening cardiac function with decreased ejection fraction of 30-35%. Previous echocardiogram on 12/07/19 showed improved ejection fraction of 45% with otherwise findings as above. Previous echocardiograms on 08/28/17 and 03/01/15.), CAT Scan (CT of the head, C-spine, chest with IV contrast, and abdomen/pelvis on 08/26/17. CT of the left elbow on 09/29/18), MRI (MRI of the C-spine on 12/07/19, 10/29/19, 08/27/17, and 08/26/17. MRI of the lumbar spine on 04/26/19. MRI of the right shoulder on 07/04/18. MRI of the head on 08/27/17 and 08/26/17.) Social & Family History - Family History HEENT: Reports: None. Denies: Glaucoma, Macular Degeneration, Retinal Detachment Cardiac: Reports: CAD, Hypertension, OR, PVD/COD, Other (See Below). Denies: Afib, Aneurysm, Arrhythmia, Blood Clots/VTE/DVT, Bypass, Heart Failure, Syncope Other Cardiac Family History: Parents, sister, brother, maternal aunt, maternal uncle, and maternal grandmother with hypertension. Maternal grandmother with OR in her 50s. Mother with peripheral vascular disease requiring leg amputations. Respiratory: Reports: COPD, Other (See Below). Denies: Asthma Musculoskeletal: Reports: Arthritis, Osteoarthritis, Other (See Below) Other Musculoskeletal Family History: Arthritis in parents and sister, brother, maternal aunt, maternal uncle, maternal grandmother, and maternal grandfather. Neurological: Reports: CVA, Other (See Below) Other Neurological Family History: Maternal grandfather with fatal CVA in his 50s. Psychiatric: Reports: Anxiety, Depression, Other (See Below) Other Psychiatric Family History: Brother with anxiety depression disorder and alcohol abuse fatal at age 66. Mother with anxiety depression disorder. Endocrine/Metabolic: Reports: None. Denies: Diabetes, Type I, Diabetes, type II, Diabetes Mellitus, Type 3c, Hypothyroidism, IDDM Hematologic: Reports: None. Denies: SLE Oncologic: Reports: Lung, Other (See Below) Other Oncologic Family History: Mother with fatal lung cancer at age 61 with history of tobacco use. Father with unknown type of multiple cancers fatal in h is 50s. - Tobacco Use Tobacco Use Status *Q: Former Tobacco User Tobacco Use Within Last Twelve Months: No Years of Tobacco use: 43 Packs/Tins Daily: 2 Packs/Tins Daily Comment: Smoked between ages 20 and 63. Used Tobacco, but Quit: Yes Smoking Cessation Information Provided To Patient: No Second Hand Smoke Exposure: No Second Hand Smoke Education Provided: No - Caffeine Use Caffeine Use: Reports: Coffee (2 cups per day), Soda (1 soda per day). Denies: Energy Drinks, Tea - Alcohol Use Alcohol Use History: No Days Per Week of Alcohol Use: 0 Number of Drinks Per Day: 0 Number of Drinks Per Day Comment: No previous DWIs, problems with alcohol abuse, etc. Total Drinks Per Week: 0 Alcohol Use in Last Twelve Months: No - Recreational Drug Use Recreational Drug Use: Yes Drug Use in Last 12 Months: No Recreational Drug Type: Reports: Marijuana/Hashish (In his early 20s). Denies: Amphetamines (Speed), Cocaine, Heroin, LSD (Acid), Methamphetamine, Methaqualone, Morphine, Oxycodone - Living Situation & Occupation Living situation: Reports: (2004, 1 son), with Family (Son) Occupation: Disabled (In the secondary to his osteoarthritis, anxiety depression disorder, etc.. 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 ED EXAM, GENERAL - Physical Exam Exam: See Below Exam Limited By: No Limitations General Appearance: Alert, WD/WN, No Apparent Distress, Anxious (Mild to moderate) Eye Exam: Bilateral Eye: EOMI, Normal Inspection (No nystagmus or vertigo. Patient is wearing glasses.) Ears: Normal External Exam, Normal Canal, Normal TMs, Hearing Loss (Severe bilateral presbycusis despite current hearing aid therapy) Nose: Normal Inspection, Normal Mucosa, No Blood Throat/Mouth: Normal Inspection, Normal Lips, Normal Gums, Normal Oropharynx, Normal Voice, No Airway Compromise. No: Normal Teeth (Complete absent sensation with the patient only wearing upper dentures.), Dysphagia, Perioral Cyanosis Head: Atraumatic, Normocephalic. No: Facial Swelling, Facial Tenderness, Sinus Tenderness Neck: Normal Inspection, Supple, Non-Tender, Full Range of Motion. No: Lymphadenopathy (L), Lymphadenopathy (R), Thyromegaly Respiratory/Chest: No Respiratory Distress, No Accessory Muscle Use, Chest Non- Tender, Rales (Mild occasional bilateral diffuse rales). No: Rhonchi, Wheezing, Pleural Rub, Retractions Cardiovascular: Normal Peripheral Pulses, No Edema, No Gallop, No JVD, No Murmur, Tachycardia (Mild tachycardia with regular rhythm), Systolic Murmur (Stable mild 1/6 CYNTHIA of the mitral valve.). No: Gallop/S3, Gallop/S4, Friction Rub Peripheral Pulses: 2+: Radial (L), Radial (R) GI/Abdominal: Normal Bowel Sounds, Soft, Non-Tender, No Organomegaly, No Distention, No Abnormal Bruit, No Mass. No: Guarding (Male) Exam: Deferred Rectal (Males) Exam: Deferred Back Exam: Normal Inspection, Full Range of Motion. No: CVA Tenderness (L), CVA Tenderness (R) Extremities: Normal Inspection, Normal Range of Motion, Non-Tender, No Pedal Edema, Normal Capillary Refill. No: Bri's Sign Neurological: Alert, Oriented, CN II-XII Intact, Normal Cognition, Normal Gait, No Motor/Sensory Deficits, Abnormal Gait (Stable chronic unsteadiness), Other (No clinical orthostasis) Psychiatric: Anxious (Mild to moderate). No: Depressed Mood Skin Exam: Warm, Dry, Intact, Normal Color, No Rash. No: Ecchymosis, Petechiae, Wound/Incision Lymphatic: No Adenopathy #1 Interpretation EKG Date: 10/03/20 Time: 18:41 Rhythm: Other (Sinus tachycardia) Rate (Beats/Min): 117 [place]: Normal (Neutral cardiac access) P-Wave: Present QRS: Normal (0.07 seconds) ST-T: Normal QT: Normal NV/PQ Interval: 0.12 seconds recommend short NV interval with no delta waves noted. Comparison: NA - No Prior EKG (No recent EKG for comparison) EKG Interpretation Comments: 1. No acute ischemic changes 2. Sinus tachycardia 3. Short NV interval Course - Vital Signs Last Recorded V/S: Last Vital Signs Temp 36.6 C 10/03/20 19:30 Pulse 99 10/03/20 22:39 Resp 20 10/03/20 22:39 BP 132/75 10/03/20 22:39 Pulse Ox 99 10/03/20 22:39 Vital Signs - 24 hr 10/03/20 10/03/20 10/03/20 18:25 18:30 19:22 Temperature [ 37.7 C 37.1 C Temporal] Pulse, 103 H 109 H Peripheral [ Left Pulse Oximetry] Respiratory 18 20 Rate Blood Pressure 110/63 120/78 104/62 [Left Upper Arm ] O2 Sat by Pulse 95 100 Oximetry 10/03/20 10/03/20 10/03/20 19:30 20:00 20:15 Temperature [ 36.6 C Temporal] Pulse, 105 H 95 Peripheral [ Left Pulse Oximetry] Respiratory 20 20 Rate Blood Pressure 119/64 108/66 [Left Upper Arm ] O2 Sat by Pulse 99 95 Oximetry 10/03/20 22:39 Temperature [ Temporal] Pulse, 99 Peripheral [ Left Pulse Oximetry] Respiratory 20 Rate Blood Pressure 132/75 [Left Upper Arm ] O2 Sat by Pulse 99 Oximetry - Orders/Labs/Meds Orders: Active Orders 24 hr Category Date Time Status Chest 1V Frontal [CR] Stat Exams 10/03/20 18:30 Ordered Chest PE [Ang Chest] [CT] Stat Exams 10/03/20 19:48 Taken CORONAVIRUS COVID-19 MEGHANA [MOLEC] Stat Lab 10/03/20 19:00 Received CULTURE SPUTUM + SMEAR [RM] Routine Lab 10/03/20 18:33 Ordered Isolation [COMM] Routine Oth 10/03/20 18:33 Active Obtain Past Medical Record [OM.PC] Urgent Oth 10/03/20 18:30 Active Peripheral IV Insertion Adult [OM.PC] Stat Oth 10/03/20 18:30 Ordered Resuscitation Status Stat Resus Stat 10/03/20 18:30 Ordered Labs: Laboratory Tests 12/0710/03/20 10/03/20 Range/Units 19:15 19:15 19:15 WBC 5.3 (4.0-10.2) K/uL RBC 4.49 (4.33-5.41) M/uL Hgb 12.1 L (13.1-16.8) g/dL Hct 37.2 L (39.0-49.0) % MCV 82.9 L D (84.0-98.0) fL MCH 26.9 L (28.2-33.3) pg MCHC 32.5 (31.7-36.0) g/dL RDW 15.7 H (11.2-14.1) % Plt Count 197 D (150-350) K/uL Neut % (Auto) 78.2 (45.0-80.0) % Lymph % (Auto) 12.5 (10.0-50.0) % [place] % (Auto) 8.9 (2.0-14.0) % Eos % (Auto) 0.0 (0.0-5.0) % Baso % (Auto) 0.4 (0.0-2.0) % Neut # (Auto) 4.12 (1.40-7.00) K/uL Lymph # (Auto) 0.66 (0.50-3.50) K/uL [place] # (Auto) 0.47 (0.00-1.00) K/uL Eos # (Auto) 0.00 (0.00-0.50) K/uL Baso # (Auto) 0.02 (0.00-0.20) K/uL PT 10.3 (9.5-12.0) SEC INR 1.0 APTT 33.1 H (24.5-32.8) SEC D-Dimer, Quantitative 4080 H (0-400) ng/mL Sodium (136-145) mmol/L Potassium (3.5-5.1) mmol/L Chloride (98-107) mmol/L Carbon Dioxide (21.0-32.0) mmol/L BUN (7-18) mg/dL Creatinine (0.51-1.17) mg/dL Est Cr Clr Drug Dosing Estimated GFR (MDRD) mL/min Glucose (74-106) mg/dL Lactic Acid (0.4-2.0) mmol/L Uric Acid (2.6-7.2) mg/dL Calcium (8.5-10.1) mg/dL Magnesium (1.8-2.4) mg/dL Total Bilirubin (0.2-1.0) mg/dL AST (15-37) U/L ALT (12-78) U/L Alkaline Phosphatase (46-116) IU/L Creatine Kinase (26-308) U/L Creatine Kinase Index (0.0-2.5) % CK-MB (CK-2) (0.00-3.60) ng/mL Troponin I (0.000-0.056) ng/mL NT-Pro-B Natriuret Pep (0-125) pg/mL Total Protein (6.4-8.2) g/dL Albumin (3.4-5.0) g/dL TSH, Ultra Sensitive (0.358-3.740) mIU/mL Ethyl Alcohol (0.000-0.080) g/dL 10/03/20 10/03/20 Range/Units 19:15 19:15 WBC (4.0-10.2) K/uL RBC (4.33-5.41) M/uL Hgb (13.1-16.8) g/dL Hct (39.0-49.0) % MCV (84.0-98.0) fL MCH (28.2-33.3) pg MCHC (31.7-36.0) g/dL RDW (11.2-14.1) % Plt Count (150-350) K/uL Neut % (Auto) (45.0-80.0) % Lymph % (Auto) (10.0-50.0) % [place] % (Auto) (2.0-14.0) % Eos % (Auto) (0.0-5.0) % Baso % (Auto) (0.0-2.0) % Neut # (Auto) (1.40-7.00) K/uL Lymph # (Auto) (0.50-3.50) K/uL [place] # (Auto) (0.00-1.00) K/uL Eos # (Auto) (0.00-0.50) K/uL Baso # (Auto) (0.00-0.20) K/uL PT (9.5-12.0) SEC INR APTT (24.5-32.8) SEC D-Dimer, Quantitative (0-400) ng/mL Sodium 132 L (136-145) mmol/L Potassium 4.7 (3.5-5.1) mmol/L Chloride 96 L (98-107) mmol/L Carbon Dioxide 24.1 (21.0-32.0) mmol/L BUN 20 H (7-18) mg/dL Creatinine 1.17 (0.51-1.17) mg/dL Est Cr Clr Drug Dosing TNP Estimated GFR (MDRD) > 60 mL/min Glucose 108 H (74-106) mg/dL Lactic Acid 2.0 (0.4-2.0) mmol/L Uric Acid 5.8 (2.6-7.2) mg/dL Calcium 9.0 (8.5-10.1) mg/dL Magnesium 1.4 L (1.8-2.4) mg/dL Total Bilirubin 0.6 (0.2-1.0) mg/dL AST 25 (15-37) U/L ALT 22 (12-78) U/L Alkaline Phosphatase 143 H (46-116) IU/L Creatine Kinase 168 (26-308) U/L Creatine Kinase Index 0.7 (0.0-2.5) % CK-MB (CK-2) 1.10 (0.00-3.60) ng/mL Troponin I 0.014 (0.000-0.056) ng/mL NT-Pro-B Natriuret Pep 3206 H (0-125) pg/mL Total Protein 8.6 H (6.4-8.2) g/dL Albumin 3.8 (3.4-5.0) g/dL TSH, Ultra Sensitive 0.958 (0.358-3.740) mIU/mL Ethyl Alcohol 0.000 (0.000-0.080) g/dL COVID-19 rapid test was collected with results pending Microbiology 10/03/20 19:00 Influenza Type A Antigen Screen - Final Nasal, Unspecified NEGATIVE INFLUENZA A VIRUS AG REFERENCE RANGE: NEGATIVE Influenza Type B Antigen Screen - Final NEGATIVE INFLUENZA B VIRUS AG REFERENCE RANGE: NEGATIVE Meds: Medications Discontinued Medications Generic Name Dose Route Start Last Admin Trade Name Freq PRN Reason Stop Dose Admin Cyclobenzaprine HCl 10 mg 10/03/20 21:26 10/03/20 21:35 Flexeril PO 10/03/20 21:27 10 mg ONETIME ONE Administration Famotidine 40 mg 10/03/20 18:30 10/03/20 20:04 Pepcid IVPUSH 10/03/20 18:31 40 mg ONETIME ONE Administration Iopamidol 100 ml 10/03/20 13:00 Isovue-370 (76%) IVPUSH 10/03/20 13:01 ONETIME ONE Iopamidol Confirm 10/03/20 20:15 10/03/20 20:38 Isovue-370 (76%) Administered 10/03/20 20:16 100 ml Dose Administration 100 ml .ROUTE .STK-MED ONE Ketorolac Tromethamine 30 mg 10/03/20 21:23 10/03/20 21:35 Toradol IVPUSH 10/03/20 21:24 30 mg ONETIME ONE Administration Magnesium Oxide 400 mg 10/03/20 21:31 10/03/20 21:35 Magnesium Oxide PO 10/03/20 21:32 400 mg ONETIME ONE Administration Sodium Chloride 10 ml 10/03/20 18:30 10/03/20 20:04 Saline Flush FLUSH 10 ml ASDIRECTED PRN Administration Keep Vein Open - Radiology Interpretation Free Text/Narrative:: school lunch monitor shows normal sinus rhythm in the 100-110s with no ectopy or arrhythmia Chest x-ray shows status post medial sternotomy with moderate cardiomegaly and some nonspecific COPD and possible pulmonary fibrosis versus nonspecific nodular bilateral infiltrations. Official chest x-ray report was normal, however. Telephone consultation at 9:12 PM with the radiology department at [facility] with preliminary verbal report of CTA of the chest using PE protocol. Somewhat suboptimal study secondary to patient movement, however no evidence of PE. Some ground glass changes consistent with possible COVID-19. CT Results Date: 10/03/20 CT Results Time: 21:12 Departure - Departure Time of Disposition: 22:25 Disposition: Home, Self-Care 01 Condition: Good Clinical Impression: Peptic reflux disease, Mixed anxiety depressive disorder, Bronchitis Coronary artery disease Qualifiers: Coronary Disease-Associated Artery/Lesion type: bypass graft [place] vs. transplanted heart: [place] heart Associated angina: without angina Qualified Code(s): I25.810 - Atherosclerosis of coronary artery bypass graft(s) without angina pectoris Hypertension Qualifiers: Hypertension type: essential hypertension Qualified Code(s): I10 - Essential (primary) hypertension Osteoarthritis Qualifiers: Osteoarthritis location: multiple joints Osteoarthritis type: primary Qualified Code(s): M89.49 - Other hypertrophic osteoarthropathy, multiple sites COPD (chronic obstructive pulmonary disease) Qualifiers: COPD type: emphysema Emphysema type: panlobular Qualified Code(s): J43.1 - Panlobular emphysema Diabetes Qualifiers: Diabetes mellitus type: type 2 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: without halfway use Diabetes mellitus complication status: without complication Qualified Code(s): E11.9 - Type 2 diabetes mellitus without complications Headache Qualifiers: Headache type: tension-type Headache chronicity pattern: acute headache Intractability: not intractable Qualified Code(s): G44.209 - Tension-type headache, unspecified, not intractable - Discharge Information *PRESCRIPTION DRUG MONITORING PROGRAM REVIEWED*: Not Applicable *COPY OF PRESCRIPTION DRUG MONITORING REPORT IN PATIENT ARAM: Not Applicable Prescriptions: Magnesium Oxide 400 mg PO BID #30 tab Referrals: PCP,None [Primary Care Provider] - Forms: ED Department Discharge Additional Instructions: 1. Followup with your regular provider in 7-10 days as directed for reevaluation and recommended repeat CBC, comprehensive metabolic panel, D-dimer, and and magnesium level. Bring these discharge instructions with you to that visit. 2. Tylenol 650 mg by mouth every 4 hours and/or OTC ibuprofen 2-3 tabs by mouth every 6 hours with food as directed./needed. You may stagger these medications for 48-72 hours only, which essentially means that you are receiving a pain medication about every 2 hours. Next dose of ibuprofen as needed in 6 hours secondary to medications given in the emergency room 3. Ice packs to head and neck, dark and quiet room, etc. as directed until headache resolves. 4. The hospital will call you later tomorrow for scheduling ultrasound of your legs to verify that you do not have a blood clot. At the same time you will also receive an IV medication, if your COVID-19 test positive as discussed. 5. Maintain recommended quarantine until you have been notified of today's COVID-19 test results as discussed with return to previous social distancing, use of masks, etc., thereafter as per current recommended CDC guidelines 6. Immediately after this visit verify that your cellular telephone's voicemail has been activated and is empty. Also verify that your home telephone's answering machine is operating properly and has space to receive messages. Note that it is sometimes necessary for us to be able to contact you at a later date to discuss your medical care. 7. Please remember that we are ALWAYS here for you and want to answer any questions you may have. Feel free to call the hospital any time and we call you back AST[place]. 8. Hold your Metformin for 48 hours secondary to IV contrast dye used in your CT scan today. Then resume Metformin therapy as before. Sepsis Event Note (ED) - Focused Exam Vital Signs: Vital Signs Temp Pulse Resp BP Pulse Ox 10/03/20 22:39 99 20 132/75 99 10/03/20 20:15 95 20 108/66 95 10/03/20 20:00 105 H 20 119/64 99 10/03/20 19:30 36.6 C 10/03/20 19:22 37.1 C 109 H 20 104/62 100 10/03/20 18:30 37.7 C 103 H 18 120/78 95 10/03/20 18:25 110/63 - Problem List & Annotations (1) Bronchitis SNOMED Code(s): 08840363 Code(s): J40 - BRONCHITIS, NOT SPECIFIED ACUTE OR CHRONIC Status: Acute Priority: High Onset Date: 10/03/20 Annotation/Comment:: Bilateral bronchitis likely secondary to COVID-19, although rapid test results are still pending. Isolation/quarantine precautions were extensively discussed. Patient does not qualify for hospitalization, IV Decadron, IV remdesivir, for convalescent plasma at this point secondary to excellent O2 saturations on room air. Various therapeutic options were discussed in order to avoid hospitalization, if his COVID-19 test is positive with results available tomorrow. Patient wishes to proceed with Bamlanivimab therapy with information sheet and risks and benefits of this therapy extensively discussed with the patient. Patient did sign the information sheet, and I did sign the paper order screening sheet this evening. Of course this medication will only be given, if he is COVID-19 positive. The infusion should be given at the same time as his venous Doppler studies of the lower extremities tomorrow as below. Close follow-up with his regular provider as per discharge instructions. (2) Hyponatremia SNOMED Code(s): 24290390 Code(s): E87.1 - HYPO-OSMOLALITY AND HYPONATREMIA Status: Acute Priority: Medium Onset Date: 10/03/20 Annotation/Comment:: No clinical evidence of CHF. Observe for now. Close follow-up by regular provider as per discharge instructions. (3) Leukopenia SNOMED Code(s): 46951318, 862356798 Code(s): D72.819 - DECREASED WHITE BLOOD CELL COUNT, UNSPECIFIED Status: Acute Priority: Medium Onset Date: 10/03/20 Annotation/Comment:: Leukopenia likely secondary to COVID-19 bronchitis as above. Close follow-up by regular provider. Qualifiers: Leukopenia type: neutropenia Neutropenia type: other Qualified Code(s): D70.8 - Other neutropenia (4) D-dimer, elevated SNOMED Code(s): 137557188 Code(s): R79.89 - OTHER SPECIFIED ABNORMAL FINDINGS OF BLOOD CHEMISTRY Status: Acute Priority: High Onset Date: 10/03/20 Annotation/Comment:: D- dimer elevation likely secondary to probable COVID-19 infection. No clinical evidence of DVT or PE. Note negative CTA of the chest as above. Patient will follow up in this facility tomorrow for venous Doppler studies of the lower extremities. (5) Headache SNOMED Code(s): 42265439 Code(s): R51.9 - HEADACHE, UNSPECIFIED Status: Acute Priority: Medium Annotation/Comment:: None previous history of headaches, which is typical from his previous episodes. 1 dose of Flexeril given in the emergency room with the patient not certain whether he still has Zanaflex. IV Toradol also given as above. Headache precautions, etc. were given. Qualifiers: Headache type: tension-type Headache chronicity pattern: acute headache Intractability: not intractable Qualified Code(s): G44.209 - Tension-type headache, unspecified, not intractable (6) COPD (chronic obstructive pulmonary disease) SNOMED Code(s): 83797989 Code(s): J44.9 - CHRONIC OBSTRUCTIVE PULMONARY DISEASE, UNSPECIFIED Status: Chronic Priority: Medium Annotation/Comment:: No recent medical therapy required. Continue to observe closely by his regular providers especially in light of his bronchitis as above. Qualifiers: COPD type: emphysema Emphysema type: panlobular Qualified Code(s): J43.1 - Panlobular emphysema (7) Coronary artery disease SNOMED Code(s): 46893260 Code(s): I25.10 - ATHSCL HEART DISEASE OF [place] CORONARY ARTERY W/O ANG PCTRS Status: Chronic Priority: Medium Annotation/Comment:: No recent chest pain or anginal complaints. Qualifiers: Coronary Disease-Associated Artery/Lesion type: bypass graft [place] vs. transplanted heart: [place] heart Associated angina: without angina Qualified Code(s): I25.810 - Atherosclerosis of coronary artery bypass graft(s) without angina pectoris (8) Diabetes mellitus SNOMED Code(s): 95890988 Code(s): E11.9 - TYPE 2 DIABETES MELLITUS WITHOUT COMPLICATIONS Status: Chronic Priority: Medium Annotation/Comment:: Stable by patient history. Continue to observe closely by his regular providers. 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 Qualifiers: Hypertension type: essential hypertension Qualified Code(s): I10 - Essential (primary) hypertension (10) Mixed anxiety depressive disorder SNOMED Code(s): 900845531 Code(s): F41.8 - OTHER SPECIFIED ANXIETY DISORDERS Status: Chronic Priority: Medium Annotation/Comment:: Stable by patient history, although somewhat suboptimal control based on today's evaluation. Continue current medical therapy with close observation by his regular providers. Note chronic narcotic use with drug contract. (11) Osteoarthritis SNOMED Code(s): 471472199 Code(s): M19.90 - UNSPECIFIED OSTEOARTHRITIS, UNSPECIFIED SITE Status: Chronic Priority: High Annotation/Comment:: Stable by history Qualifiers: Osteoarthritis location: multiple joints Osteoarthritis type: primary Qualified Code(s): M89.49 - Other hypertrophic osteoarthropathy, multiple sites - Problem List Review Problem List Initiated/Reviewed/Updated: Yes - My Orders Last 24 Hours: My Active Orders 10/03/20 18:30 Chest 1V Frontal [CR] Stat Obtain Past Medical Record [OM.PC] Urgent Peripheral IV Insertion Adult [OM.PC] Stat Resuscitation Status Stat 10/03/20 18:33 CULTURE SPUTUM + SMEAR [RM] Routine Isolation [COMM] Routine 10/03/20 19:00 CORONAVIRUS COVID-19 [place] [MOLEC] Stat 10/03/20 19:48 Chest PE [Ang Chest] [CT] Stat - Assessment/Plan Last 24 Hours: My Active Orders 10/03/20 18:30 Chest 1V Frontal [CR] Stat Obtain Past Medical Record [OM.PC] Urgent Peripheral IV Insertion Adult [OM.PC] Stat Resuscitation Status Stat 10/03/20 18:33 CULTURE SPUTUM + SMEAR [RM] Routine Isolation [COMM] Routine 10/03/20 19:00 CORONAVIRUS COVID-19 [place] [MOLEC] Stat 10/03/20 19:48 Chest PE [Ang Chest] [CT] Stat Assessment:: As above Plan: As above. Extensive precautions were given to the patient, who is in agreement with the treatment plan. See Patient Instructions for further treatment and plan.
[2020-10-03 19:36] LABS: PTT,PARTIAL THROMBOPLSTIN TIME 33.1 SEC (24.5-32.8)
[2020-10-03 19:47] LABS: CHLORIDE,CL 96 mmol/L (98-107); SODIUM,NA 132 mmol/L (136-145)
[2020-10-03] MEDS ORDERED: Iopamidol 755 Mg/ML 100 ML Bottle ONE (20:15)
[2020-10-03] MEDS ORDERED: Ketorolac 30 MG/ML SDV IVPUSH ONE (21:23)
[2020-10-03] MEDS ORDERED: Cyclobenzaprine 10 MG Tab PO ONE (21:26)
[2020-10-03] MEDS ORDERED: Magnesium Oxide 400 MG Tab PO ONE (21:31)
== END 2020-10-03 22:25 | disposition home or self-care (01) ==
LOC: LL.ED 18:24
DX: U07.1 COVID-19 (principal); G44.209 Tension-type headache, unspecified, not intractable; J43.1 Panlobular emphysema; M89.49 Other hypertrophic osteoarthropathy, multiple sites; I25.810 Atherosclerosis of coronary artery bypass graft(s) without angina pectoris; K21.9 Gastro-esophageal reflux disease without esophagitis; F41.8 Other specified anxiety disorders; I11.0 Hypertensive heart disease with heart failure; I50.9 Heart failure, unspecified; N40.0 Benign prostatic hyperplasia without lower urinary tract symptoms; E11.42 Type 2 diabetes mellitus with diabetic polyneuropathy; E78.00 Pure hypercholesterolemia, unspecified; I25.2 Old myocardial infarction; Z79.82 Long term (current) use of aspirin; Z79.899 Other long term (current) drug therapy; Z95.1 Presence of aortocoronary bypass graft; Z87.891 Personal history of nicotine dependence
CPT/HCPCS: 36415; 71045; 71275; 80053; 80307; 82550; 82553; 83605; 83735; 83880; 84443; 84484; 84550; 85025; 85379; 85610; 85730; 87804; 93005; 96374; 96375; 99285-25; A9270-GY; J1885; J3490; Q9967; U0002

== ENCOUNTER 2021-11-27 08:35 | Emergency (ER) | payer OTHER, MEDICARE ==
[2021-11-27 09:47] LABS: ANION GAP 16.5 meq/L (7-15); CHLORIDE,CL 101 mmol/L (98-107); SODIUM,NA 135 mmol/L (136-145)
[2021-11-27 09:50] LABS: RESPIRATORY SYNCYTIAL VIR NAA NEGATIVE (NEGATIVE)
[2021-11-27 09:56] LABS: CORONAVIRUS COVID-19 NAA POSITIVE (NEGATIVE)
[2021-11-27] MEDS: Sodium Chloride 0.9% 1,000 ML IV ONE (10:06)
[2021-11-27] MEDS: traMADol 50 MG Tab PO ONE (10:06)
[2021-11-27] MEDS: Ketorolac 30 MG/ML SDV IVPUSH ONE (10:07)
[2021-11-27] MEDS: Iopamidol 755 Mg/ML 100 ML Bottle ONE (11:32)
== END 2021-11-27 17:10 | disposition home or self-care (01) ==
LOC: LL.ED 08:35
DX: U07.1 COVID-19 (principal); I25.810 Atherosclerosis of coronary artery bypass graft(s) without angina pectoris; I11.0 Hypertensive heart disease with heart failure; I50.9 Heart failure, unspecified; E78.00 Pure hypercholesterolemia, unspecified; J44.9 Chronic obstructive pulmonary disease, unspecified; K21.9 Gastro-esophageal reflux disease without esophagitis; M19.90 Unspecified osteoarthritis, unspecified site; E11.42 Type 2 diabetes mellitus with diabetic polyneuropathy; N40.1 Benign prostatic hyperplasia with lower urinary tract symptoms; N39.498 Other specified urinary incontinence; Z88.8 Allergy status to other drugs, medicaments and biological substances; Z79.82 Long term (current) use of aspirin; Z79.899 Other long term (current) drug therapy
CPT/HCPCS: 0241U; 36415; 71045; 71275; 80053; 83605; 83880; 85025; 85379; 96374; 99284; 99284-25; A9270-GY; J1885; J7030; Q9967

== ENCOUNTER 2023-02-06 17:03 | Emergency (ER) | payer OTHER, MEDICARE ==
[2023-02-06] MEDS ORDERED: Sodium Chloride 0.9% 10 ML Syringe FLUSH PRN (17:55)
[2023-02-06] MEDS ORDERED: Lactated Ringers 1,000 ML IV ONE ×2 (17:55→19:02)
[2023-02-06] MEDS ORDERED: Acetaminophen 325 MG Tab PO ONE (18:00)
[2023-02-06 18:10] LABS: ANION GAP 19.3 meq/L (7-15); CHLORIDE,CL 101 mmol/L (98-107); ESTIMATED GFR 48 mL/min (>=60); SODIUM,NA 137 mmol/L (136-145)
[2023-02-06 18:41] LABS: CORONAVIRUS COVID-19 NAA NEGATIVE (NEGATIVE); RESPIRATORY SYNCYTIAL VIR NAA NEGATIVE (NEGATIVE)
[2023-02-06] MEDS ORDERED: Iopamidol 612 MG/ML 100 ML Bottle IVPUSH STA (18:53)
== END 2023-02-06 23:20 | disposition home or self-care (01) ==
LOC: LL.ED 17:03
DX: K52.9 Noninfective gastroenteritis and colitis, unspecified (principal); N17.9 Acute kidney failure, unspecified; E87.20 Acidosis, unspecified; I25.10 Atherosclerotic heart disease of native coronary artery without angina pectoris; R82.4 Acetonuria; I11.0 Hypertensive heart disease with heart failure; I50.9 Heart failure, unspecified; I25.2 Old myocardial infarction; J44.9 Chronic obstructive pulmonary disease, unspecified; K21.9 Gastro-esophageal reflux disease without esophagitis; Z88.8 Allergy status to other drugs, medicaments and biological substances; Z79.899 Other long term (current) drug therapy; Z87.891 Personal history of nicotine dependence; Z20.822 Contact with and (suspected) exposure to COVID-19
CPT/HCPCS: 0241U; 36415; 74177; 80053; 81001; 83605; 83690; 85025; 86140; 96360; 96361; 99284; 99285-25; A9270-GY; J7120; Q9967

== ENCOUNTER 2025-02-17 17:06 | Emergency (ER) | payer OTHER ==
[2025-02-17] MEDS ORDERED: Sodium Chloride 0.9% 10 ML Syringe FLUSH PRN (17:21)
[2025-02-17 17:33] LABS: BASOPHILS ABSOLUTE AUTO 0.04 K/uL (0.00-0.20); BASOPHILS PERCENT AUTO 0.4 % (0.0-2.0); HEMATOCRIT 37.1 % (39.0-49.0); HEMOGLOBIN 12.9 g/dL (13.1-16.8); IMMATURE GRAN ABSOLUTE AUTO 0.01 10^3/uL (0.00-0.04); IMMATURE GRAN PERCENT AUTO 0.1 % (0.0-0.4); LYMPHOCYTES ABSOLUTE AUTO 1.25 K/uL (0.50-3.50); MEAN CORPUSCULAR HEMOGLOBIN 32.4 pg (28.2-33.3); MEAN CORPUSCULAR HGB CONC 34.8 g/dL (31.7-36.0); MEAN CORPUSCULAR VOLUME 93.2 fL (84.0-98.0); MONOCYTES ABSOLUTE AUTO 0.79 K/uL (0.00-1.00); MONOCYTES PERCENT AUTO 7.6 % (2.0-14.0); NEUTROPHILS ABSOLUTE AUTO 8.19 K/uL (1.40-7.00); NEUTROPHILS PERCENT AUTO 78.9 % (45.0-80.0); PLATELET COUNT,PLT 165 K/uL (150-350); RED BLOOD CELL COUNT 3.98 M/uL (4.33-5.41); RED CELL DISTRIBUTION WIDTH 13.3 % (11.2-14.1); WHITE BLOOD CELL COUNT,WBC 10.4 K/uL (4.0-10.2)
[2025-02-17 17:56] LABS: ALBUMIN 3.6 g/dL (3.4-5.0); BILIRUBIN TOTAL 0.8 mg/dL (0.2-1.0); CALCIUM 8.9 mg/dL (8.5-10.1); CREATININE 1.52 mg/dL (0.51-1.17); EST CRCL DRUG DOSING (CG) 40.47 mL/min; MAGNESIUM 3.1 mg/dL (1.8-2.4); POTASSIUM,K 5.3 mmol/L (3.5-5.1); PROTEIN TOTAL,TP 7.3 g/dL (6.4-8.2)
[2025-02-17 17:57] LABS: ANION GAP 16.3 meq/L (7-15)
[2025-02-17 18:09] LABS: INR 1.1 (0.9-1.1)
[2025-02-17] MEDS: Sodium Chloride 0.9% 1,000 ML IV SCH (18:09)
[2025-02-17] MEDS: traMADol 50 MG Tab PO ONE (19:14)
[2025-02-17 20:05] VITALS: BP 130/70; PULSE 89
[2025-02-17] MEDS: Iopamidol 755 Mg/ML 100 ML Bottle IVPUSH ONE ×2 (20:08→20:09)
[2025-02-17 20:55] LABS: APPEARANCE,URINE CLEAR; BILIRUBIN,URINE NEGATIVE (NEGATIVE); COLOR,URINE YELLOW; GLUCOSE,URINE NEGATIVE (NEGATIVE); KETONES,URINE NEGATIVE (NEGATIVE); LEUKOCYTE ESTERASE,URINE NEGATIVE (NEGATIVE); NITRITE,URINE NEGATIVE (NEGATIVE); OCCULT BLOOD,URINE NEGATIVE (NEGATIVE); PH,URINE 6.5 (5.0-9.0); PROTEIN,URINE 30 mg/dL (NEGATIVE); UROBILINOGEN,URINE 0.2 E.U./dL (0.2-1.0)
[2025-02-17 20:59] LABS: HYALINE CASTS,URINE FEW; RBC,URINE 0-5 /HPF; WBC,URINE 0-5 /HPF
[2025-02-17] MEDS: Take Home: oxyCODONE HCl 5 MG Tab, 5 Tab Pack PO ONE (21:19)
== END 2025-02-17 21:25 | disposition home or self-care (01) ==
LOC: SUPCPDRO 17:06 → LL.ED 17:06
DX: R53.1 Weakness (principal); Q67.0 Congenital facial asymmetry; I25.10 Atherosclerotic heart disease of native coronary artery without angina pectoris; I11.0 Hypertensive heart disease with heart failure; I50.9 Heart failure, unspecified; I25.2 Old myocardial infarction; E78.00 Pure hypercholesterolemia, unspecified; J44.9 Chronic obstructive pulmonary disease, unspecified; Z88.8 Allergy status to other drugs, medicaments and biological substances; Z79.51 Long term (current) use of inhaled steroids; Z79.01 Long term (current) use of anticoagulants; Z79.82 Long term (current) use of aspirin; Z79.899 Other long term (current) drug therapy; M19.90 Unspecified osteoarthritis, unspecified site; E11.9 Type 2 diabetes mellitus without complications; Z87.891 Personal history of nicotine dependence
CPT/HCPCS: 36415; 70450; 70496; 70498; 71101-LT; 71275; 80053; 81001; 82947; 83605; 83735; 83880; 84484; 85025; 85379; 85610; 93005; 93010; 96360; 96361; 99284; 99285-25; A9270-GY; C1758; J7030; Q9967

== ENCOUNTER 2025-03-09 10:55 | Emergency (ER) | payer MEDICARE, OTHER ==
[2025-03-09] MEDS ORDERED: Sodium Chloride 0.9% 10 ML Syringe FLUSH PRN (11:14)
[2025-03-09 11:59] LABS: BASOPHILS ABSOLUTE AUTO 0.03 K/uL (0.00-0.20); BASOPHILS PERCENT AUTO 0.5 % (0.0-2.0); EOSINOPHILS ABSOLUTE AUTO 0.21 K/uL (0.00-0.50); EOSINOPHILS PERCENT AUTO 3.5 % (0.0-5.0); HEMATOCRIT 38.1 % (39.0-49.0); HEMOGLOBIN 13.2 g/dL (13.1-16.8); IMMATURE GRAN ABSOLUTE AUTO 0.01 10^3/uL (0.00-0.04); IMMATURE GRAN PERCENT AUTO 0.2 % (0.0-0.4); LYMPHOCYTES ABSOLUTE AUTO 1.28 K/uL (0.50-3.50); LYMPHOCYTES PERCENT AUTO 21.1 % (10.0-50.0); MEAN CORPUSCULAR HEMOGLOBIN 32.2 pg (28.2-33.3); MEAN CORPUSCULAR HGB CONC 34.6 g/dL (31.7-36.0); MEAN CORPUSCULAR VOLUME 92.9 fL (84.0-98.0); MONOCYTES ABSOLUTE AUTO 0.59 K/uL (0.00-1.00); MONOCYTES PERCENT AUTO 9.7 % (2.0-14.0); NEUTROPHILS ABSOLUTE AUTO 3.94 K/uL (1.40-7.00); PLATELET COUNT,PLT 205 K/uL (150-350); RED CELL DISTRIBUTION WIDTH 12.8 % (11.2-14.1); WHITE BLOOD CELL COUNT,WBC 6.1 K/uL (4.0-10.2)
[2025-03-09 12:26] LABS: ALBUMIN 3.6 g/dL (3.4-5.0); ANION GAP 11.4 meq/L (7-15); BILIRUBIN TOTAL 0.5 mg/dL (0.2-1.0); CALCIUM 8.5 mg/dL (8.5-10.1); CARBON DIOXIDE,CO2 21.6 mmol/L (21.0-32.0); CREATININE 1.37 mg/dL (0.51-1.17); EST CRCL DRUG DOSING (CG) 44.9 mL/min; MAGNESIUM 1.6 mg/dL (1.8-2.4); POTASSIUM,K 4.4 mmol/L (3.5-5.1); PROTEIN TOTAL,TP 7.2 g/dL (6.4-8.2)
[2025-03-09 12:28] LABS: PROTHROMBIN TIME 10.5 SEC (9.0-11.1)
[2025-03-09] MEDS: Ketorolac 30 MG/ML SDV IM ONE (13:14)
[2025-03-09] MEDS: Cyclobenzaprine 10 MG Tab PO ONE (13:42)
[2025-03-09 13:55] VITALS: BP 146/89; PULSE 71
== END 2025-03-09 13:52 ==
LOC: LL.ED 10:55
DX: M25.511 Pain in right shoulder (principal); M54.50 Low back pain, unspecified; R55 Syncope and collapse; I10 Essential (primary) hypertension; E78.00 Pure hypercholesterolemia, unspecified; J44.9 Chronic obstructive pulmonary disease, unspecified; E11.9 Type 2 diabetes mellitus without complications; Z88.8 Allergy status to other drugs, medicaments and biological substances
CPT/HCPCS: 36415; 71046; 72100; 73030-RT; 73130-LT; 80053; 83735; 83880; 84484; 85025; 85610; 93005; 93010; 96372; 99284; A9270-GY; J1885

== ENCOUNTER 2025-07-27 19:11 | Emergency (ER) | payer MEDICARE, OTHER ==
[2025-07-27 19:46] LABS: BASOPHILS ABSOLUTE AUTO 0.05 K/uL (0.00-0.20); BASOPHILS PERCENT AUTO 0.5 % (0.0-2.0); EOSINOPHILS ABSOLUTE AUTO 0.09 K/uL (0.00-0.50); EOSINOPHILS PERCENT AUTO 0.9 % (0.0-5.0); IMMATURE GRAN ABSOLUTE AUTO 0.02 10^3/uL (0.00-0.04); IMMATURE GRAN PERCENT AUTO 0.2 % (0.0-0.4); LYMPHOCYTES ABSOLUTE AUTO 1.36 K/uL (0.50-3.50); LYMPHOCYTES PERCENT AUTO 13.9 % (10.0-50.0); MONOCYTES ABSOLUTE AUTO 0.80 K/uL (0.00-1.00); MONOCYTES PERCENT AUTO 8.2 % (2.0-14.0); NEUTROPHILS ABSOLUTE AUTO 7.47 K/uL (1.40-7.00); NEUTROPHILS PERCENT AUTO 76.3 % (45.0-80.0); PLATELET COUNT,PLT 195 K/uL (150-350); RED BLOOD CELL COUNT 4.79 M/uL (4.33-5.41); RED CELL DISTRIBUTION WIDTH 13.1 % (11.2-14.1); WHITE BLOOD CELL COUNT,WBC 9.8 K/uL (4.0-10.2)
[2025-07-27] MEDS: Sodium Chloride 0.9% 10 ML Syringe FLUSH PRN (19:48)
[2025-07-27 20:11] LABS: LACTIC ACID 1.8 mmol/L (0.4-2.0)
[2025-07-27 20:19] LABS: ALANINE AMINOTRANSFERASE,ALT 29.0 U/L (12-78); ASPARTATE AMNIOTRANSFERASE,AST 24.0 U/L (15-37); BILIRUBIN TOTAL 1.4 mg/dL (0.2-1.0); BLOOD UREA NITROGEN,BUN 17.0 mg/dL (7-18); CARBON DIOXIDE,CO2 24.3 mmol/L (21.0-32.0); CHLORIDE,CL 103.0 mmol/L (98-107); CREATINE KINASE,CK 147.0 U/L (26-308); CREATININE 1.39 mg/dL (0.51-1.17); EST CRCL DRUG DOSING (CG) 43.59 mL/min; GLUCOSE RANDOM 102.0 mg/dL (70-99); POTASSIUM,K 4.5 mmol/L (3.5-5.1); PROTEIN TOTAL,TP 8.0 g/dL (6.4-8.2); SODIUM,NA 141.0 mmol/L (136-145)
[2025-07-27 20:20] LABS: ESTIMATED GFR 53.0 mL/min (>=60)
[2025-07-27 20:24] LABS: INR 1.1 (0.9-1.1); PTT,PARTIAL THROMBOPLSTIN TIME 28.8 SEC (23.8-34.4)
[2025-07-27] MEDS: Lactated Ringers 1,000 ML IV SCH ×2 (20:31→21:35)
[2025-07-27 21:21] LABS: APPEARANCE,URINE CLEAR; GLUCOSE,URINE NEGATIVE (NEGATIVE); OCCULT BLOOD,URINE TRACE-INTACT (NEGATIVE)
[2025-07-27] MEDS: Take Home: traMADol 50 MG, 4 Tab Pack PO ONE (22:29)
== END 2025-07-27 23:10 | disposition home or self-care (01) ==
LOC: LL.ED 19:11
DX: G62.9 Polyneuropathy, unspecified (principal); I11.0 Hypertensive heart disease with heart failure; I50.9 Heart failure, unspecified; I25.10 Atherosclerotic heart disease of native coronary artery without angina pectoris; K21.9 Gastro-esophageal reflux disease without esophagitis; E78.00 Pure hypercholesterolemia, unspecified; E11.9 Type 2 diabetes mellitus without complications; E86.0 Dehydration; Z88.8 Allergy status to other drugs, medicaments and biological substances; Z79.899 Other long term (current) drug therapy; Z79.82 Long term (current) use of aspirin; W18.30XA Fall on same level, unspecified, initial encounter
CPT/HCPCS: 36415; 70450; 71045; 72125; 73030-RT; 80053; 81001; 82550; 83605; 83735; 84484; 85025; 85610; 85730; 86140; 93005; 93010; 96361; 96374; 99284; 99285-25; A9270-GY; J1171; J7120